=== PATIENT | female | born 1970 | race Caucasian/White ===

== ENCOUNTER 2024-08-13 01:25 | Inpatient (IN) | payer MEDICARE, MEDICAID, SELFPAY ==
[2024-08-13] VITALS (27 sets, daily range): BP systolic 98–140; BP diastolic 57–80; PULSE 92–131; RESP 12–31; TEMP 35.8–39.2; O2SAT 88–97; BMI 33.6; BMI 26.5
--- NOTE | 2024-08-13 01:38 | EDNOTE_ITS ---
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 Upon EMS arrival, the patient was noted to have an oxygen saturation of 88% on room air and was subsequently placed on a non- rebreather mask. Due to the patient's baseline non-verbal status and mental status, a complete history of present illness (HPI) and review of systems (ROS) were unobtainable. Related Data Previous Rx's ?Medication ?Instructions ?Recorded sennosides 8.8 mg/5 mL oral syrup 10 ml PO BID PRN constipation #236 12/13/22 mL atorvastatin 10 mg tablet (Lipitor) 10 mg feeding tube HS 30 days #30 01/12/23 tabs balsam gia-castor oil topical 1 applic top BID ##0 01/13/23 ointment (Venelex topical ointment) lansoprazole 30 mg delayed 30 mg PO QDAY #30 tabs 01/13/23 release,disintegrating tablet (Prevacid SoluTab) midodrine 10 mg tablet 10 mg PO TID hypotension 1 month 12/03/23 #90 tabs cephalexin 500 mg capsule 500 mg feeding tube BID #10 caps 02/06/24 Allergies Allergy/AdvReac Type Severity Reaction Status Date / Time chloral hydrate Allergy Mild unknown Verified 11/08/22 15:02 Review of Systems Review of Systems ROS Unobtainable: unobtainable due to mental status Past Medical History Past Medical History NEUROLOGIC: Positive Neurological Disorders; Negative Seizures CARDIAC: Negative Cardiac Disorders, Hypercholesterolemia, Congestive Heart Failure or Hypertension RESPIRATORY: Positive Sleep Apnea; Negative Chronic Obstructive Pulmonary Disease (COPD) or Asthma GASTROINTESTINAL: Negative Gastrointestinal Disorders or Hepatitis GENITOURINARY: Positive Genitourinary Disorders; Negative Renal Disease, Kidney Stones, Polycystic Kidney Disease, Neurogenic Bladder, Inguinal Hernia, Dialysis or Benign Prostatic Hyperplasia MUSCULOSKELETAL: Positive Musculoskeletal Disorders and Scoliosis ENT: Positive Cataracts, Blind and Deafness ENDOCRINE: Positive Diabetes Mellitus Type 2; Negative Diabetes Mellitus Type 1 HEMATOLOGIC: Negative Blood Disorders or Sickle Cell Disease OTHER HISTORY: Positive Hospitalization, Developmental Delay, Falls and Rubella (Chinese Measles); Negative Autoimmune Disease, Blood Transfusions, Anesthesia Reactions, MRSA, VRSA, Vancomycin-Resistant Enterococci, Human Immunodeficiency Virus (HIV), Chicken Pox, Measles, Mumps, Pertussis, Clostridium Difficile or Cancer Family History FAMILY HISTORY: Positive Family Cardiac Disorders and Family Cancer; Negative Family Respiratory Disorders or Family Gastrointestinal Problems Surgical History SURGICAL: Positive Cardiac Surgery, Eye Surgery and Hysterectomy; Negative Endocrine Surgery, Abdominal Surgery, Nephrectomy or Neurologic Surgery Social History SMOKING STATUS: Unknown if ever smoked SUBSTANCE USE: does not use ED Exam Narrative Physical exam: GENERAL APPEARANCE: Bedbound, chronic contractures, responds to verbal and tactile stimulus, mild respiratory distress VITALS: All vitals were reviewed and the pulse ox is 92% on 15 L/min via oxy mask, which is hypoxic according to my interpretation. HEENT: Normocephalic, atraumatic; pupils equal, round, reactive to light; EOMI; mucous membranes pink, moist; oropharynx clear NECK: Supple LUNGS: bilateral rales HEART: tachycardic rate, regular rhythm; normal S1, S2; no murmurs ABDOMEN: non distended; normal BS; soft, no tenderness, no guarding EXTREMITIES: Chronic contractures; atraumatic; no edema NEUROLOGIC: awake SKIN: Increased warmth, pallor; no rashes General Limitations: Present other (developmentally delayed, non-verbal at baseline per records) Course Course Course Narrative: 0145 Sepsis alert initiated. Orders made at this time are congruent with ED Adult Sepsis Order List. Re-evaluation is to be completed. 0230 Sepsis reassessment performed consisting of lab review, vitals, physical exam including auscultation of heart, lungs, and visual evaluation of capillary refills, mucosal membranes and extremities. CXR is ordered for determining etiology of shortness of breath. Quality Measures Current suspected stage: sepsis Possible source: unknown Blood cultures ordered: yes Antibiotic ordered: Yes Pertinent labs: 08/13/24 08/13/24 02:16 02:19 Lactic Acid 1.6 mMol/L (0.4-2.0) Procalcitonin 0.68 H ng/ml (0.0-0.49) sepsis Orders Category Date Time Status Bedside COVID-19 Antigen Test NOW Care 08/13/24 03:41 Active Abrasive Grinder NOW Care 08/13/24 01:41 Active EKG (ED ONLY) *Do not use* NOW Care 08/13/24 01:41 Completed Mina [Urinary Catheter] QS Care 08/13/24 04:03 Active Insert IV NOW Care 08/13/24 02:16 Active Obtain weight NOW Care 08/13/24 04:03 Active EKG (ED Only) Stat Exams 08/13/24 01:41 Ordered XR chest 1V portable Stat Exams 08/13/24 01:41 Taken B-Type Natriuretic Peptide Stat Lab 08/13/24 02:16 Completed Blood Culture (Lab) Stat Lab 08/13/24 02:19 Received CBC Stat Lab 08/13/24 02:16 Completed Comprehensive Metabolic Panel Stat Lab 08/13/24 02:16 Completed Lactate (Lactic Acid) Stat Lab 08/13/24 02:19 Completed Lipase Stat Lab 08/13/24 02:16 Completed Magnesium Stat Lab 08/13/24 02:16 Completed Partial Thromboplastin Time Stat Lab 08/13/24 02:16 Completed Procalcitonin Stat Lab 08/13/24 02:16 Completed Prothrombin Time with INR Stat Lab 08/13/24 02:16 Completed Troponin I Stat Lab 08/13/24 02:16 Completed Urinalysis Stat Lab 08/13/24 02:07 Completed Urine Culture Stat Lab 08/13/24 02:07 Received Acetaminophen Supp [Tylenol Supp] Med 08/13/24 02:13 Discontinued 650 mg [place] X1 ONE Sodium Chloride 0.9% 1000 ml [Ns] 1,000 ml Med 08/13/24 01:42 Discontinued IV 999 mls/hr Sodium Chloride 0.9% 1000 ml [Ns] 1,000 ml Med 08/13/24 04:05 Discontinued IV 999 mls/hr Vital Signs Vital signs: Vital Signs Temperature 102.5 F H 08/13/24 01:45 Pulse Rate 131 H 08/13/24 01:45 Respiratory Rate 27 H 08/13/24 01:45 Blood Pressure 140/77 H 08/13/24 01:45 Pulse Oximetry (%) 91 L 08/13/24 01:45 Oxygen Delivery Method Oxy Mask 08/13/24 01:45 Oxygen Flow Rate 15 08/13/24 01:45 Shortness of Breath / Dyspnea MDM Narrative MDM Narrative:: Urine culture 02/05/2024 Pseudomonas aeruginosa sensitive to Zosyn 54-year-old female sent over from [facility] for shortness of breath. Patient meets septic criteria. F 102.5, HR 131 bpm, WBC 17.8. Appropriate labs ordered. 0304 Discussed with hospitalist who accepts patient for admission. Scribe Attestation: I, Nae Mccullough, am scribing for and in the presence of Dr. Gonzalez. Provider Notation: Although this document has been carefully reviewed, there may still be some phonetic and other typographical errors. These errors are purely grammatical due to imperfections in the software program and should not be construed in any way to compromise the substance of the patient's medical care during this visit. Patient data External records reviewed:: [facility] previous records, EMS form and Longterm records Clinical information provided by:: EMS and none ([facility]) Social determinants that could affect healthcare access:: none Patient has the following chronic illnesses:: See PMH How is presenting disease/condition affected by chronic disease/condition?: uneffected by Evaluation data The following diagnostics were reviewed and interpreted by me:: lab results, radiology exam(s) and EKG tracing(s) Lab and/or radiology exams considered but not ordered:: None Interpretation Summary: I personally reviewed the radiology data and agree with the radiologist's interpretation. Medications / Prescriptions Medications or Prescriptions considered but not ordered:: None Medication administrations:: Medication Administration History Dextrose (Dextrose 50%-Water Inj 50 Ml Syringe) 25 ml IV Q15MIN PRN PRN Reason: BG 50-70 responsive npo pt Stop: 09/12/24 04:13 Dextrose (Dextrose 50%-Water Inj 50 Ml Syringe) 50 ml IV Q15MIN PRN PRN Reason: BG <50 OR BG <70 & pt unresponsive Stop: 09/12/24 04:13 Enoxaparin Sodium (Enoxaparin Sod Inj 40 Mg/0.4 Ml Syringe) 40 mg SC QDAY [facility] Stop: 08/27/24 08:59 Glucagon (Glucagon Inj 1 Mg Vial) 1 mg IM Q15MIN PRN PRN Reason: BG <70, and no IV access Cefepime HCl 2 gm/ Sodium (Chloride) 50 mls @ 100 mls/hr IV Q8HR [facility] Stop: 08/20/24 13:59 Sodium Chloride (Ns) 1,000 mls @ 75 mls/hr IV .[id number] [facility] Metronidazole (Flagyl 500 Mg Iv) 500 mg in 100 mls @ 200 mls/hr IV Q8HR [facility] Stop: 08/20/24 04:20 Insulin Glargine (Insulin Glargine (Lantus) 5 Unit/0.05 Ml (Per 5 Units)) 10 unit SC HS [facility] Stop: 09/12/24 20:59 Insulin Human Lispro (Insulin Lispro (Admelog) 1 Unit/0.01 Ml Unit) 0 unit SC Q6HR [facility]; Protocol Stop: 09/12/24 05:59 Ipratropium [place] (Ipratropium Rt 0.5 Mg/ 2.5 Ml Nebu) 0.5 mg INH Q6HRRT [facility] Stop: 09/12/24 06:59 Levalbuterol HCl (Levalbuterol Rt 0.63 Mg/3 Ml Nebu) 0.63 mg INH Q6HRRT [facility] Stop: 09/12/24 06:59 Ondansetron HCl (Ondansetron Inj 2 Mg/Ml Inj 2 Ml) 4 mg IV Q6H PRN; Protocol PRN Reason: NAUSEA OR VOMITING Stop: 09/12/24 04:06 Pantoprazole Sodium (Pantoprazole Inj 40 Mg Vial) 40 mg IVP QDAY [facility] Stop: 09/12/24 08:59 Pharmacy Consult (Vancomycin Pharmacy To Dose 1 Each Each) 1 each IV QDAY [facility] Stop: 09/12/24 04:14 Discontinued Medications Acetaminophen (Acetaminophen Supp 650 Mg Supp) 650 mg [place] X1 ONE Stop: 08/13/24 02:14 Last Admin: 08/13/24 02:23 Dose: 650 mg Documented By: LB Sodium Chloride (Ns) 1,000 mls @ 999 mls/hr IV .Q1H1M ONE Stop: 08/13/24 02:42 Last Infusion: 08/13/24 03:20 Dose: Infused Documented By: Admin: 08/13/24 02:15 Dose: 999 mls/hr Documented By: EVEILA Sodium Chloride (Ns) 1,000 mls @ 999 mls/hr IV .Q1H1M ONE Stop: 08/13/24 05:05 Last Admin: 08/13/24 04:48 Dose: 999 mls/hr Documented By: EVELIA Cefepime HCl 2 gm/ Sodium (Chloride) 50 mls @ 100 mls/hr IV X1 ONE Stop: 08/13/24 04:44 Sodium Chloride (Sodium Chloride Rt 10% 15 Ml Nebu) 5 ml INH X1 ONE Stop: 08/13/24 04:18 As above Consultations Consultation(s) initiated? (list below): Yes Consultation #1 (Physician, Specialty, Details): Hospitalist made aware of the patient?s HPI, PMHx, lab and/or radiology results. Treatment plan was discussed. Accepts patient for admission. Diagnosis Shortness of Breath Differential Diagnosis: other (fever, viral infection, sepsis, hypoxia, respiratory failure) Most likely diagnosis given after review of the tests above:: See clinical impression below Admission Indicated Admission indicated?: indicated Admission Request Was there a request for admission?: Yes Admission Attestation Admission request attestation: Discussed case with [] from Hospitalist service regarding admission. Discussed patients ED course, exam findings, labs, and radiology results. The Hospitalist [agrees,declines] to accept the patient for admission. Disposition Plan Disposition Plan: Admit Critical Care Time Critical Care Time Critical Care Time: Yes Total Critical Care Time (min.): 45 Attestation: The high probability of sudden, clinically significant deterioration in the patient?s condition required the highest level of my preparedness to intervene urgently. ? The services I provided to this patient were to treat and/or prevent clinically significant deterioration. Services included the following: chart data review, reviewing nursing notes and/or old charts, documentation time, application consultant collaboration regarding findings and treatment options, medication orders and management, direct patient care, vital sign assessments and ordering, interpreting and reviewing diagnostic studies and lab tests. ? Aggregate critical care time includes only time during which I was engaged in work directly related to the patient?s care, as described above, whether at bedside or elsewhere in the Emergency Department. It did not include time spent performing other reported procedures or the services of residents, students, nurses or physician assistants. Discharge Plan Plan Patient Disposition: Admit Acute Care w/in Hospital Disposition Comment: Dr. Lerma, [facility] Problem List Clinical Impression: Sepsis, UTI (urinary tract infection), Pneumonia
--- NOTE | 2024-08-13 01:41 | XR_ITS ---
Examination: AP chest single view Technique one AP portable upright chest single view Exam date and time: August 13, 2024 0152 hrs. Comparison February 05, 2024 Indications: Chest pain shortness of breath today. Findings: Significant right base pneumonia Moderate heart failure with enlargement cardiac contour prominent vascular congestion and perihilar edema Stable small pulmonary nodule left upper lobe Impression: Significant right base pneumonia Moderate heart failure
--- NOTE | 2024-08-13 01:44 | PC.NURSE ---
sepsis alert initiated
--- NOTE | 2024-08-13 01:48 | PC.NURSE ---
Pt seen by Dr. Gonzalez, orders received.
[2024-08-13] MEDS: SODIUM CHLORIDE 0.9% 1000 ML 1,000 ML 999 ML IV ×2 (02:15→04:48)
[2024-08-13] MEDS: ACETAMINOPHEN SUPP 650 MG SUPP PR (02:23)
[2024-08-13 02:24] LABS: Collection Type, Urine Clean Catch; RBC,Urine 0 /hpf (0-3); Squamous Epithelial Cell,Urine 0 /hpf (0-5); WBC,Urine 0 /hpf (0-5)
[2024-08-13 02:25] LABS: Lactate (Lactic Acid) 1.6 mMol/L (0.4-2.0)
[2024-08-13 02:32] LABS: Basophils % (Auto) 0 % (0-2.5); Eosinophils % (Auto) 0 % (0-10); Hematocrit 43.9 % (36.0-46.0); Hemoglobin 14.5 g/dL (12.0-16.0); Immature Granulocytes % (Auto) 0 % (0-0); Immature Granulocytes Auto 0.05 Thou/mm3 (0.00-0.00); Lymphocytes # (Auto) 0.5 Thou/mm3 (1.0-4.8); Lymphocytes % (Auto) 3 % (10-50); Mean Corpuscular Hemoglobin 29.1 pg (25.0-35.0); Mean Corpuscular Volume 88 fL (80-100); Monocytes # (Auto) 0.7 Thou/mm3 (0.0-0.8); Monocytes % (Auto) 4 % (0-12); Neutrophils # (Auto) 16.5 Thou/mm3 (1.8-7.7); Neutrophils % (Auto) 93 % (37-80); Nucleated Red Blood Cell % 0 /100 WBC (0); Platelet Count 251 Thou/mm3 (140-440); RDW Standard Deviation 48.1 fL (36.4-46.3); Red Blood Count 4.99 Miln/mm3 (4.00-5.20); White Blood Count 17.8 Thou/mm3 (3.6-11.0)
[2024-08-13 02:47] LABS: Partial Thromboplastin Time 31.3 Seconds (22.0-36.0); Prothrombin Time 11.4 Seconds (9.0-12.2)
[2024-08-13 03:52] LABS: Bilirubin,Urine Negative (Negative); Blood,Urine 3+ (Negative); Color,Urine Orange (Lt Yel-Yel); Glucose, Urine Negative (Negative); Ketones,Urine Trace (Negative); Leukocyte Esterase,Urine Positive (Negative); Nitrite,Urine Negative (Negative); PH,Urine 7.5 (5.0-7.0); Protein,Urine 3+ (Neg - Trace); Specific Gravity,Urine 1.012 (1.001-1.035)
[2024-08-13 04:00] LABS: B-Type Natriuretic Peptide 506 pg/mL (0-100)
[2024-08-13 04:01] LABS: Alanine Aminotransferase 12 U/L (10-49); Albumin, Serum 4.3 gm/dL (3.5-5.0); Albumin/Globulin Ratio 1.3 (1.2-2.2); Alkaline Phosphatase 114 U/L (46-116); Anion Gap 6 (7-16); Aspartate Amino Transferase 19 U/L (0-34); BUN/Creatinine Ratio 63 Ratio (12-20); Bilirubin,Total 0.6 mg/dL (0.3-1.2); Blood Urea Nitrogen 50 mg/dL (9-23); Carbon Dioxide 37.6 mMol/L (20.0-31.0); Chloride 90 mMol/L (98-107); Creatinine (Component) 0.8 mg/dL (0.6-1.3); Globulin 3.4 gm/dL (2.3-3.5); Glucose 214 mg/dL (74-106); Lipase 26 U/L (12-53); Magnesium 2.2 mg/dL (1.6-2.6); Osmolality,Calculated 287 (275-295); Potassium 3.8 mMol/L (3.4-5.1); Procalcitonin 0.68 ng/ml (0.0-0.49); Sodium 134 mMol/L (136-145); Total Protein 7.7 gm/dL (5.7-8.2); eGFR > 60 See Note
[2024-08-13 04:04] LABS: Troponin I 0.185 ng/mL (0.0-0.045)
--- NOTE | 2024-08-13 04:11 | XR_ITS ---
Examination: CTA chest with intravenous contrast 2-D reconstructions 3-D reconstructions, vascular Date and time of exam: August 13, 2024 0813 hrs. Indications: Hypoxia, chest pain shortness of breath today CTDI: vol (mGy) 30.8 DLP: (mGycm) 478 Technique: Multiple axial sections of the thorax have been obtained. 3 mm slice thickness, from below the hemidiaphragms to above the apices of the lungs. Mediastinal and lung density settings have been obtained. 2-D sagittal and coronal reconstructions. 3-D angiographic renderings, 3-D volume renderings, 3D post processing, vascular maximum intensity projections obtained. Contrast administered is 100 cc Isovue-370 intravenous. Low dose protocols were performed. One or more of the following dose reduction techniques were used; automated exposure control, adjustment of the mA and/or KV according to patient size, use of iterative reconstruction technique. Findings: No thoracic aortic aneurysm dilatation Main pulmonary artery segment 28 mm No pulmonary artery emboli Severe diffuse pneumonia right lung Mild left vascular congestion Compression of the main right stem bronchus No visualized liver or splenic lesion Tiny 1 mm gallstone No pancreatic mass Kidneys partially visualized with wall thickening involving the pelvic calyceal systems consider urinary tract infection Severe thoracic levoscoliosis Impression: Negative for pulmonary artery emboli, negative for pulmonary artery hypertension Severe diffuse right lung pneumonia, consider bronchoscopy Cholelithiasis Suspicious for urinary tract infection
[2024-08-13 04:18] LABS: Clarity,Urine Turbid (Clear/Hazy)
--- NOTE | 2024-08-13 04:19 | ESHP_ITS ---
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 History is unobtainable from the patient, she is nonverbal. She has a history of previous ICU admission for septic shock secondary to pneumonia/UTI in November 2023. Noted in the chart from [facility] there is a POLST form signed 12/04/2023 for DNR, Comfort-Focused Treatment. Contacted patient's surrogate decision makers, Kayleen and Shen Wise, mother and father who would like patient to be treated for pneumonia. Patient additionally admitted as full code, per parents, however they will discuss among themselves further once they reach the hospital. ED Course: -Initial vitals were BP 140/77, HR 131, RR 27, Temp 102.5, O2 91% on 15L OxyMask -Labs significant for WBC 17.8, Na 134, Cl 90, CO2 37.6, BUN 50, troponin 0.185, BNP 506, procal 0.68, lactic acid 1.6. -CXR showed significant bilateral infiltrate and pulmonary congestion -In the ED, patient was given 1L IV NS bolus, acetaminophen 650 mg [place] x1 -Patient was admitted for sepsis secondary to pneumonia Review of Systems Review of systems otherwise negative except what is mentioned above. 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 Some localization to tactile stimulus. HEENT: Bilateral cataracts, eyelids closed, dried mucous around eyes and mouth. Heart: Tachycardic rate and regular rhythm, no murmurs. Lungs: Diffuse bilateral wet rhonchi. Abdomen: Soft, nondistended, nontender, positive bowel sounds. ?PEG tube in place without discharge or purulent material. Neurologic: Moves upper extremities to pain, nonverbal at baseline : Mina bag (new since ED admission 08/13/2024) with purulent clots and dark sediment throughout Extremities: Mild peripheral dependent edema. Skin: No rash or ecchymoses. Results: Labs 08/13/24 05:33 08/13/24 05:33 Labs: Short CBC 08/13/24 Range/Units 02:16 WBC 17.8 H (3.6-11.0) Thou/mm3 Hgb 14.5 (12.0-16.0) g/dL Hct 43.9 (36.0-46.0) % Plt Count 251 (140-440) Thou/mm3 BMP 08/13/24 02:16 Sodium 134 L Potassium 3.8 Chloride 90 L Carbon Dioxide 37.6 H BUN 50 H Creatinine 0.8 Glucose 214 H Calcium 10.0 Cardiac Enzymes 08/13/24 Range/Units 02:16 Troponin I 0.185 H* (0.0-0.045) ng/mL Liver Function 08/13/24 Range/Units 02:16 Total Bilirubin 0.6 (0.3-1.2) mg/dL AST 19 (0-34) U/L ALT 12 (10-49) U/L Alkaline Phosphatase 114 (46-116) U/L Albumin 4.3 (3.5-5.0) gm/dL Urine 08/13/24 Range/Units 02:07 Urine Color [place] A (Lt Yel-Yel) Urine Clarity Turbid A (Clear/Hazy) Urine pH 7.5 H (5.0-7.0) Ur Specific [place] 1.012 (1.001-1.035) Urine Protein 3+ A (Neg - Trace) Urine Glucose (UA) Negative (Negative) Quality Measures Quality Measures sepsis Current suspected stage: sepsis Possible source: unknown Blood cultures ordered: yes Antibiotic ordered: Yes Medications Home Medications and Allergies Allergies Allergy/AdvReac Type Severity Reaction Status Date / Time chloral hydrate Allergy Mild unknown Verified 11/08/22 15:02 Visit Medications Dextrose (Dextrose 50%-Water Inj 50 Ml Syringe) 25 ml IV Q15MIN PRN PRN Reason: BG 50-70 responsive npo pt Stop: 09/12/24 04:13 Dextrose (Dextrose 50%-Water Inj 50 Ml Syringe) 50 ml IV Q15MIN PRN PRN Reason: BG <50 OR BG <70 & pt unresponsive Stop: 09/12/24 04:13 Enoxaparin Sodium (Enoxaparin Sod Inj 40 Mg/0.4 Ml Syringe) 40 mg SC QDAY [facility] Stop: 08/27/24 08:59 Glucagon (Glucagon Inj 1 Mg Vial) 1 mg IM Q15MIN PRN PRN Reason: BG <70, and no IV access Sodium Chloride (Ns) 1,000 mls @ 999 mls/hr IV .Q1H1M ONE Stop: 08/13/24 05:05 Cefepime HCl 2 gm/ Sodium (Chloride) 50 mls @ 100 mls/hr IV Q8HR [facility] Stop: 08/20/24 13:59 Cefepime HCl 2 gm/ Sodium (Chloride) 50 mls @ 100 mls/hr IV X1 ONE Stop: 08/13/24 04:44 Sodium Chloride (Ns) 1,000 mls @ 75 mls/hr IV .[id number] [facility] Stop: 08/13/24 17:34 Insulin Glargine (Insulin Glargine (Lantus) 5 Unit/0.05 Ml (Per 5 Units)) 10 unit SC HS [facility] Stop: 09/12/24 20:59 Insulin Human Lispro (Insulin Lispro (Admelog) 1 Unit/0.01 Ml Unit) 0 unit SC Q6HR [facility]; Protocol Stop: 09/12/24 05:59 Ipratropium [place] (Ipratropium Rt 0.5 Mg/ 2.5 Ml Nebu) mg INH Q6HRRT [facility] Stop: 09/12/24 06:59 Levalbuterol HCl (Levalbuterol Rt 0.63 Mg/3 Ml Nebu) 0.63 mg INH Q6HRRT [facility] Stop: 09/12/24 06:59 Ondansetron HCl (Ondansetron Inj 2 Mg/Ml Inj 2 Ml) 4 mg IV Q6H PRN; Protocol PRN Reason: NAUSEA OR VOMITING Stop: 09/12/24 04:06 Pantoprazole Sodium (Pantoprazole Inj 40 Mg Vial) 40 mg IVP QDAY [facility] Stop: 09/12/24 08:59 Pharmacy Consult (Vancomycin Pharmacy To Dose 1 Each Each) 1 each IV QDAY [facility] Stop: 09/12/24 04:14 Discontinued Medications Acetaminophen (Acetaminophen Supp 650 Mg Supp) 650 mg [place] X1 ONE Stop: 08/13/24 02:14 Last Admin: 08/13/24 02:23 Dose: 650 mg Sodium Chloride (Ns) 1,000 mls @ 999 mls/hr IV .Q1H1M ONE Stop: 08/13/24 02:42 Last Infusion: 08/13/24 03:20 Dose: Infused Sodium Chloride (Sodium Chloride Rt 10% 15 Ml Nebu) 5 ml INH X1 ONE Stop: 08/13/24 04:18 Assessment & Plan Plan 54-year-old female with past medical history of developmental delay, type 2 diabetes, chronically bedbound with indwelling mina, recurrent UTIs, chronic PEG tube, deaf, blind, and 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 #Sepsis, secondary to Healthcare associated pneumonia and/or UTI in setting of chronic indwelling Mina catheter which is visibly expressing purulent material at time of admission Patient met 4/4 SIRS criteria and source being pneumonia as seen on CXR, comes from SNF. UA sample does not show bacteria or WBCs however urine in the Mina bag was showing purulent clots and dark sediments and patient has history of recurrent UTIs due to indwelling Mina catheter. Mina was changed in ED, 08/13/2024. COVID, flu negative. -Will cover with broad spectrum antibiotics -Cefepime 2 g q8h -Metronidazole 500 mg q8h -Vancomycin pharmacy to dose -RSV ordered -Cocci ordered -Ipratropium and levalbuterol scheduled q6h -Sputum cultures -Blood cultures pending -Urine culture pending -MRSA screen -Chest physiotherapy -CTA chest pending -Fluids initially given per sepsis protocol however stopped, Lasix 40 mg IV x 1 dose given considering likely fluid overload increasing O2 requirements -Follow up ABGs #Elevated troponin #Likely NSTEMI type 2 in setting of sepsis Troponin 0.185 -Trend troponin, scheduled for 10 AM #History of type 2 diabetes On admission initial glucose 214. A1c 7.7 in November 2023. Patient is on insulin glargine 15 U qday per SNF. -Bedside blood glucose checks q6h -Insulin glargine 10 U qday -Insulin lispro sliding scale, adjusted as necessary -Consulted landmen for tube feeding -A1c pending DVT prophylaxis: Lovenox 40 mg subQ GI prophylaxis: Pantoprazole 40 mg IV daily Diet: NPO Mina: Placed new in ED 08/13/2024 Lines: Peripheral IV Antibiotics: Cefepime, metronidazole, vancomycin CODE STATUS: FULL per the patient's parents early this morning Reason for hospitalization: Sepsis secondary to bilateral pneumonia Patient plan of care was discussed with the attending physician, Dr. Lerma. Cee Mcnulty, PGY-2 Attending Provider Attestation/Addendum I have discussed and was present for the essential components of the history, physical examination, diagnosis, and treatment plan with the resident. I agree with the patient's care as documented by the resident and amended herein by me. Brayden Lerma DO. Although this document has been carefully reviewed, there may still be some phonetic and other typographical errors. These errors are purely grammatical due to imperfections in the software program and should not be construed in any way to compromise the substance of the patient's medical care during this visit.
[2024-08-13 04:38] LABS: Base Excess 9 (-3-3); HCO3 39 mEq/L (20-26); Inspired Oxygen, FIO2 100 %; O2 Saturation 87 % (91-98); PCO2 85 mmHg (32.0-48.0); PO2 62 mmHg (83-108); pH, Arterial 7.27 (7.35-7.45)
[2024-08-13 04:41] LABS: Allen Test Performed/OK; Puncture Site Right Radial
[2024-08-13] MEDS: metroNIDAZOLE/NS 500 MG IVPB 500 MG/100 ML BAG 200 MG IV ×3 (05:01→21:09)
--- NOTE | 2024-08-13 05:06 | PC.NURSE ---
Pt having difficulty breathing and unable to maintain O2 sats HBS RT at bedside, setting up BIPAP.
[2024-08-13 05:17] LABS: Respiratory Syncytial Virus Ag Negative (Negative)
--- NOTE | 2024-08-13 05:20 | PC.NURSE ---
HBS at bedside, pt placed on BIPAP 22/10, BR 28, FIO2 100%
[2024-08-13] MEDS: FUROSEMIDE INJ 10 MG/ML 4ML VIAL 40 MG IVP (05:21)
[2024-08-13] MEDS: CEFEPIME INJ 2 GM in SODIUM CHLORIDE 0.9% 50 ML IV ×2 (05:21→21:37)
--- NOTE | 2024-08-13 05:25 | PD.RESEVENT ---
Documentation for date of: 08/13/24 Event Note Event Note: @05:00 am: Called and spoke with Cristo Wise , parents and surrogate decision makers for the patient. In the patient's chart from [facility] there is a POLST form which is signed 12/04/2023 as DNR/Comfort-Focused Treatment only. Discussed current status of the patient including sepsis and critically ill state. They requested full admission and treatment of sepsis and pneumonia at this time. As the patient was desaturating on 15L OxyMask, maxed on HiFlow settings, and now transitioned to BiPAP, Code Status was again discussed, and at this time they would like to change code status from DNR to FULL CODE including possible intubation should it become necessary until they arrive to see the patient later this morning and come to a decision. Patient plan of care was discussed with the attending physician, Dr. Lerma. Cee Mcnulty, PGY-2
[2024-08-13 05:38] LABS: Base Excess 5 (-3-3); HCO3 35 mEq/L (20-26); Inspired Oxygen, FIO2 100 %; O2 Saturation 97 % (91-98); PCO2 80 mmHg (32.0-48.0); PO2 104 mmHg (83-108); pH, Arterial 7.26 (7.35-7.45)
[2024-08-13 05:40] LABS: Allen Test Performed/OK; Puncture Site Right Radial
[2024-08-13] MEDS: IPRATROPIUM RT 0.5 MG/ 2.5 ML NEBU INH ×3 (05:50→18:17)
[2024-08-13] MEDS: LEVALBUTEROL RT 0.63 MG/3 ML NEBU INH ×3 (05:50→18:17)
[2024-08-13 05:54] LABS: Basophils % (Auto) 0 % (0-2.5); Eosinophils % (Auto) 0 % (0-10); Hematocrit 41.4 % (36.0-46.0); Hemoglobin 13.2 g/dL (12.0-16.0); Immature Granulocytes % (Auto) 0 % (0-0); Lymphocytes # (Auto) 0.3 Thou/mm3 (1.0-4.8); Lymphocytes % (Auto) 7 % (10-50); Mean Corpuscular HGB Conc 31.9 g/dl (31.0-37.0); Mean Corpuscular Hemoglobin 28.9 pg (25.0-35.0); Mean Corpuscular Volume 91 fL (80-100); Monocytes # (Auto) 0.3 Thou/mm3 (0.0-0.8); Monocytes % (Auto) 6 % (0-12); Neutrophils # (Auto) 4.6 Thou/mm3 (1.8-7.7); Neutrophils % (Auto) 88 % (37-80); Nucleated Red Blood Cell % 0 /100 WBC (0); Platelet Count 182 Thou/mm3 (140-440); RDW Standard Deviation 49.3 fL (36.4-46.3); Red Blood Count 4.56 Miln/mm3 (4.00-5.20); White Blood Count 5.3 Thou/mm3 (3.6-11.0)
--- NOTE | 2024-08-13 06:01 | PC.LAC ---
Pt tolerating BIPAP well, maintaining O2 sats at 94%.
[2024-08-13] MEDS: VANCOMYCIN/NS 1 GM IVPB 200 ML IV ×2 (06:08→22:08)
[2024-08-13 06:52] LABS: Anion Gap 7 (7-16); BUN/Creatinine Ratio 55 Ratio (12-20); Blood Urea Nitrogen 33 mg/dL (9-23); Calcium 8.5 mg/dL (8.3-10.6); Carbon Dioxide 28.9 mMol/L (20.0-31.0); Chloride 100 mMol/L (98-107); Creatinine (Component) 0.6 mg/dL (0.6-1.3); Estimated Creatinine Clearance 83.3 mL/min (>60); Glucose 154 mg/dL (74-106); Osmolality,Calculated 282 (275-295); Potassium 4.2 mMol/L (3.4-5.1); Sodium 136 mMol/L (136-145); eGFR > 60 See Note
[2024-08-13 06:58] LABS: Glucose Estimated Average 100 mg/dL (80-131); Hemoglobin A1C 5.1 % Hgb (4.8-6.0)
--- NOTE | 2024-08-13 07:44 | PC.NURSE ---
Assuming care of patient. Patient's POLST states DNR comfort focused treatment only. MD notified and is aware of POLST and states that the night MD team contact family and family requested to have her be treated.
[2024-08-13 07:55] LABS: Base Excess 8 (-3-3); HCO3 37 mEq/L (20-26); Inspired Oxygen, FIO2 100 %; O2 Saturation 98 % (91-98); PCO2 74 mmHg (32.0-48.0); PO2 104 mmHg (83-108); pH, Arterial 7.31 (7.35-7.45)
[2024-08-13 07:56] LABS: Allen Test Performed/OK; Puncture Site Right Radial
[2024-08-13] MEDS: PANTOPRAZOLE INJ 40 MG VIAL IVP (10:34)
[2024-08-13] MEDS: ENOXAPARIN SOD INJ 40 MG/0.4 ML SYRINGE SC (10:34)
[2024-08-13 11:37] LABS: Troponin I 0.073 ng/mL (0.0-0.045)
[2024-08-13] MEDS: ONDANSETRON INJ 2 MG/ML INJ 2 ML 4 MG IV (12:02)
--- NOTE | 2024-08-13 13:06 | ESPR_ITS ---
Documentation for date of: 08/13/24 Subjective Subjective Interval history: Patient was seen at bedside this morning. No overnight events. Patient continues on BiPAP was saturating well on BiPAP. ABG came back and showed hypercapnia. No other complaints at this time. 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 Mouth/Throat: Dry mucous membranes, no redness, no lesions. Neck: Neck supple, non-tender, no cervical lymphadenopathy. Lungs: Bilateral rhonchi Cardio: Normal S1/S2, tachycardic rhythm, no murmurs, no JVD Abdomen: Soft, no palpable masses, peristalsis present, PEG tube in place with no visible discharge Extremities: Contracted lower extremities with some trace peripheral edema Skin: No rashes, no lesions, warm to touch. Neuro: Cannot be assessed due to patient's medical condition Objective Labs 08/14/24 05:29 08/14/24 05:29 Labs: Laboratory Results - last 24 hr 08/13/24 08/13/24 08/13/24 02:07 02:16 02:19 WBC 17.8 H RBC 4.99 Hgb 14.5 Hct 43.9 MCV 88 MCH 29.1 MCHC 33.0 RDW Std Deviation 48.1 H Plt Count 251 Neut % (Auto) 93 H Lymph % (Auto) 3 L [place] % (Auto) 4 Eos % (Auto) 0 Baso % (Auto) 0 Neut # (Auto) 16.5 H Lymph # (Auto) 0.5 L [place] # (Auto) 0.7 Eos # (Auto) 0.0 Baso # (Auto) 0.0 Immature Gran # (Auto) 0.05 H Absolute Nucleated RBC 0.00 Immature Gran % 0 Nucleated RBC % 0 PT 11.4 INR 1.0 APTT 31.3 Puncture Site ABG pH ABG pCO2 ABG pO2 ABG HCO3 ABG O2 Saturation ABG Base Excess FiO2 Sodium 134 L Potassium 3.8 Chloride 90 L Carbon Dioxide 37.6 H Anion Gap 6 L BUN 50 H Creatinine 0.8 Estim Creat Clear Calc Not Performed. eGFR > 60 BUN/Creatinine Ratio 63 H Glucose [address] Glu mg/dL Hemoglobin A1c Calculated Osmolality 287 Lactic Acid 1.6 Calcium 10.0 Corrected Calcium 10.0 Magnesium 2.2 Total Bilirubin 0.6 AST 19 ALT 12 Alkaline Phosphatase 114 Troponin I 0.185 H* B-Natriuretic Peptide 506 H* Total Protein 7.7 Albumin 4.3 Globulin 3.4 Albumin/Globulin Ratio 1.3 Lipase 26 Procalcitonin 0.68 H Ur Collection Type Clean Catch Urine Color Hortense A Urine Clarity Turbid A Urine pH 7.5 H Ur Specific [place] 1.012 Urine Protein 3+ A Urine Glucose (UA) Negative Urine Ketones Trace Urine Blood 3+ A Urine Nitrite Negative Urine Bilirubin Negative Urine Urobilinogen (Auto) 2.0 Ur Leukocyte Esterase Positive Urine RBC 0 Urine WBC 0 Ur Squamous Epith Cells 0 Urine Bacteria None RSV Rapid 08/13/24 08/13/24 08/13/24 04:22 04:29 05:33 WBC 5.3 D RBC 4.56 Hgb 13.2 Hct 41.4 MCV 91 MCH 28.9 MCHC 31.9 RDW Std Deviation 49.3 H Plt Count 182 D Neut % (Auto) 88 H Lymph % (Auto) 7 L [place] % (Auto) 6 Eos % (Auto) 0 Baso % (Auto) 0 Neut # (Auto) 4.6 Lymph # (Auto) 0.3 L [place] # (Auto) 0.3 Eos # (Auto) 0.0 Baso # (Auto) 0.0 Immature Gran # (Auto) 0.00 Absolute Nucleated RBC 0.00 Immature Gran % 0 Nucleated RBC % 0 PT INR APTT Puncture Site Right Radial Right Radial ABG pH 7.27 L 7.26 L ABG pCO2 85 H* 80 H* ABG pO2 62 L 104 D ABG HCO3 39 H 35 H ABG O2 Saturation 87 L 97 ABG Base Excess 9 H 5 H FiO2 100 100 Sodium 136 Potassium 4.2 Chloride 100 Carbon Dioxide 28.9 Anion Gap 7 BUN 33 H Creatinine 0.6 Estim Creat Clear Calc 83.3 eGFR > 60 BUN/Creatinine Ratio 55 H Glucose [address] Glu mg/dL 100 Hemoglobin A1c 5.1 Calculated Osmolality 282 Lactic Acid Calcium 8.5 D Corrected Calcium Magnesium Total Bilirubin AST ALT Alkaline Phosphatase Troponin I B-Natriuretic Peptide Total Protein Albumin Globulin Albumin/Globulin Ratio Lipase Procalcitonin Ur Collection Type Urine Color Urine Clarity Urine pH Ur Specific [place] Urine Protein Urine Glucose (UA) Urine Ketones Urine Blood Urine Nitrite Urine Bilirubin Urine Urobilinogen (Auto) Ur Leukocyte Esterase Urine RBC Urine WBC Ur Squamous Epith Cells Urine Bacteria RSV Rapid Negative 08/13/24 08/13/24 07:47 10:52 WBC RBC Hgb Hct MCV MCH MCHC RDW Std Deviation Plt Count Neut % (Auto) Lymph % (Auto) [place] % (Auto) Eos % (Auto) Baso % (Auto) Neut # (Auto) Lymph # (Auto) [place] # (Auto) Eos # (Auto) Baso # (Auto) Immature Gran # (Auto) Absolute Nucleated RBC Immature Gran % Nucleated RBC % PT INR APTT Puncture Site Right Radial ABG pH 7.31 L ABG pCO2 74 H* ABG pO2 104 ABG HCO3 37 H ABG O2 Saturation 98 ABG Base Excess 8 H FiO2 100 Sodium Potassium Chloride Carbon Dioxide Anion Gap BUN Creatinine Estim Creat Clear Calc eGFR BUN/Creatinine Ratio Glucose Estimated Ave Glu mg/dL Hemoglobin A1c Calculated Osmolality Lactic Acid Calcium Corrected Calcium Magnesium Total Bilirubin AST ALT Alkaline Phosphatase Troponin I 0.073 H* B-Natriuretic Peptide Total Protein Albumin Globulin Albumin/Globulin Ratio Lipase Procalcitonin Ur Collection Type Urine Color Urine Clarity Urine pH Ur Specific Lindsay Urine Protein Urine Glucose (UA) Urine Ketones Urine Blood Urine Nitrite Urine Bilirubin Urine Urobilinogen (Auto) Ur Leukocyte Esterase Urine RBC Urine WBC Ur Squamous Epith Cells Urine Bacteria RSV Rapid ABG Interpretation ABG results: 08/13/24 08/13/24 08/13/24 04:29 05:33 07:47 ABG pH 7.27 L 7.26 L 7.31 L ABG pCO2 85 H* 80 H* 74 H* ABG pO2 62 L 104 D 104 ABG HCO3 39 H 35 H 37 H ABG O2 Saturation 87 L 97 98 ABG Base Excess 9 H 5 H 8 H Quality Measures Quality Measures sepsis Current suspected stage: sepsis Possible source: unknown Blood cultures ordered: yes Antibiotic ordered: Yes Assessment & Plan Assessment Current Active Medications: Generic Name Dose Route Start Last Admin Trade Name Freq PRN Reason Stop Dose Admin Dextrose 25 ml 08/13/24 04:14 Dextrose 50%-Water Inj 50 Ml Syringe IV 09/12/24 04:13 Q15MIN PRN BG 50-70 responsive npo pt Dextrose 50 ml 08/13/24 04:14 Dextrose 50%-Water Inj 50 Ml Syringe IV 09/12/24 04:13 Q15MIN PRN BG <50 OR BG <70 & pt unresponsive Enoxaparin Sodium 40 mg 08/13/24 09:00 08/13/24 10:34 Enoxaparin Sod Inj 40 Mg/0.4 Ml Syringe SC 08/27/24 08:59 40 mg QDAY URBANO Administration Glucagon 1 mg 08/13/24 04:14 Glucagon Inj 1 Mg Vial IM Q15MIN PRN BG <70, and no IV access Cefepime HCl 2 gm/ Sodium 50 mls @ 100 mls/hr 08/13/24 14:00 Chloride IV 08/20/24 13:59 Q8HR URBANO Metronidazole 500 mg in 100 mls @ 200 mls/hr 08/13/24 04:21 08/13/24 06:41 Flagyl 500 Mg Iv IV 08/20/24 04:20 Infused Q8HR URBANO Infusion Vancomycin/Sodium Chloride 200 mls @ 120 mls/hr 08/13/24 22:00 Vancomycin/Ns 1 Gm Ivpb IV 08/20/24 21:59 Q12H [facility] Insulin Glargine 10 unit 08/13/24 21:00 Insulin Glargine (Lantus) 5 Unit/0.05 Ml (Per 5 Units) SC 09/12/24 20:59 HS [facility] Insulin Human Lispro 0 unit 08/13/24 06:00 08/13/24 12:01 Insulin Lispro (Admelog) 1 Unit/0.01 Ml Unit SC 09/12/24 05:59 Not Given Q6HR [facility] Protocol Ipratropium [place] 0.5 mg 08/13/24 07:00 08/13/24 12:14 Ipratropium Rt 0.5 Mg/ 2.5 Ml Nebu INH 09/12/24 06:59 0.5 mg Q6HRRT URBANO Administration Levalbuterol HCl 0.63 mg 08/13/24 07:00 08/13/24 12:14 Levalbuterol Rt 0.63 Mg/3 Ml Nebu INH 09/12/24 06:59 0.63 mg Q6HRRT URBANO Administration Ondansetron HCl 4 mg 08/13/24 04:07 08/13/24 12:02 Ondansetron Inj 2 Mg/Ml Inj 2 Ml IV 09/12/24 04:06 4 mg Q6H PRN Administration NAUSEA OR VOMITING Protocol Pantoprazole Sodium 40 mg 08/13/24 09:00 08/13/24 10:34 Pantoprazole Inj 40 Mg Vial IVP 09/12/24 08:59 40 mg QDAY URBANO Administration Pharmacy Consult 1 each 08/13/24 04:15 Vancomycin Pharmacy To Dose 1 Each Each IV 09/12/24 04:14 QDAY PRN CONSULT Plan 54-year-old female with past medical history of DM2, developmental delay, chronically bedbound with indwelling Bardales catheter, recurrent UTIs, chronic PEG tube, deaf, blind, 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 #Sepsis likely secondary to #Hospital-acquired pneumonia versus #Complicated UTI ? Patient came in and met SIRS criteria 4 out of 4 as well as endorgan damage with elevated troponins ? UA was positive for leukocytes esterase ? Chest x-ray with positive for pneumonia ? Chest CTA was positive for severe diffuse right lung pneumonia and concerning for urinary tract infection Plan: ? Will continue with Flagyl, vancomycin, and cefepime [08/13/2024?] ? Ipratropium levobunolol scheduled every 6 hours ? Sputum, urine, and blood cultures pending ? Chest physiotherapy ordered ? Will continue to monitor #NSTEMI likely type II in the setting of sepsis ? Troponins peaked at 0.185 and down trended Plan: ? Will continue monitor #Hx of DM2 ?A1c 5.1 on 07/2024 Plan: ? ISS ? Accu-Cheks and hypoglycemia protocol ordered ? Will continue to monitor Disposition: Patient admitted to telemetry, continue Abx, no need to trend trops. Diet: NPO GI prophylaxis: protonix DVT prophylaxis: Lovenox Code: Full code Case disclosed with Attending Dr. Sujey Caceres PGY1 Attending Provider Attestation/Addendum I reviewed labs, imaging, EKG, home medications and prior available records. Face to face evaluation was performed by me. I have personally examined the patient and discussed assessment and plan with the IM team. I reviewed the resident note and agree with the plan with exceptions as below. Acute hypoxic respiratory failure Right lower lobe pneumonia Possible aspiration pneumonia Non-STEMI Developmental delay Goals of care discussion/counseling Continue BiPAP Continue vancomycin, cefepime, and metronidazole Trend WBC: Downtrending Follow-up cultures Back to full code. Continue discussion of goals of care with family
--- NOTE | 2024-08-13 13:56 | PC.CC ---
Patient is a 54 year-old female who presents to the hospital for sepsis, pneumonia, and uti. Patient is non-responsive at bedside was patient's father, Shen Wise . Patient's father reports he is patient's medical decision maker. Tana HANNAH made [id number] contact with patient. ASW introduced self, role, and reason for visit. Patient's father completed initial with ASW. Patient's father reports the patient has living at [facility] for a year and half. He disclosed that the patient was born handicap and over the years she has progressively worsen with her health. Patient's father reports the patient is now in a vegitative state. Patient's father reports the patient is bed bound and is a complete assist with all ADLs. Patient's receives primary care with Dr. Weiss. Upon discharge the patient will be returning to [facility]. special services agent to follow up with any discharge needs.
[2024-08-13 14:46] LABS: Cocci Serology, IgM Positive (Negative)
[2024-08-13 14:47] LABS: Cocid Sro, CF/ID (UCD) NO CHG* See Sep Rpt
[2024-08-13] MEDS: CEFEPIME INJ 2 GM in SODIUM CHLORIDE 0.9% (P) 50 ML IV (15:56)
[2024-08-14] VITALS (14 sets, daily range): BP systolic 94–110; BP diastolic 51–78; PULSE 93–125; RESP 16–30; TEMP 36.4–37.2; O2SAT 93–100; BMI 22.1
[2024-08-14] MEDS: IPRATROPIUM RT 0.5 MG/ 2.5 ML NEBU INH ×4 (01:20→19:01)
[2024-08-14] MEDS: LEVALBUTEROL RT 0.63 MG/3 ML NEBU INH ×4 (01:20→19:01)
[2024-08-14] MEDS: CEFEPIME INJ 2 GM in SODIUM CHLORIDE 0.9% 50 ML IV ×3 (05:10→21:18)
[2024-08-14] MEDS: metroNIDAZOLE/NS 500 MG IVPB 500 MG/100 ML BAG 200 MG IV (05:47)
[2024-08-14 06:25] LABS: Basophils % (Auto) 0 % (0-2.5); Eosinophils % (Auto) 0 % (0-10); Hematocrit 36.4 % (36.0-46.0); Hemoglobin 11.4 g/dL (12.0-16.0); Immature Granulocytes % (Auto) 1 % (0-0); Immature Granulocytes Auto 0.06 Thou/mm3 (0.00-0.00); Lymphocytes # (Auto) 0.5 Thou/mm3 (1.0-4.8); Lymphocytes % (Auto) 5 % (10-50); Mean Corpuscular HGB Conc 31.3 g/dl (31.0-37.0); Mean Corpuscular Hemoglobin 29.1 pg (25.0-35.0); Mean Corpuscular Volume 93 fL (80-100); Monocytes # (Auto) 0.4 Thou/mm3 (0.0-0.8); Monocytes % (Auto) 4 % (0-12); Neutrophils # (Auto) 9.3 Thou/mm3 (1.8-7.7); Neutrophils % (Auto) 90 % (37-80); Nucleated Red Blood Cell % 0 /100 WBC (0); Platelet Count 149 Thou/mm3 (140-440); RDW Standard Deviation 52.1 fL (36.4-46.3); Red Blood Count 3.92 Miln/mm3 (4.00-5.20); White Blood Count 10.3 Thou/mm3 (3.6-11.0)
[2024-08-14 06:57] LABS: Anion Gap 8 (7-16); BUN/Creatinine Ratio 56 Ratio (12-20); Blood Urea Nitrogen 39 mg/dL (9-23); Calcium 9.5 mg/dL (8.3-10.6); Carbon Dioxide 35.2 mMol/L (20.0-31.0); Chloride 104 mMol/L (98-107); Creatinine (Component) 0.7 mg/dL (0.6-1.3); Estimated Creatinine Clearance 74.2 mL/min (>60); Glucose 120 mg/dL (74-106); Osmolality,Calculated 302 (275-295); Potassium 3.7 mMol/L (3.4-5.1); Sodium 147 mMol/L (136-145); eGFR > 60 See Note
[2024-08-14 08:08] LABS: Allen Test Performed/OK; Base Excess 11 (-3-3); HCO3 38 mEq/L (20-26); Inspired Oxygen, FIO2 50 %; O2 Saturation 97 % (91-98); PCO2 64 mmHg (32.0-48.0); PO2 79 mmHg (83-108); Puncture Site Right Radial; pH, Arterial 7.39 (7.35-7.45)
--- NOTE | 2024-08-14 08:42 | PD.RESPRO ---
Documentation for date of: 08/14/24 Subjective Subjective Interval history: Patient was seen patient this morning. No overnight events. Patient did not spike any fevers overnight, but she has been tachycardic and tachypneic?currently still on the BiPAP. Ordered ABG again today which showed improvement in patient's hypercapnia, but patient is still hypoxic. Patient sodium was also slightly elevated to 147. Patient's cocci IgM serology came back positive therefore started patient on fluconazole. Blood cultures have been negative in 24 hours. Other complaints this time. 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 Mouth/Throat: Dry mucous membranes, no redness, no lesions. Neck: Neck supple, non-tender, no cervical lymphadenopathy. Lungs: Bilateral rhonchi Cardio: Normal S1/S2, tachycardic rhythm, no murmurs, no JVD Abdomen: Soft, no palpable masses, peristalsis present, PEG tube in place with no visible discharge Extremities: Contracted lower extremities with some trace peripheral edema Skin: No rashes, no lesions, warm to touch. Neuro: Cannot be assessed due to patient's medical condition Objective Labs 08/15/24 06:10 08/15/24 06:10 Labs: Laboratory Results - last 24 hr 08/13/24 08/13/24 08/14/24 05:33 10:52 05:29 WBC 10.3 D RBC 3.92 L Hgb 11.4 L Hct 36.4 MCV 93 MCH 29.1 MCHC 31.3 RDW Std Deviation 52.1 H Plt Count 149 D Neut % (Auto) 90 H Lymph % (Auto) 5 L [place] % (Auto) 4 Eos % (Auto) 0 Baso % (Auto) 0 Neut # (Auto) 9.3 H Lymph # (Auto) 0.5 L [place] # (Auto) 0.4 Eos # (Auto) 0.0 Baso # (Auto) 0.0 Immature Gran # (Auto) 0.06 H Absolute Nucleated RBC 0.00 Immature Gran % 1 H Nucleated RBC % 0 Puncture Site ABG pH ABG pCO2 ABG pO2 ABG HCO3 ABG O2 Saturation ABG Base Excess FiO2 Sodium 147 H D Potassium 3.7 D Chloride 104 Carbon Dioxide 35.2 H Anion Gap 8 BUN 39 H Creatinine 0.7 Estim Creat Clear Calc 74.2 eGFR > 60 BUN/Creatinine Ratio 56 H Glucose 120 H Calculated Osmolality 302 H Calcium 9.5 Troponin I 0.073 H* Coccidioides IgM Ab Positive A 08/14/24 07:57 WBC RBC Hgb Hct MCV MCH MCHC RDW Std Deviation Plt Count Neut % (Auto) Lymph % (Auto) [place] % (Auto) Eos % (Auto) Baso % (Auto) Neut # (Auto) Lymph # (Auto) [place] # (Auto) Eos # (Auto) Baso # (Auto) Immature Gran # (Auto) Absolute Nucleated RBC Immature Gran % Nucleated RBC % Puncture Site Right Radial ABG pH 7.39 ABG pCO2 64 H D ABG pO2 79 L D ABG HCO3 38 H ABG O2 Saturation 97 ABG Base Excess 11 H FiO2 50 Sodium Potassium Chloride Carbon Dioxide Anion Gap BUN Creatinine Estim Creat Clear Calc eGFR BUN/Creatinine Ratio Glucose Calculated Osmolality Calcium Troponin I Coccidioides IgM Ab ABG Interpretation ABG results: 08/13/24 08/13/24 08/13/24 04:29 05:33 07:47 ABG pH 7.27 L 7.26 L 7.31 L ABG pCO2 85 H* 80 H* 74 H* ABG pO2 62 L 104 D 104 ABG HCO3 39 H 35 H 37 H ABG O2 Saturation 87 L 97 98 ABG Base Excess 9 H 5 H 8 H 08/14/24 07:57 ABG pH 7.39 ABG pCO2 64 H D ABG pO2 79 L D ABG HCO3 38 H ABG O2 Saturation 97 ABG Base Excess 11 H Quality Measures Quality Measures sepsis Current suspected stage: ruled out Possible source: unknown Blood cultures ordered: yes Antibiotic ordered: Yes Assessment & Plan Assessment Current Active Medications: Generic Name Dose Route Start Last Admin Trade Name Freq PRN Reason Stop Dose Admin Dextrose 25 ml 08/13/24 04:14 Dextrose 50%-Water Inj 50 Ml Syringe IV 09/12/24 04:13 Q15MIN PRN BG 50-70 responsive npo pt Dextrose 50 ml 08/13/24 04:14 Dextrose 50%-Water Inj 50 Ml Syringe IV 09/12/24 04:13 Q15MIN PRN BG <50 OR BG <70 & pt unresponsive Enoxaparin Sodium 40 mg 08/13/24 09:00 08/13/24 10:34 Enoxaparin Sod Inj 40 Mg/0.4 Ml Syringe SC 08/27/24 08:59 40 mg QDAY URBANO Administration Fluconazole 400 mg 08/14/24 09:00 Fluconazole 100 Mg Tablet PO 08/21/24 08:59 QDAY URBANO Glucagon 1 mg 08/13/24 04:14 Glucagon Inj 1 Mg Vial IM Q15MIN PRN BG <70, and no IV access Cefepime HCl 2 gm/ Sodium 50 mls @ 100 mls/hr 08/13/24 22:00 08/14/24 05:10 Chloride IV 08/20/24 21:59 100 mls/hr Q8HR URBANO Administration Metronidazole 500 mg in 100 mls @ 200 mls/hr 08/13/24 04:21 08/14/24 05:47 Flagyl 500 Mg Iv IV 08/20/24 04:20 200 mls/hr Q8HR URBANO Administration Vancomycin/Sodium Chloride 200 mls @ 120 mls/hr 08/13/24 22:00 08/13/24 22:08 Vancomycin/Ns 1 Gm Ivpb IV 08/20/24 21:59 120 mls/hr Q12H URBANO Administration Insulin Glargine 10 unit 08/13/24 21:00 08/13/24 21:14 Insulin Glargine (Lantus) 5 Unit/0.05 Ml (Per 5 Units) SC 09/12/24 20:59 Not Given HS [facility] Insulin Human Lispro 0 unit 08/13/24 06:00 08/14/24 05:17 Insulin Lispro (Admelog) 1 Unit/0.01 Ml Unit SC 09/12/24 05:59 Not Given Q6HR [facility] Protocol Ipratropium [place] 0.5 mg 08/13/24 07:00 08/14/24 06:14 Ipratropium Rt 0.5 Mg/ 2.5 Ml Nebu INH 09/12/24 06:59 0.5 mg Q6HRRT URBANO Administration Levalbuterol HCl 0.63 mg 08/13/24 07:00 08/14/24 06:14 Levalbuterol Rt 0.63 Mg/3 Ml Nebu INH 09/12/24 06:59 0.63 mg Q6HRRT URBANO Administration Ondansetron HCl 4 mg 08/13/24 04:07 08/13/24 12:02 Ondansetron Inj 2 Mg/Ml Inj 2 Ml IV 09/12/24 04:06 4 mg Q6H PRN Administration NAUSEA OR VOMITING Protocol Pantoprazole Sodium 40 mg 08/13/24 09:00 08/13/24 10:34 Pantoprazole Inj 40 Mg Vial IVP 09/12/24 08:59 40 mg QDAY URBANO Administration Pharmacy Consult 1 each 08/13/24 04:15 Vancomycin Pharmacy To Dose 1 Each Each IV 09/12/24 04:14 QDAY PRN CONSULT Plan 54-year-old female with past medical history of DM2, developmental delay, chronically bedbound with indwelling Bardales catheter, recurrent UTIs, chronic PEG tube, deaf, blind, 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 #Sepsis likely secondary to #Coccidiomycosis #Hospital-acquired pneumonia versus #Complicated UTI ? Patient came in and met SIRS criteria 4 out of 4 as well as endorgan damage with elevated troponins ? UA was positive for leukocytes esterase ? Chest x-ray with positive for pneumonia ? Chest CTA was positive for severe diffuse right lung pneumonia and concerning for urinary tract infection -Cocci IgM positive -Blood culture negative in first 24 hours -DC'd Flagyl and vancomycin [08/13/2024?08/14/2024] Plan: -Started fluconazole 400 qday [08/14/2024-] ? Will continue with cefepime [08/13/2024?] ? Ipratropium levobunolol scheduled every 6 hours ? Sputum, urine, and blood cultures pending ? Chest physiotherapy ordered ? Will continue to monitor #Hypernatremia ? Patient sodium today was 147 ? DDx likely due to hypodipsia setting of patient being n.p.o. ? Patient has of 1.4 L of free water deficit Plan: ?Start tube feeds with free water flushes at 30cc/hr ? Will continue to monitor #NSTEMI likely type II in the setting of sepsis ? Troponins peaked at 0.185 and down trended Plan: ? Will continue monitor #Hx of DM2 ?A1c 5.1 on 07/2024 Plan: ? ISS ? Accu-Cheks and hypoglycemia protocol ordered ? Will continue to monitor Disposition: Patient admitted to telemetry, continue Abx, started fluconazole, start tube feeds. Diet: NPO. tube feeds GI prophylaxis: protonix DVT prophylaxis: Lovenox Code: Full code Case disclosed with Attending Dr. Sujey Caceres PGY1 Attending Provider Attestation/Addendum I reviewed labs, imaging, EKG, home medications and prior available records. Face to face evaluation was performed by me. I have personally examined the patient and discussed assessment and plan with the IM team. I reviewed the resident note and agree with the plan with exceptions as below. Acute hypoxic respiratory failure Acute hypercapnic respiratory failure Right lower lobe pneumonia Cocci pneumonia Possible aspiration pneumonia Non-STEMI Developmental delay Goals of care discussion/counseling Hypernatremia Continue BiPAP. ABG showed improved pCO2. Went down on the rate Change antibiotics to cefepime only Cocci IgM is positive. Started fluconazole. Developed hyponatremia. Started tube feeds and water flushes for the hypernatremia. Monitor BMP Trend WBC: Downtrending Follow-up cultures: Negative to date Back to full code. Continue discussion of goals of care with family.
[2024-08-14] MEDS: PANTOPRAZOLE INJ 40 MG VIAL IVP (09:14)
[2024-08-14] MEDS: FLUCONAZOLE 100 MG TABLET 400 MG PO (09:14)
[2024-08-14] MEDS: ENOXAPARIN SOD INJ 40 MG/0.4 ML SYRINGE SC (09:15)
[2024-08-14] MEDS: VANCOMYCIN/NS 1 GM IVPB 200 ML IV (09:15)
--- NOTE | 2024-08-14 09:44 | PC.SS ---
Follow up note: Patient is currently on bipap. She is a resident of [facility]. SS confirmed with admissions that patient is on a bed hold and can return when medically stable.
--- NOTE | 2024-08-14 11:47 | PC.DIETICIAN ---
Nutrition prescription Gucerna 1.2 at 25 ml/hr via PEG tube by pump. Advance 10 ml every 8 hrs to goal rate of 55 ml/hr x 24 hrs. If no IV fluids, water flushes of 30 ml/hr (or per MD).
[2024-08-14] MEDS: INSULIN GLARGINE (Lantus) 5 UNIT/0.05 ML (PER 5 UNITS) 10 UNIT SC (21:18)
--- NOTE | 2024-08-14 23:11 | PC.NURSE ---
2311 Gave SBAR report to Jenna CASTILLO, she will be continuing care.
[2024-08-15] VITALS (18 sets, daily range): BP systolic 93–122; BP diastolic 68–80; PULSE 91–107; RESP 16–28; TEMP 36.2–39; O2SAT 91–99
[2024-08-15] MEDS: LEVALBUTEROL RT 0.63 MG/3 ML NEBU INH ×4 (00:41→18:20)
[2024-08-15] MEDS: IPRATROPIUM RT 0.5 MG/ 2.5 ML NEBU INH ×4 (00:41→18:20)
[2024-08-15] MEDS: CEFEPIME INJ 2 GM in SODIUM CHLORIDE 0.9% 50 ML IV (05:45)
[2024-08-15 06:49] LABS: Basophils % (Auto) 0 % (0-2.5); Eosinophils % (Auto) 0 % (0-10); Hematocrit 33.4 % (36.0-46.0); Hemoglobin 10.5 g/dL (12.0-16.0); Immature Granulocytes % (Auto) 1 % (0-0); Immature Granulocytes Auto 0.06 Thou/mm3 (0.00-0.00); Lymphocytes # (Auto) 0.5 Thou/mm3 (1.0-4.8); Lymphocytes % (Auto) 5 % (10-50); Mean Corpuscular HGB Conc 31.4 g/dl (31.0-37.0); Mean Corpuscular Hemoglobin 29.5 pg (25.0-35.0); Mean Corpuscular Volume 94 fL (80-100); Monocytes # (Auto) 0.4 Thou/mm3 (0.0-0.8); Monocytes % (Auto) 4 % (0-12); Neutrophils # (Auto) 8.7 Thou/mm3 (1.8-7.7); Neutrophils % (Auto) 90 % (37-80); Nucleated Red Blood Cell % 0 /100 WBC (0); Platelet Count 152 Thou/mm3 (140-440); RDW Standard Deviation 53.7 fL (36.4-46.3); Red Blood Count 3.56 Miln/mm3 (4.00-5.20); White Blood Count 9.7 Thou/mm3 (3.6-11.0)
[2024-08-15 07:34] LABS: Anion Gap 6 (7-16); BUN/Creatinine Ratio 53 Ratio (12-20); Blood Urea Nitrogen 37 mg/dL (9-23); Calcium 9.8 mg/dL (8.3-10.6); Carbon Dioxide 35.6 mMol/L (20.0-31.0); Chloride 108 mMol/L (98-107); Creatinine (Component) 0.7 mg/dL (0.6-1.3); Glucose 151 mg/dL (74-106); Osmolality,Calculated 309 (275-295); Potassium 3.8 mMol/L (3.4-5.1); Sodium 150 mMol/L (136-145); eGFR > 60 See Note
--- NOTE | 2024-08-15 08:55 | PC.NURSE ---
[facility] downtime occurred on 08-15-24 from 0100 to 0700
[2024-08-15] MEDS: FLUCONAZOLE 100 MG TABLET 400 MG PO ×2 (09:46→10:40)
[2024-08-15] MEDS: PANTOPRAZOLE INJ 40 MG VIAL IVP (09:46)
[2024-08-15] MEDS: ENOXAPARIN SOD INJ 40 MG/0.4 ML SYRINGE SC (09:47)
--- NOTE | 2024-08-15 10:05 | PC.SS ---
Follow up note: Patient continues to be on bipap. Not stable for d/c.
[2024-08-15] MEDS: cefTRIAXone/D5w 1gm IV premix 50 ML IV (10:41)
[2024-08-15] MEDS: AZITHROMYCIN 250 MG TABLET 500 MG PO (10:41)
[2024-08-15] MEDS: ACETAMINOPHEN SOL 325 MG/10 ML UDC 650 MG GT ×2 (11:50→17:57)
[2024-08-15] MEDS: INSULIN LISPRO (AdmeLOG) 1 UNIT/0.01 ML UNIT SC (11:54)
--- NOTE | 2024-08-15 11:54 | PD.RESPRO ---
Documentation for date of: 08/15/24 Subjective Subjective Interval history: Patient was seen at bedside this morning. No overnight events. Patient is urine culture did grow E. coli sensitive to ceftriaxone. Given that 1 of patient's blood culture grew yeast we will give an extra dose of fluconazole 400 mg today as for fungemia treatment and consulted ID. Will also de-escalate antibiotics from cefepime to Rocephin and azithromycin. Will transition from BiPAP to high flow nasal cannula today. Increase patient's free water flushes to 50 cc/h given that sodium went up to 150. Patient also spiked a fever today, gave tylenol and temperature went down. Exam Vital Signs Temp Pulse Resp BP Pulse Ox O2 Del Method O2 Flow Rate 102.2 F H 103 H 24 H 93/68 96 BiPAP 40 08/15/24 11:40 08/15/24 08:00 08/15/24 08:00 08/15/24 08:00 08/15/24 08:00 08/15/24 08:00 08/15/24 08:00 FiO2 50 08/15/24 08:00 Narrative Exam General: Patient was resting in bed on BiPAP, patient is nonverbal, blind, and deaf at baseline Eyes: Patient mention her eyes closed throughout the examination Ears: No visible ear discharge Nose: No visible nasal discharge. Mouth/Throat: Dry mucous membranes, no redness, no lesions. Neck: Neck supple, non-tender, no cervical lymphadenopathy. Lungs: Still some rhonchi present, but iproving Cardio: Normal S1/S2, tachycardic rhythm, no murmurs, no JVD Abdomen: Soft, no palpable masses, peristalsis present, PEG tube in place with no visible discharge Extremities: Contracted lower extremities with some trace peripheral edema Skin: No rashes, no lesions, warm to touch. Neuro: Cannot be assessed due to patient's medical condition Objective Labs 08/15/24 06:10 08/15/24 11:41 Labs: Laboratory Results - last 24 hr 08/15/24 06:10 WBC 9.7 RBC 3.56 L Hgb 10.5 L Hct 33.4 L MCV 94 MCH 29.5 MCHC 31.4 RDW Std Deviation 53.7 H Plt Count 152 Neut % (Auto) 90 H Lymph % (Auto) 5 L [place] % (Auto) 4 Eos % (Auto) 0 Baso % (Auto) 0 Neut # (Auto) 8.7 H Lymph # (Auto) 0.5 L [place] # (Auto) 0.4 Eos # (Auto) 0.0 Baso # (Auto) 0.0 Immature Gran # (Auto) 0.06 H Absolute Nucleated RBC 0.00 Immature Gran % 1 H Nucleated RBC % 0 Sodium 150 H Potassium 3.8 Chloride 108 H Carbon Dioxide 35.6 H Anion Gap 6 L BUN 37 H Creatinine 0.7 Estim Creat Clear Calc 71.0 eGFR > 60 BUN/Creatinine Ratio 53 H Glucose 151 H Calculated Osmolality 309 H Calcium 9.8 ABG Interpretation ABG results: 08/13/24 08/13/24 08/13/24 04:29 05:33 07:47 ABG pH 7.27 L 7.26 L 7.31 L ABG pCO2 85 H* 80 H* 74 H* ABG pO2 62 L 104 D 104 ABG HCO3 39 H 35 H 37 H ABG O2 Saturation 87 L 97 98 ABG Base Excess 9 H 5 H 8 H 08/14/24 07:57 ABG pH 7.39 ABG pCO2 64 H D ABG pO2 79 L D ABG HCO3 38 H ABG O2 Saturation 97 ABG Base Excess 11 H Quality Measures Quality Measures sepsis Current suspected stage: ruled out Possible source: unknown Blood cultures ordered: yes Antibiotic ordered: Yes Assessment & Plan Assessment Current Active Medications: Generic Name Dose Route Start Last Admin Trade Name Freq PRN Reason Stop Dose Admin Acetaminophen 650 mg 08/15/24 11:39 Acetaminophen Adriana 325 Mg/10 Ml Udc GT 09/14/24 11:38 Q4HR PRN pain and Fever >100.4 Azithromycin 500 mg 08/15/24 10:15 08/15/24 10:41 Azithromycin 250 Mg Tablet PO 08/22/24 10:14 500 mg QDAY URBANO Administration Dextrose 25 ml 08/13/24 04:14 Dextrose 50%-Water Inj 50 Ml Syringe IV 09/12/24 04:13 Q15MIN PRN BG 50-70 responsive npo pt Dextrose 50 ml 08/13/24 04:14 Dextrose 50%-Water Inj 50 Ml Syringe IV 09/12/24 04:13 Q15MIN PRN BG <50 OR BG <70 & pt unresponsive Enoxaparin Sodium 40 mg 08/13/24 09:00 08/15/24 09:47 Enoxaparin Sod Inj 40 Mg/0.4 Ml Syringe SC 08/27/24 08:59 40 mg QDAY URBANO Administration Fluconazole 400 mg 08/14/24 09:00 08/15/24 09:46 Fluconazole 100 Mg Tablet PO 08/21/24 08:59 400 mg QDAY URBANO Administration Glucagon 1 mg 08/13/24 04:14 Glucagon Inj 1 Mg Vial IM Q15MIN PRN BG <70, and no IV access Ceftriaxone Sodium/Dextrose 50 mls @ 100 mls/hr 08/15/24 10:00 08/15/24 10:41 Rocephin/D5w 1gm Iv Premix IV 08/22/24 09:59 100 mls/hr QDAY URBANO Administration Insulin Glargine 10 unit 08/13/24 21:00 08/14/24 21:18 Insulin Glargine (Lantus) 5 Unit/0.05 Ml (Per 5 Units) SC 09/12/24 20:59 10 unit HS URBANO Administration Insulin Human Lispro 0 unit 08/13/24 06:00 08/14/24 23:50 Insulin Lispro (Admelog) 1 Unit/0.01 Ml Unit SC 09/12/24 05:59 Not Given Q6HR URBANO Protocol Ipratropium [place] 0.5 mg 08/13/24 07:00 08/15/24 06:45 Ipratropium Rt 0.5 Mg/ 2.5 Ml Nebu INH 09/12/24 06:59 0.5 mg Q6HRRT URBANO Administration Levalbuterol HCl 0.63 mg 08/13/24 07:00 08/15/24 06:45 Levalbuterol Rt 0.63 Mg/3 Ml Nebu INH 09/12/24 06:59 0.63 mg Q6HRRT URBANO Administration Ondansetron HCl 4 mg 08/13/24 04:07 08/13/24 12:02 Ondansetron Inj 2 Mg/Ml Inj 2 Ml IV 09/12/24 04:06 4 mg Q6H PRN Administration NAUSEA OR VOMITING Protocol Pantoprazole Sodium 40 mg 08/13/24 09:00 08/15/24 09:46 Pantoprazole Inj 40 Mg Vial IVP 09/12/24 08:59 40 mg QDAY URBANO Administration Plan 54-year-old female with past medical history of DM2, developmental delay, chronically bedbound with indwelling Bardales catheter, recurrent UTIs, chronic PEG tube, deaf, blind, 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 #Sepsis likely secondary to #Coccidiomycosis #Hospital-acquired pneumonia versus #Complicated UTI, E. coli #Fungemia ? Patient came in and met SIRS criteria 4 out of 4 as well as endorgan damage with elevated troponins ? UA was positive for leukocytes esterase ? Chest x-ray with positive for pneumonia ? Chest CTA was positive for severe diffuse right lung pneumonia and concerning for urinary tract infection -Cocci IgM positive -Urine culture positive for E. Coli -Blood culture negative in 48 hours -1 Blood Cx grew yeast preliminary -DC'd Flagyl and vancomycin [08/13/2024?08/14/2024], cefepime [08/13/2024?08/15/2024] Plan: -Continue fluconazole 400 qday [08/14/2024-] ? Fluconazole 400mg x1 for total 800mg today given positive blood Cx for yeast - Started Rocephin and Azithromycin [08/15/2024-] ? Ipratropium levobunolol scheduled every 6 hours ? Sputum, urine, and blood cultures pending ? Chest physiotherapy ordered - ID consulted, appreciate recommendations ? Will continue to monitor #Hypernatremia ? Patient sodium today was 149, improved from 150 this am ? DDx likely due to hypodipsia setting of patient being n.p.o. ? Patient has of 1.4 L of free water deficit Plan: ?Continue tube feeds with increase in free water flushes to 50cc/hr ? Will continue to monitor #NSTEMI likely type II in the setting of sepsis ? Troponins peaked at 0.185 and down trended Plan: ? Will continue monitor #Hx of DM2 ?A1c 5.1 on 07/2024 Plan: ? ISS ? Accu-Cheks and hypoglycemia protocol ordered ? Will continue to monitor Disposition: Patient admitted to telemetry, continue Abx, continu fluconazole, continue tube feeds and free water flushes at 50 cc/hr. Diet: NPO. tube feeds GI prophylaxis: protonix DVT prophylaxis: Lovenox Code: Full code Case disclosed with Attending Dr. Rm and my senior Dr. 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 As the patient's UTI was growing E. coli sensitive to ceftriaxone, her IV antibiotics was switched to ceftriaxone from cefepime. She was also found growing yeast in one of the preliminary blood culture. She was already on fluconazole 400 Mg daily, we added 1 dose of 400 mg to make it total of loading dose 800 mg. We will continue with 400 mg of fluconazole from tomorrow, and follow-up on blood culture. Her sodium level was 149, and we increased the water flushes to 50 cc/h. I discussed with and supervised the post graduate intern physician involved in the care of this patient. I personally saw and examined the patient and discussed the assessment and plan with the entire medicine team, including my attending. I agree with the assessment and plan as documented above. Velasquez Mosley MD PGY2 Internal Medicine Attending Provider Attestation/Addendum I reviewed labs, imaging, EKG, home medications and prior available records. Face to face evaluation was performed by me. I have personally examined the patient and discussed assessment and plan with the IM team. I reviewed the resident note and agree with the plan with exceptions as below. Acute hypoxic respiratory failure Acute hypercapnic respiratory failure Right lower lobe pneumonia Cocci pneumonia Possible aspiration pneumonia Non-STEMI Developmental delay Goals of care discussion/counseling Hypernatremia Continue BiPAP. ABG showed improved pCO2. Went down on the rate Change antibiotics to cefepime only Cocci IgM is positive. Started fluconazole. Developed hyponatremia. Started tube feeds and water flushes for the hypernatremia. Increased water flushes given the worsening hypernatremia. Monitor BMP Trend WBC: Downtrending Follow-up cultures: Blood cultures grew fungus. Increased the dose of fluconazole. Consulted ID Back to full code. Continue discussion of goals of care with family.
[2024-08-15 12:14] LABS: Sodium 149 mMol/L (136-145)
[2024-08-16] VITALS (17 sets, daily range): BP systolic 118–128; BP diastolic 60–95; PULSE 90–115; RESP 14–28; TEMP 36.1–38.6; O2SAT 90–97; BMI 22.7
[2024-08-16] MEDS: IPRATROPIUM RT 0.5 MG/ 2.5 ML NEBU INH ×4 (01:25→18:20)
[2024-08-16] MEDS: LEVALBUTEROL RT 0.63 MG/3 ML NEBU INH ×4 (01:25→18:20)
[2024-08-16] MEDS: INSULIN LISPRO (AdmeLOG) 1 UNIT/0.01 ML UNIT SC ×2 (05:35→17:56)
[2024-08-16] MEDS: AZITHROMYCIN 250 MG TABLET 500 MG PO (08:37)
[2024-08-16] MEDS: FLUCONAZOLE 100 MG TABLET 400 MG PO (08:37)
[2024-08-16] MEDS: cefTRIAXone/D5w 1gm IV premix 50 ML IV (08:37)
[2024-08-16] MEDS: PANTOPRAZOLE INJ 40 MG VIAL IVP (08:37)
[2024-08-16] MEDS: ENOXAPARIN SOD INJ 40 MG/0.4 ML SYRINGE SC (08:37)
[2024-08-16 09:26] LABS: Basophils % (Auto) 0 % (0-2.5); Eosinophils # (Auto) 0.1 Thou/mm3 (0.0-0.5); Eosinophils % (Auto) 1 % (0-10); Hematocrit 33.7 % (36.0-46.0); Hemoglobin 10.2 g/dL (12.0-16.0); Immature Granulocytes % (Auto) 1 % (0-0); Immature Granulocytes Auto 0.07 Thou/mm3 (0.00-0.00); Lymphocytes # (Auto) 0.7 Thou/mm3 (1.0-4.8); Lymphocytes % (Auto) 7 % (10-50); Mean Corpuscular HGB Conc 30.3 g/dl (31.0-37.0); Mean Corpuscular Hemoglobin 28.7 pg (25.0-35.0); Mean Corpuscular Volume 95 fL (80-100); Monocytes # (Auto) 0.4 Thou/mm3 (0.0-0.8); Monocytes % (Auto) 5 % (0-12); Neutrophils # (Auto) 7.8 Thou/mm3 (1.8-7.7); Neutrophils % (Auto) 86 % (37-80); Nucleated Red Blood Cell % 0 /100 WBC (0); Platelet Count 145 Thou/mm3 (140-440); RDW Standard Deviation 54.3 fL (36.4-46.3); Red Blood Count 3.55 Miln/mm3 (4.00-5.20)
[2024-08-16 09:48] LABS: Alanine Aminotransferase 11 U/L (10-49); Albumin, Serum 3.6 gm/dL (3.5-5.0); Albumin/Globulin Ratio 1.2 (1.2-2.2); Alkaline Phosphatase 85 U/L (46-116); Anion Gap 5 (7-16); Aspartate Amino Transferase 11 U/L (0-34); BUN/Creatinine Ratio 56 Ratio (12-20); Bilirubin,Total < 0.2 mg/dL (0.3-1.2); Blood Urea Nitrogen 28 mg/dL (9-23); Calcium 9.3 mg/dL (8.3-10.6); Calcium (Corrected) 9.6 mg/dL (8.5-10.1); Carbon Dioxide 38.6 mMol/L (20.0-31.0); Chloride 103 mMol/L (98-107); Creatinine (Component) 0.5 mg/dL (0.6-1.3); Estimated Creatinine Clearance 99.4 mL/min (>60); Globulin 2.9 gm/dL (2.3-3.5); Glucose 159 mg/dL (74-106); Osmolality,Calculated 300 (275-295); Potassium 3.9 mMol/L (3.4-5.1); Sodium 147 mMol/L (136-145); Total Protein 6.5 gm/dL (5.7-8.2); eGFR > 60 See Note
--- NOTE | 2024-08-16 09:48 | ESPR_ITS ---
Documentation for date of: 08/16/24 Subjective Subjective Interval history: Patient was seen at bedside this morning. No overnight events. Patient did not spike a fever this morning. Her sodium is downtrending and currently at 147. Will continue with patient's current management. Exam Vital Signs Temp Pulse Resp BP Pulse Ox O2 Del Method O2 Flow Rate 97.0 F 101 H 15 126/70 94 L High Flow Nasal Cannula 08/16/24 08:00 08/16/24 08:00 08/16/24 08:00 08/16/24 08:00 08/16/24 08:00 08/16/24 08:00 08/16/24 06:33 FiO2 50 08/16/24 06:33 Narrative Exam General: Patient was resting in bed on HFNC, patient is nonverbal, blind, and deaf at baseline Eyes: Patient mention her eyes closed throughout the examination Ears: No visible ear discharge Nose: No visible nasal discharge. Mouth/Throat: Dry mucous membranes, no redness, no lesions. Neck: Neck supple, non-tender, no cervical lymphadenopathy. Lungs: Still some rhonchi present, but iproving Cardio: Normal S1/S2, tachycardic rhythm, no murmurs, no JVD Abdomen: Soft, no palpable masses, peristalsis present, PEG tube in place with no visible discharge Extremities: Contracted lower extremities with some trace peripheral edema Skin: No rashes, no lesions, warm to touch. Neuro: Cannot be assessed due to patient's medical condition Objective Labs 08/16/24 09:16 08/16/24 09:16 Labs: Laboratory Results - last 24 hr 08/15/24 08/16/24 11:41 09:16 WBC 9.0 RBC 3.55 L Hgb 10.2 L Hct 33.7 L MCV 95 MCH 28.7 MCHC 30.3 L RDW Std Deviation 54.3 H Plt Count 145 Neut % (Auto) 86 H Lymph % (Auto) 7 L [place] % (Auto) 5 Eos % (Auto) 1 Baso % (Auto) 0 Neut # (Auto) 7.8 H Lymph # (Auto) 0.7 L [place] # (Auto) 0.4 Eos # (Auto) 0.1 Baso # (Auto) 0.0 Immature Gran # (Auto) 0.07 H Absolute Nucleated RBC 0.00 Immature Gran % 1 H Nucleated RBC % 0 Sodium 149 H ABG Interpretation ABG results: 08/13/24 08/13/24 08/13/24 04:29 05:33 07:47 ABG pH 7.27 L 7.26 L 7.31 L ABG pCO2 85 H* 80 H* 74 H* ABG pO2 62 L 104 D 104 ABG HCO3 39 H 35 H 37 H ABG O2 Saturation 87 L 97 98 ABG Base Excess 9 H 5 H 8 H 08/14/24 07:57 ABG pH 7.39 ABG pCO2 64 H D ABG pO2 79 L D ABG HCO3 38 H ABG O2 Saturation 97 ABG Base Excess 11 H Quality Measures Quality Measures sepsis Current suspected stage: ruled out Possible source: unknown Blood cultures ordered: yes Antibiotic ordered: Yes Assessment & Plan Assessment Current Active Medications: Generic Name Dose Route Start Last Admin Trade Name Freq PRN Reason Stop Dose Admin Acetaminophen 650 mg 08/15/24 11:39 08/15/24 17:57 Acetaminophen Adriana 325 Mg/10 Ml Udc GT 09/14/24 11:38 650 mg Q4HR PRN Administration pain and Fever >100.4 Azithromycin 500 mg 08/15/24 10:15 08/16/24 08:37 Azithromycin 250 Mg Tablet PO 08/22/24 10:14 500 mg QDAY URBANO Administration Dextrose 25 ml 08/13/24 04:14 Dextrose 50%-Water Inj 50 Ml Syringe IV 09/12/24 04:13 Q15MIN PRN BG 50-70 responsive npo pt Dextrose 50 ml 08/13/24 04:14 Dextrose 50%-Water Inj 50 Ml Syringe IV 09/12/24 04:13 Q15MIN PRN BG <50 OR BG <70 & pt unresponsive Enoxaparin Sodium 40 mg 08/13/24 09:00 08/16/24 08:37 Enoxaparin Sod Inj 40 Mg/0.4 Ml Syringe SC 08/27/24 08:59 40 mg QDAY URBANO Administration Fluconazole 400 mg 08/14/24 09:00 08/16/24 08:37 Fluconazole 100 Mg Tablet PO 08/21/24 08:59 400 mg QDAY URBANO Administration Glucagon 1 mg 08/13/24 04:14 Glucagon Inj 1 Mg Vial IM Q15MIN PRN BG <70, and no IV access Ceftriaxone Sodium/Dextrose 50 mls @ 100 mls/hr 08/15/24 10:00 08/16/24 08:37 Rocephin/D5w 1gm Iv Premix IV 08/22/24 09:59 100 mls/hr QDAY URBANO Administration Insulin Glargine 10 unit 08/13/24 21:00 08/16/24 04:31 Insulin Glargine (Lantus) 5 Unit/0.05 Ml (Per 5 Units) SC 09/12/24 20:59 Not Given HS URBANO Insulin Human Lispro 0 unit 08/13/24 06:00 08/16/24 05:35 Insulin Lispro (Admelog) 1 Unit/0.01 Ml Unit SC 09/12/24 05:59 1 unit Q6HR URBANO Administration Protocol Ipratropium [place] 0.5 mg 08/13/24 07:00 08/16/24 06:32 Ipratropium Rt 0.5 Mg/ 2.5 Ml Nebu INH 09/12/24 06:59 0.5 mg Q6HRRT URBANO Administration Levalbuterol HCl 0.63 mg 08/13/24 07:00 08/16/24 06:32 Levalbuterol Rt 0.63 Mg/3 Ml Nebu INH 09/12/24 06:59 0.63 mg Q6HRRT URBANO Administration Ondansetron HCl 4 mg 08/13/24 04:07 08/13/24 12:02 Ondansetron Inj 2 Mg/Ml Inj 2 Ml IV 09/12/24 04:06 4 mg Q6H PRN Administration NAUSEA OR VOMITING Protocol Pantoprazole Sodium 40 mg 08/13/24 09:00 08/16/24 08:37 Pantoprazole Inj 40 Mg Vial IVP 09/12/24 08:59 40 mg QDAY URBANO Administration Plan 54-year-old female with past medical history of DM2, developmental delay, chronically bedbound with indwelling Bardales catheter, recurrent UTIs, chronic PEG tube, deaf, blind, 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 #Sepsis likely secondary to #Coccidiomycosis #Hospital-acquired pneumonia versus #Complicated UTI, E. coli #Fungemia ? Patient came in and met SIRS criteria 4 out of 4 as well as endorgan damage with elevated troponins ? UA was positive for leukocytes esterase ? Chest x-ray with positive for pneumonia ? Chest CTA was positive for severe diffuse right lung pneumonia and concerning for urinary tract infection -Cocci IgM positive -Urine culture positive for E. Coli -Blood culture negative in 48 hours -1 Blood Cx grew yeast preliminary -DC'd Flagyl and vancomycin [08/13/2024?08/14/2024], cefepime [08/13/2024?08/15/2024] Plan: -Continue fluconazole 400 qday [08/14/2024-] ? Fluconazole 400mg x1 for total 800mg today given positive blood Cx for yeast - Continue Rocephin and Azithromycin [08/15/2024-] ? Ipratropium levobunolol scheduled every 6 hours ? Sputum, urine, and blood cultures pending ? Chest physiotherapy ordered - ID consulted, appreciate recommendations ? Will continue to monitor #Hypernatremia ? Patient sodium today was 147 ? DDx likely due to hypodipsia setting of patient being n.p.o. ? Patient has of 1.4 L of free water deficit Plan: ?Continue tube feeds with increase in free water flushes to 50cc/hr ? Will continue to monitor #NSTEMI likely type II in the setting of sepsis ? Troponins peaked at 0.185 and down trended Plan: ? Will continue monitor #Hx of DM2 ?A1c 5.1 on 07/2024 Plan: ? ISS ? Accu-Cheks and hypoglycemia protocol ordered ? Will continue to monitor Disposition: Patient admitted to telemetry, continue Abx, continu fluconazole, continue tube feeds and free water flushes at 50 cc/hr. Diet: NPO. tube feeds GI prophylaxis: protonix DVT prophylaxis: Lovenox Code: Full code Case disclosed with Attending Dr. Rm and my senior Dr. 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 We will continue the patient on fluconazole 400 Mg daily, ceftriaxone and azithromycin. We are pending ID recs for fungal [place]. Patient is still on high flow nasal cannula, we will taper it down to nasal cannula as tolerated. Anticipate discharge in next 24 to 48 hours to home. I discussed with and supervised the manufacturing engineering intern physician involved in the care of this patient. I personally saw and examined the patient and discussed the assessment and plan with the entire medicine team, including my attending. I agree with the assessment and plan as documented above. Velasquez Mosley MD PGY2 Internal Medicine Attending Provider Attestation/Addendum I reviewed labs, imaging, EKG, home medications and prior available records. Face to face evaluation was performed by me. I have personally examined the patient and discussed assessment and plan with the IM team. I reviewed the resident note and agree with the plan with exceptions as below. Acute hypoxic respiratory failure Acute hypercapnic respiratory failure Right lower lobe pneumonia Cocci pneumonia E. coli UTI Possible aspiration pneumonia Non-STEMI Developmental delay Goals of care discussion/counseling Hypernatremia She is afebrile this a.m. Weaned off from BiPAP to high flow nasal cannula Continue ceftriaxone Cocci IgM is positive. Continue fluconazole. Developed hyponatremia. Started tube feeds and water flushes for the hypernatremia. Increased water flushes. Sodium level improved Monitor BMP Trend WBC: Downtrending Follow-up cultures: Blood cultures grew fungus. Increased the dose of fluconazole. Consulted ID Back to full code. Continue discussion of goals of care with family.
--- NOTE | 2024-08-16 15:32 | PC.IP ---
RN made aware PT should be on contact precautions due to CRPA found in 7-24. [facility] recommends not removing contact precautions once this PERSONNEL ASSOCIATE has been identified.
--- NOTE | 2024-08-16 16:06 | ESPR_ITS ---
Subjective Subjective Interval history: cocci IgM pos. on standard pneumonia rx. had neg covid test but sounds likely acute infection so more likely flu and less likely cocci. flucon ok for now. but cocci rarely strikes those who do not get outside much Exam Vital Signs Temp Pulse Resp BP Pulse Ox O2 Del Method O2 Flow Rate 98.6 F 109 H 24 H 126/75 95 High Flow Nasal Cannula 30 08/16/24 12:00 08/16/24 14:21 08/16/24 14:21 08/16/24 12:00 08/16/24 14:21 08/16/24 12:00 08/16/24 14:21 FiO2 65 08/16/24 14:21 Narrative Exam non verbal. on High flow O2. cocci pending at [facility] . duration of illness at mt could be important but is not well recorded Objective - Internal Medicine Labs 08/16/24 09:16 08/16/24 09:16 Labs: Laboratory Results - last 24 hr 08/16/24 09:16 WBC 9.0 RBC 3.55 L Hgb 10.2 L Hct 33.7 L MCV 95 MCH 28.7 MCHC 30.3 L RDW Std Deviation 54.3 H Plt Count 145 Neut % (Auto) 86 H Lymph % (Auto) 7 L [place] % (Auto) 5 Eos % (Auto) 1 Baso % (Auto) 0 Neut # (Auto) 7.8 H Lymph # (Auto) 0.7 L [place] # (Auto) 0.4 Eos # (Auto) 0.1 Baso # (Auto) 0.0 Immature Gran # (Auto) 0.07 H Absolute Nucleated RBC 0.00 Immature Gran % 1 H Nucleated RBC % 0 Sodium 147 H Potassium 3.9 Chloride 103 Carbon Dioxide 38.6 H Anion Gap 5 L BUN 28 H Creatinine 0.5 L Estim Creat Clear Calc 99.4 eGFR > 60 BUN/Creatinine Ratio 56 H Glucose 159 H Calculated Osmolality 300 H Calcium 9.3 Corrected Calcium 9.6 Total Bilirubin < 0.2 L AST 11 ALT 11 Alkaline Phosphatase 85 Total Protein 6.5 Albumin 3.6 Globulin 2.9 Albumin/Globulin Ratio 1.2 ABG Interpretation ABG results: 08/13/24 08/13/24 08/13/24 04:29 05:33 07:47 ABG pH 7.27 L 7.26 L 7.31 L ABG pCO2 85 H* 80 H* 74 H* ABG pO2 62 L 104 D 104 ABG HCO3 39 H 35 H 37 H ABG O2 Saturation 87 L 97 98 ABG Base Excess 9 H 5 H 8 H 08/14/24 07:57 ABG pH 7.39 ABG pCO2 64 H D ABG pO2 79 L D ABG HCO3 38 H ABG O2 Saturation 97 ABG Base Excess 11 H Assessment & Plan A&P Narrative hypoxic resp failure progression unusually fast for cocci. so need to r/o others first and if neg, then look at ampho b mr/dd, multifactorial. remains a full code per notes. hld us neg despite radiology exhortations ordered flu testing. if neg and pt worse, then ok for ampho b as waitin for [facility] likely to take till next week if pos. ok to treat with tamiflu per guidelines. yeast may or may not be pathogenic. ok for repeat bc and echo ppi rx reduces the risk of pud in intubated pts. she is not intubated Time Spent With Patient Time: Total time spent is greater than 50% in coordination of care (as documented) at patient's floor/unit and/or counseling patient:
--- NOTE | 2024-08-16 16:14 | ECHO_ITS ---
Transthoracic Echo Report Ht (in): 62 Wt (lb): 128 Exam Location: Echo Lab Status: Inpatient Front Desk Host: Delfina Gil Indications: Procedure Performed: BP: 140 / 77 HR: 131 Technical Quality: Very technically difficult study MEASUREMENTS (Male / Female) Normal Values 2D ECHO LV Diastolic Diameter PLAX 3.5 cm 4.2 - 5.9 / 3.9 - 5.3 cm LV Systolic Diameter PLAX 2.0 cm IVS Diastolic Thickness 0.8 cm 0.6 - 1.0 / 0.6 - 0.9 cm LVPW Diastolic Thickness 0.9 cm 0.6 - 1.0 / 0.6 - 0.9 cm LV Relative Wall Thickness 0.5 LVOT Diameter 1.6 cm LA Volume Index 14.7 cm?/m? 16 - 28 cm?/m? M-MODE Aortic Root Diameter MM 1.9 cm AV Cusp Separation MM 1.3 cm DOPPLER AV Peak Velocity 154.0 cm/s AV Peak Gradient 9.5 mmHg AV Mean Gradient 4.0 mmHg AV Velocity Time Integral 26.7 cm LVOT Peak Velocity 103.0 cm/s LVOT Peak Gradient 4.2 mmHg LVOT Velocity Time Integral 22.1 cm LVOT Cardiac Index 3634.4 cm?/min?m? AV Area Cont Eq vti 1.7 cm? AV Area Cont Eq pk 1.3 cm? MV Area PHT 5.4 cm? Mitral E Point Velocity 80.0 cm/s Mitral A Point Velocity 100.0 cm/s Mitral E to A Ratio 0.8 LV E' Lateral Velocity 4.1 cm/s Mitral E to LV E' Lateral Ratio 19.4 LV E' Septal Velocity 6.5 cm/s Mitral E to LV E' Septal Ratio 12.3 FINDINGS Left Ventricle Normal left ventricular size, wall thickness, systolic function with no obvious regional wall motion abnormalities. Normal left ventricular diastolic filling pattern for age. The ejection fraction is visually estimated at 55-60%. Right Ventricle Normal right ventricular size and function. Left Atrium The left atrium is normal by two-dimensional, color flow and Doppler imaging with no structural abnormalities, no thrombus formation present. Right Atrium The right atrium is normal by two-dimensional imaging, color flow and Doppler imaging with no structural abnormalities, no thrombus formation present. Atrial Septum The interatrial septum appears normal with no evidence of a shunt. Aorta The aorta is normal by two-dimensional, color flow and Doppler interrogation. Mitral Valve The mitral valve is normal by two-dimensional, color flow and Doppler interrogation. There is no significant mitral valve regurgitation, stenosis or prolapse. Aortic Valve The aortic valve is trileaflet and normal by two-dimensional, color flow and Doppler interrogation. There is no significant aortic valve regurgitation. Tricuspid Valve The tricuspid valve is normal by two-dimensional, color flow and Doppler interrogation. There is no significant tricuspid valve regurgitation. Pulmonic Valve The pulmonic valve is not well visualized. There is no significant pulmonic valve regurgitation. Vessels Inferior vena cava not well visualized. Pericardium The pericardium is normal by two-dimensional imaging. There is no significant pericardial effusion. CONCLUSIONS Indication: Candidemia Normal LV size and function. Estimated EF 55-60%. Normal RV size and function. IVC not well visulaized. Ja Terry (Electronically Signed) Final Date: 18 August 2024 09:46
--- NOTE | 2024-08-16 16:14 | PC.SS ---
Follow up note: Patient remains on high flow 02. She is a resident of [facility]. Parents make all healthcare decisions. Pending ID rec's.
--- NOTE | 2024-08-16 16:19 | ESCONSULT_ITS ---
<Statement entered by Hardy Goyal MD - 08/17/24 06:53> pt seen with resident. 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 History was taken per chart review due to patient is nonverbal at baseline and due to baseline medical status. Pertinent labs: WBCs within normal limits, COVID test was negativeUrine culture grew pansensitive E. 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 Past surgical history: PEG tube Family history: None relevant Social history: Bedbound Travel history: None Allergies: Chloral hydrate Immunizations: Unknown cc:: cc: Raffy Rm MD Review of Systems Review of Systems ROS Unobtainable: unobtainable due to medical condition Exam Vital Signs Temp Pulse Resp BP Pulse Ox O2 Del Method O2 Flow Rate 98.6 F 109 H 24 H 126/75 95 High Flow Nasal Cannula 30 08/16/24 12:00 08/16/24 14:21 08/16/24 14:21 08/16/24 12:08/16/24 14:21 08/16/24 12:00 08/16/24 14:21 FiO2 65 08/16/24 14:21 Narrative Exam General: Bedbound, nonverbal HEENT: Blind, bilateral hearing impairment, moist mucous membranes Neck: Supple, No masses, No adenopathy, carotid pulse 2+ bilaterally without bruits, No JVD, normal range of motion. Chest: Symmetrical, atraumatic, and with equal expansion , Nontender on palpation no deformity and no crepitus. CVS: S1 and S2 present, Regular rate and rhythm, No murmurs, rubs or gallops perceived during auscultation. Lungs: Bilateral rhonchi more predominant on the left lung with decreased breath sound in bases perceived during auscultation, No intercostal or subcostal retraction. Abdomen : Soft, PEG tube in place no tenderness to palpation, no guarding ,no rebound, +BS Extremities: Contracted bilateral lower extremities, cap refill less than 2, +2 dp equal bilaterally Skin: no lesions, no erythema or jaundice noted Neuro: Difficult to assess due to patient mentation baseline Psych: Difficult to assess due to patient mentation baseline Results Labs 08/16/24 09:16 08/16/24 09:16 Labs: Short CBC 08/16/24 Range/Units 09:16 WBC 9.0 (3.6-11.0) Thou/mm3 Hgb 10.2 L (12.0-16.0) g/dL Hct 33.7 L (36.0-46.0) % Plt Count 145 (140-440) Thou/mm3 BMP 08/16/24 09:16 Sodium 147 H Potassium 3.9 Chloride 103 Carbon Dioxide 38.6 H BUN 28 H Creatinine 0.5 L Glucose 159 H Calcium 9.3 Liver Function 08/16/24 Range/Units 09:16 Total Bilirubin < 0.2 L (0.3-1.2) mg/dL AST 11 (0-34) U/L ALT 11 (10-49) U/L Alkaline Phosphatase 85 (46-116) U/L Albumin 3.6 (3.5-5.0) gm/dL ABG Interpretation ABG results: 08/13/24 08/13/24 08/13/24 04:29 05:33 07:47 ABG pH 7.27 L 7.26 L 7.31 L ABG pCO2 85 H* 80 H* 74 H* ABG pO2 62 L 104 D 104 ABG HCO3 39 H 35 H 37 H ABG O2 Saturation 87 L 97 98 ABG Base Excess 9 H 5 H 8 H 08/14/24 07:57 ABG pH 7.39 ABG pCO2 64 H D ABG pO2 79 L D ABG HCO3 38 H ABG O2 Saturation 97 ABG Base Excess 11 H Quality Measures Quality Measures sepsis Current suspected stage: sepsis Possible source: unknown Blood cultures ordered: yes Antibiotic ordered: Yes Medications Home Medications and Allergies Allergies Allergy/AdvReac Type Severity Reaction Status Date / Time chloral hydrate Allergy Mild unknown Verified 11/08/22 15:02 Visit Medications Acetaminophen (Acetaminophen Adriana 325 Mg/10 Ml Udc) 650 mg GT Q4HR PRN PRN Reason: pain and Fever >100.4 Stop: 09/14/24 11:38 Last Admin: 08/15/24 17:57 Dose: 650 mg Azithromycin (Azithromycin 250 Mg Tablet) 500 mg PO QDAY URBANO Stop: 08/22/24 10:14 Last Admin: 08/16/24 08:37 Dose: 500 mg Dextrose (Dextrose 50%-Water Inj 50 Ml Syringe) 25 ml IV Q15MIN PRN PRN Reason: BG 50-70 responsive npo pt Stop: 09/12/24 04:13 Dextrose (Dextrose 50%-Water Inj 50 Ml Syringe) 50 ml IV Q15MIN PRN PRN Reason: BG <50 OR BG <70 & pt unresponsive Stop: 09/12/24 04:13 Enoxaparin Sodium (Enoxaparin Sod Inj 40 Mg/0.4 Ml Syringe) 40 mg SC QDAY URBANO Stop: 08/27/24 08:59 Last Admin: 08/16/24 08:37 Dose: 40 mg Fluconazole (Fluconazole 100 Mg Tablet) 400 mg PO QDAY URBANO Stop: 08/21/24 08:59 Last Admin: 08/16/24 08:37 Dose: 400 mg Glucagon (Glucagon Inj 1 Mg Vial) 1 mg IM Q15MIN PRN PRN Reason: BG <70, and no IV access Ceftriaxone Sodium/Dextrose (Rocephin/D5w 1gm Iv Premix) 50 mls @ 100 mls/hr IV QDAY URBANO Stop: 08/22/24 09:59 Last Admin: 08/16/24 08:37 Dose: 100 mls/hr Insulin Glargine (Insulin Glargine (Lantus) 5 Unit/0.05 Ml (Per 5 Units)) 10 unit SC HS [facility] Stop: 09/12/24 20:59 Last Admin: 08/16/24 04:31 Dose: Not Given Insulin Human Lispro (Insulin Lispro (Admelog) 1 Unit/0.01 Ml Unit) 0 unit SC Q6HR URBANO; Protocol Stop: 09/12/24 05:59 Last Admin: 08/16/24 12:00 Dose: Not Given Ipratropium [place] (Ipratropium Rt 0.5 Mg/ 2.5 Ml Nebu) 0.5 mg INH Q6HRRT [facility] Stop: 09/12/24 06:59 Last Admin: 08/16/24 12:31 Dose: 0.5 mg Levalbuterol HCl (Levalbuterol Rt 0.63 Mg/3 Ml Nebu) 0.63 mg INH Q6HRRT [facility] Stop: 09/12/24 06:59 Last Admin: 08/16/24 12:31 Dose: 0.63 mg Ondansetron HCl (Ondansetron Inj 2 Mg/Ml Inj 2 Ml) 4 mg IV Q6H PRN; Protocol PRN Reason: NAUSEA OR VOMITING Stop: 09/12/24 04:06 Last Admin: 08/13/24 12:02 Dose: 4 mg Discontinued Medications Acetaminophen (Acetaminophen Supp 650 Mg Supp) 650 mg ND X1 ONE Stop: 08/13/24 02:14 Last Admin: 08/13/24 02:23 Dose: 650 mg Fluconazole (Fluconazole 100 Mg Tablet) 400 mg PO X1 ONE Stop: 08/15/24 10:03 Last Admin: 08/15/24 10:40 Dose: 400 mg Furosemide (Furosemide Inj 10 Mg/Ml 4ml Vial) 40 mg IVP X1 ONE Stop: 08/13/24 05:16 Last Admin: 08/13/24 05:21 Dose: 40 mg Sodium Chloride (Ns) 1,000 mls @ 999 mls/hr IV .Q1H1M ONE Stop: 08/13/24 02:42 Last Infusion: 08/13/24 03:20 Dose: Infused Sodium Chloride (Ns) 1,000 mls @ 999 mls/hr IV .Q1H1M ONE Stop: 08/13/24 05:05 Last Infusion: 08/13/24 05:00 Dose: 0 mls/hr Cefepime HCl 2 gm/ Sodium (Chloride) 50 mls @ 100 mls/hr IV Q8HR [facility] Stop: 08/20/24 21:59 Last Admin: 08/15/24 05:45 Dose: 100 mls/hr Cefepime HCl 2 gm/ Sodium (Chloride) 50 mls @ 100 mls/hr IV X1 ONE Stop: 08/13/24 04:44 Last Infusion: 08/13/24 06:07 Dose: Infused Sodium Chloride (Ns) 1,000 mls @ 75 mls/hr IV .[id number] [facility] Last Admin: 08/13/24 05:00 Dose: Not Given Metronidazole (Flagyl 500 Mg Iv) 500 mg in 100 mls @ 200 mls/hr IV Q8HR [facility] Stop: 08/20/24 04:20 Last Admin: 08/14/24 05:47 Dose: 200 mls/hr Vancomycin/Sodium Chloride (Vancomycin/Ns 1 Gm Ivpb) 200 mls @ 120 mls/hr IV X1 ONE Stop: 08/13/24 06:54 Last Infusion: 08/13/24 08:00 Dose: Infused Vancomycin/Sodium Chloride (Vancomycin/Ns 1 Gm Ivpb) 200 mls @ 120 mls/hr IV Q12H [facility] Stop: 08/20/24 21:59 Last Admin: 08/14/24 09:15 Dose: 120 mls/hr Cefepime HCl 2 gm/ Sodium (Chloride) 50 mls @ 100 mls/hr IV X1 ONE Stop: 08/13/24 14:14 Last Infusion: 08/13/24 16:29 Dose: Infused Lactated Ringer's (Lactated Ringers) 1,000 mls @ 75 mls/hr IV .[id number] [facility] Stop: 09/13/24 09:44 Last Admin: 08/14/24 10:32 Dose: Not Given Pantoprazole Sodium (Pantoprazole Inj 40 Mg Vial) 40 mg IVP QDAY [facility] Stop: 09/12/24 08:59 Last Admin: 08/16/24 08:37 Dose: 40 mg Pharmacy Consult (Vancomycin Pharmacy To Dose 1 Each Each) 1 each IV QDAY PRN PRN Reason: CONSULT Stop: 09/12/24 04:14 Sodium Chloride (Sodium Chloride Rt 10% 15 Ml Nebu) 5 ml INH X1 ONE Stop: 08/13/24 04:18 Last Admin: 08/13/24 10:08 Dose: Not Given Assessment & Plan Plan #Fungemia #History of valley fever #UTI Urine culture grew pansensitive E. coli IgM was positive for cocci, blood cultures was growing yeast otherwise repeat blood cultures were negative and at this point is difficult to know if was pathogenic or not Will recommend to: ? Follow-up influenza A an B ? Continue fluconazole at the moment. ? If flu serology is positive would recommend to treat with Tamiflu, in case influenza is negative and patient becomes work will recommend to start amphotericin B. ? Follow-up cocci IgG and IgM from [facility] ? Repeat blood cultures and echo Patient discussed with my attending Dr Jay Jay Hassan MD PGY-3 Disclaimer: Despite multiple revisions, due to the dictation software being used, the document bellow may not be free of grammatical errors including phonetic/typographic errors. However, this does not deter from our commitment to providing health care in the patient's best interest in mind.
[2024-08-16] MEDS: ACETAMINOPHEN SOL 325 MG/10 ML UDC 650 MG GT (16:47)
--- NOTE | 2024-08-16 19:04 | ESCONSULT_ITS ---
RE: FLORENCIA HOBSON : 1970 DATE OF CONSULTATION: 08/16/2024 REFERRING PHYSICIAN: Dr. Lerma REASON FOR CONSULTATION: Candidemia and positive valley fever test in a nonmobile 54-year-old woman from a nursing care center. HISTORY OF PRESENT ILLNESS: The patient is a full code and is cared for at [facility]. She is to be cared for at home by her family. She lived there for years, but has been in and out of the hospital frequently of late. She was made no code at one point, but then they reversed their opinion and now she is a full code. Meds suggest history of hyperlipidemia and some borderline hypotension, but she has also seen Dr. Lake. She saw him in November of last year. On this admission, she has mostly seen the primary care team. She is hypoxic and has positive valley fever test, but sadly, that test can be falsely positive as well, but if it is true positive, we would not know that until we get results from [facility]. She does not get outside much, so while she could be positive, the fact that she is indoors almost all the time makes it less likely. Her procalcitonin was not negative. It was minimally positive at 0.68, so some sort of antibiotic treatment is okay. UA is negative. She is on Rocephin and azithromycin. She has had lobar pneumonia on the right on imaging, which is also not typical for cocci, but if she worsens over the next 24 hours, she may need amphotericin coverage. She is on Rocephin for empiric coverage. There is yeast growing from the blood at one out of two, but may be contaminant. She is not an easy draw. The overall picture is challenging. She is nonverbal. I cannot get any history from her. History was mostly obtained from the record. ASSESSMENT: 1. Fungemia. 2. History of C. valley fever positivity, which is unusual in a nonmobile person. 3. Apparent pneumonia. 4. Mental retardation and development delay, multifactorial. Please see prior notes for details. RECOMMENDATIONS: The patient's overall prognosis is guarded. Her poor mental status and functional status suggest that she is unlikely to survive. She may get it out of the hospital, but her long-term survival is going to be limited. She has seen variety of providers. We must follow the guidance of her family in terms of decisions about the level of care she is to receive. I will check up on her on a limited basis on Wednesday. we are unlikely to get any data from [facility] until next week. DT: 16:19:33 TT: 17:08:00 Ref: [id number] - TID: [id number] MTDD
[2024-08-16 20:29] LABS: Influenza A Ag Negative; Influenza B Ag Negative
[2024-08-17] VITALS (13 sets, daily range): BP systolic 92–147; BP diastolic 65–97; PULSE 24–131; RESP 17–28; TEMP 35.7–36.7; O2SAT 88–99; BMI 23.1
[2024-08-17] MEDS: LEVALBUTEROL RT 0.63 MG/3 ML NEBU INH ×4 (01:40→18:10)
[2024-08-17] MEDS: IPRATROPIUM RT 0.5 MG/ 2.5 ML NEBU INH ×4 (01:40→18:10)
[2024-08-17 05:50] LABS: Basophils % (Auto) 0 % (0-2.5); Eosinophils # (Auto) 0.2 Thou/mm3 (0.0-0.5); Eosinophils % (Auto) 2 % (0-10); Hematocrit 36.7 % (36.0-46.0); Hemoglobin 10.9 g/dL (12.0-16.0); Immature Granulocytes % (Auto) 1 % (0-0); Immature Granulocytes Auto 0.12 Thou/mm3 (0.00-0.00); Lymphocytes % (Auto) 11 % (10-50); Mean Corpuscular HGB Conc 29.7 g/dl (31.0-37.0); Mean Corpuscular Hemoglobin 28.9 pg (25.0-35.0); Mean Corpuscular Volume 97 fL (80-100); Monocytes # (Auto) 0.6 Thou/mm3 (0.0-0.8); Monocytes % (Auto) 7 % (0-12); Neutrophils # (Auto) 7.2 Thou/mm3 (1.8-7.7); Neutrophils % (Auto) 79 % (37-80); Nucleated Red Blood Cell % 0 /100 WBC (0); Platelet Count 144 Thou/mm3 (140-440); RDW Standard Deviation 56.3 fL (36.4-46.3); Red Blood Count 3.77 Miln/mm3 (4.00-5.20); White Blood Count 9.1 Thou/mm3 (3.6-11.0)
[2024-08-17 06:40] LABS: Alanine Aminotransferase 12 U/L (10-49); Albumin, Serum 3.5 gm/dL (3.5-5.0); Albumin/Globulin Ratio 1.1 (1.2-2.2); Alkaline Phosphatase 89 U/L (46-116); Anion Gap 5 (7-16); Aspartate Amino Transferase 16 U/L (0-34); BUN/Creatinine Ratio 46 Ratio (12-20); Bilirubin,Total < 0.2 mg/dL (0.3-1.2); Blood Urea Nitrogen 23 mg/dL (9-23); Calcium 9.3 mg/dL (8.3-10.6); Calcium (Corrected) 9.7 mg/dL (8.5-10.1); Carbon Dioxide > 40.0 mMol/L (20.0-31.0); Chloride 100 mMol/L (98-107); Creatinine (Component) 0.5 mg/dL (0.6-1.3); Estimated Creatinine Clearance 99.4 mL/min (>60); Globulin 3.2 gm/dL (2.3-3.5); Glucose 161 mg/dL (74-106); Osmolality,Calculated 295 (275-295); Potassium 4.6 mMol/L (3.4-5.1); Sodium 145 mMol/L (136-145); Total Protein 6.7 gm/dL (5.7-8.2); eGFR > 60 See Note
--- NOTE | 2024-08-17 09:24 | XR_ITS ---
Examination: AP chest single view Technique one AP portable upright chest single view Exam date and time: August 17, 2024 0934 hours Comparison August 13, 2024 INDICATIONS: Hypoxia today, extensive pneumonia on chest film August 13, 2024 FINDINGS: Marked worsening of pneumonia right lung, diffuse Left lung pneumonia remains Stable cardiac contour Significant osteopenia IMPRESSION: Bilateral pneumonia, more severe in the right lung
[2024-08-17] MEDS: AZITHROMYCIN 250 MG TABLET 500 MG PO (11:03)
[2024-08-17] MEDS: FLUCONAZOLE 100 MG TABLET 400 MG PO (11:03)
[2024-08-17] MEDS: cefTRIAXone/D5w 1gm IV premix 50 ML IV (11:04)
[2024-08-17] MEDS: ENOXAPARIN SOD INJ 40 MG/0.4 ML SYRINGE SC (11:05)
[2024-08-17] MEDS: PANTOPRAZOLE INJ 40 MG VIAL IV ×2 (12:06→21:49)
--- NOTE | 2024-08-17 12:53 | PD.RESPRO ---
Documentation for date of: 08/17/24 Subjective Subjective Interval history: Patient was examined bedside this morning, as per nurse they sectioned around 400 ml of fluid form mouth. fluid looked mildly bloody. GI Dr diallo consulted . held tube feeds. still on high flow . repeat blood culture ordered for fungemia . 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 Mouth/Throat: Dry mucous membranes, no redness, no lesions. Neck: Neck supple, non-tender, no cervical lymphadenopathy. Lungs: Still some rhonchi present, but iproving Cardio: Normal S1/S2, tachycardic rhythm, no murmurs, no JVD Abdomen: Soft, no palpable masses, peristalsis present, PEG tube in place with no visible discharge Extremities: Contracted lower extremities with some trace peripheral edema Skin: No rashes, no lesions, warm to touch. Neuro: Cannot be assessed due to patient's medical condition Objective Labs 08/17/24 04:31 08/17/24 04:31 Labs: Laboratory Results - last 24 hr 08/16/24 08/17/24 17:50 04:31 WBC 9.1 RBC 3.77 L Hgb 10.9 L Hct 36.7 MCV 97 MCH 28.9 MCHC 29.7 L RDW Std Deviation 56.3 H Plt Count 144 Neut % (Auto) 79 Lymph % (Auto) 11 [place] % (Auto) 7 Eos % (Auto) 2 Baso % (Auto) 0 Neut # (Auto) 7.2 Lymph # (Auto) 1.0 [place] # (Auto) 0.6 Eos # (Auto) 0.2 Baso # (Auto) 0.0 Immature Gran # (Auto) 0.12 H Absolute Nucleated RBC 0.00 Immature Gran % 1 H Nucleated RBC % 0 Sodium 145 Potassium 4.6 D Chloride 100 Carbon Dioxide > 40.0 H Anion Gap 5 L BUN 23 Creatinine 0.5 L Estim Creat Clear Calc 99.4 eGFR > 60 BUN/Creatinine Ratio 46 H Glucose 161 H Calculated Osmolality 295 Calcium 9.3 Corrected Calcium 9.7 Total Bilirubin < 0.2 L AST 16 ALT 12 Alkaline Phosphatase 89 Total Protein 6.7 Albumin 3.5 Globulin 3.2 Albumin/Globulin Ratio 1.1 L Influenza A (Rapid) Negative Influenza B (Rapid) Negative ABG Interpretation ABG results: 08/13/24 08/13/24 08/13/24 04:29 05:33 07:47 ABG pH 7.27 L 7.26 L 7.31 L ABG pCO2 85 H* 80 H* 74 H* ABG pO2 62 L 104 D 104 ABG HCO3 39 H 35 H 37 H ABG O2 Saturation 87 L 97 98 ABG Base Excess 9 H 5 H 8 H 08/14/24 07:57 ABG pH 7.39 ABG pCO2 64 H D ABG pO2 79 L D ABG HCO3 38 H ABG O2 Saturation 97 ABG Base Excess 11 H Quality Measures Quality Measures sepsis Current suspected stage: sepsis Possible source: unknown Blood cultures ordered: yes Antibiotic ordered: Yes Assessment & Plan Assessment Current Active Medications: Generic Name Dose Route Start Last Admin Trade Name Freq PRN Reason Stop Dose Admin Acetaminophen 650 mg 08/15/24 11:39 08/16/24 16:47 Acetaminophen Adriana 325 Mg/10 Ml Udc GT 09/14/24 11:38 650 mg Q4HR PRN Administration pain and Fever >100.4 Azithromycin 500 mg 08/15/24 10:15 08/17/24 11:03 Azithromycin 250 Mg Tablet PO 08/22/24 10:14 500 mg QDAY URBANO Administration Dextrose 25 ml 08/13/24 04:14 Dextrose 50%-Water Inj 50 Ml Syringe IV 09/12/24 04:13 Q15MIN PRN BG 50-70 responsive npo pt Dextrose 50 ml 08/13/24 04:14 Dextrose 50%-Water Inj 50 Ml Syringe IV 09/12/24 04:13 Q15MIN PRN BG <50 OR BG <70 & pt unresponsive Enoxaparin Sodium 40 mg 08/13/24 09:00 08/17/24 11:05 Enoxaparin Sod Inj 40 Mg/0.4 Ml Syringe SC 08/27/24 08:59 40 mg QDAY URBANO Administration Fluconazole 400 mg 08/17/24 09:30 08/17/24 11:03 Fluconazole 100 Mg Tablet PO 08/24/24 09:29 400 mg QDAY URBANO Administration Glucagon 1 mg 08/13/24 04:14 Glucagon Inj 1 Mg Vial IM Q15MIN PRN BG <70, and no IV access Ceftriaxone Sodium/Dextrose 50 mls @ 100 mls/hr 08/15/24 10:00 08/17/24 11:04 Rocephin/D5w 1gm Iv Premix IV 08/22/24 09:59 100 mls/hr QDAY URBANO Administration Insulin Glargine 10 unit 08/13/24 21:00 08/17/24 11:59 Insulin Glargine (Lantus) 5 Unit/0.05 Ml (Per 5 Units) SC 09/12/24 20:59 Not Given HS URBANO Insulin Human Lispro 0 unit 08/13/24 06:00 08/17/24 12:10 Insulin Lispro (Admelog) 1 Unit/0.01 Ml Unit SC 09/12/24 05:59 Not Given Q6HR U[facility]ANO Protocol Ipratropium [place] 0.5 mg 08/13/24 07:00 08/17/24 12:15 Ipratropium Rt 0.5 Mg/ 2.5 Ml Nebu INH 09/12/24 06:59 0.5 mg Q6HRRT URBANO Administration Levalbuterol HCl 0.63 mg 08/13/24 07:00 08/17/24 12:15 Levalbuterol Rt 0.63 Mg/3 Ml Nebu INH 09/12/24 06:59 0.63 mg Q6HRRT URBANO Administration Ondansetron HCl 4 mg 08/13/24 04:07 08/13/24 12:02 Ondansetron Inj 2 Mg/Ml Inj 2 Ml IV 09/12/24 04:06 4 mg Q6H PRN Administration NAUSEA OR VOMITING Protocol Pantoprazole Sodium 40 mg 08/17/24 11:15 08/17/24 12:06 Pantoprazole Inj 40 Mg Vial IV 09/16/24 11:14 40 mg BID URBANO Administration Plan 54-year-old female with past medical history of DM2, developmental delay, chronically bedbound with indwelling Bardales catheter, recurrent UTIs, chronic PEG tube, deaf, blind, 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 #Acute hypoxic respiratory failure - on high flow #Acute hypercapnic respiratory failure #Sepsis likely secondary to #Cocci pneumonia #Hospital-acquired pneumonia versus #Complicated UTI, E. coli #Fungemia #?GI bleed ? Patient came in and met SIRS criteria 4 out of 4 as well as endorgan damage with elevated troponins ? UA was positive for leukocytes esterase ? Chest x-ray with positive for pneumonia ? Chest CTA was positive for severe diffuse right lung pneumonia and concerning for urinary tract infection -Cocci IgM positive -Urine culture positive for E. Coli -Blood culture negative in 48 hours -1 Blood Cx grew yeast preliminary -DC'd Flagyl and vancomycin [08/13/2024?08/14/2024], cefepime [08/13/2024?08/15/2024] Plan: -Continue fluconazole 400 qday [08/14/2024-], Fluconazole 400mg x1 for total 800mg today given positive blood Cx for yeast - Discontinue Rocephin (08/15-08/17)and Continue Azithromycin [08/15/2024-] ,changed the antibiotics to Zosyn from ceftriaxone for worsening pneumonia ? Ipratropium levobunolol scheduled every 6 hours ? Sputum, blood cultures repeat pending ? Chest physiotherapy ordered - ID recommended - to rule out other causes first and if neg, then we can start ampho b, follow up blood culture -Pending Dr Rider [facility] for possible GI bleed -Protonix 40 iv bid #Hypernatremia-resolved ? Patient sodium today was 145 ? DDx likely due to hypodipsia setting of patient being n.p.o. ? Will continue to monitor #NSTEMI likely type II in the setting of sepsis ? Troponins peaked at 0.185 and down trended Plan: ? Will continue monitor #Hx of DM2 ?A1c 5.1 on 07/2024 Plan: ? ISS ? Accu-Cheks and hypoglycemia protocol ordered ? 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 tube feeds(held) GI prophylaxis: protonix 40 iv bid DVT prophylaxis: Lovenox Code: Full code Case discussed with Attending Dr. Sujey Rios MD,PGY- 3 Attending Provider Attestation/Addendum I reviewed labs, imaging, EKG, home medications and prior available records. Face to face evaluation was performed by me. I have personally examined the patient and discussed assessment and plan with the IM team. I reviewed the resident note and agree with the plan with exceptions as below. Acute hypoxic respiratory failure Acute hypercapnic respiratory failure Right lower lobe pneumonia Cocci pneumonia E. coli UTI Possible aspiration pneumonia Non-STEMI Developmental delay Goals of care discussion/counseling Hypernatremia Patient's oxygen requirements increased and FiO2 increased to 85%. Ordered repeat chest x-ray that showed worsening bilateral infiltrates. Possibly due to aspiration pneumonia Discussed with RN: Reported at least 400 cc of blood?suctioning, possible GI. Started the patient on Protonix IV twice daily and consulted GI. Held the tube feeds. Held subcutaneous Lovenox Broadened antibiotics from ceftriaxone to IV Zosyn Cocci IgM is positive. Continue fluconazole. Discussed with ID: Can broaden to IV micafungin if continues to get worse. Repeated blood culture. Ordered echocardiogram. Ordered sputum culture. Developed hyponatremia. Started tube feeds and water flushes for the hypernatremia. Increased water flushes. Sodium level improved Monitor BMP Trend WBC: Downtrending Follow-up cultures: Blood cultures grew fungus. Increased the dose of fluconazole. Consulted ID Back to full code. Continue discussion of goals of care with family.
[2024-08-17] MEDS: PIPER/TAZO 3.375 GM 3.375 GM/50 ML BAG IV ×2 (14:41→21:49)
--- NOTE | 2024-08-17 15:53 | PC.RT ---
sputum sent to lab
--- NOTE | 2024-08-17 21:31 | PD.IMCONS ---
HPI Data of Consult Requesting Physician: Raffy Rm MD Primary Care Provider: Physician No Primary/Family Consult Narrative Reason for consult: hematemesis dropping H&H to 10.9 and 31.7 History of present illness: 54 years old female no history obtainable as patient is developmentally delayed I have been consulted for drop in hemoglobin hematocrit as well as 400 mL of bloody gastric secretion aspirated this morning and the tube feeding has been held Patient is in acute hypoxic respiratory failure with cocci pneumonia fungemia NSTEMI type II Patient currently on high flow oxygen cc:: cc: Raffy Rm MD Review of Systems Review of Systems ROS Unobtainable: unobtainable due to medical condition Past Medical History Surgical History OTHER SURGICAL HX: As in the history of present illness Meds Home Medications and Allergies Allergies Allergy/AdvReac Type Severity Reaction Status Date / Time chloral hydrate Allergy Mild unknown Verified 11/08/22 15:02 Exam Vital Signs Temp Pulse Resp BP Pulse Ox O2 Del Method O2 Flow Rate 96.3 F L 104 H 20 125/69 99 Room Air 40 08/17/24 16:00 08/17/24 18:10 08/17/24 18:10 08/17/24 16:00 08/17/24 18:10 08/17/24 16:00 08/17/24 18:10 FiO2 85 08/17/24 18:10 Constitutional Comments: Chronically ill-appearing Routine Respiratory Exam Comments: Scattered rhonchi Routine Abdominal Exam Comments: Soft nontender PEG tube in place Results Labs 08/17/24 04:31 08/17/24 04:31 Labs: Short CBC 08/17/24 Range/Units 04:31 WBC 9.1 (3.6-11.0) Thou/mm3 Hgb 10.9 L (12.0-16.0) g/dL Hct 36.7 (36.0-46.0) % Plt Count 144 (140-440) Thou/mm3 BMP 08/17/24 04:31 Sodium 145 Potassium 4.6 D Chloride 100 Carbon Dioxide > 40.0 H BUN 23 Creatinine 0.5 L Glucose 161 H Calcium 9.3 Liver Function 08/17/24 Range/Units 04:31 Total Bilirubin < 0.2 L (0.3-1.2) mg/dL AST 16 (0-34) U/L ALT 12 (10-49) U/L Alkaline Phosphatase 89 (46-116) U/L Albumin 3.5 (3.5-5.0) gm/dL ABG Interpretation ABG results: 08/13/24 08/13/24 08/13/24 04:29 05:33 07:47 ABG pH 7.27 L 7.26 L 7.31 L ABG pCO2 85 H* 80 H* 74 H* ABG pO2 62 L 104 D 104 ABG HCO3 39 H 35 H 37 H ABG O2 Saturation 87 L 97 98 ABG Base Excess 9 H 5 H 8 H 08/14/24 07:57 ABG pH 7.39 ABG pCO2 64 H D ABG pO2 79 L D ABG HCO3 38 H ABG O2 Saturation 97 ABG Base Excess 11 H Assessment and Plan Additional Assessment & Plan Additional Plan: # Hematemesis Patient does need upper endoscopy but because of the high flow oxygen I will wait till the respiratory status improves and then schedule the upper endoscopy Other medical problems include # Acute hypoxic respiratory failure on high flow oxygen # Fungemia # Right basal cocci pneumonia # NSTEMI type II thank you very much for the opportunity to participate in care of this patient
[2024-08-18] VITALS (13 sets, daily range): BP systolic 95–146; BP diastolic 47–99; PULSE 88–102; RESP 17–24; TEMP 35.4–36.2; O2SAT 92–97; BMI 22.6
[2024-08-18] MEDS: IPRATROPIUM RT 0.5 MG/ 2.5 ML NEBU INH ×4 (00:45→18:40)
[2024-08-18] MEDS: LEVALBUTEROL RT 0.63 MG/3 ML NEBU INH ×4 (00:45→18:40)
[2024-08-18] MEDS: PIPER/TAZO 3.375 GM 3.375 GM/50 ML BAG IV (05:07)
[2024-08-18 06:51] LABS: Basophils % (Auto) 0 % (0-2.5); Eosinophils # (Auto) 0.3 Thou/mm3 (0.0-0.5); Eosinophils % (Auto) 5 % (0-10); Hematocrit 34.2 % (36.0-46.0); Hemoglobin 10.4 g/dL (12.0-16.0); Immature Granulocytes % (Auto) 2 % (0-0); Immature Granulocytes Auto 0.11 Thou/mm3 (0.00-0.00); Lymphocytes # (Auto) 0.7 Thou/mm3 (1.0-4.8); Lymphocytes % (Auto) 12 % (10-50); Mean Corpuscular HGB Conc 30.4 g/dl (31.0-37.0); Mean Corpuscular Hemoglobin 29.2 pg (25.0-35.0); Mean Corpuscular Volume 96 fL (80-100); Monocytes # (Auto) 0.4 Thou/mm3 (0.0-0.8); Monocytes % (Auto) 7 % (0-12); Neutrophils # (Auto) 4.2 Thou/mm3 (1.8-7.7); Neutrophils % (Auto) 75 % (37-80); Nucleated Red Blood Cell # 0.02 Thou/mm3 (0.00-0.00); Nucleated Red Blood Cell % 0 /100 WBC (0); Platelet Count 112 Thou/mm3 (140-440); RDW Standard Deviation 54.4 fL (36.4-46.3); Red Blood Count 3.56 Miln/mm3 (4.00-5.20); White Blood Count 5.7 Thou/mm3 (3.6-11.0)
[2024-08-18 07:26] LABS: Alanine Aminotransferase 8 U/L (10-49); Albumin, Serum 3.5 gm/dL (3.5-5.0); Albumin/Globulin Ratio 1.1 (1.2-2.2); Alkaline Phosphatase 81 U/L (46-116); Anion Gap 7 (7-16); Aspartate Amino Transferase 13 U/L (0-34); BUN/Creatinine Ratio 42 Ratio (12-20); Bilirubin,Total 0.3 mg/dL (0.3-1.2); Blood Urea Nitrogen 21 mg/dL (9-23); Calcium 9.6 mg/dL (8.3-10.6); Carbon Dioxide > 40.0 mMol/L (20.0-31.0); Chloride 101 mMol/L (98-107); Creatinine (Component) 0.5 mg/dL (0.6-1.3); Estimated Creatinine Clearance 99.4 mL/min (>60); Globulin 3.2 gm/dL (2.3-3.5); Glucose 105 mg/dL (74-106); Osmolality,Calculated 297 (275-295); Potassium 4.8 mMol/L (3.4-5.1); Sodium 148 mMol/L (136-145); Total Protein 6.7 gm/dL (5.7-8.2); eGFR > 60 See Note
--- NOTE | 2024-08-18 09:57 | ESPR_ITS ---
Subjective Subjective Interval history: events noted. candidemia noted. cocci pending at [facility]. not very mobile. so cocci less likely than candidemia but both are unlikely, Exam Vital Signs Temp Pulse Resp BP Pulse Ox O2 Del Method O2 Flow Rate 96.5 F L 88 18 95/64 94 L High Flow Nasal Cannula 40 08/18/24 08:00 08/18/24 08:00 08/18/24 08:00 08/18/24 08:00 08/18/24 08:00 08/18/24 08:00 08/18/24 08:00 FiO2 85 08/18/24 08:00 Narrative Exam aspiration likely given status. but not interactive at all. peg and any other devices as noted. Objective - Internal Medicine Labs 08/18/24 06:36 08/18/24 06:36 Labs: Laboratory Results - last 24 hr 08/18/24 06:36 WBC 5.7 RBC 3.56 L Hgb 10.4 L Hct 34.2 L MCV 96 MCH 29.2 MCHC 30.4 L RDW Std Deviation 54.4 H Plt Count 112 L D Neut % (Auto) 75 Lymph % (Auto) 12 [place] % (Auto) 7 Eos % (Auto) 5 Baso % (Auto) 0 Neut # (Auto) 4.2 Lymph # (Auto) 0.7 L [place] # (Auto) 0.4 Eos # (Auto) 0.3 Baso # (Auto) 0.0 Immature Gran # (Auto) 0.11 H Absolute Nucleated RBC 0.02 H Immature Gran % 2 H Nucleated RBC % 0 Sodium 148 H Potassium 4.8 Chloride 101 Carbon Dioxide > 40.0 H Anion Gap 7 BUN 21 Creatinine 0.5 L Estim Creat Clear Calc 99.4 eGFR > 60 BUN/Creatinine Ratio 42 H Glucose 105 D Calculated Osmolality 297 H Calcium 9.6 Corrected Calcium 10.0 Total Bilirubin 0.3 AST 13 ALT 8 L Alkaline Phosphatase 81 Total Protein 6.7 Albumin 3.5 Globulin 3.2 Albumin/Globulin Ratio 1.1 L ABG Interpretation ABG results: 08/13/24 08/13/24 08/13/24 04:29 05:33 07:47 ABG pH 7.27 L 7.26 L 7.31 L ABG pCO2 85 H* 80 H* 74 H* ABG pO2 62 L 104 D 104 ABG HCO3 39 H 35 H 37 H ABG O2 Saturation 87 L 97 98 ABG Base Excess 9 H 5 H 8 H 08/14/24 07:57 ABG pH 7.39 ABG pCO2 64 H D ABG pO2 79 L D ABG HCO3 38 H ABG O2 Saturation 97 ABG Base Excess 11 H Assessment & Plan A&P Narrative pos cocci candid glabrata fungemia on admit. may be contaminant repeats pending from 08/17/24. echo neg pneumonia. cocci possible but less likely, due to limited mobility. cocci has not been reported in those who do not venture outdoors will adjust rx so the glabrata is coveredas ufngarmia may be more likely . if repeat bc are neg, then value of rx may be low but may have to wait a few days more on the bc. will likely see again wednesday if she remains in house. sadly, usual rx for glabrata may be micafungin and long if she has endocarditis which seems unlikely but is possible. get lachelle if repeat bc pos for yeast also. Time Spent With Patient Time: Total time spent is greater than 50% in coordination of care (as documented) at patient's floor/unit and/or counseling patient:
[2024-08-18] MEDS: PANTOPRAZOLE INJ 40 MG VIAL IV ×2 (10:17→21:34)
[2024-08-18] MEDS: MICAFUNGIN SODIUM INJ 100 MG in SODIUM CHLORIDE 0.9% 100 ML IV (10:37)
--- NOTE | 2024-08-18 14:44 | ESPR_ITS ---
<Statement entered by Sunny Pappas MD - 08/22/24 15:41> I reviewed above note and agree with findings and plans. I have also personally examined the patient with medicine team and went over assessment and plan with medical team including editing internship and resident physician. Documentation for date of: 08/18/24 Subjective Subjective Interval history: Patient examined at bedside. No acute overnight events. Patient's tube feeds are still being held and GI Dr. Lake was consulted for upper endoscopy due to dropping albumin as well as bloody gastric secretion. However, patient is still on high flow and currently on 80%. Repeat blood culture returned positive for Josefa glabrata. ID was consulted and started the patient micafungin as well as Augmentin per G-tube. Will continue to adjust oxygen titration as well as other medications. Exam Vital Signs Temp Pulse Resp BP Pulse Ox O2 Del Method O2 Flow Rate 95.7 F L 100 24 H 133/56 H 94 L High Flow Nasal Cannula 35 08/18/24 13:32 08/18/24 13:32 08/18/24 13:32 08/18/24 13:32 08/18/24 13:32 08/18/24 13:32 08/18/24 12:39 FiO2 80 08/18/24 12:39 Narrative Exam General: Patient was resting in bed on HFNC, patient is nonverbal, blind, and deaf at baseline Mouth/Throat: Dry mucous membranes, no redness, no lesions. Neck: Neck supple, non-tender, no cervical lymphadenopathy. Lungs: Still some rhonchi present, but iproving Cardio: Normal S1/S2, tachycardic rhythm, no murmurs, no JVD Abdomen: Soft, no palpable masses, peristalsis present, PEG tube in place with no visible discharge Extremities: Contracted lower extremities with some trace peripheral edema Skin: No rashes, no lesions, warm to touch. Neuro: Cannot be assessed due to patient's medical condition Objective Labs 08/18/24 06:36 08/18/24 06:36 Labs: Laboratory Results - last 24 hr 08/18/24 06:36 WBC 5.7 RBC 3.56 L Hgb 10.4 L Hct 34.2 L MCV 96 MCH 29.2 MCHC 30.4 L RDW Std Deviation 54.4 H Plt Count 112 L D Neut % (Auto) 75 Lymph % (Auto) 12 [place] % (Auto) 7 Eos % (Auto) 5 Baso % (Auto) 0 Neut # (Auto) 4.2 Lymph # (Auto) 0.7 L [place] # (Auto) 0.4 Eos # (Auto) 0.3 Baso # (Auto) 0.0 Immature Gran # (Auto) 0.11 H Absolute Nucleated RBC 0.02 H Immature Gran % 2 H Nucleated RBC % 0 Sodium 148 H Potassium 4.8 Chloride 101 Carbon Dioxide > 40.0 H Anion Gap 7 BUN 21 Creatinine 0.5 L Estim Creat Clear Calc 99.4 eGFR > 60 BUN/Creatinine Ratio 42 H Glucose 105 D Calculated Osmolality 297 H Calcium 9.6 Corrected Calcium 10.0 Total Bilirubin 0.3 AST 13 ALT 8 L Alkaline Phosphatase 81 Total Protein 6.7 Albumin 3.5 Globulin 3.2 Albumin/Globulin Ratio 1.1 L ABG Interpretation ABG results: 08/13/24 08/13/24 08/13/24 04:29 05:33 07:47 ABG pH 7.27 L 7.26 L 7.31 L ABG pCO2 85 H* 80 H* 74 H* ABG pO2 62 L 104 D 104 ABG HCO3 39 H 35 H 37 H ABG O2 Saturation 87 L 97 98 ABG Base Excess 9 H 5 H 8 H 08/14/24 07:57 ABG pH 7.39 ABG pCO2 64 H D ABG pO2 79 L D ABG HCO3 38 H ABG O2 Saturation 97 ABG Base Excess 11 H Quality Measures Quality Measures sepsis Current suspected stage: sepsis Possible source: unknown Blood cultures ordered: yes Antibiotic ordered: Yes Assessment & Plan Assessment Current Active Medications: Generic Name Dose Route Start Last Admin Trade Name Freq PRN Reason Stop Dose Admin Acetaminophen 650 mg 08/15/24 11:39 08/16/24 16:47 Acetaminophen Adriana 325 Mg/10 Ml Udc GT 09/14/24 11:38 650 mg Q4HR PRN Administration pain and Fever >100.4 Amoxicillin/Clavulanate Potassium 600 mg 08/18/24 21:00 Amoxicillin/Pot Clav 600 Mg/5 Ml GT 08/23/24 12:00 BID URBANO Dextrose 25 ml 08/13/24 04:14 Dextrose 50%-Water Inj 50 Ml Syringe IV 09/12/24 04:13 Q15MIN PRN BG 50-70 responsive npo pt Dextrose 50 ml 08/13/24 04:14 Dextrose 50%-Water Inj 50 Ml Syringe IV 09/12/24 04:13 Q15MIN PRN BG <50 OR BG <70 & pt unresponsive Enoxaparin Sodium 40 mg 08/13/24 09:00 08/17/24 11:05 Enoxaparin Sod Inj 40 Mg/0.4 Ml Syringe SC 08/27/24 08:59 40 mg QDAY URBANO Administration Glucagon 1 mg 08/13/24 04:14 Glucagon Inj 1 Mg Vial IM Q15MIN PRN BG <70, and no IV access Micafungin Sodium 100 mg/ 100 mls @ 100 mls/hr 08/18/24 09:57 08/18/24 10:37 Sodium Chloride IV 09/02/24 09:56 100 mls/hr QDAY URBANO Administration Insulin Glargine 10 unit 08/13/24 21:00 08/17/24 21:50 Insulin Glargine (Lantus) 5 Unit/0.05 Ml (Per 5 Units) SC 09/12/24 20:59 Not Given HS [facility] Insulin Human Lispro 0 unit 08/13/24 06:00 08/18/24 12:03 Insulin Lispro (Admelog) 1 Unit/0.01 Ml Unit SC 09/12/24 05:59 Not Given Q6HR [facility] Protocol Ipratropium [place] 0.5 mg 08/13/24 07:00 08/18/24 12:38 Ipratropium Rt 0.5 Mg/ 2.5 Ml Nebu INH 09/12/24 06:59 0.5 mg Q6HRRT URBANO Administration Levalbuterol HCl 0.63 mg 08/13/24 07:00 08/18/24 12:38 Levalbuterol Rt 0.63 Mg/3 Ml Nebu INH 09/12/24 06:59 0.63 mg Q6HRRT URBANO Administration Ondansetron HCl 4 mg 08/13/24 04:07 08/13/24 12:02 Ondansetron Inj 2 Mg/Ml Inj 2 Ml IV 09/12/24 04:06 4 mg Q6H PRN Administration NAUSEA OR VOMITING Protocol Pantoprazole Sodium 40 mg 08/17/24 11:15 08/18/24 10:17 Pantoprazole Inj 40 Mg Vial IV 09/16/24 11:14 40 mg BID URBANO Administration Plan Summary: 54-year-old female with past medical history of DM2, developmental delay, chronically bedbound with indwelling Bardales catheter, recurrent UTIs, chronic PEG tube, deaf, blind, 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 #Acute hypoxic respiratory failure #Sepsis likely secondary to #Cocci versus PNA (CAP vs HAP vs aspiration) #Josefa galbrata bacteremia #E.coli UTI ? Patient came in and met SIRS criteria 4 out of 4 as well as endorgan damage with elevated troponins ? UA was positive for leukocytes esterase ? Chest x-ray with positive for pneumonia ? Chest CTA was positive for severe diffuse right lung pneumonia and concerning for urinary tract infection -Cocci IgM positive -Urine culture positive for E. Coli -Blood culture negative in 48 hours -1 Blood Cx grew yeast preliminary -DC'd Flagyl and vancomycin [08/13/2024?08/14/2024], cefepime [08/13/2024?08/15/2024] -Blood culture returned positive for Josefa glabrata, ID consulted-commenced patient on micafungin and Augmentin. DC'd fluconazole Plan: - Continue micafungin and Augmentin ? Ipratropium levobunolol scheduled every 6 hours ? Chest physiotherapy ordered -ID consulted, appreciate recommendations #?GI bleed On 08/17/2024, patient had bloody gastric secretion as well as drop in hemoglobin and hematocrit. She feeds are held and GI Dr. Lake was consulted. This patient is still currently on high flow oxygen, will continue to down titrate oxygen requirements for possible upper endoscopy. Plan: -IV Protonix 40 mg twice daily -GI Dr. Lake consulted, appreciate recommendations -Possible upper endoscopy once oxygenation has improved. #Hypernatremia ? Patient sodium today was 148, and water flushes was increased to 75cc/hr ? DDx likely due to hypodipsia setting of patient being n.p.o. ? Will continue to monitor #NSTEMI likely type II in the setting of sepsis ? Troponins peaked at 0.185 and down trended Plan: ? Will continue monitor #Hx of DM2 ?A1c 5.1 on 07/2024 Plan: ? ISS ? Accu-Cheks and hypoglycemia protocol ordered ? 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 As the patient's blood culture returned positive for Josefa glabrata, ID Dr Goyal started the patient on micafungin. However, we will be discussing further for starting the patient on fluconazole as well, as micafungin has a weak affect against coccy pneumonia. We will also continue with augmentin. Her water flushes was increased to 75cc/hr as her Na level was 148 this morning. I discussed with and supervised the editing internship physician involved in the care of this patient. I personally saw and examined the patient and discussed the assessment and plan with the entire medicine team, including my attending. I agree with the assessment and plan as documented above. Velasquez Mosley MD PGY2 Internal Medicine
--- NOTE | 2024-08-18 19:28 | PD.IMPROG ---
Documentation for date of: 08/18/24 Subjective Subjective Interval history: Hemoglobin hematocrit 10.4 and 34.34.2 patient still on high flow oxygen Exam Vital Signs Temp Pulse Resp BP Pulse Ox O2 Del Method O2 Flow Rate 96.6 F L 95 17 100/75 96 High Flow Nasal Cannula 35 08/18/24 16:00 08/18/24 16:00 08/18/24 16:00 08/18/24 16:00 08/18/24 14:55 08/18/24 13:32 08/18/24 14:55 FiO2 85 08/18/24 14:55 Objective Labs 08/18/24 06:36 08/18/24 06:36 Labs: Laboratory Results - last 24 hr 08/18/24 06:36 WBC 5.7 RBC 3.56 L Hgb 10.4 L Hct 34.2 L MCV 96 MCH 29.2 MCHC 30.4 L RDW Std Deviation 54.4 H Plt Count 112 L D Neut % (Auto) 75 Lymph % (Auto) 12 [place] % (Auto) 7 Eos % (Auto) 5 Baso % (Auto) 0 Neut # (Auto) 4.2 Lymph # (Auto) 0.7 L [place] # (Auto) 0.4 Eos # (Auto) 0.3 Baso # (Auto) 0.0 Immature Gran # (Auto) 0.11 H Absolute Nucleated RBC 0.02 H Immature Gran % 2 H Nucleated RBC % 0 Sodium 148 H Potassium 4.8 Chloride 101 Carbon Dioxide > 40.0 H Anion Gap 7 BUN 21 Creatinine 0.5 L Estim Creat Clear Calc 99.4 eGFR > 60 BUN/Creatinine Ratio 42 H Glucose 105 D Calculated Osmolality 297 H Calcium 9.6 Corrected Calcium 10.0 Total Bilirubin 0.3 AST 13 ALT 8 L Alkaline Phosphatase 81 Total Protein 6.7 Albumin 3.5 Globulin 3.2 Albumin/Globulin Ratio 1.1 L Impressions Impression: # Acute posthemorrhagic anemia # Hematemesis Since patient remains on high flow oxygen will wait till the respiratory status improves before doing an upper endoscopy for evaluation of hematemesis ABG Interpretation ABG results: 08/13/24 08/13/24 08/13/24 04:29 05:33 07:47 ABG pH 7.27 L 7.26 L 7.31 L ABG pCO2 85 H* 80 H* 74 H* ABG pO2 62 L 104 D 104 ABG HCO3 39 H 35 H 37 H ABG O2 Saturation 87 L 97 98 ABG Base Excess 9 H 5 H 8 H 08/14/24 07:57 ABG pH 7.39 ABG pCO2 64 H D ABG pO2 79 L D ABG HCO3 38 H ABG O2 Saturation 97 ABG Base Excess 11 H Assessment & Plan A&P Narrative pos cocci candid glabrata fungemia on admit. may be contaminant repeats pending from 08/17/24. echo neg pneumonia. cocci possible but less likely, due to limited mobility. cocci has not been reported in those who do not venture outdoors will adjust rx so the glabrata is coveredas ufngarmia may be more likely . if repeat bc are neg, then value of rx may be low but may have to wait a few days more on the bc. will likely see again wednesday if she remains in house. sadly, usual rx for glabrata may be micafungin and long if she has endocarditis which seems unlikely but is possible. get lachelle if repeat bc pos for yeast also. Time Spent With Patient Time: Total time spent is greater than 50% in coordination of care (as documented) at patient's floor/unit and/or counseling patient:
[2024-08-18] MEDS: FLUCONAZOLE/NS 400 MG IVPB 400 MG/200 ML BAG 100 MG IV (21:35)
[2024-08-18] MEDS: INSULIN GLARGINE (Lantus) 5 UNIT/0.05 ML (PER 5 UNITS) 10 UNIT SC (21:43)
[2024-08-18] MEDS: AMOXICILLIN/POT CLAV SUSP 250 MG/5 ML UDC 600 MG PO (22:38)
[2024-08-19] VITALS (15 sets, daily range): BP systolic 108–168; BP diastolic 74–91; PULSE 83–113; RESP 19–30; TEMP 36–36.8; O2SAT 35–99
[2024-08-19] MEDS: IPRATROPIUM RT 0.5 MG/ 2.5 ML NEBU INH ×4 (00:30→19:27)
[2024-08-19] MEDS: LEVALBUTEROL RT 0.63 MG/3 ML NEBU INH ×4 (00:30→19:27)
[2024-08-19 08:51] LABS: Basophils % (Auto) 0 % (0-2.5); Eosinophils # (Auto) 0.3 Thou/mm3 (0.0-0.5); Eosinophils % (Auto) 5 % (0-10); Hematocrit 34.9 % (36.0-46.0); Hemoglobin 10.6 g/dL (12.0-16.0); Immature Granulocytes % (Auto) 1 % (0-0); Immature Granulocytes Auto 0.05 Thou/mm3 (0.00-0.00); Lymphocytes # (Auto) 0.8 Thou/mm3 (1.0-4.8); Lymphocytes % (Auto) 14 % (10-50); Mean Corpuscular HGB Conc 30.4 g/dl (31.0-37.0); Mean Corpuscular Hemoglobin 28.7 pg (25.0-35.0); Mean Corpuscular Volume 95 fL (80-100); Monocytes # (Auto) 0.4 Thou/mm3 (0.0-0.8); Monocytes % (Auto) 8 % (0-12); Neutrophils # (Auto) 4.3 Thou/mm3 (1.8-7.7); Neutrophils % (Auto) 73 % (37-80); Nucleated Red Blood Cell % 0 /100 WBC (0); Platelet Count 173 Thou/mm3 (140-440); RDW Standard Deviation 53.1 fL (36.4-46.3); Red Blood Count 3.69 Miln/mm3 (4.00-5.20); White Blood Count 5.8 Thou/mm3 (3.6-11.0)
[2024-08-19 09:11] LABS: Alanine Aminotransferase 12 U/L (10-49); Albumin, Serum 3.4 gm/dL (3.5-5.0); Albumin/Globulin Ratio 1.1 (1.2-2.2); Alkaline Phosphatase 80 U/L (46-116); Anion Gap 5 (7-16); Aspartate Amino Transferase 12 U/L (0-34); BUN/Creatinine Ratio 45 Ratio (12-20); Bilirubin,Total 0.2 mg/dL (0.3-1.2); Blood Urea Nitrogen 18 mg/dL (9-23); Calcium 9.3 mg/dL (8.3-10.6); Calcium (Corrected) 9.8 mg/dL (8.5-10.1); Chloride 97 mMol/L (98-107); Creatinine (Component) 0.4 mg/dL (0.6-1.3); Estimated Creatinine Clearance 136.7 mL/min (>60); Globulin 3.1 gm/dL (2.3-3.5); Glucose 167 mg/dL (74-106); Osmolality,Calculated 289 (275-295); Potassium 4.4 mMol/L (3.4-5.1); Sodium 142 mMol/L (136-145); Total Protein 6.5 gm/dL (5.7-8.2); eGFR > 60 See Note
[2024-08-19 09:12] LABS: Carbon Dioxide > 40.0 mMol/L (20.0-31.0)
[2024-08-19] MEDS: MICAFUNGIN SODIUM INJ 100 MG in SODIUM CHLORIDE 0.9% 100 ML IV (09:32)
[2024-08-19] MEDS: FLUCONAZOLE/NS 400 MG IVPB 400 MG/200 ML BAG 100 MG IV (09:32)
[2024-08-19] MEDS: PANTOPRAZOLE INJ 40 MG VIAL IV ×2 (09:33→22:04)
[2024-08-19] MEDS: AMOXICILLIN/POT CLAV 600 MG/5 ML GT ×2 (12:17→22:04)
[2024-08-19] MEDS: INSULIN LISPRO (AdmeLOG) 1 UNIT/0.01 ML UNIT SC (12:18)
--- NOTE | 2024-08-19 13:51 | ESPR_ITS ---
<Statement entered by Sunny Pappas MD - 08/25/24 15:56> I reviewed above note and agree with findings and plans. I have also personally examined the patient with medicine team and went over assessment and plan with medical team including security intern and resident physician. Documentation for date of: 08/19/24 Subjective Subjective Interval history: Patient seen at bedside. No acute overnight events. Patient is showing significant improvements in oxygen requirements are being slowly titrated. She is currently on high flow nasal cannula at 75%, 35 Labs reviewed hypernatremia resolved, patient is currently on tube feeds with water flushes at 75 cc/h. Nurse at bedside reports that patient blood clots coming out of the tube flushed with no active bleeding seen. Will continue to evaluate tube for any other signs of bleeding. Otherwise, we will continue micafungin, fluconazole and Augmentin and repeat a chest x-ray tomorrow. 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 Neck: Neck supple, non-tender, no cervical lymphadenopathy. Lungs: Still some rhonchi present, but iproving Cardio: Normal S1/S2, tachycardic rhythm, no murmurs, no JVD Abdomen: Soft, no palpable masses, peristalsis present, PEG tube in place with no visible discharge Extremities: Contracted lower extremities with some trace peripheral edema Skin: No rashes, no lesions, warm to touch. Neuro: Cannot be assessed due to patient's medical condition Objective Labs 08/19/24 08:30 08/19/24 08:30 Labs: Laboratory Results - last 24 hr 08/19/24 08:30 WBC 5.8 RBC 3.69 L Hgb 10.6 L Hct 34.9 L MCV 95 MCH 28.7 MCHC 30.4 L RDW Std Deviation 53.1 H Plt Count 173 D Neut % (Auto) 73 Lymph % (Auto) 14 [place] % (Auto) 8 Eos % (Auto) 5 Baso % (Auto) 0 Neut # (Auto) 4.3 Lymph # (Auto) 0.8 L [place] # (Auto) 0.4 Eos # (Auto) 0.3 Baso # (Auto) 0.0 Immature Gran # (Auto) 0.05 H Absolute Nucleated RBC 0.00 Immature Gran % 1 H Nucleated RBC % 0 Sodium 142 Potassium 4.4 Chloride 97 L Carbon Dioxide > 40.0 H Anion Gap 5 L BUN 18 Creatinine 0.4 L Estim Creat Clear Calc 136.7 eGFR > 60 BUN/Creatinine Ratio 45 H Glucose 167 H D Calculated Osmolality 289 Calcium 9.3 Corrected Calcium 9.8 Total Bilirubin 0.2 L AST 12 ALT 12 Alkaline Phosphatase 80 Total Protein 6.5 Albumin 3.4 L Globulin 3.1 Albumin/Globulin Ratio 1.1 L ABG Interpretation ABG results: 08/13/24 08/13/24 08/13/24 04:29 05:33 07:47 ABG pH 7.27 L 7.26 L 7.31 L ABG pCO2 85 H* 80 H* 74 H* ABG pO2 62 L 104 D 104 ABG HCO3 39 H 35 H 37 H ABG O2 Saturation 87 L 97 98 ABG Base Excess 9 H 5 H 8 H 08/14/24 07:57 ABG pH 7.39 ABG pCO2 64 H D ABG pO2 79 L D ABG HCO3 38 H ABG O2 Saturation 97 ABG Base Excess 11 H Quality Measures Quality Measures sepsis Current suspected stage: sepsis Possible source: unknown Blood cultures ordered: yes Antibiotic ordered: Yes Assessment & Plan Assessment Current Active Medications: Generic Name Dose Route Start Last Admin Trade Name Freq PRN Reason Stop Dose Admin Acetaminophen 650 mg 08/15/24 11:39 08/16/24 16:47 Acetaminophen Adriana 325 Mg/10 Ml Udc GT 09/14/24 11:38 650 mg Q4HR PRN Administration pain and Fever >100.4 Amoxicillin/Clavulanate Potassium 600 mg 08/19/24 09:00 08/19/24 12:17 Amoxicillin/Pot Clav 600 Mg/5 Ml GT 08/26/24 08:59 600 mg BID URBANO Administration Dextrose 25 ml 08/13/24 04:14 Dextrose 50%-Water Inj 50 Ml Syringe IV 09/12/24 04:13 Q15MIN PRN BG 50-70 responsive npo pt Dextrose 50 ml 08/13/24 04:14 Dextrose 50%-Water Inj 50 Ml Syringe IV 09/12/24 04:13 Q15MIN PRN BG <50 OR BG <70 & pt unresponsive Enoxaparin Sodium 40 mg 08/13/24 09:00 08/17/24 11:05 Enoxaparin Sod Inj 40 Mg/0.4 Ml Syringe SC 08/27/24 08:59 40 mg QDAY URBANO Administration Glucagon 1 mg 08/13/24 04:14 Glucagon Inj 1 Mg Vial IM Q15MIN PRN BG <70, and no IV access Micafungin Sodium 100 mg/ 100 mls @ 100 mls/hr 08/18/24 09:57 08/19/24 09:32 Sodium Chloride IV 09/02/24 09:56 100 mls/hr QDAY URBANO Administration Fluconazole 400 mg in 200 mls @ 100 mls/hr 08/18/24 18:15 08/19/24 09:32 Diflucan/Ns Ivpb IV 08/25/24 18:14 100 mls/hr QDAY URBANO Administration Insulin Glargine 10 unit 08/13/24 21:00 08/18/24 21:43 Insulin Glargine (Lantus) 5 Unit/0.05 Ml (Per 5 Units) SC 09/12/24 20:59 10 unit HS URBANO Administration Insulin Human Lispro 0 unit 08/13/24 06:00 08/19/24 12:18 Insulin Lispro (Admelog) 1 Unit/0.01 Ml Unit SC 09/12/24 05:59 1 unit Q6HR URBANO Administration Protocol Ipratropium [place] 0.5 mg 08/13/24 07:00 08/19/24 12:53 Ipratropium Rt 0.5 Mg/ 2.5 Ml Nebu INH 09/12/24 06:59 0.5 mg Q6HRRT URBANO Administration Levalbuterol HCl 0.63 mg 08/13/24 07:00 08/19/24 12:54 Levalbuterol Rt 0.63 Mg/3 Ml Nebu INH 09/12/24 06:59 0.63 mg Q6HRRT URBANO Administration Ondansetron HCl 4 mg 08/13/24 04:07 08/13/24 12:02 Ondansetron Inj 2 Mg/Ml Inj 2 Ml IV 09/12/24 04:06 4 mg Q6H PRN Administration NAUSEA OR VOMITING Protocol Pantoprazole Sodium 40 mg 08/17/24 11:15 08/19/24 09:33 Pantoprazole Inj 40 Mg Vial IV 09/16/24 11:14 40 mg BID URBANO Administration Plan Summary: 54-year-old female with past medical history of DM2, developmental delay, chronically bedbound with indwelling Bardales catheter, recurrent UTIs, chronic PEG tube, deaf, blind, 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 #Acute hypoxic respiratory failure #Sepsis likely secondary to #Cocci versus PNA (CAP vs HAP vs aspiration) #Josefa galbrata bacteremia #E.coli UTI ? Patient came in and met SIRS criteria 4 out of 4 as well as endorgan damage with elevated troponins ? UA was positive for leukocytes esterase ? Chest x-ray with positive for pneumonia ? Chest CTA was positive for severe diffuse right lung pneumonia and concerning for urinary tract infection -Cocci IgM positive -Urine culture positive for E. Coli -Blood culture negative in 48 hours -1 Blood Cx grew yeast preliminary -DC'd Flagyl and vancomycin [08/13/2024?08/14/2024], cefepime [08/13/2024?08/15/2024] -Blood culture returned positive for Josefa glabrata, ID consulted-commenced patient on micafungin. Additionally, we continued fluconazole to cover cocci and Augmentin to cover pneumonia/UTI. Plan: - Continue micafungin, fluconazole and Augmentin - Chest x-ray tomorrow - Continue oxygen down titration as tolerated ? Ipratropium and levalbuterol scheduled every 6 hours ? Chest physiotherapy ordered -ID consulted, appreciate recommendations #?GI bleed On 08/17/2024, patient had bloody gastric secretion as well as drop in hemoglobin and hematocrit. She feeds are held and GI Dr. Lake was consulted. This patient is still currently on high flow oxygen, will continue to down titrate oxygen requirements for possible upper endoscopy. Plan: -IV Protonix 40 mg twice daily -GI Dr. Lake consulted, appreciate recommendations -Possible upper endoscopy once oxygenation has improved. #Hypernatremia-resolved ? Patient sodium today was 142, and water flushes maintained at 75cc/hr ? DDx likely due to hypodipsia setting of patient being n.p.o. ? Will continue to monitor #NSTEMI likely type II in the setting of sepsis ? Troponins peaked at 0.185 and down trended Plan: ? Will continue monitor #Hx of DM2 ?A1c 5.1 on 07/2024 Plan: ? ISS ? Accu-Cheks and hypoglycemia protocol ordered ? 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 tube feeds GI prophylaxis: protonix 40 iv bid DVT prophylaxis: Lovenox Code: Full code Case was discussed with attending physician, Dr Mian Goel MD PGY-1
--- NOTE | 2024-08-19 14:07 | PC.NURSE ---
Notified Dr. Goel of blood clots in residual from peg tube, verbalized to hold feedings. Flushed peg and gave medication and when checking residual no blood/blood clots noted. Per Dr. Goel ok to restart tube feeding.
--- NOTE | 2024-08-19 16:19 | PD.IMPROG ---
Documentation for date of: 08/19/24 Subjective Subjective Interval history: 54 years old female evaluated Hemoglobin hematocrit 10.6 and 34.9 No drop in hemoglobin hematocrit Patient remains on high flow oxygen Exam Vital Signs Temp Pulse Resp BP Pulse Ox O2 Del Method O2 Flow Rate 97.1 F 94 24 H 124/85 H 94 L High Flow Nasal Cannula 35 08/19/24 11:54 08/19/24 15:56 08/19/24 15:56 08/19/24 11:54 08/19/24 15:56 08/19/24 11:54 08/19/24 15:56 FiO2 75 08/19/24 15:56 Objective Labs 08/19/24 08:30 08/19/24 08:30 Labs: Laboratory Results - last 24 hr 08/19/24 08:30 WBC 5.8 RBC 3.69 L Hgb 10.6 L Hct 34.9 L MCV 95 MCH 28.7 MCHC 30.4 L RDW Std Deviation 53.1 H Plt Count 173 D Neut % (Auto) 73 Lymph % (Auto) 14 [place] % (Auto) 8 Eos % (Auto) 5 Baso % (Auto) 0 Neut # (Auto) 4.3 Lymph # (Auto) 0.8 L [place] # (Auto) 0.4 Eos # (Auto) 0.3 Baso # (Auto) 0.0 Immature Gran # (Auto) 0.05 H Absolute Nucleated RBC 0.00 Immature Gran % 1 H Nucleated RBC % 0 Sodium 142 Potassium 4.4 Chloride 97 L Carbon Dioxide > 40.0 H Anion Gap 5 L BUN 18 Creatinine 0.4 L Estim Creat Clear Calc 136.7 eGFR > 60 BUN/Creatinine Ratio 45 H Glucose 167 H D Calculated Osmolality 289 Calcium 9.3 Corrected Calcium 9.8 Total Bilirubin 0.2 L AST 12 ALT 12 Alkaline Phosphatase 80 Total Protein 6.5 Albumin 3.4 L Globulin 3.1 Albumin/Globulin Ratio 1.1 L Impressions Impression: # GI bleeding # acute respiratory failure hypoxic patient on high flow oxygen Hold off doing any invasive GI workup continue conservative management # ABG Interpretation ABG results: 08/13/24 08/13/24 08/13/24 04:29 05:33 07:47 ABG pH 7.27 L 7.26 L 7.31 L ABG pCO2 85 H* 80 H* 74 H* ABG pO2 62 L 104 D 104 ABG HCO3 39 H 35 H 37 H ABG O2 Saturation 87 L 97 98 ABG Base Excess 9 H 5 H 8 H 08/14/24 07:57 ABG pH 7.39 ABG pCO2 64 H D ABG pO2 79 L D ABG HCO3 38 H ABG O2 Saturation 97 ABG Base Excess 11 H Assessment & Plan A&P Narrative pos cocci candid glabrata fungemia on admit. may be contaminant repeats pending from 08/17/24. echo neg pneumonia. cocci possible but less likely, due to limited mobility. cocci has not been reported in those who do not venture outdoors will adjust rx so the glabrata is coveredas ufngarmia may be more likely . if repeat bc are neg, then value of rx may be low but may have to wait a few days more on the bc. will likely see again wednesday if she remains in house. sadly, usual rx for glabrata may be micafungin and long if she has endocarditis which seems unlikely but is possible. get lachelle if repeat bc pos for yeast also. Time Spent With Patient Time: Total time spent is greater than 50% in coordination of care (as documented) at patient's floor/unit and/or counseling patient:
[2024-08-19] MEDS: INSULIN GLARGINE (Lantus) 5 UNIT/0.05 ML (PER 5 UNITS) 10 UNIT SC (22:05)
[2024-08-20] VITALS (14 sets, daily range): BP systolic 100–144; BP diastolic 66–87; PULSE 71–105; RESP 18–26; TEMP 36–37.3; O2SAT 93–98; BMI 22.7
[2024-08-20] MEDS: LEVALBUTEROL RT 0.63 MG/3 ML NEBU INH ×3 (00:59→19:19)
[2024-08-20] MEDS: IPRATROPIUM RT 0.5 MG/ 2.5 ML NEBU INH ×3 (00:59→19:19)
--- NOTE | 2024-08-20 07:13 | XR_ITS ---
Examination: AP chest single view Technique one AP portable semiupright chest single view Exam date and time: August 20, 2024 0727 hrs. Comparison August 17, 2024 Indications: SOB today. Findings: Extensive bilateral lung opacity consistent with pneumonia At least mild enlargement cardiac contour with vascular congestion Prominent osteopenia Impression: Extensive bilateral pneumonia Suspicious for mild associated heart failure
[2024-08-20 08:04] LABS: Basophils % (Auto) 0 % (0-2.5); Eosinophils # (Auto) 0.3 Thou/mm3 (0.0-0.5); Eosinophils % (Auto) 5 % (0-10); Hematocrit 34.7 % (36.0-46.0); Hemoglobin 10.5 g/dL (12.0-16.0); Immature Granulocytes % (Auto) 1 % (0-0); Immature Granulocytes Auto 0.07 Thou/mm3 (0.00-0.00); Lymphocytes # (Auto) 0.9 Thou/mm3 (1.0-4.8); Lymphocytes % (Auto) 16 % (10-50); Mean Corpuscular HGB Conc 30.3 g/dl (31.0-37.0); Mean Corpuscular Hemoglobin 29.2 pg (25.0-35.0); Mean Corpuscular Volume 96 fL (80-100); Monocytes # (Auto) 0.4 Thou/mm3 (0.0-0.8); Monocytes % (Auto) 7 % (0-12); Neutrophils # (Auto) 4.2 Thou/mm3 (1.8-7.7); Neutrophils % (Auto) 71 % (37-80); Nucleated Red Blood Cell % 0 /100 WBC (0); Platelet Count 191 Thou/mm3 (140-440); RDW Standard Deviation 52.3 fL (36.4-46.3); White Blood Count 5.9 Thou/mm3 (3.6-11.0)
[2024-08-20 09:06] LABS: Alanine Aminotransferase 15 U/L (10-49); Alkaline Phosphatase 82 U/L (46-116); Anion Gap 6 (7-16); Aspartate Amino Transferase < 8 U/L (0-34); BUN/Creatinine Ratio 38 Ratio (12-20); Bilirubin,Total 0.2 mg/dL (0.3-1.2); Blood Urea Nitrogen 15 mg/dL (9-23); Calcium 8.4 mg/dL (8.3-10.6); Calcium (Corrected) 9.2 mg/dL (8.5-10.1); Carbon Dioxide > 40.0 mMol/L (20.0-31.0); Chloride 96 mMol/L (98-107); Creatinine (Component) 0.4 mg/dL (0.6-1.3); Estimated Creatinine Clearance 124.2 mL/min (>60); Globulin 2.9 gm/dL (2.3-3.5); Glucose 155 mg/dL (74-106); Osmolality,Calculated 286 (275-295); Phosphorous 3.5 mg/dL (2.4-5.1); Potassium 4.7 mMol/L (3.4-5.1); Sodium 142 mMol/L (136-145); Total Protein 5.9 gm/dL (5.7-8.2); eGFR > 60 See Note
[2024-08-20] MEDS: AMOXICILLIN/POT CLAV 600 MG/5 ML GT ×2 (10:00→20:31)
--- NOTE | 2024-08-20 10:18 | XR_ITS ---
Examination: Abdomen AP single view Technique: AP portable supine abdomen, single view Exam date and time: August 20, 2024 1037 hrs. Indications: High residual tube feeds Findings: Gastrostomy tube projects over the stomach Severe thoracolumbar lumbar dextroscoliosis No obstruction Extensive lung opacity Impression: Nonobstructive bowel gas pattern
[2024-08-20] MEDS: PANTOPRAZOLE INJ 40 MG VIAL IV ×2 (10:20→20:30)
[2024-08-20] MEDS: MICAFUNGIN SODIUM INJ 100 MG in SODIUM CHLORIDE 0.9% 100 ML IV (10:21)
[2024-08-20] MEDS: FLUCONAZOLE/NS 400 MG IVPB 400 MG/200 ML BAG 100 MG IV (10:28)
[2024-08-20] MEDS: FUROSEMIDE INJ 10 MG/ML 4ML VIAL 40 MG IVP (10:28)
--- NOTE | 2024-08-20 12:23 | ESPR_ITS ---
<Statement entered by Sunny Pappas MD - 08/25/24 15:57> I reviewed above note and agree with findings and plans. I have also personally examined the patient with medicine team and went over assessment and plan with medical team including director internal control and resident physician. Documentation for date of: 08/20/24 Subjective Subjective Interval history: Patient seen at bedside. Overnight was seen to have high residuals and tube feeds to be held, restarted in the early hours of today. Oxygen requirements slightly increased today, currently saturating 98% on 75% and 40 L. Repeat chest x-ray unchanged from previous, with some vascular congestion. Will hold tube feeds for now, do a KUB and give 1 dose of IV Lasix to diurese. Will continue to monitor vitals and oxygen requirement. 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 Neck: Neck supple, non-tender, no cervical lymphadenopathy. Lungs: Still some rhonchi present, but iproving Cardio: Normal S1/S2, tachycardic rhythm, no murmurs, no JVD Abdomen: Soft, no palpable masses, peristalsis present, PEG tube in place with no visible discharge Extremities: Contracted lower extremities with some trace peripheral edema Skin: No rashes, no lesions, warm to touch. Neuro: Cannot be assessed due to patient's medical condition Objective Labs 08/20/24 07:40 08/20/24 07:40 Labs: Laboratory Results - last 24 hr 08/20/24 07:40 WBC 5.9 RBC 3.60 L Hgb 10.5 L Hct 34.7 L MCV 96 MCH 29.2 MCHC 30.3 L RDW Std Deviation 52.3 H Plt Count 191 Neut % (Auto) 71 Lymph % (Auto) 16 [place] % (Auto) 7 Eos % (Auto) 5 Baso % (Auto) 0 Neut # (Auto) 4.2 Lymph # (Auto) 0.9 L [place] # (Auto) 0.4 Eos # (Auto) 0.3 Baso # (Auto) 0.0 Immature Gran # (Auto) 0.07 H Absolute Nucleated RBC 0.00 Immature Gran % 1 H Nucleated RBC % 0 Sodium 142 Potassium 4.7 Chloride 96 L Carbon Dioxide > 40.0 H Anion Gap 6 L BUN 15 Creatinine 0.4 L Estim Creat Clear Calc 124.2 eGFR > 60 BUN/Creatinine Ratio 38 H Glucose 155 H Calculated Osmolality 286 Calcium 8.4 Corrected Calcium 9.2 Phosphorus 3.5 Magnesium 2.0 Total Bilirubin 0.2 L AST < 8 ALT 15 Alkaline Phosphatase 82 Total Protein 5.9 Albumin 3.0 L Globulin 2.9 Albumin/Globulin Ratio 1.0 L ABG Interpretation ABG results: 08/13/24 08/13/24 08/13/24 04:29 05:33 07:47 ABG pH 7.27 L 7.26 L 7.31 L ABG pCO2 85 H* 80 H* 74 H* ABG pO2 62 L 104 D 104 ABG HCO3 39 H 35 H 37 H ABG O2 Saturation 87 L 97 98 ABG Base Excess 9 H 5 H 8 H 08/14/24 07:57 ABG pH 7.39 ABG pCO2 64 H D ABG pO2 79 L D ABG HCO3 38 H ABG O2 Saturation 97 ABG Base Excess 11 H Quality Measures Quality Measures sepsis Current suspected stage: sepsis Possible source: unknown Blood cultures ordered: yes Antibiotic ordered: Yes Assessment & Plan Assessment Current Active Medications: Generic Name Dose Route Start Last Admin Trade Name Freq PRN Reason Stop Dose Admin Acetaminophen 650 mg 08/15/24 11:39 08/16/24 16:47 Acetaminophen Adriana 325 Mg/10 Ml Udc GT 09/14/24 11:38 650 mg Q4HR PRN Administration pain and Fever >100.4 Amoxicillin/Clavulanate Potassium 600 mg 08/19/24 09:00 08/19/24 22:04 Amoxicillin/Pot Clav 600 Mg/5 Ml GT 08/26/24 08:59 600 mg BID URBANO Administration Dextrose 25 ml 08/13/24 04:14 Dextrose 50%-Water Inj 50 Ml Syringe IV 09/12/24 04:13 Q15MIN PRN BG 50-70 responsive npo pt Dextrose 50 ml 08/13/24 04:14 Dextrose 50%-Water Inj 50 Ml Syringe IV 09/12/24 04:13 Q15MIN PRN BG <50 OR BG <70 & pt unresponsive Enoxaparin Sodium 40 mg 08/13/24 09:00 08/17/24 11:05 Enoxaparin Sod Inj 40 Mg/0.4 Ml Syringe SC 08/27/24 08:59 40 mg QDAY URBANO Administration Glucagon 1 mg 08/13/24 04:14 Glucagon Inj 1 Mg Vial IM Q15MIN PRN BG <70, and no IV access Micafungin Sodium 100 mg/ 100 mls @ 100 mls/hr 08/18/24 09:57 08/20/24 10:21 Sodium Chloride IV 09/02/24 09:56 100 mls/hr QDAY URBANO Administration Fluconazole 400 mg in 200 mls @ 100 mls/hr 08/18/24 18:15 08/20/24 10:28 Diflucan/Ns Ivpb IV 08/25/24 18:14 100 mls/hr QDAY URBANO Administration Insulin Glargine 10 unit 08/13/24 21:00 08/19/24 22:05 Insulin Glargine (Lantus) 5 Unit/0.05 Ml (Per 5 Units) SC 09/12/24 20:59 10 unit HS URBANO Administration Insulin Human Lispro 0 unit 08/13/24 06:00 08/20/24 05:24 Insulin Lispro (Admelog) 1 Unit/0.01 Ml Unit SC 09/12/24 05:59 Not Given Q6HR [facility] Protocol Ipratropium [place] 0.5 mg 08/13/24 07:00 08/20/24 06:13 Ipratropium Rt 0.5 Mg/ 2.5 Ml Nebu INH 09/12/24 06:59 0.5 mg Q6HRRT URBANO Administration Levalbuterol HCl 0.63 mg 08/13/24 07:00 08/20/24 06:13 Levalbuterol Rt 0.63 Mg/3 Ml Nebu INH 09/12/24 06:59 0.63 mg Q6HRRT URBANO Administration Ondansetron HCl 4 mg 08/13/24 04:07 08/13/24 12:02 Ondansetron Inj 2 Mg/Ml Inj 2 Ml IV 09/12/24 04:06 4 mg Q6H PRN Administration NAUSEA OR VOMITING Protocol Pantoprazole Sodium 40 mg 08/17/24 11:15 08/20/24 10:20 Pantoprazole Inj 40 Mg Vial IV 09/16/24 11:14 40 mg BID URBANO Administration Plan Summary: 54-year-old female with past medical history of DM2, developmental delay, chronically bedbound with indwelling Bardales catheter, recurrent UTIs, chronic PEG tube, deaf, blind, 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 #Acute hypoxic respiratory failure #Sepsis likely secondary to #Cocci versus PNA (CAP vs HAP vs aspiration) #Josefa galbrata bacteremia #E.coli UTI ? Patient came in and met SIRS criteria 4 out of 4 as well as endorgan damage with elevated troponins ? UA was positive for leukocytes esterase ? Chest x-ray with positive for pneumonia ? Chest CTA was positive for severe diffuse right lung pneumonia and concerning for urinary tract infection -Cocci IgM positive -Urine culture positive for E. Coli -Blood culture negative in 48 hours -1 Blood Cx grew yeast preliminary -DC'd Flagyl and vancomycin [08/13/2024?08/14/2024], cefepime [08/13/2024?08/15/2024] -Blood culture returned positive for Josefa glabrata, ID consulted-commenced patient on micafungin. Additionally, we continued fluconazole to cover cocci and Augmentin to cover pneumonia/UTI. 08/20/2024 -repeat chest x-ray mostly unchanged from previous, showed some vascular congestion. Will diurese with 1 dose of IV Lasix 40 mg. Oxygen requirements went up slightly overnight. Repeat blood culture negative. Will follow-up with ID recommendations. As patient continues to have high residuals, will hold tube feeds for now and do a KUB. Plan: - Continue micafungin, fluconazole and Augmentin - Continue oxygen down titration as tolerated ? Ipratropium and levalbuterol scheduled every 6 hours ? Chest physiotherapy ordered -ID consulted, appreciate recommendations #?GI bleed On 08/17/2024, patient had bloody gastric secretion as well as drop in hemoglobin and hematocrit. She feeds are held and GI Dr. Lake was consulted. This patient is still currently on high flow oxygen, will continue to down titrate oxygen requirements for possible upper endoscopy. Plan: -IV Protonix 40 mg twice daily -GI Dr. Lake consulted, appreciate recommendations -Possible upper endoscopy once oxygenation has improved. #Hypernatremia-resolved ? Patient sodium today was 142, and water flushes maintained at 75cc/hr ? DDx likely due to hypodipsia setting of patient being n.p.o. ? Will continue to monitor #NSTEMI likely type II in the setting of sepsis ? Troponins peaked at 0.185 and down trended Plan: ? Will continue monitor #Hx of DM2 ?A1c 5.1 on 07/2024 Plan: ? ISS ? Accu-Cheks and hypoglycemia protocol ordered ? 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 tube feeds (held) GI prophylaxis: protonix 40 iv bid DVT prophylaxis: Lovenox Code: Full code Case was discussed with attending physician, Dr Mian Goel MD PGY-1
--- NOTE | 2024-08-20 16:30 | PD.IMPROG ---
Documentation for date of: 08/20/24 Subjective Subjective Interval history: Hemoglobin hematocrit 10.5 and 34.7 platelet count is normal at 91,000 Patient remains on high flow nasal cannula Exam Vital Signs Temp Pulse Resp BP Pulse Ox O2 Del Method O2 Flow Rate 97.4 F 80 26 H 136/74 H 97 High Flow Nasal Cannula 40 08/20/24 15:48 08/20/24 15:48 08/20/24 15:48 08/20/24 15:48 08/20/24 15:48 08/20/24 15:48 08/20/24 15:48 FiO2 75 08/20/24 15:48 Objective Labs 08/20/24 07:40 08/20/24 07:40 Labs: Laboratory Results - last 24 hr 08/20/24 07:40 WBC 5.9 RBC 3.60 L Hgb 10.5 L Hct 34.7 L MCV 96 MCH 29.2 MCHC 30.3 L RDW Std Deviation 52.3 H Plt Count 191 Neut % (Auto) 71 Lymph % (Auto) 16 [place] % (Auto) 7 Eos % (Auto) 5 Baso % (Auto) 0 Neut # (Auto) 4.2 Lymph # (Auto) 0.[address] [place] # (Auto) 0.4 Eos # (Auto) 0.3 Baso # (Auto) 0.0 Immature Gran # (Auto) 0.07 H Absolute Nucleated RBC 0.00 Immature Gran % 1 H Nucleated RBC % 0 Sodium 142 Potassium 4.7 Chloride 96 L Carbon Dioxide > 40.0 H Anion Gap 6 L BUN 15 Creatinine 0.4 L Estim Creat Clear Calc 124.2 eGFR > 60 BUN/Creatinine Ratio 38 H Glucose 155 H Calculated Osmolality 286 Calcium 8.4 Corrected Calcium 9.2 Phosphorus 3.5 Magnesium 2.0 Total Bilirubin 0.2 L AST < 8 ALT 15 Alkaline Phosphatase 82 Total Protein 5.9 Albumin 3.0 L Globulin 2.9 Albumin/Globulin Ratio 1.0 L Impressions Impression: # Posthemorrhagic anemia hemoglobin hematocrit staying stable # Acute respiratory failure hypoxic on high flow nasal cannula Continue to hold off any invasive GI workup ABG Interpretation ABG results: 08/13/24 08/13/24 08/13/24 04:29 05:33 07:47 ABG pH 7.27 L 7.26 L 7.31 L ABG pCO2 85 H* 80 H* 74 H* ABG pO2 62 L 104 D 104 ABG HCO3 39 H 35 H 37 H ABG O2 Saturation 87 L 97 98 ABG Base Excess 9 H 5 H 8 H 08/14/24 07:57 ABG pH 7.39 ABG pCO2 64 H D ABG pO2 79 L D ABG HCO3 38 H ABG O2 Saturation 97 ABG Base Excess 11 H Assessment & Plan A&P Narrative pos cocci candid glabrata fungemia on admit. may be contaminant repeats pending from 08/17/24. echo neg pneumonia. cocci possible but less likely, due to limited mobility. cocci has not been reported in those who do not venture outdoors will adjust rx so the glabrata is coveredas ufngarmia may be more likely . if repeat bc are neg, then value of rx may be low but may have to wait a few days more on the bc. will likely see again wednesday if she remains in house. sadly, usual rx for glabrata may be micafungin and long if she has endocarditis which seems unlikely but is possible. get lachelle if repeat bc pos for yeast also. Time Spent With Patient Time: Total time spent is greater than 50% in coordination of care (as documented) at patient's floor/unit and/or counseling patient:
[2024-08-21] VITALS (13 sets, daily range): BP systolic 108–151; BP diastolic 65–87; PULSE 77–99; RESP 15–26; TEMP 36.1–36.6; O2SAT 94–100; BMI 23.2
[2024-08-21] MEDS: IPRATROPIUM RT 0.5 MG/ 2.5 ML NEBU INH ×4 (01:16→18:10)
[2024-08-21] MEDS: LEVALBUTEROL RT 0.63 MG/3 ML NEBU INH ×4 (01:16→18:10)
--- NOTE | 2024-08-21 01:47 | PC.NURSE ---
SPOKE TO MD ALVAREZ ABOUT HELD TUBE FEEDS WITH NO IV FLUID WITH SUGAR RUNNING, LAST BLOOD SUGAR WAS 84. MD WILL LOOK MORE INTO THIS .
[2024-08-21 06:23] LABS: Basophils % (Auto) 0 % (0-2.5); Eosinophils # (Auto) 0.3 Thou/mm3 (0.0-0.5); Eosinophils % (Auto) 5 % (0-10); Hematocrit 35.5 % (36.0-46.0); Hemoglobin 10.8 g/dL (12.0-16.0); Immature Granulocytes % (Auto) 1 % (0-0); Immature Granulocytes Auto 0.05 Thou/mm3 (0.00-0.00); Lymphocytes # (Auto) 1.4 Thou/mm3 (1.0-4.8); Lymphocytes % (Auto) 21 % (10-50); Mean Corpuscular HGB Conc 30.4 g/dl (31.0-37.0); Mean Corpuscular Hemoglobin 28.6 pg (25.0-35.0); Mean Corpuscular Volume 94 fL (80-100); Monocytes # (Auto) 0.4 Thou/mm3 (0.0-0.8); Monocytes % (Auto) 6 % (0-12); Neutrophils # (Auto) 4.4 Thou/mm3 (1.8-7.7); Neutrophils % (Auto) 68 % (37-80); Nucleated Red Blood Cell % 0 /100 WBC (0); Platelet Count 231 Thou/mm3 (140-440); RDW Standard Deviation 50.9 fL (36.4-46.3); Red Blood Count 3.77 Miln/mm3 (4.00-5.20); White Blood Count 6.4 Thou/mm3 (3.6-11.0)
[2024-08-21 06:57] LABS: Alanine Aminotransferase 17 U/L (10-49); Albumin, Serum 3.5 gm/dL (3.5-5.0); Alkaline Phosphatase 85 U/L (46-116); Anion Gap 11 (7-16); Aspartate Amino Transferase 24 U/L (0-34); BUN/Creatinine Ratio 45 Ratio (12-20); Bilirubin,Total 0.3 mg/dL (0.3-1.2); Blood Urea Nitrogen 18 mg/dL (9-23); Calcium 9.7 mg/dL (8.3-10.6); Calcium (Corrected) 10.1 mg/dL (8.5-10.1); Carbon Dioxide > 40.0 mMol/L (20.0-31.0); Chloride 92 mMol/L (98-107); Creatinine (Component) 0.4 mg/dL (0.6-1.3); Estimated Creatinine Clearance 124.2 mL/min (>60); Globulin 3.6 gm/dL (2.3-3.5); Glucose 91 mg/dL (74-106); Osmolality,Calculated 286 (275-295); Phosphorous 3.2 mg/dL (2.4-5.1); Potassium 4.3 mMol/L (3.4-5.1); Sodium 143 mMol/L (136-145); Total Protein 7.1 gm/dL (5.7-8.2); eGFR > 60 See Note
[2024-08-21] MEDS: PANTOPRAZOLE INJ 40 MG VIAL IV ×2 (08:59→21:10)
[2024-08-21] MEDS: LACTULOSE SYRUP 20 GM/30 ML UDC GT (08:59)
[2024-08-21] MEDS: MICAFUNGIN SODIUM INJ 100 MG in SODIUM CHLORIDE 0.9% 100 ML IV (08:59)
[2024-08-21] MEDS: FLUCONAZOLE/NS 400 MG IVPB 400 MG/200 ML BAG 100 MG IV (08:59)
[2024-08-21] MEDS: AMOXICILLIN/POT CLAV 600 MG/5 ML GT ×2 (09:11→21:10)
--- NOTE | 2024-08-21 09:14 | ESPR_ITS ---
Subjective Subjective Interval history: called [facility]. no data yet. too early still. should have final later on repeat bc neg. echo neg 08/16. reported on 08/18/24 Exam Vital Signs Temp Pulse Resp BP Pulse Ox O2 Del Method O2 Flow Rate 97.4 F 87 26 H 113/87 H 94 L High Flow Nasal Cannula 35 08/21/24 08:00 08/21/24 08:00 08/21/24 08:00 08/21/24 08:00 08/21/24 08:00 08/21/24 08:00 08/21/24 08:00 FiO2 70 08/21/24 08:00 Narrative Exam limited eval today Objective - Internal Medicine Labs 08/21/24 05:53 08/21/24 05:53 Labs: Laboratory Results - last 24 hr 08/21/24 05:53 WBC 6.4 RBC 3.77 L Hgb 10.8 L Hct 35.5 L MCV 94 MCH 28.6 MCHC 30.4 L RDW Std Deviation 50.9 H Plt Count 231 D Neut % (Auto) 68 Lymph % (Auto) 21 [place] % (Auto) 6 Eos % (Auto) 5 Baso % (Auto) 0 Neut # (Auto) 4.4 Lymph # (Auto) 1.4 [place] # (Auto) 0.4 Eos # (Auto) 0.3 Baso # (Auto) 0.0 Immature Gran # (Auto) 0.05 H Absolute Nucleated RBC 0.00 Immature Gran % 1 H Nucleated RBC % 0 Sodium 143 Potassium 4.3 Chloride 92 L Carbon Dioxide > 40.0 H Anion Gap 11 BUN 18 Creatinine 0.4 L Estim Creat Clear Calc 124.2 eGFR > 60 BUN/Creatinine Ratio 45 H Glucose 91 D Calculated Osmolality 286 Calcium 9.7 Corrected Calcium 10.1 Phosphorus 3.2 Magnesium 2.0 Total Bilirubin 0.3 AST 24 ALT 17 Alkaline Phosphatase 85 Total Protein 7.1 Albumin 3.5 D Globulin 3.6 H Albumin/Globulin Ratio 1.0 L ABG Interpretation ABG results: 08/13/24 08/13/24 08/13/24 04:29 05:33 07:47 ABG pH 7.27 L 7.26 L 7.31 L ABG pCO2 85 H* 80 H* 74 H* ABG pO2 62 L 104 D 104 ABG HCO3 39 H 35 H 37 H ABG O2 Saturation 87 L 97 98 ABG Base Excess 9 H 5 H 8 H 08/14/24 07:57 ABG pH 7.39 ABG pCO2 64 H D ABG pO2 79 L D ABG HCO3 38 H ABG O2 Saturation 97 ABG Base Excess 11 H Assessment & Plan A&P Narrative pos cocci candid glabrata fungemia on admit. may be contaminant repeats pending from 08/17/24. echo neg pneumonia. cocci possible but less likely, due to limited mobility. cocci has not been reported in those who do not venture outdoors glabrata is covered as fungermia is more likely than cocci. apppreciate the desire to address all possibilities by adding flucon to the micafungin. repeat bc are neg, value of micafungin rx may be low will likely see again wed as cocci issue not yet put to bed. sadly, usual rx for glabrata may be micafungin and about 14d from first neg so from 08/17-08/31. can finish as ouitpt if desired but may need access Time Spent With Patient Time: Total time spent is greater than 50% in coordination of care (as documented) at patient's floor/unit and/or counseling patient:
--- NOTE | 2024-08-21 10:48 | PD.IMPROG ---
Documentation for date of: 08/21/24 Subjective Subjective Interval history: Patient evaluated hemoglobin hematocrit 10.8 and 35.5 Exam Vital Signs Temp Pulse Resp BP Pulse Ox O2 Del Method O2 Flow Rate 97.4 F 88 22 H 113/87 H 98 High Flow Nasal Cannula 35 08/21/24 08:00 08/21/24 10:15 08/21/24 10:15 08/21/24 08:00 08/21/24 10:15 08/21/24 08:00 08/21/24 10:15 FiO2 70 08/21/24 10:15 Objective Labs 08/21/24 05:53 08/21/24 05:53 Labs: Laboratory Results - last 24 hr 08/21/24 05:53 WBC 6.4 RBC 3.77 L Hgb 10.8 L Hct 35.5 L MCV 94 MCH 28.6 MCHC 30.4 L RDW Std Deviation 50.9 H Plt Count 231 D Neut % (Auto) 68 Lymph % (Auto) 21 [place] % (Auto) 6 Eos % (Auto) 5 Baso % (Auto) 0 Neut # (Auto) 4.4 Lymph # (Auto) 1.4 [place] # (Auto) 0.4 Eos # (Auto) 0.3 Baso # (Auto) 0.0 Immature Gran # (Auto) 0.05 H Absolute Nucleated RBC 0.00 Immature Gran % 1 H Nucleated RBC % 0 Sodium 143 Potassium 4.3 Chloride 92 L Carbon Dioxide > 40.0 H Anion Gap 11 BUN 18 Creatinine 0.4 L Estim Creat Clear Calc 124.2 eGFR > 60 BUN/Creatinine Ratio 45 H Glucose 91 D Calculated Osmolality 286 Calcium 9.7 Corrected Calcium 10.1 Phosphorus 3.2 Magnesium 2.0 Total Bilirubin 0.3 AST 24 ALT 17 Alkaline Phosphatase 85 Total Protein 7.1 Albumin 3.5 D Globulin 3.6 H Albumin/Globulin Ratio 1.0 L Impressions Impression: #acute hypoxic respiratory failure on high flow nasal cannula Patient not a candidate for any invasive GI workup unless and until patient respiratory status improves. # Posthemorrhagic anemia hemoglobin hematocrit relatively staying stable ABG Interpretation ABG results: 08/13/24 08/13/24 08/13/24 04:29 05:33 07:47 ABG pH 7.27 L 7.26 L 7.31 L ABG pCO2 85 H* 80 H* 74 H* ABG pO2 62 L 104 D 104 ABG HCO3 39 H 35 H 37 H ABG O2 Saturation 87 L 97 98 ABG Base Excess 9 H 5 H 8 H 08/14/24 07:57 ABG pH 7.39 ABG pCO2 64 H D ABG pO2 79 L D ABG HCO3 38 H ABG O2 Saturation 97 ABG Base Excess 11 H Assessment & Plan A&P Narrative pos cocci candid glabrata fungemia on admit. may be contaminant repeats pending from 08/17/24. echo neg pneumonia. cocci possible but less likely, due to limited mobility. cocci has not been reported in those who do not venture outdoors glabrata is covered as fungermia is more likely than cocci. apppreciate the desire to address all possibilities by adding flucon to the micafungin. repeat bc are neg, value of micafungin rx may be low will likely see again wed as cocci issue not yet put to bed. sadly, usual rx for glabrata may be micafungin and about 14d from first neg so from 08/17-08/31. can finish as ouitpt if desired but may need access Time Spent With Patient Time: Total time spent is greater than 50% in coordination of care (as documented) at patient's floor/unit and/or counseling patient:
--- NOTE | 2024-08-21 14:03 | ESPR_ITS ---
<Statement entered by uSnny Pappas MD - 08/29/24 11:48> I reviewed above note and agree with findings and plans. I have also personally examined the patient with medicine team and went over assessment and plan with medical team including internal wholesaler and resident physician. Documentation for date of: 08/21/24 Subjective Subjective Interval history: Patient was seen and examined at bedside. No acute overnight events. Blood cultures returned negative x 2. Patient continues to be on high flow oxygen saturating 93%. Will attempt to change her oxygen delivery to oxy mask. Will continue current management with micafungin, fluconazole and Augmentin. Exam Vital Signs Temp Pulse Resp BP Pulse Ox O2 Del Method O2 Flow Rate 97.8 F 88 22 H 128/76 99 High Flow Nasal Cannula 35 08/21/24 12:00 08/21/24 13:14 08/21/24 13:14 08/21/24 12:00 08/21/24 13:14 08/21/24 12:00 08/21/24 13:14 FiO2 70 08/21/24 13:14 Narrative Exam Gen: Well-developed and well-nourished on HFNF. HEENT: NCAT, PERRLA, EOMI, dry mucus membranes, anicteric conjunctivae. CVS: normal S1 and S2. Regular tachycardia. No M/R/G. Resp: rhonchi B/L. No rales, crackles or wheezing. Abd: soft, non-tender, non-distended. BS+ in all 4 quadrants. MSK: Good ROM in BUE & BLE. No rash. Trace edema BLE. Neuro: limited exam due to mental status. Objective Labs 08/21/24 05:53 08/21/24 05:53 Labs: Laboratory Results - last 24 hr 08/21/24 05:53 WBC 6.4 RBC 3.77 L Hgb 10.8 L Hct 35.5 L MCV 94 MCH 28.6 MCHC 30.4 L RDW Std Deviation 50.9 H Plt Count 231 D Neut % (Auto) 68 Lymph % (Auto) 21 [place] % (Auto) 6 Eos % (Auto) 5 Baso % (Auto) 0 Neut # (Auto) 4.4 Lymph # (Auto) 1.4 [place] # (Auto) 0.4 Eos # (Auto) 0.3 Baso # (Auto) 0.0 Immature Gran # (Auto) 0.05 H Absolute Nucleated RBC 0.00 Immature Gran % 1 H Nucleated RBC % 0 Sodium 143 Potassium 4.3 Chloride 92 L Carbon Dioxide > 40.0 H Anion Gap 11 BUN 18 Creatinine 0.4 L Estim Creat Clear Calc 124.2 eGFR > 60 BUN/Creatinine Ratio 45 H Glucose 91 D Calculated Osmolality 286 Calcium 9.7 Corrected Calcium 10.1 Phosphorus 3.2 Magnesium 2.0 Total Bilirubin 0.3 AST 24 ALT 17 Alkaline Phosphatase 85 Total Protein 7.1 Albumin 3.5 D Globulin 3.6 H Albumin/Globulin Ratio 1.0 L ABG Interpretation ABG results: 08/13/24 08/13/24 08/13/24 04:29 05:33 07:47 ABG pH 7.27 L 7.26 L 7.31 L ABG pCO2 85 H* 80 H* 74 H* ABG pO2 62 L 104 D 104 ABG HCO3 39 H 35 H 37 H ABG O2 Saturation 87 L 97 98 ABG Base Excess 9 H 5 H 8 H 08/14/24 07:57 ABG pH 7.39 ABG pCO2 64 H D ABG pO2 79 L D ABG HCO3 38 H ABG O2 Saturation 97 ABG Base Excess 11 H Quality Measures Quality Measures sepsis Current suspected stage: sepsis Possible source: unknown Blood cultures ordered: yes Antibiotic ordered: Yes Assessment & Plan Assessment Current Active Medications: Generic Name Dose Route Start Last Admin Trade Name Freq PRN Reason Stop Dose Admin Acetaminophen 650 mg 08/15/24 11:39 08/16/24 16:47 Acetaminophen Adriana 325 Mg/10 Ml Udc GT 09/14/24 11:38 650 mg Q4HR PRN Administration pain and Fever >100.4 Amoxicillin/Clavulanate Potassium 600 mg 08/19/24 09:00 08/21/24 09:11 Amoxicillin/Pot Clav 600 Mg/5 Ml GT 08/26/24 08:59 600 mg BID URBANO Administration Dextrose 25 ml 08/13/24 04:14 Dextrose 50%-Water Inj 50 Ml Syringe IV 09/12/24 04:13 Q15MIN PRN BG 50-70 responsive npo pt Dextrose 50 ml 08/13/24 04:14 Dextrose 50%-Water Inj 50 Ml Syringe IV 09/12/24 04:13 Q15MIN PRN BG <50 OR BG <70 & pt unresponsive Enoxaparin Sodium 40 mg 08/13/24 09:00 08/17/24 11:05 Enoxaparin Sod Inj 40 Mg/0.4 Ml Syringe SC 08/27/24 08:59 40 mg QDAY URBANO Administration Glucagon 1 mg 08/13/24 04:14 Glucagon Inj 1 Mg Vial IM Q15MIN PRN BG <70, and no IV access Micafungin Sodium 100 mg/ 100 mls @ 100 mls/hr 08/18/24 09:57 08/21/24 08:59 Sodium Chloride IV 09/02/24 09:56 100 mls/hr QDAY URBANO Administration Fluconazole 400 mg in 200 mls @ 100 mls/hr 08/18/24 18:15 08/21/24 08:59 Diflucan/Ns Ivpb IV 08/25/24 18:14 100 mls/hr QDAY URBANO Administration Insulin Glargine 10 unit 08/13/24 21:00 08/21/24 07:11 Insulin Glargine (Lantus) 5 Unit/0.05 Ml (Per 5 Units) SC 09/12/24 20:59 Not Given HS URBANO Insulin Human Lispro 0 unit 08/13/24 06:00 08/21/24 11:47 Insulin Lispro (Admelog) 1 Unit/0.01 Ml Unit SC 09/12/24 05:59 Not Given Q6HR [facility] Protocol Ipratropium [place] 0.5 mg 08/13/24 07:00 08/21/24 13:12 Ipratropium Rt 0.5 Mg/ 2.5 Ml Nebu INH 09/12/24 06:59 0.5 mg Q6HRRT URBANO Administration Lactulose 20 gm 08/20/24 14:45 08/21/24 08:59 Lactulose Syrup 20 Gm/30 Ml Udc GT 09/19/24 14:44 20 gm QDAY URBANO Administration Protocol Levalbuterol HCl 0.63 mg 08/13/24 07:00 08/21/24 13:12 Levalbuterol Rt 0.63 Mg/3 Ml Nebu INH 09/12/24 06:59 0.63 mg Q6HRRT URBANO Administration Ondansetron HCl 4 mg 08/13/24 04:07 08/13/24 12:02 Ondansetron Inj 2 Mg/Ml Inj 2 Ml IV 09/12/24 04:06 4 mg Q6H PRN Administration NAUSEA OR VOMITING Protocol Pantoprazole Sodium 40 mg 08/17/24 11:15 08/21/24 08:59 Pantoprazole Inj 40 Mg Vial IV 09/16/24 11:14 40 mg BID URBANO Administration Plan Summary: 54-year-old female with past medical history of DM2, developmental delay, chronically bedbound with indwelling Bardales catheter, recurrent UTIs, chronic PEG tube, deaf, blind, 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 #Acute hypoxic respiratory failure. #Sepsis likely secondary to #Cocci versus PNA (CAP vs HAP vs aspiration). #Josefa galbrata bacteremia. #E.coli UTI. ? Patient came in and met SIRS criteria 4 out of 4 as well as endorgan damage with elevated troponins ? UA was positive for leukocytes esterase ? Chest x-ray with positive for pneumonia ? Chest CTA was positive for severe diffuse right lung pneumonia and concerning for urinary tract infection -Cocci IgM positive -Urine culture positive for E. Coli -Blood culture negative in 48 hours -1 Blood Cx grew yeast preliminary -DC'd Flagyl and vancomycin [08/13/2024?08/14/2024], cefepime [08/13/2024?08/15/2024] -Blood culture returned positive for Josefa glabrata, ID consulted-commenced patient on micafungin. Additionally, we continued fluconazole to cover cocci and Augmentin to cover pneumonia/UTI. 08/20/2024 -repeat chest x-ray mostly unchanged from previous, showed some vascular congestion. Will diurese with 1 dose of IV Lasix 40 mg. Oxygen requirements went up slightly overnight. Repeat blood culture negative. Will follow-up with ID recommendations. Blood cultures negative x2 repeat. As patient continues to have high residuals, will hold tube feeds for now and do a KUB. Plan: - Continue micafungin, fluconazole and Augmentin - Continue oxygen down titration as tolerated ? Ipratropium and levalbuterol scheduled every 6 hours ? Chest physiotherapy ordered - ID consulted, appreciate recommendations #?GI bleed. On 08/17/2024, patient had bloody gastric secretion as well as drop in hemoglobin and hematocrit. She feeds are held and GI Dr. Lake was consulted. This patient is still currently on high flow oxygen, will continue to down titrate oxygen requirements for possible upper endoscopy. Plan: -IV Protonix 40 mg twice daily -GI Dr. Lake consulted, appreciate recommendations -Possible upper endoscopy once oxygenation has improved. #Hypernatremia-resolved. ? Patient sodium today was 142, and water flushes maintained at 75cc/hr ? DDx likely due to hypodipsia setting of patient being n.p.o. ? Will continue to monitor #NSTEMI likely type II in the setting of sepsis. ? Troponins peaked at 0.185 and down trended Plan: ? Will continue monitor #Hx of DM2. ?A1c 5.1 on 07/2024 Plan: ? ISS ? Accu-Cheks and hypoglycemia protocol ordered ? Will continue to monitor #Developmental delay. 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 tube feeds (held) GI prophylaxis: protonix 40 iv bid DVT prophylaxis: Lovenox Code: Full code Plan of care discussed with attending Dr. Pappas. Deshaun Rizo MD, PGY 2. Disclaimer: This note was dictated by speech recognition. Minor errors in food truck caterer may be present due to voice recognition software.
[2024-08-22] VITALS (12 sets, daily range): BP systolic 91–140; BP diastolic 70–93; PULSE 80–106; RESP 16–22; TEMP 36.1–36.4; O2SAT 94–100; BMI 23.2
[2024-08-22] MEDS: LEVALBUTEROL RT 0.63 MG/3 ML NEBU INH ×4 (00:40→18:20)
[2024-08-22] MEDS: IPRATROPIUM RT 0.5 MG/ 2.5 ML NEBU INH ×4 (00:40→18:20)
[2024-08-22 06:26] LABS: Basophils % (Auto) 1 % (0-2.5); Eosinophils # (Auto) 0.2 Thou/mm3 (0.0-0.5); Eosinophils % (Auto) 3 % (0-10); Immature Granulocytes % (Auto) 1 % (0-0); Immature Granulocytes Auto 0.05 Thou/mm3 (0.00-0.00); Lymphocytes # (Auto) 1.2 Thou/mm3 (1.0-4.8); Lymphocytes % (Auto) 19 % (10-50); Mean Corpuscular HGB Conc 30.6 g/dl (31.0-37.0); Mean Corpuscular Hemoglobin 29.1 pg (25.0-35.0); Mean Corpuscular Volume 95 fL (80-100); Monocytes # (Auto) 0.4 Thou/mm3 (0.0-0.8); Monocytes % (Auto) 6 % (0-12); Neutrophils # (Auto) 4.7 Thou/mm3 (1.8-7.7); Neutrophils % (Auto) 71 % (37-80); Nucleated Red Blood Cell % 0 /100 WBC (0); Platelet Count 246 Thou/mm3 (140-440); RDW Standard Deviation 51.5 fL (36.4-46.3); Red Blood Count 3.78 Miln/mm3 (4.00-5.20); White Blood Count 6.6 Thou/mm3 (3.6-11.0)
[2024-08-22 07:05] LABS: Alanine Aminotransferase 20 U/L (10-49); Albumin, Serum 3.6 gm/dL (3.5-5.0); Alkaline Phosphatase 95 U/L (46-116); Anion Gap 9 (7-16); Aspartate Amino Transferase 28 U/L (0-34); BUN/Creatinine Ratio 43 Ratio (12-20); Bilirubin,Total 0.3 mg/dL (0.3-1.2); Blood Urea Nitrogen 17 mg/dL (9-23); Calcium 9.6 mg/dL (8.3-10.6); Calcium (Corrected) 9.9 mg/dL (8.5-10.1); Carbon Dioxide > 40.0 mMol/L (20.0-31.0); Chloride 96 mMol/L (98-107); Creatinine (Component) 0.4 mg/dL (0.6-1.3); Estimated Creatinine Clearance 124.2 mL/min (>60); Globulin 3.7 gm/dL (2.3-3.5); Glucose 74 mg/dL (74-106); Magnesium 1.8 mg/dL (1.6-2.6); Osmolality,Calculated 289 (275-295); Phosphorous 3.6 mg/dL (2.4-5.1); Potassium 4.4 mMol/L (3.4-5.1); Sodium 145 mMol/L (136-145); Total Protein 7.3 gm/dL (5.7-8.2); eGFR > 60 See Note
[2024-08-22] MEDS: AMOXICILLIN/POT CLAV 600 MG/5 ML GT ×2 (09:24→21:14)
[2024-08-22] MEDS: LACTULOSE SYRUP 20 GM/30 ML UDC GT ×2 (09:25→21:14)
[2024-08-22] MEDS: FLUCONAZOLE/NS 400 MG IVPB 400 MG/200 ML BAG 100 MG IV (09:25)
[2024-08-22] MEDS: PANTOPRAZOLE INJ 40 MG VIAL IV ×2 (09:25→20:22)
[2024-08-22] MEDS: MICAFUNGIN SODIUM INJ 100 MG in SODIUM CHLORIDE 0.9% 100 ML IV (09:30)
--- NOTE | 2024-08-22 11:54 | ESPR_ITS ---
<Statement entered by Sunny Pappas MD - 08/29/24 11:49> I reviewed above note and agree with findings and plans. I have also personally examined the patient with medicine team and went over assessment and plan with medical team including manager intern and resident physician. Documentation for date of: 08/22/24 Subjective Subjective Interval history: Patient seen at bedside. No acute overnight events. Oxygen requirements improving, currently saturating 99% on HFNC- 60%, 35L. Will do an oxy mask trial at max- 15L today and monitor saturations. Will give one dose of IV Lasix She was re-evaluated by ID yesterday, repeat bc remains negative but will continue micafungin until 08/31 as well as fluconazole and augmentin. She has had one BM in the last 72hrs, will increase lactulose to TID and resume tube feeds tomorrow. 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 Neck: Neck supple, non-tender, no cervical lymphadenopathy. Lungs: Still some rhonchi present, but iproving Cardio: Normal S1/S2, tachycardic rhythm, no murmurs, no JVD Abdomen: Soft, no palpable masses, peristalsis present, PEG tube in place with no visible discharge Extremities: Contracted lower extremities with some trace peripheral edema Skin: No rashes, no lesions, warm to touch. Neuro: Cannot be assessed due to patient's medical condition Objective Labs 08/22/24 05:27 08/22/24 05:27 Labs: Laboratory Results - last 24 hr 08/22/24 05:27 WBC 6.6 RBC 3.78 L Hgb 11.0 L Hct 36.0 MCV 95 MCH 29.1 MCHC 30.6 L RDW Std Deviation 51.5 H Plt Count 246 Neut % (Auto) 71 Lymph % (Auto) 19 [place] % (Auto) 6 Eos % (Auto) 3 Baso % (Auto) 1 Neut # (Auto) 4.7 Lymph # (Auto) 1.2 [place] # (Auto) 0.4 Eos # (Auto) 0.2 Baso # (Auto) 0.0 Immature Gran # (Auto) 0.05 H Absolute Nucleated RBC 0.00 Immature Gran % 1 H Nucleated RBC % 0 Sodium 145 Potassium 4.4 Chloride 96 L Carbon Dioxide > 40.0 H Anion Gap 9 BUN 17 Creatinine 0.4 L Estim Creat Clear Calc 124.2 eGFR > 60 BUN/Creatinine Ratio 43 H Glucose 74 Calculated Osmolality 289 Calcium 9.6 Corrected Calcium 9.9 Phosphorus 3.6 Magnesium 1.8 Total Bilirubin 0.3 AST 28 ALT 20 Alkaline Phosphatase 95 Total Protein 7.3 Albumin 3.6 Globulin 3.7 H Albumin/Globulin Ratio 1.0 L ABG Interpretation ABG results: 08/13/24 08/13/24 08/13/24 04:29 05:33 07:47 ABG pH 7.27 L 7.26 L 7.31 L ABG pCO2 85 H* 80 H* 74 H* ABG pO2 62 L 104 D 104 ABG HCO3 39 H 35 H 37 H ABG O2 Saturation 87 L 97 98 ABG Base Excess 9 H 5 H 8 H 08/14/24 07:57 ABG pH 7.39 ABG pCO2 64 H D ABG pO2 79 L D ABG HCO3 38 H ABG O2 Saturation 97 ABG Base Excess 11 H Quality Measures Quality Measures sepsis Current suspected stage: ruled out Possible source: unknown Blood cultures ordered: yes Antibiotic ordered: Yes Assessment & Plan Assessment Current Active Medications: Generic Name Dose Route Start Last Admin Trade Name Freq PRN Reason Stop Dose Admin Acetaminophen 650 mg 08/15/24 11:39 08/16/24 16:47 Acetaminophen Adriana 325 Mg/10 Ml Udc GT 09/14/24 11:38 650 mg Q4HR PRN Administration pain and Fever >100.4 Amoxicillin/Clavulanate Potassium 600 mg 08/19/24 09:00 08/22/24 09:24 Amoxicillin/Pot Clav 600 Mg/5 Ml GT 08/26/24 08:59 600 mg BID URBANO Administration Dextrose 25 ml 08/13/24 04:14 Dextrose 50%-Water Inj 50 Ml Syringe IV 09/12/24 04:13 Q15MIN PRN BG 50-70 responsive npo pt Dextrose 50 ml 08/13/24 04:14 Dextrose 50%-Water Inj 50 Ml Syringe IV 09/12/24 04:13 Q15MIN PRN BG <50 OR BG <70 & pt unresponsive Enoxaparin Sodium 40 mg 08/13/24 09:00 08/17/24 11:05 Enoxaparin Sod Inj 40 Mg/0.4 Ml Syringe SC 08/27/24 08:59 40 mg QDAY URBANO Administration Glucagon 1 mg 08/13/24 04:14 Glucagon Inj 1 Mg Vial IM Q15MIN PRN BG <70, and no IV access Micafungin Sodium 100 mg/ 100 mls @ 100 mls/hr 08/18/24 09:57 08/22/24 09:30 Sodium Chloride IV 09/02/24 09:56 100 mls/hr QDAY U[facility]ANO Administration Fluconazole 400 mg in 200 mls @ 100 mls/hr 08/18/24 18:15 08/22/24 09:25 Diflucan/Ns Ivpb IV 08/25/24 18:14 100 mls/hr QDAY U[facility]ANO Administration Insulin Glargine 10 unit 08/13/24 21:00 08/21/24 21:15 Insulin Glargine (Lantus) 5 Unit/0.05 Ml (Per 5 Units) SC 09/12/24 20:59 Not Given HS [facility] Insulin Human Lispro 0 unit 08/13/24 06:00 08/22/24 06:19 Insulin Lispro (Admelog) 1 Unit/0.01 Ml Unit SC 09/12/24 05:59 Not Given Q6HR [facility] Protocol Ipratropium [place] 0.5 mg 08/13/24 07:00 08/22/24 06:29 Ipratropium Rt 0.5 Mg/ 2.5 Ml Nebu INH 09/12/24 06:59 0.5 mg Q6HRRT [facility] Administration Lactulose 20 gm 08/20/24 14:45 08/22/24 09:25 Lactulose Syrup 20 Gm/30 Ml Udc GT 09/19/24 14:44 20 gm QDAY [facility]AN[facility] Administration Protocol Levalbuterol HCl 0.63 mg 08/13/24 07:00 08/22/24 06:29 Levalbuterol Rt 0.63 Mg/3 Ml Nebu INH 09/12/24 06:59 0.63 mg Q6HRRT [facility] Administration Ondansetron HCl 4 mg 08/13/24 04:07 08/13/24 12:02 Ondansetron Inj 2 Mg/Ml Inj 2 Ml IV 09/12/24 04:06 4 mg Q6H PRN Administration NAUSEA OR VOMITING Protocol Pantoprazole Sodium 40 mg 08/17/24 11:15 08/22/24 09:25 Pantoprazole Inj 40 Mg Vial IV 09/16/24 11:14 40 mg BID URBANO Administration Plan Summary: 54-year-old female with past medical history of DM2, developmental delay, chronically bedbound with indwelling Bardales catheter, recurrent UTIs, chronic PEG tube, deaf, blind, 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 #Acute hypoxic respiratory failure. #Sepsis likely secondary to #Bilateral pneumonia secondary to Cocci #Possible hospital acquired pneumonia #Josefa galbrata bacteremia. #E.coli UTI. ? Patient came in and met SIRS criteria 4 out of 4 as well as endorgan damage with elevated troponins ? UA was positive for leukocytes esterase ? Chest x-ray with positive for pneumonia ? Chest CTA was positive for severe diffuse right lung pneumonia and concerning for urinary tract infection -Cocci IgM positive -Urine culture positive for E. Coli -Blood culture negative in 48 hours -1 Blood Cx grew yeast preliminary -DC'd Flagyl and vancomycin [08/13/2024?08/14/2024], cefepime [08/13/2024?08/15/2024] -Blood culture returned positive for Josefa glabrata, ID consulted-commenced patient on micafungin. Additionally, we continued fluconazole to cover cocci and Augmentin to cover pneumonia/UTI. 08/22/2024 - Oxygen requirements improving, on 60%, 35L. Will do an oxy mask trial while monitoring O2 saturation. Continue micafungin until 08/31 as well as augmentin and fluconazole. Will also give IV Lasix 40mg x 1 Plan: - Continue micafungin, fluconazole and Augmentin - Continue oxygen down titration as tolerated ? Ipratropium and levalbuterol scheduled every 6 hours ? Chest physiotherapy ordered - ID consulted, appreciate recommendations #?GI bleed. On 08/17/2024, patient had bloody gastric secretion as well as drop in hemoglobin and hematocrit. She feeds are held and GI Dr. Lake was consulted. This patient is still currently on high flow oxygen, will continue to down titrate oxygen requirements for possible upper endoscopy. Plan: -IV Protonix 40 mg twice daily -GI Dr. Lake consulted, appreciate recommendations -Possible upper endoscopy once oxygenation has improved. #Hypernatremia-resolved. ? Patient sodium today was 142, and water flushes maintained at 75cc/hr ? DDx likely due to hypodipsia setting of patient being n.p.o. ? Will continue to monitor #NSTEMI likely type II in the setting of sepsis. ? Troponins peaked at 0.185 and down trended Plan: ? Will continue monitor #Hx of DM2. ?A1c 5.1 on 07/2024 Plan: ? ISS ? Accu-Cheks and hypoglycemia protocol ordered ? Will continue to monitor #Developmental delay. 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 tube feeds (held) GI prophylaxis: protonix 40 iv bid DVT prophylaxis: Lovenox Code: Full code Case was discussed with attending physician, Dr Mian Goel MD PGY-1 L Patient is a 54-year-old female, admitted to hospital on 08/13/2024 due for acute hypoxia and sepsis secondary to cocci pneumonia and acute UTI, in the setting of chronic indwelling Bardales. She was found to have blood cultures positive for Josefa glabrata, ID consulted, appreciate recommendations. Patient was started on Augmentin, Fluconazole and Micafungin during this hospitalization. She is improving slowly with reduced oxygen requirements. Repeat blood cultures have been negative. Plan : Continue to titrate off of oxygen, anticipate discharge in 48 hours. Continue breathign Tx. Patient examined and case discussed with the team including attending physician. Note reviewed, I agree with the care plan as documented. - Miky Chavez MD, PGY 2
[2024-08-22] MEDS: FUROSEMIDE INJ 10 MG/ML VIAL 2 ML 40 MG IVP (12:21)
--- NOTE | 2024-08-22 20:59 | ESPR_ITS ---
Documentation for date of: 08/22/24 Subjective Subjective Interval history: Patient evaluated Hemoglobin hematocrit 11.0 35.0 she remains on high flow nasal cannula Exam Vital Signs Temp Pulse Resp BP Pulse Ox O2 Del Method O2 Flow Rate 97.0 F 94 16 140/93 H 99 High Flow Nasal Cannula 35 08/22/24 20:00 08/22/24 20:00 08/22/24 20:00 08/22/24 20:00 08/22/24 20:00 08/22/24 20:00 08/22/24 20:00 FiO2 60 08/22/24 20:00 Objective Labs 08/22/24 05:27 08/22/24 05:27 Labs: Laboratory Results - last 24 hr 08/22/24 05:27 WBC 6.6 RBC 3.78 L Hgb 11.0 L Hct 36.0 MCV 95 MCH 29.1 MCHC 30.6 L RDW Std Deviation 51.5 H Plt Count 246 Neut % (Auto) 71 Lymph % (Auto) 19 [place] % (Auto) 6 Eos % (Auto) 3 Baso % (Auto) 1 Neut # (Auto) 4.7 Lymph # (Auto) 1.2 [place] # (Auto) 0.4 Eos # (Auto) 0.2 Baso # (Auto) 0.0 Immature Gran # (Auto) 0.05 H Absolute Nucleated RBC 0.00 Immature Gran % 1 H Nucleated RBC % 0 Sodium 145 Potassium 4.4 Chloride 96 L Carbon Dioxide > 40.0 H Anion Gap 9 BUN 17 Creatinine 0.4 L Estim Creat Clear Calc 124.2 eGFR > 60 BUN/Creatinine Ratio 43 H Glucose 74 Calculated Osmolality 289 Calcium 9.6 Corrected Calcium 9.9 Phosphorus 3.6 Magnesium 1.8 Total Bilirubin 0.3 AST 28 ALT 20 Alkaline Phosphatase 95 Total Protein 7.3 Albumin 3.6 Globulin 3.7 H Albumin/Globulin Ratio 1.0 L Impressions Impression: # Posthemorrhagic anemia hemoglobin hematocrit stable # hypoxic respiratory failure on high flow nasal cannula ABG Interpretation ABG results: 08/13/24 08/13/24 08/13/24 04:29 05:33 07:47 ABG pH 7.27 L 7.26 L 7.31 L ABG pCO2 85 H* 80 H* 74 H* ABG pO2 62 L 104 D 104 ABG HCO3 39 H 35 H 37 H ABG O2 Saturation 87 L 97 98 ABG Base Excess 9 H 5 H 8 H 08/14/24 07:57 ABG pH 7.39 ABG pCO2 64 H D ABG pO2 79 L D ABG HCO3 38 H ABG O2 Saturation 97 ABG Base Excess 11 H Assessment & Plan A&P Narrative pos cocci candid glabrata fungemia on admit. may be contaminant repeats pending from 08/17/24. echo neg pneumonia. cocci possible but less likely, due to limited mobility. cocci has not been reported in those who do not venture outdoors glabrata is covered as fungermia is more likely than cocci. apppreciate the desire to address all possibilities by adding flucon to the micafungin. repeat bc are neg, value of micafungin rx may be low will likely see again wed as cocci issue not yet put to bed. sadly, usual rx for glabrata may be micafungin and about 14d from first neg so from 08/17-08/31. can finish as ouitpt if desired but may need access Time Spent With Patient Time: Total time spent is greater than 50% in coordination of care (as documented) at patient's floor/unit and/or counseling patient:
[2024-08-23] VITALS (12 sets, daily range): BP systolic 115–168; BP diastolic 80–94; PULSE 88–108; RESP 12–26; TEMP 36.2–36.7; O2SAT 93–100; BMI 23.2
[2024-08-23] MEDS: IPRATROPIUM RT 0.5 MG/ 2.5 ML NEBU INH ×3 (00:30→18:10)
[2024-08-23] MEDS: LEVALBUTEROL RT 0.63 MG/3 ML NEBU INH ×3 (00:30→18:10)
[2024-08-23] MEDS: LACTULOSE SYRUP 20 GM/30 ML UDC GT ×3 (05:14→21:18)
[2024-08-23 06:16] LABS: Basophils % (Auto) 1 % (0-2.5); Eosinophils # (Auto) 0.1 Thou/mm3 (0.0-0.5); Eosinophils % (Auto) 1 % (0-10); Hemoglobin 11.6 g/dL (12.0-16.0); Immature Granulocytes % (Auto) 1 % (0-0); Immature Granulocytes Auto 0.05 Thou/mm3 (0.00-0.00); Lymphocytes # (Auto) 1.1 Thou/mm3 (1.0-4.8); Lymphocytes % (Auto) 13 % (10-50); Mean Corpuscular HGB Conc 30.5 g/dl (31.0-37.0); Mean Corpuscular Hemoglobin 28.8 pg (25.0-35.0); Mean Corpuscular Volume 94 fL (80-100); Monocytes # (Auto) 0.5 Thou/mm3 (0.0-0.8); Monocytes % (Auto) 6 % (0-12); Neutrophils # (Auto) 6.5 Thou/mm3 (1.8-7.7); Neutrophils % (Auto) 79 % (37-80); Nucleated Red Blood Cell % 0 /100 WBC (0); Platelet Count 310 Thou/mm3 (140-440); RDW Standard Deviation 50.9 fL (36.4-46.3); Red Blood Count 4.03 Miln/mm3 (4.00-5.20); White Blood Count 8.3 Thou/mm3 (3.6-11.0)
[2024-08-23 07:07] LABS: Alanine Aminotransferase 26 U/L (10-49); Albumin, Serum 3.9 gm/dL (3.5-5.0); Alkaline Phosphatase 109 U/L (46-116); Anion Gap 13 (7-16); Aspartate Amino Transferase 23 U/L (0-34); BUN/Creatinine Ratio 37 Ratio (12-20); Bilirubin,Total 0.3 mg/dL (0.3-1.2); Blood Urea Nitrogen 22 mg/dL (9-23); Calcium 9.8 mg/dL (8.3-10.6); Calcium (Corrected) 9.9 mg/dL (8.5-10.1); Carbon Dioxide > 40.0 mMol/L (20.0-31.0); Chloride 93 mMol/L (98-107); Creatinine (Component) 0.6 mg/dL (0.6-1.3); Estimated Creatinine Clearance 82.8 mL/min (>60); Globulin 4.1 gm/dL (2.3-3.5); Glucose 96 mg/dL (74-106); Osmolality,Calculated 293 (275-295); Potassium 4.4 mMol/L (3.4-5.1); Sodium 146 mMol/L (136-145); eGFR > 60 See Note
[2024-08-23 07:28] LABS: Procalcitonin 0.15 ng/ml (0.0-0.49)
[2024-08-23] MEDS: AMOXICILLIN/POT CLAV 600 MG/5 ML GT ×2 (09:09→20:22)
[2024-08-23] MEDS: PANTOPRAZOLE INJ 40 MG VIAL IV ×2 (09:10→20:22)
[2024-08-23] MEDS: FLUCONAZOLE/NS 400 MG IVPB 400 MG/200 ML BAG 100 MG IV (09:10)
[2024-08-23] MEDS: MICAFUNGIN SODIUM INJ 100 MG in SODIUM CHLORIDE 0.9% 100 ML IV (09:10)
--- NOTE | 2024-08-23 09:42 | XR_ITS ---
Examination: Attempted right PICC line placement Ultrasound right extremity Exam date and time: June 22, 2025 1231 hours INDICATIONS: Need for long-term intravenous antibiotic therapy TECHNIQUE AND FINDINGS: Unsuccessful 21-gauge needle puncture ultrasound-guided into the very small brachial vein IMPRESSION: Unsuccessful PICC line placement
[2024-08-23 11:06] LABS: INR 1.1 (0.9-1.3); Prothrombin Time 11.8 Seconds (9.0-12.2)
--- NOTE | 2024-08-23 11:49 | ESPR_ITS ---
Documentation for date of: 08/23/24 Subjective Subjective Interval history: Patient seen at bedside. No acute overnight events. Oxygen requirements have significantly improved. She is now on Oxymask at 3L. Still holding tube feeds, patient is yet to have a bowel movement, lactulose has been increased to 20mg TID. Will touch base with GI Dr Lake on need for upper endoscopy although hemoglobin has remained stable. Will continue micafungin and fluconazole and set up a PICC line for IV antifungal until 08/31 at the facility. 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 Neck: Neck supple, non-tender, no cervical lymphadenopathy. Lungs: Still some rhonchi present, but improving Cardio: Normal S1/S2, tachycardic rhythm, no murmurs, no JVD Abdomen: Soft, no palpable masses, peristalsis present, PEG tube in place with no visible discharge Extremities: Contracted lower extremities with some trace peripheral edema Skin: No rashes, no lesions, warm to touch. Neuro: Cannot be assessed due to patient's medical condition Objective Labs 08/24/24 07:45 08/24/24 07:45 Labs: Laboratory Results - last 24 hr 08/23/24 05:44 WBC 8.3 RBC 4.03 Hgb 11.6 L Hct 38.0 MCV 94 MCH 28.8 MCHC 30.5 L RDW Std Deviation 50.9 H Plt Count 310 D Neut % (Auto) 79 Lymph % (Auto) 13 [place] % (Auto) 6 Eos % (Auto) 1 Baso % (Auto) 1 Neut # (Auto) 6.5 Lymph # (Auto) 1.1 [place] # (Auto) 0.5 Eos # (Auto) 0.1 Baso # (Auto) 0.0 Immature Gran # (Auto) 0.05 H Absolute Nucleated RBC 0.00 Immature Gran % 1 H Nucleated RBC % 0 PT 11.8 INR 1.1 Sodium 146 H Potassium 4.4 Chloride 93 L Carbon Dioxide > 40.0 H Anion Gap 13 BUN 22 Creatinine 0.6 Estim Creat Clear Calc 82.8 eGFR > 60 BUN/Creatinine Ratio 37 H Glucose 96 Calculated Osmolality 293 Calcium 9.8 Corrected Calcium 9.9 Phosphorus 4.0 Magnesium 2.0 Total Bilirubin 0.3 AST 23 ALT 26 Alkaline Phosphatase 109 Total Protein 8.0 Albumin 3.9 Globulin 4.1 H Albumin/Globulin Ratio 1.0 L Procalcitonin 0.15 ABG Interpretation ABG results: 08/13/24 08/13/24 08/13/24 04:29 05:33 07:47 ABG pH 7.27 L 7.26 L 7.31 L ABG pCO2 85 H* 80 H* 74 H* ABG pO2 62 L 104 D 104 ABG HCO3 39 H 35 H 37 H ABG O2 Saturation 87 L 97 98 ABG Base Excess 9 H 5 H 8 H 08/14/24 07:57 ABG pH 7.39 ABG pCO2 64 H D ABG pO2 79 L D ABG HCO3 38 H ABG O2 Saturation 97 ABG Base Excess 11 H Quality Measures Quality Measures sepsis Current suspected stage: sepsis Possible source: unknown Blood cultures ordered: yes Antibiotic ordered: Yes Assessment & Plan Assessment Current Active Medications: Generic Name Dose Route Start Last Admin Trade Name Freq PRN Reason Stop Dose Admin Acetaminophen 650 mg 08/15/24 11:39 08/16/24 16:47 Acetaminophen Adriana 325 Mg/10 Ml Udc GT 09/14/24 11:38 650 mg Q4HR PRN Administration pain and Fever >100.4 Amoxicillin/Clavulanate Potassium 600 mg 08/19/24 09:00 08/23/24 09:09 Amoxicillin/Pot Clav 600 Mg/5 Ml GT 08/26/24 08:59 600 mg BID URBANO Administration Dextrose 25 ml 08/13/24 04:14 Dextrose 50%-Water Inj 50 Ml Syringe IV 09/12/24 04:13 Q15MIN PRN BG 50-70 responsive npo pt Dextrose 50 ml 08/13/24 04:14 Dextrose 50%-Water Inj 50 Ml Syringe IV 09/12/24 04:13 Q15MIN PRN BG <50 OR BG <70 & pt unresponsive Enoxaparin Sodium 40 mg 08/13/24 09:00 08/17/24 11:05 Enoxaparin Sod Inj 40 Mg/0.4 Ml Syringe SC 08/27/24 08:59 40 mg QDAY URBANO Administration Glucagon 1 mg 08/13/24 04:14 Glucagon Inj 1 Mg Vial IM Q15MIN PRN BG <70, and no IV access Micafungin Sodium 100 mg/ 100 mls @ 100 mls/hr 08/18/24 09:57 08/23/24 09:10 Sodium Chloride IV 09/02/24 09:56 100 mls/hr QDAY URBANO Administration Fluconazole 400 mg in 200 mls @ 100 mls/hr 08/18/24 18:15 08/23/24 09:10 Diflucan/Ns Ivpb IV 08/25/24 18:14 100 mls/hr QDAY [facility] Administration Insulin Glargine 10 unit 08/13/24 21:00 08/22/24 20:25 Insulin Glargine (Lantus) 5 Unit/0.05 Ml (Per 5 Units) SC 09/12/24 20:59 Not Given HS [facility] Insulin Human Lispro 0 unit 08/13/24 06:00 08/23/24 05:14 Insulin Lispro (Admelog) 1 Unit/0.01 Ml Unit SC 09/12/24 05:59 Not Given Q6HR [facility] Protocol Ipratropium [place] 0.5 mg 08/13/24 07:00 08/23/24 06:37 Ipratropium Rt 0.5 Mg/ 2.5 Ml Nebu INH 09/12/24 06:59 0.5 mg Q6HRRT [facility] Administration Lactulose 20 gm 08/22/24 14:00 08/23/24 05:14 Lactulose Syrup 20 Gm/30 Ml Udc GT 09/21/24 13:59 20 gm TID URBANO Administration Protocol Levalbuterol HCl 0.63 mg 08/13/24 07:00 08/23/24 06:37 Levalbuterol Rt 0.63 Mg/3 Ml Nebu INH 09/12/24 06:59 0.63 mg Q6HRRT [facility] Administration Ondansetron HCl 4 mg 08/13/24 04:07 08/13/24 12:02 Ondansetron Inj 2 Mg/Ml Inj 2 Ml IV 09/12/24 04:06 4 mg Q6H PRN Administration NAUSEA OR VOMITING Protocol Pantoprazole Sodium 40 mg 08/17/24 11:15 08/23/24 09:10 Pantoprazole Inj 40 Mg Vial IV 09/16/24 11:14 40 mg BID URBANO Administration Plan Summary: 54-year-old female with past medical history of DM2, developmental delay, chronically bedbound with indwelling Bardales catheter, recurrent UTIs, chronic PEG tube, deaf, blind, 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 #Acute hypoxic respiratory failure. #Sepsis likely secondary to #Bilateral pneumonia secondary to Cocci #Possible hospital acquired pneumonia #Josefa galbrata bacteremia. #E.coli UTI. ? Patient came in and met SIRS criteria 4 out of 4 as well as endorgan damage with elevated troponins ? UA was positive for leukocytes esterase ? Chest x-ray with positive for pneumonia ? Chest CTA was positive for severe diffuse right lung pneumonia and concerning for urinary tract infection -Cocci IgM positive -Urine culture positive for E. Coli -Blood culture negative in 48 hours -1 Blood Cx grew yeast preliminary -DC'd Flagyl and vancomycin [08/13/2024?08/14/2024], cefepime [08/13/2024?08/15/2024] -Blood culture returned positive for Josefa glabrata, ID consulted-commenced patient on micafungin. Additionally, we continued fluconazole to cover cocci and Augmentin to cover pneumonia/UTI. 08/23/2024 - Oxygen requirements improving, on Oxymask at 5L. PICC line insertion today to continue micafungin until 08/31 as well as augmentin and fluconazole. Plan: - PICC line insertion - Continue micafungin, fluconazole and Augmentin - Continue oxygen down titration as tolerated ? Ipratropium and levalbuterol scheduled every 6 hours ? Chest physiotherapy ordered - ID consulted, appreciate recommendations #?GI bleed. On 08/17/2024, patient had bloody gastric secretion as well as drop in hemoglobin and hematocrit. She feeds are held and GI Dr. Lake was consulted. This patient is still currently on high flow oxygen, will continue to down titrate oxygen requirements for possible upper endoscopy. 08/23/2024- Follow up GI on need for upper endoscopy. Plan: -IV Protonix 40 mg twice daily -GI Dr. Lake consulted, appreciate recommendations -Possible upper endoscopy once oxygenation has improved. #Hypernatremia- ? Patient sodium today was 146, and water flushes maintained at 75cc/hr, no tube feeds currently. ? Will continue to monitor #NSTEMI likely type II in the setting of sepsis. ? Troponins peaked at 0.185 and down trended Plan: ? Will continue monitor #Hx of DM2. ?A1c 5.1 on 07/2024 Plan: ? ISS ? Accu-Cheks and hypoglycemia protocol ordered ? Will continue to monitor #Developmental delay. 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 tube feeds (held) GI prophylaxis: protonix 40 iv bid DVT prophylaxis: Lovenox Code: Full code Case was discussed with Dr Chavez PGY-2 and attending physician, Dr Sujey Goel MD PGY-1 LPatient is a 54-year-old female admitted to hospital on 08/13/2024 for sepsis secondary to hospital-acquired pneumonia, cocci infection and UTI in the setting of chronic indwelling Bardales catheter. Chest x-ray and Chest CTA was positive for severe diffuse right lung pneumonia and concerning for urinary tract infection. Urine culture positive for E. Coli. Cocci IgM was found to be positive and patient started on Fluconazole. Blood culture returned positive for Josefa glabrata, ID consulted and started patient on micafungin. Patient is being treated with micafungin until 08/31, augmentin and fluconazole. 08/24 : Patient is at her baseline of 2L via NC. She has remained afebrile and repeat blood cultures are negative. Dispo: [facility] back to SNF [facility] to continue Micafungin till 08/31 via peripheral line and Fluconazole x 12 weeks, until repeat Cocci results from [facility] return negative. Patient examined and case discussed with the team including attending physician. Note reviewed, I agree with the care plan as documented. - Miky Chavez MD, PGY 2 L Attending Provider Attestation/Addendum I reviewed labs, imaging, EKG, home medications and prior available records. Face to face evaluation was performed by me. I have personally examined the patient and discussed assessment and plan with the IM team. I reviewed the resident note and agree with the plan with exceptions as below. Acute hypoxic respiratory failure: She is on oxy mask with low oxygen requirements. In the setting of cocci pneumonia and hospital-acquired pneumonia. Continue Augmentin and fluconazole Hospital-acquired pneumonia: Continue Augmentin Cocci pneumonia: Continue fluconazole. Follow-up confirmatory test at [facility] Fungemia: Initial blood cultures grew Josefa species. Started micafungin. Consulted ID. Repeated blood cultures was negative. Echocardiogram was negative for vegetations. Recommended to continue IV micafungin for 14 days. Consulted IR for PICC line placement Constipation: Gave lactulose. Held tube feeds Goals of care discussion/counseling: Family refused any comfort measures. She was made back to full code at the beginning of this hospital stay
[2024-08-23] MEDS: HEPARIN SOD LOCK SYR 100 UNIT/ML 500 UNIT STFIELD (12:50)
[2024-08-23] MEDS: LIDOCAINE INJ PF 1% 30 ML VIAL INFL (12:50)
--- NOTE | 2024-08-23 13:12 | PD.IMPROG ---
Documentation for date of: 08/23/24 Subjective Subjective Interval history: Patient evaluated Hemoglobin hematocrit 11.6 and 38.0 and a platelet count of 310,000 Patient on 100% FiO2 with oxygen mask Exam Vital Signs Temp Pulse Resp BP Pulse Ox O2 Del Method O2 Flow Rate 97.1 F 104 H 12 116/87 H 95 Oxy Mask 4 08/23/24 08:00 08/23/24 13:05 08/23/24 13:05 08/23/24 13:05 08/23/24 13:05 08/23/24 13:05 08/23/24 13:05 FiO2 60 08/23/24 04:00 Objective Labs 08/23/24 05:44 08/23/24 05:44 Labs: Laboratory Results - last 24 hr 08/23/24 05:44 WBC 8.3 RBC 4.03 Hgb 11.6 L Hct 38.0 MCV 94 MCH 28.8 MCHC 30.5 L RDW Std Deviation 50.9 H Plt Count 310 D Neut % (Auto) 79 Lymph % (Auto) 13 [place] % (Auto) 6 Eos % (Auto) 1 Baso % (Auto) 1 Neut # (Auto) 6.5 Lymph # (Auto) 1.1 [place] # (Auto) 0.5 Eos # (Auto) 0.1 Baso # (Auto) 0.0 Immature Gran # (Auto) 0.05 H Absolute Nucleated RBC 0.00 Immature Gran % 1 H Nucleated RBC % 0 PT 11.8 INR 1.1 Sodium 146 H Potassium 4.4 Chloride 93 L Carbon Dioxide > 40.0 H Anion Gap 13 BUN 22 Creatinine 0.6 Estim Creat Clear Calc 82.8 eGFR > 60 BUN/Creatinine Ratio 37 H Glucose 96 Calculated Osmolality 293 Calcium 9.8 Corrected Calcium 9.9 Phosphorus 4.0 Magnesium 2.0 Total Bilirubin 0.3 AST 23 ALT 26 Alkaline Phosphatase 109 Total Protein 8.0 Albumin 3.9 Globulin 4.1 H Albumin/Globulin Ratio 1.0 L Procalcitonin 0.15 Impressions Impression: # Anemia blood loss hemoglobin hematocrit relatively stable # Acute respiratory failure patient on 100% FiO2 and oxygen mask Continue conservative management ABG Interpretation ABG results: 08/13/24 08/13/24 08/13/24 04:29 05:33 07:47 ABG pH 7.27 L 7.26 L 7.31 L ABG pCO2 85 H* 80 H* 74 H* ABG pO2 62 L 104 D 104 ABG HCO3 39 H 35 H 37 H ABG O2 Saturation 87 L 97 98 ABG Base Excess 9 H 5 H 8 H 08/14/24 07:57 ABG pH 7.39 ABG pCO2 64 H D ABG pO2 79 L D ABG HCO3 38 H ABG O2 Saturation 97 ABG Base Excess 11 H Assessment & Plan A&P Narrative pos cocci candid glabrata fungemia on admit. may be contaminant repeats pending from 08/17/24. echo neg pneumonia. cocci possible but less likely, due to limited mobility. cocci has not been reported in those who do not venture outdoors glabrata is covered as fungermia is more likely than cocci. apppreciate the desire to address all possibilities by adding flucon to the micafungin. repeat bc are neg, value of micafungin rx may be low will likely see again wed as cocci issue not yet put to bed. sadly, usual rx for glabrata may be micafungin and about 14d from first neg so from 08/17-08/31. can finish as ouitpt if desired but may need access Time Spent With Patient Time: Total time spent is greater than 50% in coordination of care (as documented) at patient's floor/unit and/or counseling patient:
--- NOTE | 2024-08-23 13:15 | PD.IDPROG ---
Subjective Subjective Interval history: fungemia on admit noted. may be contaminant, but can not offer pt the option of no rx. cocci again neg at d. so another false pos noted. Exam Vital Signs Temp Pulse Resp BP Pulse Ox O2 Del Method O2 Flow Rate 97.1 F 104 H 12 116/87 H 95 Oxy Mask 4 08/23/24 08:00 08/23/24 13:05 08/23/24 13:05 08/23/24 13:05 08/23/24 13:05 08/23/24 13:05 08/23/24 13:05 FiO2 60 08/23/24 04:00 Narrative Exam somnolent. not interactive. on O2 by mask due to overall situation as she is mouth breathing. sadly, the prior germs are of uncertain consequence. if you are gungho to change something. then ok to change the augmentin to levaquin adjusted for her renal status noting that the pseudomonas is listed as rare so value of rx seems low. quinolones are the same iv and enteral so using an enteral quinolone obviates the need for a picc line if family ok to not be that aggressive with the micafungin. Objective - Internal Medicine Labs 08/23/24 05:44 08/23/24 05:44 Labs: Laboratory Results - last 24 hr 08/23/24 05:44 WBC 8.3 RBC 4.03 Hgb 11.6 L Hct 38.0 MCV 94 MCH 28.8 MCHC 30.5 L RDW Std Deviation 50.9 H Plt Count 310 D Neut % (Auto) 79 Lymph % (Auto) 13 [place] % (Auto) 6 Eos % (Auto) 1 Baso % (Auto) 1 Neut # (Auto) 6.5 Lymph # (Auto) 1.1 [place] # (Auto) 0.5 Eos # (Auto) 0.1 Baso # (Auto) 0.0 Immature Gran # (Auto) 0.05 H Absolute Nucleated RBC 0.00 Immature Gran % 1 H Nucleated RBC % 0 PT 11.8 INR 1.1 Sodium 146 H Potassium 4.4 Chloride 93 L Carbon Dioxide > 40.0 H Anion Gap 13 BUN 22 Creatinine 0.6 Estim Creat Clear Calc 82.8 eGFR > 60 BUN/Creatinine Ratio 37 H Glucose 96 Calculated Osmolality 293 Calcium 9.8 Corrected Calcium 9.9 Phosphorus 4.0 Magnesium 2.0 Total Bilirubin 0.3 AST 23 ALT 26 Alkaline Phosphatase 109 Total Protein 8.0 Albumin 3.9 Globulin 4.1 H Albumin/Globulin Ratio 1.0 L Procalcitonin 0.15 ABG Interpretation ABG results: 08/13/24 08/13/24 08/13/24 04:29 05:33 07:47 ABG pH 7.27 L 7.26 L 7.31 L ABG pCO2 85 H* 80 H* 74 H* ABG pO2 62 L 104 D 104 ABG HCO3 39 H 35 H 37 H ABG O2 Saturation 87 L 97 98 ABG Base Excess 9 H 5 H 8 H 08/14/24 07:57 ABG pH 7.39 ABG pCO2 64 H D ABG pO2 79 L D ABG HCO3 38 H ABG O2 Saturation 97 ABG Base Excess 11 H Assessment & Plan A&P Narrative pos cocci soon after admit. neg at [facility] by 08/23/24 Josefa glabrata fungemia on admit. may be contaminant repeats pending from 08/17/24. echo neg pneumonia. cocci possible but less likely, due to limited mobility. cocci has not been reported in those who do not venture outdoors aand test is neg at [facility] glabrata is covered as fungermia is verified and cocci is not. appreciate the desire to address all possibilities. repeat bc are neg, value of micafungin rx may be low but cessation is difficult as procal is insensitive to fungal antigens usual rx for glabrata should be micafungin and about 14d from first neg so from 08/17-08/31. can finish as outpt if desired but may need access O2 need concerning, ? baseline O2 status? notably, she has a normal wbc (usually the residents put a lot of wt on that one) and I am not sure why O2 increased from 3-4 lpm and not reduced. she is on a mask now and apparently was out for a picc line per others. team may want to change rx, if so, quinolones enterall are the same as iv and she recently failed a picc line . it is ok to revisit code status periodically in all persons, but particularly in those with a limited prognosis. if parents are willing to accept the risk of failure, ok to change the micafungin to flucon alone per ng/gt for same duration. Time Spent With Patient Time: Total time spent is greater than 50% in coordination of care (as documented) at patient's floor/unit and/or counseling patient:
--- NOTE | 2024-08-23 13:50 | PC.SS ---
Addendum entered by Angelina Montaño 08/23/24 14:24: Follow up note: SS reviewed notes which indicated that patient did not get the picc line today. Notes state veins too small. Patient back in room. Spoke to physician team. Patient may need to stay for the 6 day course. Original Note: Follow up note: Patient will return back to [facility]. SS inquired with facility and they can accommodate the once a day i.v. antibiotics for 6 days. Patient will go for picc line and then will be ready for d/c.
[2024-08-23] MEDS: Milk Of Magnesia Susp 30 ML UDC GT (17:40)
[2024-08-24] VITALS (10 sets, daily range): BP systolic 105–159; BP diastolic 68–91; PULSE 87–112; RESP 14–24; TEMP 35.9–36.5; O2SAT 93–100; BMI 21.7
[2024-08-24] MEDS: IPRATROPIUM RT 0.5 MG/ 2.5 ML NEBU INH ×4 (00:40→18:10)
[2024-08-24] MEDS: LEVALBUTEROL RT 0.63 MG/3 ML NEBU INH ×4 (00:40→18:10)
[2024-08-24 08:06] LABS: Basophils % (Auto) 1 % (0-2.5); Eosinophils # (Auto) 0.1 Thou/mm3 (0.0-0.5); Eosinophils % (Auto) 2 % (0-10); Hematocrit 38.2 % (36.0-46.0); Hemoglobin 11.2 g/dL (12.0-16.0); Immature Granulocytes % (Auto) 0 % (0-0); Immature Granulocytes Auto 0.02 Thou/mm3 (0.00-0.00); Lymphocytes # (Auto) 0.9 Thou/mm3 (1.0-4.8); Lymphocytes % (Auto) 14 % (10-50); Mean Corpuscular HGB Conc 29.3 g/dl (31.0-37.0); Mean Corpuscular Hemoglobin 28.2 pg (25.0-35.0); Mean Corpuscular Volume 96 fL (80-100); Monocytes # (Auto) 0.6 Thou/mm3 (0.0-0.8); Monocytes % (Auto) 9 % (0-12); Neutrophils # (Auto) 4.7 Thou/mm3 (1.8-7.7); Neutrophils % (Auto) 74 % (37-80); Nucleated Red Blood Cell % 0 /100 WBC (0); Platelet Count 293 Thou/mm3 (140-440); RDW Standard Deviation 52.2 fL (36.4-46.3); Red Blood Count 3.97 Miln/mm3 (4.00-5.20); White Blood Count 6.4 Thou/mm3 (3.6-11.0)
[2024-08-24] MEDS: MICAFUNGIN SODIUM INJ 100 MG in SODIUM CHLORIDE 0.9% 100 ML IV (09:06)
[2024-08-24] MEDS: PANTOPRAZOLE INJ 40 MG VIAL IV (09:06)
[2024-08-24] MEDS: AMOXICILLIN/POT CLAV 600 MG/5 ML GT (09:06)
[2024-08-24 09:27] LABS: Albumin, Serum 3.9 gm/dL (3.5-5.0); Anion Gap 13 (7-16); BUN/Creatinine Ratio 33 Ratio (12-20); Blood Urea Nitrogen 20 mg/dL (9-23); Calcium 9.7 mg/dL (8.3-10.6); Calcium (Corrected) 9.8 mg/dL (8.5-10.1); Carbon Dioxide > 40.0 mMol/L (20.0-31.0); Chloride 97 mMol/L (98-107); Creatinine (Component) 0.6 mg/dL (0.6-1.3); Estimated Creatinine Clearance 82.8 mL/min (>60); Glucose 125 mg/dL (74-106); Magnesium 2.4 mg/dL (1.6-2.6); Osmolality,Calculated 301 (275-295); Phosphorous 3.2 mg/dL (2.4-5.1); Potassium 4.1 mMol/L (3.4-5.1); Sodium 150 mMol/L (136-145); eGFR > 60 See Note
[2024-08-24] MEDS: FLUCONAZOLE/NS 400 MG IVPB 400 MG/200 ML BAG 100 MG IV (11:04)
[2024-08-24 14:16] LABS: Albumin, Serum 3.8 gm/dL (3.5-5.0); Anion Gap 9 (7-16); BUN/Creatinine Ratio 28 Ratio (12-20); Blood Urea Nitrogen 17 mg/dL (9-23); Calcium 9.6 mg/dL (8.3-10.6); Calcium (Corrected) 9.8 mg/dL (8.5-10.1); Carbon Dioxide > 40.0 mMol/L (20.0-31.0); Chloride 99 mMol/L (98-107); Creatinine (Component) 0.6 mg/dL (0.6-1.3); Estimated Creatinine Clearance 82.8 mL/min (>60); Glucose 134 mg/dL (74-106); Osmolality,Calculated 297 (275-295); Potassium 4.7 mMol/L (3.4-5.1); Sodium 148 mMol/L (136-145); eGFR > 60 See Note
--- NOTE | 2024-08-24 16:17 | PD.RESDS ---
Planned Discharge Date 08/24/24 DS: Providers Provider Date of admission: 08/13/24 04:06 Primary care physician: Physician No Primary/Family Admitting Provider: Kp Lerma DO Attending Provider on Admission: Raffy Rm MD Consults: 08/13/24 04:15 Referral Registered Dietitian Stat Comment: Patient is G-tube dependent 08/13/24 17:39 Referral Registered Dietitian Routine Comment: 08/15/24 10:02 Consult to Infectious Diseases Routine Comment: Consulting Provider: Hardy Goyal 08/17/24 11:10 Consult to Gastroenterology Routine Comment: Consulting Provider: Nancy Lake Attending Provider on DC: Rosa Goel MD Discharging Provider: Rosa Goel MD DS: Diagnosis Problem List Completed Was Problem List Reviewed/Reconciled?: Yes Hospital Course Hospital Course Hospital course: The patient is a 54-year-old female with past medical history of diabetes, developmental delay, chronically bedbound with indwelling Bardales catheter, recurrent UTIs, chronic PEG tube, 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 In the ED, patient was febrile and hypoxic, labs are significant for leukocytosis and chest x-ray showed significant bilateral infiltrate. The patient was admitted for sepsis secondary to bilateral pneumonia. Cocci serology was done which came back positive and the patient was started on fluconazole in addition to IV antibiotics for pneumonia. She also developed hyponatremia which is being managed with free water flushes. Blood culture was done which returned positive for Josefa glabrata, infectious disease was consulted and the patient was started on micafungin. Urine culture returned positive for E. coli UTI which was treated with antibiotics. Oxygen requirements continued to be significantly increased and the patient was on high flow for couple days until she was saturating well enough to be transitioned back to oxy mask. As saturation improved, a PICC line insertion was planned for continued micafungin until 08/31/2024 as recommended by ID. However, this procedure was unsuccessful. After contacting [facility] and confirming that IV medications can be done via peripheral line, the patient was planned to be discharged. Confirmation test for cocci was done which returned negative and fluconazole was discontinued. Today, she is clinically and hemodynamically stable, saturating 98% on 3 L of oxygen and is medically cleared for discharge. She was recommended to follow-up with primary care provider within 1 week of discharge as well as for ophthalmic examination based on the complications of Josefa glabrata. She will continue IV micafungin until 08/31/2024. All other medications to be continued as prescribed. #Acute hypoxic respiratory failure #Sepsis likely secondary to #Bilateral pneumonia secondary to cocci #Possible hospital-acquired pneumonia #Josefa glabrata bacteremia #E. coli UTI Discharge instructions: Follow-up with your PCP within 1 week of discharge Continue IV micafungin until 08/31/2024 Continue other medications as prescribed Continue tube feeds- 10mls every 8hours with water flushes of 50cc/hr to a goal of 55 mL in 24 hours Please return to the ED immediately if your symptoms worsen Case was discussed with Dr Rizo PGY-2 and attending physician, Dr Sujey Goel MD PGY-1 Status at Discharge Overall status at discharge: patient is progressing back to baseline Time Spent with Patient Time attestation: Total time spent providing and/or coordinating discharge services: Time spent: Greater than 30 minutes Exam Vital Signs Temp Pulse Resp BP Pulse Ox O2 Del Method O2 Flow Rate 97.3 F 91 20 126/79 99 Oxy Mask 3 08/24/24 12:00 08/24/24 12:38 08/24/24 12:38 08/24/24 12:00 08/24/24 12:38 08/24/24 12:00 08/24/24 12:38 FiO2 60 08/24/24 12:00 Narrative Exam General: Patient was resting in bed on Oxymask, patient is nonverbal, blind, and deaf at baseline Mouth/Throat: Dry mucous membranes, no redness, no lesions. Neck: Neck supple, non-tender, no cervical lymphadenopathy. Lungs: Still some rhonchi present, but improving Cardio: Normal S1/S2, tachycardic rhythm, no murmurs, no JVD Abdomen: Soft, no palpable masses, peristalsis present, PEG tube in place with no visible discharge Extremities: Contracted lower extremities with some trace peripheral edema Skin: No rashes, no lesions, warm to touch. Neuro: Cannot be assessed due to patient's medical condition Discharge Plan Plan Patient Disposition: Xfer Skilled Nsg Fac (SNF) Patient condition on transfer: Stable Prescriptions/Referrals Prescriptions/Med Rec: New micafungin 100 mg recon soln 100 mg IV Q24H Rx Instructions: administer over 60 mins Continued atorvastatin [Lipitor] 10 MG tablet 10 mg feeding tube HS 30 Days Qty: 30 1RF lansoprazole [Prevacid SoluTab] 30 mg tablet,disintegrat, delay rel 30 mg PO QDAY Qty: 30 0RF acetaminophen 325 mg tablet 650 mg PO QID PRN (Reason: pain) bisacodyl [Dulcolax (bisacodyl)] 10 mg suppository 10 mg MN QDAY PRN (Reason: constipation) Enema 19-7 gram/118 mL enema 118 ml MN QDAY PRN (Reason: constipation) magnesium hydroxide [[place] Milk of Magnesia] 400 mg/5 mL suspension 30 ml PO DAILY PRN (Reason: constipation) multivitamin [Daily Multi-Vitamin] Tablet 1 tab PO QDAY insulin glargine [Basaglar KwikPen U-100 Insulin] 100 unit/mL (3 mL) insulin pen 15 unit subcut QDAY ascorbic acid (vitamin C) [Vitamin C] 500 mg tablet 500 mg PO QDAY sennosides 8.8 mg/5 mL syrup 10 ml PO BID PRN (Reason: constipation) Qty: 236 2RF Discontinued midodrine 10 mg tablet 10 mg PO BID Rx Instructions: do not give last dose of day after 6PM or within 4 hrs of bedtime Referrals: No Primary/Family,Physician [Primary Care Provider] - Patient/Caregiver Discharge Instructions Other Discharge Activity Instructions:: Follow-up with your PCP within 1 week of discharge Continue IV micafungin until 08/31/2024, give over 60minutes Continue other medications as prescribed Continue tube feeds, advance by 10 mL every 8 hours to a goal rate of 55 mL Midodrine was stopped since blood pressure is normal, consider restarting if SBP<90 Please return to the ED if your symptoms worsen Other Discharge Diet Instructions: Tube feeds at goal rate - 55mls/24hrs Education Materials: Understanding Candidemia, High Blood Sugar (Hyperglycemia), Urinary Tract Infections in Women, ED Diabetes with High Blood Sugar Print Language: Irish Stand Alone Forms: Deja Award Info., Patient Portal Info Letter Discharge Order Discharge Orders: Discharge (Routine); Ordered 08/24/24 Ordered By: Rosa Goel Quality Discharge Quality Measures VTE prophylaxis MD Attestestation MD Attestation I reviewed labs, imaging, EKG, home medications and prior available records. Face to face evaluation was performed by me. I have personally examined the patient and discussed assessment and plan with the IM team. I reviewed the resident note and agree with the plan with exceptions as below. Acute hypoxic respiratory failure: She is on oxy mask with low oxygen requirements. In the setting of cocci pneumonia and hospital-acquired pneumonia. Will discharge on micafungin Hospital-acquired pneumonia: Finished a course of Zosyn/Augmentin Cocci pneumonia: Confirmatory cocci is negative. Patient is at low risk as she is bedridden. Discontinued fluconazole Fungemia: Initial blood cultures grew Josefa species. Started micafungin. Consulted ID. Repeated blood cultures was negative. Echocardiogram was negative for vegetations. Recommended to continue IV micafungin for 14 days. Discussed with social professionals: Okay to finish the treatment at the assisted Constipation: Gave lactulose. Had a bowel movement. Resumed tube feeds Goals of care discussion/counseling: Family refused comfort measures. She was made back to full code at the beginning of this hospital stay Time spent is 40 minutes. More than 50% of the time was spent on patient education and coordination of care.
--- NOTE | 2024-08-24 19:23 | PC.NURSE ---
Gave report to JONATHAN Johansen at [facility]. Notified Haily of mina cath transferring with patient as well as IV transferring with patient. 18g IV in Right AC. Called Dr. Chavez, per Dr. Chavez only 18g in RAC will transfer and 22g removed. Also notified Haily of increasing tube feedings as patient is not at goal rate. Instructions for tube feedings in discharge plan and reported to JONATHAN Johansen. Scheuled to bean picker machine operator at 1730, Ambulance dispatch called and stated wont be able to bean picker machine operator until 2029. Notified Haily CASTILLO of change in bean picker machine operator time.
--- NOTE | 2024-08-24 21:26 | PD.IMPROG ---
Documentation for date of: 08/24/24 Subjective Subjective Interval history: Late entry for the note hemoglobin hematocrit 11.2 and 38.2 Agree with discharge planning Exam Vital Signs Temp Pulse Resp BP Pulse Ox O2 Del Method O2 Flow Rate 96.7 F L 87 14 115/68 95 Oxy Mask 3 08/24/24 19:00 08/24/24 19:00 08/24/24 19:00 08/24/24 19:00 08/24/24 19:00 08/24/24 19:00 08/24/24 18:10 FiO2 60 08/24/24 16:00 Objective Labs 08/24/24 07:45 08/24/24 13:35 Labs: Laboratory Results - last 24 hr 08/24/24 08/24/24 07:45 13:35 WBC 6.4 RBC 3.97 L Hgb 11.2 L Hct 38.2 MCV 96 MCH 28.2 MCHC 29.3 L RDW Std Deviation 52.2 H Plt Count 293 Neut % (Auto) 74 Lymph % (Auto) 14 [place] % (Auto) 9 Eos % (Auto) 2 Baso % (Auto) 1 Neut # (Auto) 4.7 Lymph # (Auto) 0.9 L [place] # (Auto) 0.6 Eos # (Auto) 0.1 Baso # (Auto) 0.0 Immature Gran # (Auto) 0.02 H Absolute Nucleated RBC 0.00 Immature Gran % 0 Nucleated RBC % 0 Sodium 150 H 148 H Potassium 4.1 4.7 D Chloride 97 L 99 Carbon Dioxide > 40.0 H > 40.0 H Anion Gap 13 9 BUN 20 17 Creatinine 0.6 0.6 Estim Creat Clear Calc 82.8 82.8 eGFR > 60 > 60 BUN/Creatinine Ratio 33 H 28 H Glucose 125 H 134 H Calculated Osmolality 301 H 297 H Calcium 9.7 9.6 Corrected Calcium 9.8 9.8 Phosphorus 3.2 3.0 Magnesium 2.4 Albumin 3.9 3.8 Impressions Impression: # Anemia blood loss Relatively stable hemoglobin hematocrit No plans for any invasive GI workup ABG Interpretation ABG results: 08/13/24 08/13/24 08/13/24 04:29 05:33 07:47 ABG pH 7.27 L 7.26 L 7.31 L ABG pCO2 85 H* 80 H* 74 H* ABG pO2 62 L 104 D 104 ABG HCO3 39 H 35 H 37 H ABG O2 Saturation 87 L 97 98 ABG Base Excess 9 H 5 H 8 H 08/14/24 07:57 ABG pH 7.39 ABG pCO2 64 H D ABG pO2 79 L D ABG HCO3 38 H ABG O2 Saturation 97 ABG Base Excess 11 H Assessment & Plan A&P Narrative pos cocci soon after admit. neg at [facility] by 08/23/24 Josefa glabrata fungemia on admit. may be contaminant repeats pending from 08/17/24. echo neg pneumonia. cocci possible but less likely, due to limited mobility. cocci has not been reported in those who do not venture outdoors aand test is neg at [facility] glabrata is covered as fungermia is verified and cocci is not. appreciate the desire to address all possibilities. repeat bc are neg, value of micafungin rx may be low but cessation is difficult as procal is insensitive to fungal antigens usual rx for glabrata should be micafungin and about 14d from first neg so from 08/17-08/31. can finish as outpt if desired but may need access O2 need concerning, ? baseline O2 status? notably, she has a normal wbc (usually the residents put a lot of wt on that one) and I am not sure why O2 increased from 3-4 lpm and not reduced. she is on a mask now and apparently was out for a picc line per others. team may want to change rx, if so, quinolones enterall are the same as iv and she recently failed a picc line . it is ok to revisit code status periodically in all persons, but particularly in those with a limited prognosis. if parents are willing to accept the risk of failure, ok to change the micafungin to flucon alone per ng/gt for same duration. Time Spent With Patient Time: Total time spent is greater than 50% in coordination of care (as documented) at patient's floor/unit and/or counseling patient:
== END 2024-08-24 19:53 | disposition skilled nursing facility (03) | DRG 871 ==
LOC: SERX 03:32 → SERHOLD 04:25 → S2NX 17:12
PROVIDERS: Internal Medicine Infectious Disease; Student in an Organized Health Care Education/Training Program; Admitting Provider Student in an Organized Health Care Education/Training Program; Emergency Provider Emergency Medicine; Visit Provider Student in an Organized Health Care Education/Training Program
DX: B37.7 Candidal sepsis (principal); I21.A1 Myocardial infarction type 2; J96.01 Acute respiratory failure with hypoxia; J96.02 Acute respiratory failure with hypercapnia; J18.9 Pneumonia, unspecified organism; N39.0 Urinary tract infection, site not specified; E87.0 Hyperosmolality and hypernatremia; D62 Acute posthemorrhagic anemia; K92.0 Hematemesis; H91.90 Unspecified hearing loss, unspecified ear; H54.7 Unspecified visual loss; G80.9 Cerebral palsy, unspecified; E11.9 Type 2 diabetes mellitus without complications; B96.20 Unspecified Escherichia coli [E. coli] as the cause of diseases classified elsewhere; E78.5 Hyperlipidemia, unspecified; F79 Unspecified intellectual disabilities; K59.00 Constipation, unspecified; Y95 Nosocomial condition; Z74.01 Bed confinement status; Z93.1 Gastrostomy status; Z79.4 Long term (current) use of insulin; Z87.440 Personal history of urinary (tract) infections
CPT/HCPCS: 36415; 36600; 71045; 71275; 74018; 80048; 80053; 80069; 81001; 82803; 83036; 83605; 83690; 83735; 83880; 84100; 84145; 84295; 84484; 85025; 85610; 85730; 86635; 87040; 87077; 87081; 87086; 87106; 87186; 87205; 87502; 87634; 87811; 93005; 93306; 94640; 94660; 94667; 96361; 96365; 96366; 96367; 96368; 96375; 99291; A4649; C1751; C1894; J0692; J0696; J1450; J1642; J1650; J1815; J1940; J2247; J2405; J2470; J2543; J3370; J3490; J7030; J7042; J7050; Q9967; A9270; J1836

== ENCOUNTER 2025-06-29 07:38 | Inpatient (IN) | payer MEDICARE, BC, MEDICAID, SELFPAY ==
[2025-06-29] VITALS (10 sets, daily range): BP systolic 64–115; BP diastolic 44–74; PULSE 77–150; RESP 14–30; TEMP 36.2–36.9; O2SAT 93–99; BMI 22.1
--- NOTE | 2025-06-29 07:40 | XR_ITS ---
AP semiupright chest film on 06/29/2025 at 10:57 a.m. Comparison study 08/20/2024 CLINICAL HISTORY: Developmentally delayed patient, check for sepsis, acute renal failure. FINDINGS: Again noted is the very significant generalized levoscoliosis of the spine and the mid lower dorsal lumbosacral region, with slight compensatory curvature to the right in the upper dorsal region. Heart size is perfectly normal. Patient has taken a very poor inspiration with high position of the diaphragm. This creates crowding of the pulmonary vascularity. Allowing for this I believe that the entire right lung and pleural space are clear. On the left, it is my impression that the left lung and pleural space are clear but again, the slight increased prominence of the pulmonary vascularity in the left lower lobe could interfere with the detection of very minimal left lower lobe interstitial infiltrate A feeding gastrostomy tube is noted in place. IMPRESSION: 1. Patient has taken of very point abrasion with high position of the diaphragm this creates artifactual increased prominence of the pulmonary vascularity in the left lower lobe 2 I cannot totally exclude the possibility of mild interstitial infiltrate in the base of the left lower lobe. I would correlate this with pulmonary auscultation. I tend to doubt the presence of any true infiltrate 3 see above regarding other findings
--- NOTE | 2025-06-29 07:41 | EKG_ITS ---
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
--- NOTE | 2025-06-29 07:43 | PD.EDADULT ---
ED General RME/HPI General Chief complaint: Shortness of Breath/Dyspnea Stated complaint: SOB Time Seen by Provider: 06/29/25 07:40 Arrival date/time: 06/29/25 07:38 Related Data Home Medications ?Medication ?Instructions ?Recorded ?Confirmed acetaminophen 325 mg tablet 650 mg PO QID PRN pain 08/22/24 08/22/24 ascorbic acid (vitamin C) 500 mg 500 mg PO QDAY 08/22/24 08/22/24 tablet (Vitamin C) bisacodyl 10 mg rectal suppository 10 mg GA QDAY PRN constipation 08/22/24 08/22/24 (Dulcolax (bisacodyl)) insulin glargine 100 unit/mL (3 15 unit subcut QDAY 08/22/24 08/22/24 mL) subcutaneous pen (Basaglar KwikPen U-100 Insulin) magnesium hydroxide 400 mg/5 mL 30 ml PO DAILY PRN constipation 08/22/24 08/22/24 oral suspension (Mcallister Milk of Magnesia) multivitamin (Daily Multi-Vitamin 1 tab PO QDAY 08/22/24 08/22/24 tablet) sodium phosphates 19 gram-7 118 ml GA QDAY PRN constipation 08/22/24 08/22/24 gram/118 mL enema (Enema) Previous Rx's ?Medication ?Instructions ?Recorded sennosides 8.8 mg/5 mL oral syrup 10 ml PO BID PRN constipation #236 12/13/22 mL atorvastatin 10 mg tablet (Lipitor) 10 mg feeding tube HS 30 days #30 01/12/23 tabs lansoprazole 30 mg delayed 30 mg PO QDAY #30 tabs 01/13/23 release,disintegrating tablet (Prevacid SoluTab) micafungin 100 mg intravenous 100 mg IV Q24H 08/24/24 solution Allergies Allergy/AdvReac Type Severity Reaction Status Date / Time chloral hydrate Allergy Mild unknown Verified 11/08/22 15:02 ED Exam Narrative Physical exam: Physical Exam: GENERAL: Awake, making grunting noises, nonverbal, appears debilitated and bedbound HEENT: NC/AT. Dry mucosa. Unable to assess for pupillary reaction as the patient has bilateral cataracts, Wart-like lesion R cheek CARDIO: Tachycardic, no obvious murmurs, no JVD. PULM: No coughing but appears visibly short of breath on rebreather mask, bilateral rhonchi noted on upper lung hart sporadic crackles. GI: Abdomen soft, NT/ND, +BS. PEG tube site clean URO/SALES OFFICE ADMINISTRATOR: +in/out catheter draining milky yellow, foul-smelling urine SKIN/MSK/EXT: Bilateral upper extremities warm, lower extremities warm as well. No wounds/discoloration/rashes/edema/amputations. +Pedal pulses present B/L. NEURO: Oriented x0, 11?points Cecil Coma Score E(4) V(2) M(5) Course Quality Measures none Orders Category Date Time Status COVID-19 Screening Questionnaire NOW Care 06/29/25 10:37 Active Cad Designer Drafter STAT Care 06/29/25 07:41 Active Continuous Pulse Oximetry STAT Care 06/29/25 07:41 Completed Decision to Admit X1 Care 06/29/25 10:37 Active EKG (ED ONLY) *Do not use* NOW Care 06/29/25 07:41 Completed Bardales [Urinary Catheter] QS Care 06/29/25 08:10 Active In and Out Catheter X1PRN Care 06/29/25 07:41 Completed Insert IV NOW Care 06/29/25 07:41 Active NPO STAT Care 06/29/25 07:41 Active Strict Intake and Output Routine Care 06/29/25 07:41 Ordered EKG (ED Only) Stat Exams 06/29/25 07:41 Draft XR chest 1V portable Stat Exams 06/29/25 07:40 Ordered B-Type Natriuretic Peptide Stat Lab 06/29/25 08:02 Completed Blood Culture (Lab) Stat Lab 06/29/25 08:02 Received CBC Stat Lab 06/29/25 08:02 Completed Comprehensive Metabolic Panel Stat Lab 06/29/25 08:02 Completed LDH (Lactate Dehydrogenase) Stat Lab 06/29/25 08:02 Completed Lactate (Lactic Acid) Stat Lab 06/29/25 08:02 Results Lipase Stat Lab 06/29/25 08:02 Completed Magnesium Stat Lab 06/29/25 08:02 Completed Partial Thromboplastin Time Stat Lab 06/29/25 09:37 Completed Phosphorous Stat Lab 06/29/25 08:02 Completed Procalcitonin Stat Lab 06/29/25 08:02 Completed Prothrombin Time with INR Stat Lab 06/29/25 09:37 Completed Troponin I Stat Lab 06/29/25 08:02 Completed Urinalysis, C/S if Indicated Stat Lab 06/29/25 08:50 Completed Urine Culture Stat Lab 06/29/25 08:50 Received VBG [Venous Blood Gas] Stat Lab 06/29/25 08:02 Completed Insulin Regular Med 06/29/25 10:04 Stop Req 5 unit IV X1 ONE Piper/Tazo 3.375 gm Premix [Zosyn] Med 06/29/25 07:40 Discontinued 3.375 gm in 50 ml IV X1 Ringers Lactated 1000 ml [Lactated Ringers] 1,000 ml Med 06/29/25 07:40 Discontinued IV 999 mls/hr Ringers Lactated 500 ml [Lactated Ringers] 500 ml Med 06/29/25 08:22 Discontinued IV 999 mls/hr Sodium Chloride 0.9% 1000 ml [Ns] 1,000 ml Med 06/29/25 09:00 Discontinued IV 999 mls/hr Vancomycin Pharmacy to Dose Med 06/29/25 09:01 Discontinued 1 each IV X1 ONE Vancomycin/Ns 1 gm Ivpb 200 ml Med 06/29/25 09:15 Active IV X1 Airway suctioning NEEDED RT 06/29/25 08:59 Active Oxygen Delivery NOW RT 06/29/25 07:41 Active Vital Signs Vital signs: Vital Signs Temperature 98.4 F 06/29/25 07:43 Respiratory Rate 20 06/29/25 07:43 Blood Pressure 109/74 06/29/25 07:43 Pulse Oximetry (%) 93 L 06/29/25 07:43 Oxygen Delivery Method Nasal Cannula 06/29/25 07:43 Oxygen Flow Rate 2 06/29/25 07:43 Discharge Plan Plan Patient Disposition: Admit Acute Care w/in Hospital Patient condition on transfer: Stable Prescriptions/Referrals Prescriptions/Med Rec: No Action atorvastatin [Lipitor] 10 MG tablet 10 mg feeding tube HS 30 Days Qty: 30 1RF lansoprazole [Prevacid SoluTab] 30 mg tablet,disintegrat, delay rel 30 mg PO QDAY Qty: 30 0RF acetaminophen 325 mg tablet 650 mg PO QID PRN (Reason: pain) bisacodyl [Dulcolax (bisacodyl)] 10 mg suppository 10 mg GA QDAY PRN (Reason: constipation) Enema 19-7 gram/118 mL enema 118 ml GA QDAY PRN (Reason: constipation) magnesium hydroxide [Mcallister Milk of Magnesia] 400 mg/5 mL suspension 30 ml PO DAILY PRN (Reason: constipation) multivitamin [Daily Multi-Vitamin] Tablet 1 tab PO QDAY insulin glargine [Basaglar KwikPen U-100 Insulin] 100 unit/mL (3 mL) insulin pen 15 unit subcut QDAY ascorbic acid (vitamin C) [Vitamin C] 500 mg tablet 500 mg PO QDAY micafungin 100 mg recon soln 100 mg IV Q24H Rx Instructions: administer over 60 mins sennosides 8.8 mg/5 mL syrup 10 ml PO BID PRN (Reason: constipation) Qty: 236 2RF Referrals: Manuel Su MD [Primary Care Provider, [facility]] - In 1 week Problem List Clinical Impression: Sepsis Patient/Caregiver Discharge Instructions Print Language: Andorran Stand Alone Forms: Deja Award Info., Patient Portal Info Letter MDM Narrative MDM hospital course (for use when minimal MDM required): 55-year-old female past medical history of insulin-dependent type 2 diabetes, developmental delay, chronically bedbound with indwelling Bardales catheter, recurrent UTIs, chronic PEG tube, 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 Per EMS report, staff members at her walk noted that the patient was having difficulty breathing and required 5 L of oxygen saturating around 88% without any coughing, fever or chills noted. EMS on arrival noted patient was tachycardic, on breathing treatment currently saturating low 93 on 2 rebreather mask with stable vitals otherwise. Of note, she had been admitted in the past for E. coli UTI and sepsis secondary to pneumonia treated with IV antibiotics. On examination, please refer to physical exam above; patient is normotensive with tachycardia heart rate 121, respiratory rate 24, afebrile saturating 98 on 8 L oxygen mask, labs are significant for leukocytosis WBC of 28.6, normocytic anemia which appears to be chronic,, cytosis platelet count of 588 likely reactive, coag panel unremarkable, CMP does show severe hypochloremic hyponatremia sodium 124, metabolic alkalosis, BREANNA with a creatinine of 1.4 baseline 0.6, lactic acid of 2.9, mild elevation of alk phos of 151, troponin within normal limits and BNP of 32, Pro-Dex elevated at 4.51. Urinalysis is significant for proteinuria, hematuria positive leukocytes esterase, pyuria and bacteriuria. EKG shows sinus tachycardia. Differentials include: Sepsis secondary to urinary tract infection, possible pneumonia, dehydration and cystic fibrosis induced metabolic alkalosis #Failure to thrive secondary to chronic condition, cystic fibrosis #Sepsis secondary to UTI As noted above Patient apparently DNR with selective treatment per POLST form sent from [facility] Patient given 1 L of LR and 1 L of NS Vancomycin pharmacy to dose and Zosyn 3.375 g x 1 Airway suctioning Plan: Hospital team has been called to assess patient for admission Patient seen and assessed with attending Dr. Umair Muñiz, PGY-2 Internal Medicine - GME Medication Administration(s) Medication Administration History Vancomycin/Sodium Chloride (Vancomycin/Ns 1 Gm Ivpb) 200 mls @ 120 mls/hr IV X1 ONE Stop: 06/29/25 10:54 Last Admin: 06/29/25 10:25 Dose: 120 mls/hr Documented By: DO Discontinued Medications Lactated Ringer's (Lactated Ringers) 1,000 mls @ 999 mls/hr IV .Q1H1M ONE Stop: 06/29/25 08:40 Last Admin: 06/29/25 10:24 Dose: 999 mls/hr Documented By: DO Piperacillin/Tazobactam/Dextrose (Zosyn) 3.375 gm in 50 mls @ 100 mls/hr IV X1 ONE Stop: 06/29/25 08:09 Last Infusion: 06/29/25 09:50 Dose: Infused Documented By: Admin: 06/29/25 09:16 Dose: 100 mls/hr Documented By: EF Lactated Ringer's (Lactated Ringers) 500 mls @ 999 mls/hr IV .Q31M ONE Stop: 06/29/25 08:52 Last Admin: 06/29/25 09:50 Dose: Not Given Documented By: EF Non-Admin Reason: Cancelled by Provider Sodium Chloride (Ns) 1,000 mls @ 999 mls/hr IV .Q1H1M ONE Stop: 06/29/25 10:00 Last Infusion: 06/29/25 10:20 Dose: Infused Documented By: Admin: 06/29/25 09:17 Dose: 999 mls/hr Documented By: JORY Insulin Human Regular (Insulin Hum Regular 1 Unit/0.01 Ml (Per Unit)) 5 unit IV X1 ONE Stop: 06/29/25 10:05 Last Admin: 06/29/25 10:42 Dose: Not Given Documented By: Non-Admin Reason: Cancelled by Provider Pharmacy Consult (Vancomycin Pharmacy To Dose 1 Each Each) 1 each IV X1 ONE Stop: 06/29/25 09:02 Last Admin: 06/29/25 10:26 Dose: 1 each Documented By:
[2025-06-29 08:16] LABS: Lactate (Lactic Acid) 2.9 mMol/L (0.4-2.0)
[2025-06-29 08:17] LABS: Base Excess, Venous 26 (-3-3); O2 Saturation, Venous 90 % (96-97); PCO2, Venous 51 mmHg (36-56); PO2, Venous 60 mmHg (15-58); pH, Venous 7.61 (7.33-7.66)
[2025-06-29 08:18] LABS: Basophils # (Auto) 0.1 Thou/mm3 (0.0-0.2); Basophils % (Auto) 0 % (0-2.5); Eosinophils # (Auto) 0.0 Thou/mm3 (0.0-0.5); Eosinophils % (Auto) 0 % (0-10); Hematocrit 35.4 % (36.0-46.0); Hemoglobin 11.2 g/dL (12.0-16.0); Immature Granulocytes Auto 0.21 Thou/mm3 (0.00-0.00); Lymphocytes # (Auto) 0.7 Thou/mm3 (1.0-4.8); Lymphocytes % (Auto) 2 % (10-50); Mean Corpuscular HGB Conc 31.6 g/dl (31.0-37.0); Mean Corpuscular Hemoglobin 28.5 pg (25.0-35.0); Mean Corpuscular Volume 90 fL (80-100); Monocytes # (Auto) 0.7 Thou/mm3 (0.0-0.8); Monocytes % (Auto) 3 % (0-12); Neutrophils # (Auto) 26.9 Thou/mm3 (1.8-7.7); Neutrophils % (Auto) 94 % (37-80); Nucleated Red Blood Cell # 0.00 Thou/mm3 (0.00-0.00); Nucleated Red Blood Cell % 0 /100 WBC (0); Platelet Count 588 Thou/mm3 (140-440); RDW Standard Deviation 55.5 fL (36.4-46.3); Red Blood Count 3.93 Miln/mm3 (4.00-5.20); White Blood Count 28.6 Thou/mm3 (3.6-11.0)
[2025-06-29 08:54] LABS: Alanine Aminotransferase 13 U/L (10-49); Albumin, Serum 3.8 gm/dL (3.5-5.0); Albumin/Globulin Ratio 0.7 (1.2-2.2); Alkaline Phosphatase 151 U/L (46-116); Anion Gap 15 (7-16); Aspartate Amino Transferase 22 U/L (0-34); BUN/Creatinine Ratio 56 Ratio (12-20); Bilirubin,Total 0.5 mg/dL (0.3-1.2); Blood Urea Nitrogen 78 mg/dL (9-23); Calcium 9.7 mg/dL (8.3-10.6); Calcium (Corrected) 9.9 mg/dL (8.5-10.1); Carbon Dioxide > 40.0 mMol/L (20.0-31.0); Chloride 69 mMol/L (98-107); Creatinine (Component) 1.4 mg/dL (0.6-1.3); Globulin 5.3 gm/dL (2.3-3.5); Glucose 233 mg/dL (74-106); LDH (Lactate Dehydrogenase) 180 U/L (120-246); Lipase 25 U/L (12-53); Magnesium 2.3 mg/dL (1.6-2.6); Osmolality,Calculated 279 (275-295); Phosphorous 6.5 mg/dL (2.4-5.1); Potassium 4.4 mMol/L (3.4-5.1); Procalcitonin 4.51 ng/ml (0.0-0.49); Sodium 124 mMol/L (136-145); Total Protein 9.1 gm/dL (5.7-8.2); Troponin I < 0.020 ng/mL (0.0-0.045); eGFR 44 See Note
[2025-06-29 08:55] LABS: Collection Type, Urine Clean Catch; Squamous Epithelial Cell,Urine 0 /hpf (0-5)
[2025-06-29] MEDS: PIPER/TAZO 3.375 GM PREMIX 3.375 GM/50 ML BAG IV ×2 (09:16→21:47)
[2025-06-29] MEDS: SODIUM CHLORIDE 0.9% 1000 ML 1,000 ML 999 ML IV (09:17)
[2025-06-29 09:22] LABS: Bacteria,Urine 4+; RBC,Urine 799 /hpf (0-3); WBC,Urine 4571 /hpf (0-5)
[2025-06-29 09:29] LABS: Bilirubin,Urine 1+ (Negative); Blood,Urine 3+ (Negative); Clarity,Urine Clear (Clear/Hazy); Color,Urine Yellow (Lt Yel-Yel); Culture Indicated,Urine Yes; Glucose, Urine Negative (Negative); Ketones,Urine Trace (Negative); Leukocyte Esterase,Urine 3+ (Negative); Nitrite,Urine Negative (Negative); PH,Urine 8.0 (5.0-7.0); Protein,Urine 3+ (Neg - Trace); Specific Gravity,Urine 1.020 (1.001-1.035); Urobilinogen,Urine 0.2 mg/dL (0.0-1.0)
[2025-06-29 09:41] LABS: B-Type Natriuretic Peptide 32 pg/mL (0-100)
[2025-06-29 10:05] LABS: INR 1.1 (0.9-1.3); Partial Thromboplastin Time 24.7 Seconds (22.0-36.0); Prothrombin Time 11.6 Seconds (9.0-12.2)
[2025-06-29] MEDS: RINGERS LACTATED 1000 ML 1,000 ML 999 ML IV (10:24)
[2025-06-29] MEDS: VANCOMYCIN/NS 1 GM IVPB 200 ML IV (10:25)
[2025-06-29 11:13] LABS: Reflex Lactate? Y
[2025-06-29 11:39] LABS: Lactic Acid, 3 HR 2.4 mMol/L (0.4-2.0)
[2025-06-29] MEDS: SODIUM CHLORIDE 0.9% 1000 ML 1,000 ML 50 ML IV (13:16)
--- NOTE | 2025-06-29 13:52 | PC.DIETICIAN ---
Nutrition prescription When indicated, consider: Glucerna 1.2 at 20 ml/hr via PEG tube by pump. Advance 10 ml every 8 hrs to goal rate of 55 ml/hr x 24 hrs. If no IV fluids, water flushes of 25 ml/hr (or per MD). Provides: 1584 kcal, 79 g prot, 1062 ml free water, 1320 ml total volume.
[2025-06-29] MEDS: HEPARIN SOD INJ 5000 UNIT/ML VIAL SC ×2 (14:07→21:47)
[2025-06-29 15:56] LABS: Albumin, Serum 2.9 gm/dL (3.5-5.0); Anion Gap 9 (7-16); BUN/Creatinine Ratio 53 Ratio (12-20); Blood Urea Nitrogen 64 mg/dL (9-23); Calcium 9.3 mg/dL (8.3-10.6); Calcium (Corrected) 10.2 mg/dL (8.5-10.1); Carbon Dioxide > 40.0 mMol/L (20.0-31.0); Chloride 85 mMol/L (98-107); Creatinine (Component) 1.2 mg/dL (0.6-1.3); Estimated Creatinine Clearance 40.9 mL/min (>60); Glucose 198 mg/dL (74-106); Osmolality,Calculated 292 (275-295); Phosphorous 6.8 mg/dL (2.4-5.1); Potassium 3.9 mMol/L (3.4-5.1); Sodium 134 mMol/L (136-145); eGFR 53 See Note
[2025-06-29 15:56] LABS: Anion Gap 13 (7-16); Calcium 8.2 mg/dL (8.3-10.6); Carbon Dioxide 38.5 mMol/L (20.0-31.0); Chloride 82 mMol/L (98-107); Creatinine (Component) 1.2 mg/dL (0.6-1.3); Estimated Creatinine Clearance 40.9 mL/min (>60); Glucose 152 mg/dL (74-106); Potassium 3.0 mMol/L (3.4-5.1); Sodium 133 mMol/L (136-145); eGFR 53 See Note
[2025-06-29 16:02] LABS: Albumin, Serum 2.8 gm/dL (3.5-5.0); BUN/Creatinine Ratio 58 Ratio (12-20); Blood Urea Nitrogen 69 mg/dL (9-23); Calcium (Corrected) 9.2 mg/dL (8.5-10.1); Osmolality,Calculated 289 (275-295); Phosphorous 6.0 mg/dL (2.4-5.1)
--- NOTE | 2025-06-29 16:11 | PD.HHHP ---
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 on 06/29 for respiratory distress. Per EMS report, staff members at her walk noted that the patient was having difficulty breathing and required 5 L of oxygen saturating around 88% without any coughing, fever or chills noted. EMS on arrival noted patient was tachycardic, on breathing treatment currently saturating low 93 on 2 rebreather mask with stable vitals otherwise. Of note, she had been admitted in the past for E. coli UTI and sepsis secondary to pneumonia treated with IV antibiotics. In the ED, patient was borderline hypotensive. She was afebrile. She was tachycardic as high as 140. She was hypoxic for which she was put on nonrebreather. Labs showed significant leukocytosis, elevated creatinine from baseline, elevated glucose, and UA suggesting UTI. Chest x-ray showed possible infiltrates. Patient was given 2 L of IV fluids and vancomycin/Zosyn and was admitted for further evaluation and management. Review of Systems Review of Systems ROS Unobtainable: unobtainable due to mental status and unobtainable due to medical condition Meds Home Medications and Allergies Home Medications ?Medication ?Instructions ?Recorded ?Confirmed ?Type acetaminophen 325 mg tablet 650 mg PO QID PRN pain 08/22/24 08/22/24 History ascorbic acid (vitamin C) 500 mg 500 mg PO QDAY 08/22/24 08/22/24 History tablet (Vitamin C) bisacodyl 10 mg rectal suppository 10 mg VT QDAY PRN constipation 08/22/24 08/22/24 History (Dulcolax (bisacodyl)) insulin glargine 100 unit/mL (3 15 unit subcut QDAY 08/22/24 08/22/24 History mL) subcutaneous pen (Basaglar KwikPen U-100 Insulin) magnesium hydroxide 400 mg/5 mL 30 ml PO DAILY PRN constipation 08/22/24 08/22/24 History oral suspension (Mcallister Milk of Magnesia) multivitamin (Daily Multi-Vitamin 1 tab PO QDAY 08/22/24 08/22/24 History tablet) sodium phosphates 19 gram-7 118 ml VT QDAY PRN constipation 08/22/24 08/22/24 History gram/118 mL enema (Enema) Allergies Allergy/AdvReac Type Severity Reaction Status Date / Time chloral hydrate Allergy Mild unknown Verified 11/08/22 15:02 Exam Vital Signs Temp Pulse Resp BP Pulse Ox O2 Del Method O2 Flow Rate 97.9 F 89 19 93/44 L 98 Oxy Mask 8 06/29/25 15:04 06/29/25 15:04 06/29/25 15:04 06/29/25 15:04 06/29/25 15:04 06/29/25 12:09 06/29/25 12:09 Narrative General: Alert and oriented x0. In mild respiratory distress Eyes: Does not open her eyes spontaneously HEENT: Atraumatic, normocephalic. No JVD noted. Mucous membranes appear to be dry Cardiovascular: Normal S1 and S2. Tachycardic. No murmurs appreciated. No peripheral pitting edema noted. No JVD noted. Respiratory: Mild respiratory distress. Bilateral rhonchi heard Abdomen: Soft, nontender, nondistended. PEG tube in place appears intact Skin: No rash. Wartlike lesion on the right cheek Musculoskeletal: Contractions noted from her chronic congenital condition Neuro: Alert and oriented x0. Cannot fully assess her neuro status given her baseline clinical condition Psych: Deferred Results - Hospitalist Labs Diagrams: 06/29/25 08:02 06/29/25 15:29 Labs: Short CBC 06/29/25 Range/Units 08:02 WBC 28.6 H (3.6-11.0) Thou/mm3 Hgb 11.2 L (12.0-16.0) g/dL Hct 35.4 L (36.0-46.0) % Plt Count 588 H (140-440) Thou/mm3 BMP 06/29/25 06/29/25 06/29/25 08:02 11:29 15:29 Sodium 124 L 133 L 134 L Potassium 4.4 3.0 L D 3.9 D Chloride 69 L* 82 L 85 L Carbon Dioxide > 40.0 H 38.5 H > 40.0 H BUN 78 H 64 H Creatinine 1.4 H 1.2 1.2 Glucose 233 H 152 H D 198 H Calcium 9.7 8.2 L D 9.3 Cardiac Enzymes 06/29/25 Range/Units 08:02 Troponin I < 0.020 (0.0-0.045) ng/mL Liver Function 06/29/25 06/29/25 Range/Units 08:02 15:29 Total Bilirubin 0.5 (0.3-1.2) mg/dL AST 22 (0-34) U/L ALT 13 (10-49) U/L Alkaline Phosphatase 151 H (46-116) U/L Albumin 3.8 2.9 L D (3.5-5.0) gm/dL Urine 06/29/25 Range/Units 08:50 Urine Color Yellow (Lt Yel-Yel) Urine Clarity Clear (Clear/Hazy) Urine pH 8.0 H (5.0-7.0) Ur Specific [place] 1.020 (1.001-1.035) Urine Protein 3+ A (Neg - Trace) Urine Glucose (UA) Negative (Negative) ABG Interpretation ABG results: 06/29/25 08:02 VBG pH 7.61 VBG pCO2 51 VBG pO2 60 H VBG Base Excess 26 H Assessment & Plan -Hospitalist Patient Synopsis 55-year-old female past medical history of insulin-dependent type 2 diabetes, developmental delay, chronically bedbound with indwelling Bardales catheter, recurrent UTIs, chronic PEG tube, 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 on 06/29 for respiratory distress. She was found to have sepsis secondary to pneumonia versus UTI Acute hypoxic respiratory failure Possible bilateral pneumonia UTI sepsis Leukocytosis Acute hypotension She meets sepsis criteria Source of infection is likely urine versus lung She has history of Pseudomonas infection and recurrent UTIs She has frequent hospitalizations She received IV vancomycin/Zosyn in the ED Plan: Continue vancomycin/Zosyn IV Follow-up blood culture Follow-up sputum culture Follow-up urine culture Trend WBC Continue IV fluids Monitor BP closely BREANNA Likely prerenal in setting of dehydration versus intrinsic in the setting of UTI/sepsis Plan: Continue IV fluids Monitor kidney function Avoid nephrotoxins Renally dose medications Developmental delay Cerebral palsy secondary to congenital rubella Bedbound Status post PEG tube Left/mutism Consulted nutrition for tube feeds Management of pain as needed Frequent positioning Insulin-dependent diabetes mellitus Continue insulin glargine plus sliding scale insulin and monitor fingersticks CODE STATUS is full code DVT prophylaxis with subcutaneous heparin Diet is feeding tubes Quality Measures Quality Measures none
--- NOTE | 2025-06-29 16:56 | PC.RT ---
sputum sample sent to lab.
[2025-06-29] MEDS: DEXTROSE 5%-WATER 1,000 ML 50 ML IV (17:18)
[2025-06-29 20:12] LABS: Sodium 132 mMol/L (136-145)
[2025-06-29 23:52] LABS: Sodium 133 mMol/L (136-145)
[2025-06-30] VITALS (12 sets, daily range): BP systolic 99–110; BP diastolic 52–66; PULSE 60–87; RESP 14–21; TEMP 36.1–36.7; O2SAT 95–100; BMI 22.1; BMI 21.3
[2025-06-30] MEDS: PIPER/TAZO 3.375 GM PREMIX 3.375 GM/50 ML BAG IV ×3 (05:24→21:11)
[2025-06-30] MEDS: HEPARIN SOD INJ 5000 UNIT/ML VIAL SC ×3 (05:24→21:12)
[2025-06-30 06:20] LABS: Basophils # (Auto) 0.0 Thou/mm3 (0.0-0.2); Basophils % (Auto) 0 % (0-2.5); Eosinophils # (Auto) 0.0 Thou/mm3 (0.0-0.5); Eosinophils % (Auto) 0 % (0-10); Hematocrit 25.9 % (36.0-46.0); Immature Granulocytes Auto 0.04 Thou/mm3 (0.00-0.00); Lymphocytes # (Auto) 1.6 Thou/mm3 (1.0-4.8); Lymphocytes % (Auto) 17 % (10-50); Mean Corpuscular HGB Conc 29.3 g/dl (31.0-37.0); Mean Corpuscular Hemoglobin 27.4 pg (25.0-35.0); Mean Corpuscular Volume 94 fL (80-100); Monocytes # (Auto) 0.8 Thou/mm3 (0.0-0.8); Monocytes % (Auto) 9 % (0-12); Neutrophils # (Auto) 7.0 Thou/mm3 (1.8-7.7); Neutrophils % (Auto) 74 % (37-80); Nucleated Red Blood Cell # 0.00 Thou/mm3 (0.00-0.00); Nucleated Red Blood Cell % 0 /100 WBC (0); Platelet Count 286 Thou/mm3 (140-440); RDW Standard Deviation 58.8 fL (36.4-46.3); Red Blood Count 2.77 Miln/mm3 (4.00-5.20); White Blood Count 9.5 Thou/mm3 (3.6-11.0)
[2025-06-30 06:28] LABS: Hemoglobin 7.6 g/dL (12.0-16.0)
[2025-06-30 06:52] LABS: Anion Gap 12 (7-16); BUN/Creatinine Ratio 59 Ratio (12-20); Blood Urea Nitrogen 53 mg/dL (9-23); Calcium 8.7 mg/dL (8.3-10.6); Carbon Dioxide > 40.0 mMol/L (20.0-31.0); Chloride 83 mMol/L (98-107); Creatinine (Component) 0.9 mg/dL (0.6-1.3); Estimated Creatinine Clearance 54.5 mL/min (>60); Glucose 164 mg/dL (74-106); Magnesium 2.1 mg/dL (1.6-2.6); Osmolality,Calculated 288 (275-295); Phosphorous 4.2 mg/dL (2.4-5.1); Potassium 2.8 mMol/L (3.4-5.1); Sodium 135 mMol/L (136-145); eGFR > 60 See Note
[2025-06-30] MEDS: POTASSIUM CHL 10 mEq IVPB 10 MEQ/100 ML BAG 100 MEQ IV ×4 (07:47→11:44)
--- NOTE | 2025-06-30 07:57 | ESPR_ITS ---
<Statement entered by Francisco Maxwell MD - 06/30/25 18:18> I saw and examined patient personally and supervised PGY 1 resident, Dr. Doshi with formulating a management plan. I agree with the documentation with the exceptions as listed below. Patient on Zosyn and vancomycin for aspiration pneumonia. Pending sputum and blood cultures. This a.m. hemoglobin down trended to 7.4 from 11.6 on admission. Repeat H&H was 8.4. Type and screen was ordered. No active signs of bleeding. Will continue to monitor and possible GI consult tomorrow if no obvious source of blood loss is identified. Plan of care discussed with Attending Dr. German Maxwell MD PGY 2 Disclaimer: This note was dictated by speech recognition. Minor errors in production counter may be present due to voice recognition software. Documentation for date of: 06/30/25 Subjective Subjective Interval history: Patient seen and examined at bedside; no acute events overnight. Exam Vital Signs Temp Pulse Resp BP Pulse Ox O2 Del Method O2 Flow Rate 97.2 F 70 14 99/56 L 99 Oxy Mask 2 06/30/25 04:00 06/30/25 07:18 06/30/25 07:18 06/30/25 04:00 06/30/25 07:18 06/30/25 04:00 06/30/25 07:18 Narrative Exam General: A&O x0. In mild respiratory distress. Eyes: Does not open her eyes spontaneously. HEENT: Atraumatic, normocephalic. Mucous membranes appear to be dry Cardiovascular: Normal S1 and S2. RRR. No murmurs, peripheral pitting edema, or JVD noted. Respiratory: Mild respiratory distress. Bilateral rhonchi heard Abdomen: Soft, nontender, nondistended. PEG tube in place appears intact. Skin: No rash. 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 Cannot fully assess her neuro status given her baseline clinical condition Psych: Deferred Objective Labs 07/01/25 04:41 07/01/25 04:41 Labs: Laboratory Results - last 24 hr 06/29/25 06/29/25 06/29/25 08:02 08:50 09:37 WBC 28.6 H RBC 3.93 L Hgb 11.2 L Hct 35.4 L MCV 90 MCH 28.5 MCHC 31.6 RDW Std Deviation 55.5 H Plt Count 588 H Neut % (Auto) 94 H Lymph % (Auto) 2 L [place] % (Auto) 3 Eos % (Auto) 0 Baso % (Auto) 0 Neut # (Auto) 26.9 H Lymph # (Auto) 0.7 L [place] # (Auto) 0.7 Eos # (Auto) 0.0 Baso # (Auto) 0.1 Immature Gran # (Auto) 0.21 H Absolute Nucleated RBC 0.00 Immature Gran % 1 H Nucleated RBC % 0 PT 11.6 INR 1.1 APTT 24.7 VBG pH 7.61 VBG pCO2 51 VBG pO2 60 H VBG O2 Sat (Keshia) 90 L VBG Base Excess 26 H Sodium 124 L Potassium 4.4 Chloride 69 L* Carbon Dioxide > 40.0 H Anion Gap 15 BUN 78 H Creatinine 1.4 H Estim Creat Clear Calc Not Performed. eGFR 44 L BUN/Creatinine Ratio 56 H Glucose 233 H Calculated Osmolality 279 Lactic Acid 2.9 H Calcium 9.7 Corrected Calcium 9.9 Phosphorus 6.5 H Magnesium 2.3 Total Bilirubin 0.5 AST 22 ALT 13 Alkaline Phosphatase 151 H Lactate Dehydrogenase 180 Troponin I < 0.020 B-Natriuretic Peptide 32 Total Protein 9.1 H Albumin 3.8 Globulin 5.3 H Albumin/Globulin Ratio 0.7 L Lipase 25 Procalcitonin 4.51 H Ur Collection Type Clean Catch Urine Color Yellow Urine Clarity Clear Urine pH 8.0 H Ur Specific [place] 1.020 Urine Protein 3+ A Urine Glucose (UA) Negative Urine Ketones Trace Urine Blood 3+ A Urine Nitrite Negative Urine Bilirubin 1+ A Urine Urobilinogen (Auto) 0.2 Ur Leukocyte Esterase 3+ A Urine RBC 799 H Urine WBC 4571 H Ur Squamous Epith Cells 0 Urine Bacteria 4+ A Ur Culture Indicated? Yes 06/29/25 06/29/25 06/29/25 11:29 15:29 19:36 WBC RBC Hgb Hct MCV MCH MCHC RDW Std Deviation Plt Count Neut % (Auto) Lymph % (Auto) [place] % (Auto) Eos % (Auto) Baso % (Auto) Neut # (Auto) Lymph # (Auto) [place] # (Auto) Eos # (Auto) Baso # (Auto) Immature Gran # (Auto) Absolute Nucleated RBC Immature Gran % Nucleated RBC % PT INR APTT VBG pH VBG pCO2 VBG pO2 VBG O2 Sat (Keshia) VBG Base Excess Sodium 133 L 134 L 132 L Potassium 3.0 L D 3.9 D Chloride 82 L 85 L Carbon Dioxide 38.5 H > 40.0 H Anion Gap 13 9 BUN 69 H 64 H Creatinine 1.2 1.2 Estim Creat Clear Calc 40.9 L 40.9 L eGFR 53 L 53 L BUN/Creatinine Ratio 58 H 53 H Glucose 152 H D 198 H Calculated Osmolality 289 292 Lactic Acid 2.4 H Calcium 8.2 L D 9.3 Corrected Calcium 9.2 10.2 H Phosphorus 6.0 H 6.8 H Magnesium Total Bilirubin AST ALT Alkaline Phosphatase Lactate Dehydrogenase Troponin I B-Natriuretic Peptide Total Protein Albumin 2.8 L D 2.9 L Globulin Albumin/Globulin Ratio Lipase Procalcitonin Ur Collection Type Urine Color Urine Clarity Urine pH Ur Specific [place] Urine Protein Urine Glucose (UA) Urine Ketones Urine Blood Urine Nitrite Urine Bilirubin Urine Urobilinogen (Auto) Ur Leukocyte Esterase Urine RBC Urine WBC Ur Squamous Epith Cells Urine Bacteria Ur Culture Indicated? 06/29/25 06/30/25 23:27 05:09 WBC 9.5 D RBC 2.77 L Hgb 7.6 L D Hct 25.9 L MCV 94 MCH 27.4 MCHC 29.3 L RDW Std Deviation 58.8 H Plt Count 286 D Neut % (Auto) 74 Lymph % (Auto) 17 [place] % (Auto) 9 Eos % (Auto) 0 Baso % (Auto) 0 Neut # (Auto) 7.0 Lymph # (Auto) 1.6 [place] # (Auto) 0.8 Eos # (Auto) 0.0 Baso # (Auto) 0.0 Immature Gran # (Auto) 0.04 H Absolute Nucleated RBC 0.00 Immature Gran % 0 Nucleated RBC % 0 PT INR APTT VBG pH VBG pCO2 VBG pO2 VBG O2 Sat (Keshia) VBG Base Excess Sodium 133 L 135 L Potassium 2.8 L D Chloride 83 L Carbon Dioxide > 40.0 H Anion Gap 12 BUN 53 H Creatinine 0.9 Estim Creat Clear Calc 54.5 L eGFR > 60 BUN/Creatinine Ratio 59 H Glucose 164 H Calculated Osmolality 288 Lactic Acid Calcium 8.7 Corrected Calcium Phosphorus 4.2 Magnesium 2.1 Total Bilirubin AST ALT Alkaline Phosphatase Lactate Dehydrogenase Troponin I B-Natriuretic Peptide Total Protein Albumin Globulin Albumin/Globulin Ratio Lipase Procalcitonin Ur Collection Type Urine Color Urine Clarity Urine pH Ur Specific [place] Urine Protein Urine Glucose (UA) Urine Ketones Urine Blood Urine Nitrite Urine Bilirubin Urine Urobilinogen (Auto) Ur Leukocyte Esterase Urine RBC Urine WBC Ur Squamous Epith Cells Urine Bacteria Ur Culture Indicated? ABG Interpretation ABG results: 06/29/25 08:02 VBG pH 7.61 VBG pCO2 51 VBG pO2 60 H VBG Base Excess 26 H Quality Measures Quality Measures none Assessment & Plan Assessment Current Active Medications: Generic Name Dose Route Start Last Admin Trade Name Freq PRN Reason Stop Dose Admin Glucagon 1 mg 06/29/25 12:14 Glucagon Inj 1 Mg Vial IM Q15MIN PRN BG <70, and no IV access Heparin Sodium (Porcine) 5,000 unit 06/29/25 14:00 06/30/25 05:24 Heparin Sod Inj 5000 Unit/Ml Vial SC 07/13/25 13:59 5,000 unit Q8HR URBANO Administration Piperacillin/Tazobactam/Dextrose 3.375 gm in 50 mls @ 12.5 mls/hr 06/29/25 22:00 06/30/25 05:24 Zosyn IV 07/06/25 21:59 12.5 mls/hr Q8HR URBANO Administration Protocol Vancomycin/Sodium Chloride 200 mls @ 120 mls/hr 06/30/25 10:00 Vancomycin/Ns 1 Gm Ivpb IV 07/07/25 09:59 QDAY@1000 URBANO Dextrose 1,000 mls @ 50 mls/hr 06/29/25 16:39 06/29/25 17:18 D5w IV 06/30/25 12:38 50 mls/hr .Q20H ONE Administration Potassium Chloride 10 meq in 100 mls @ 100 mls/hr 06/30/25 07:20 06/30/25 07:47 Kcl Ivpb IV 06/30/25 11:19 100 mls/hr Q1H URBANO Administration Insulin Degludec 15 unit 06/29/25 12:15 06/29/25 13:39 Insulin Degludec 5 Unit/0.05 Ml (Per 5 Units) SC 07/29/25 12:14 Not Given QDAY URBANO Insulin Human Lispro 0 unit 06/30/25 01:15 06/30/25 05:31 Insulin Lispro (Admelog) 1 Unit/0.01 Ml Unit SC 07/30/25 01:14 Not Given Q6HR URBANO Protocol Pharmacy Consult 1 each 06/30/25 09:00 Vancomycin Pharmacy To Dose 1 Each Each IV 07/30/25 08:59 QDAY PRN PROTOCOL Potassium Chloride 40 meq 06/30/25 07:49 Potassium Chloride 20 Meq Tabcr PO 06/30/25 07:50 X1 ONE Sennosides 1 tab 06/29/25 12:11 Senna Tablet PO 07/29/25 12:10 BID PRN CONSTIPATION Protocol Sodium Chloride 4 ml 06/30/25 11:00 Sodium Cl Rt Adriana 3% 4 Ml Nebu (Non-Formulary) INH 07/30/25 10:59 Q4HRRT URBANO Plan Patient is a 55-year-old female with PMH of insulin-dependent T2DM, developmental delay, chronically bedbound with indwelling Bardales catheter and recurrent UTIs, chronic PEG tube, 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 Admitted for sepsis secondary to pneumonia versus UTI. #Acute hypoxic respiratory failure secondary to #Possible bilateral pneumonia and/or #UTI sepsis #Leukocytosis #Acute hypotension Meets sepsis criteria; source UTI versus pneumonia History of Pseudomonas infection and recurrent UTIs IV vancomycin/Zosyn started in ED BP today 99/56; WBC 9.5 post 2L IV fluids CXR shows pulmonary vascular congestion Plan: Vancomycin/Zosyn IV Follow-up blood, sputum, urine culture Trend WBC Trend BP closely Chest physiotherapy #BREANNA Likely prerenal in setting of dehydration versus intrinsic in the setting of UTI/sepsis. Creatinine 0.9 today. Plan: Continue IV fluids Avoid nephrotoxins Renally dose medications #Insulin-dependent diabetes mellitus Continue insulin glargine plus sliding scale insulin and monitor fingersticks #Developmental delay #Cerebral palsy secondary to congenital rubella #Bedbound #Status post PEG tube Plan: Consulted nutrition for tube feeds Management of pain as needed Frequent positioning Disposition: Tele DVT prophylaxis: heparin 5000 subq q8h GI prophylaxis: Diet: glucerna 1.2 nini rth Lines: PIV, PEG CODE STATUS: DNR This case was discussed with my attending physician, Dr. Guthrie, and senior resident, Dr. Maxwell. Duke Doshi, PGY1 Attending Provider Attestation/Addendum 55-year-old female who is bedbound related to cerebral palsy, congenital rubella, diabetes mellitus was admitted for pneumonia and UTI with associated hypotension initially and high white count. Patient has downtrending hemoglobin. The patient is on broad-spectrum antibiotic treatment. She has good urine output. She is on PEG tube feeding. Continue on current antibiotic treatment. Monitor hemoglobin and hematocrit. Transfuse as needed. I discussed with and supervised the resident physician who took care of this patient. I agree with the assessment and plan as above.
[2025-06-30] MEDS: INSULIN DEGLUDEC 5 UNIT/0.05 ML (PER 5 UNITS) 15 UNIT SC (08:09)
[2025-06-30] MEDS: POTASSIUM CHLORIDE 10% 20 MEQ/15 ML UDC 40 MEQ GT (08:12)
[2025-06-30] MEDS: VANCOMYCIN/NS 1 GM IVPB 200 ML IV (10:17)
--- NOTE | 2025-06-30 10:32 | XR_ITS ---
Examination: CT chest, without intravenous contrast. Sagittal and coronal 2-D reconstructions. Exam date and time: July 02, 2025 1347 hours, comparison August 13, 2024 INDICATIONS: Prominent mediastinum shortness of breath this week CTDI:vol (mGy) 24.2 DLP: (mGycm) 820 Technique: Multiple 3.0 mm axial sections of the chest to been obtained. Bone and lung density settings are obtained. Sagittal and coronal 2-D reconstructions have been obtained. Low dose protocols were performed. One or more of the following dose reduction techniques were used; automated exposure control, adjustment of the mA and/or KV according to patient size, use of iterative reconstruction technique. Findings: No thoracic aortic aneurysmal dilatation Main pulmonary artery segment prominent 32 mm No mediastinal lymphadenopathy No major cardiac enlargement 4 mm pulmonary nodule posterior left lung image 176 3 mm pulmonary nodule left upper lobe image 110 Subtle soft opacities both lungs consistent with pneumonia Gallstones No pancreatic mass Prominent left hydronephrosis Bilateral renal calculi IMPRESSION: Diffuse pneumonia as above with small pulmonary nodules, follow-up suggested Prominent left hydronephrosis, recommend CT scan abdomen pelvis without contrast follow-up
[2025-06-30] MEDS: SODIUM CL RT SOL 3% 4 ML NEBU (NON-FORMULARY) INH ×4 (10:41→23:39)
[2025-06-30 13:41] LABS: Hematocrit 28.0 % (36.0-46.0)
[2025-06-30 13:44] LABS: Hemoglobin 8.4 g/dL (12.0-16.0)
[2025-07-01] VITALS (12 sets, daily range): BP systolic 95–145; BP diastolic 56–78; PULSE 60–116; RESP 14–22; TEMP 36.1–36.6; O2SAT 94–100; BMI 21.2
[2025-07-01] MEDS: SODIUM CL RT SOL 3% 4 ML NEBU (NON-FORMULARY) INH ×5 (03:18→21:58)
[2025-07-01] MEDS: PIPER/TAZO 3.375 GM PREMIX 3.375 GM/50 ML BAG IV ×3 (05:06→21:25)
[2025-07-01] MEDS: HEPARIN SOD INJ 5000 UNIT/ML VIAL SC ×3 (05:07→21:27)
[2025-07-01 05:33] LABS: Basophils # (Auto) 0.0 Thou/mm3 (0.0-0.2); Basophils % (Auto) 0 % (0-2.5); Eosinophils # (Auto) 0.1 Thou/mm3 (0.0-0.5); Eosinophils % (Auto) 1 % (0-10); Hematocrit 29.1 % (36.0-46.0); Immature Granulocytes Auto 0.09 Thou/mm3 (0.00-0.00); Lymphocytes # (Auto) 1.5 Thou/mm3 (1.0-4.8); Lymphocytes % (Auto) 21 % (10-50); Mean Corpuscular HGB Conc 29.2 g/dl (31.0-37.0); Mean Corpuscular Hemoglobin 27.9 pg (25.0-35.0); Mean Corpuscular Volume 95 fL (80-100); Monocytes # (Auto) 0.9 Thou/mm3 (0.0-0.8); Monocytes % (Auto) 12 % (0-12); Neutrophils # (Auto) 4.6 Thou/mm3 (1.8-7.7); Neutrophils % (Auto) 64 % (37-80); Nucleated Red Blood Cell # 0.00 Thou/mm3 (0.00-0.00); Nucleated Red Blood Cell % 0 /100 WBC (0); Platelet Count 320 Thou/mm3 (140-440); RDW Standard Deviation 60.6 fL (36.4-46.3); Red Blood Count 3.05 Miln/mm3 (4.00-5.20); White Blood Count 7.2 Thou/mm3 (3.6-11.0)
[2025-07-01 05:43] LABS: Hemoglobin 8.5 g/dL (12.0-16.0)
[2025-07-01 06:02] LABS: Anion Gap 9 (7-16); BUN/Creatinine Ratio 48 Ratio (12-20); Blood Urea Nitrogen 43 mg/dL (9-23); Calcium 9.1 mg/dL (8.3-10.6); Carbon Dioxide > 40.0 mMol/L (20.0-31.0); Chloride 89 mMol/L (98-107); Creatinine (Component) 0.9 mg/dL (0.6-1.3); Estimated Creatinine Clearance 54.5 mL/min (>60); Glucose 118 mg/dL (74-106); Magnesium 2.2 mg/dL (1.6-2.6); Osmolality,Calculated 287 (275-295); Phosphorous 2.7 mg/dL (2.4-5.1); Potassium 4.7 mMol/L (3.4-5.1); Sodium 138 mMol/L (136-145); eGFR > 60 See Note
[2025-07-01 08:57] LABS: Albumin, Serum 3.3 gm/dL (3.5-5.0)
[2025-07-01 09:20] LABS: Iron 41 mcg/dL (50-170); Percent Iron Saturation 19 % (20-55); Total Iron Binding Capacity 214 mcg/dL (250-425); Unsaturated Iron Binding 173 (225-295)
[2025-07-01] MEDS: VANCOMYCIN/NS 1 GM IVPB 200 ML IV (11:01)
[2025-07-01 11:09] LABS: Base Excess 20 (-3-3); HCO3 46 mEq/L (20-26); Inspired O2, VO2 Liters 2 L/min; Inspired Oxygen, FIO2 21 %; O2 Saturation 98 % (91-98); PCO2 66 mmHg (32.0-48.0); PO2 109 mmHg (83-108); pH, Arterial 7.45 (7.35-7.45)
[2025-07-01 11:10] LABS: Allen Test Not Performed; Puncture Site Right Radial
[2025-07-01] MEDS: INSULIN DEGLUDEC 5 UNIT/0.05 ML (PER 5 UNITS) 15 UNIT SC (11:10)
--- NOTE | 2025-07-01 11:12 | PC.SS ---
Patient is a 55 year old female presenting to the hospital for sepsis, uti. CONSTRUCTION SALES REPRESENTATIVE placed phone call to [facility] to complete initial assessment. 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 Ceci stated that patients decision maker is her father Shen Wise [phone]. Ceci stated that mother Kayleen is not able to make medical decisions and primary point of contact is Gene. Patient has hospital bed and utilizes oxygen at facility. Patients PCP is Dr. Su and Ceci stated she is unsure of when last appointment was. Once medically patient can return to [facility]. Ceci requested CONSTRUCTION SALES REPRESENTATIVE sent over updated clinical via fax at [phone]. CONSTRUCTION SALES REPRESENTATIVE sent over clinicals via fax and [employer]. PCP: Dr. Su Decision maker: Shen [phone] D/c: [facility]
--- NOTE | 2025-07-01 13:17 | ESPR_ITS ---
Documentation for date of: 07/01/25 Subjective Subjective Interval history: Patient seen and examined at bedside; no acute events overnight. As pCO2 is 66 on ABG and bicarb is consistently above 40, will try BiPAP to help remove CO2. Exam Vital Signs Temp Pulse Resp BP Pulse Ox O2 Del Method O2 Flow Rate 97.2 F 94 18 145/78 H 99 Oxy Mask 2 07/01/25 04:00 07/01/25 11:48 07/01/25 11:48 07/01/25 04:00 07/01/25 11:48 07/01/25 04:00 07/01/25 11:48 Narrative Exam General: A&O x0. In mild respiratory distress. Eyes: Does not open her eyes spontaneously. HEENT: Atraumatic, normocephalic. Mucous membranes appear to be dry Cardiovascular: Normal S1 and S2. RRR. No murmurs, peripheral pitting edema, or JVD noted. Respiratory: Mild respiratory distress. Bilateral rhonchi heard Abdomen: Soft, nontender, nondistended. PEG tube in place appears intact. Skin: No rash. 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 Cannot fully assess her neuro status given her baseline clinical condition Psych: Deferred Objective Labs 07/02/25 04:52 07/02/25 04:52 Labs: Laboratory Results - last 24 hr 06/30/25 07/01/25 07/01/25 13:25 04:41 10:58 WBC 7.2 RBC 3.05 L Hgb 8.4 L 8.5 L Hct 28.0 L 29.1 L MCV 95 MCH 27.9 MCHC 29.2 L RDW Std Deviation 60.6 H Plt Count 320 D Neut % (Auto) 64 Lymph % (Auto) 21 [place] % (Auto) 12 Eos % (Auto) 1 Baso % (Auto) 0 Neut # (Auto) 4.6 Lymph # (Auto) 1.5 [place] # (Auto) 0.9 H Eos # (Auto) 0.1 Baso # (Auto) 0.0 Immature Gran # (Auto) 0.09 H Absolute Nucleated RBC 0.00 Immature Gran % 1 H Nucleated RBC % 0 Puncture Site Right Radial ABG pH 7.45 ABG pCO2 66 H ABG pO2 109 H ABG HCO3 46 H ABG O2 Saturation 98 ABG Base Excess 20 H Oxygen Liter Flow 2 FiO2 21 Sodium 138 Potassium 4.7 D Chloride 89 L Carbon Dioxide > 40.0 H Anion Gap 9 BUN 43 H Creatinine 0.9 Estim Creat Clear Calc 54.5 L eGFR > 60 BUN/Creatinine Ratio 48 H Glucose 118 H Calculated Osmolality 287 Calcium 9.1 Phosphorus 2.7 Magnesium 2.2 Iron 41 L TIBC 214 L Iron Saturation 19 L Unsat Iron Binding 173 L Albumin 3.3 L ABG Interpretation ABG results: 06/29/25 07/01/25 08:02 10:58 ABG pH 7.45 ABG pCO2 66 H ABG pO2 109 H ABG HCO3 46 H ABG O2 Saturation 98 ABG Base Excess 20 H VBG pH 7.61 VBG pCO2 51 VBG pO2 60 H VBG Base Excess 26 H Quality Measures Quality Measures none Assessment & Plan Assessment Current Active Medications: Generic Name Dose Route Start Last Admin Trade Name Freq PRN Reason Stop Dose Admin Glucagon 1 mg 06/29/25 12:14 Glucagon Inj 1 Mg Vial IM Q15MIN PRN BG <70, and no IV access Heparin Sodium (Porcine) 5,000 unit 06/29/25 14:00 07/01/25 05:07 Heparin Sod Inj 5000 Unit/Ml Vial SC 07/13/25 13:59 5,000 unit Q8HR URBANO Administration Piperacillin/Tazobactam/Dextrose 3.375 gm in 50 mls @ 12.5 mls/hr 06/29/25 22:00 07/01/25 05:06 Zosyn IV 07/06/25 21:59 12.5 mls/hr Q8HR URBANO Administration Protocol Vancomycin/Sodium Chloride 200 mls @ 120 mls/hr 06/30/25 10:00 07/01/25 11:01 Vancomycin/Ns 1 Gm Ivpb IV 07/07/25 09:59 120 mls/hr QDAY@1000 URBANO Administration Insulin Degludec 15 unit 06/29/25 12:15 07/01/25 11:10 Insulin Degludec 5 Unit/0.05 Ml (Per 5 Units) SC 07/29/25 12:14 15 unit QDAY URBANO Administration Insulin Human Lispro 0 unit 06/30/25 01:15 07/01/25 06:03 Insulin Lispro (Admelog) 1 Unit/0.01 Ml Unit SC 07/30/25 01:14 Not Given Q6HR URBANO Protocol Pharmacy Consult 1 each 06/30/25 09:00 Vancomycin Pharmacy To Dose 1 Each Each IV 07/30/25 08:59 QDAY PRN PROTOCOL Sennosides 1 tab 06/29/25 12:11 Senna Tablet PO 07/29/25 12:10 BID PRN CONSTIPATION Protocol Sodium Chloride 4 ml 06/30/25 11:00 07/01/25 11:47 Sodium Cl Rt Adriana 3% 4 Ml Nebu (Non-Formulary) INH 07/30/25 10:59 4 ml Q4HRRT URBANO Administration Plan Patient is a 55-year-old female with PMH of insulin-dependent T2DM, developmental delay, chronically bedbound with indwelling Bardales catheter and recurrent UTIs, chronic PEG tube, 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 on 06/29 for respiratory distress. Admitted for sepsis secondary to pneumonia versus UTI. #Acute hypoxic respiratory failure secondary to #Possible bilateral pneumonia and/or #UTI sepsis #Leukocytosis #Acute hypotension Meets sepsis criteria; source UTI versus pneumonia History of Pseudomonas infection and recurrent UTIs IV vancomycin/Zosyn started in ED BP today 145/78; WBC 7.2 today CXR shows pulmonary vascular congestion Urine culture- pseudomonas, morganella Bcx negative Plan: Vancomycin/Zosyn IV Follow-up sputum culture Trend WBC Trend BP closely Chest physiotherapy #BREANNA Likely prerenal in setting of dehydration versus intrinsic in the setting of UTI/sepsis. Creatinine 0.9 today. Plan: Continue IV fluids Avoid nephrotoxins Renally dose medications #Insulin-dependent diabetes mellitus Continue insulin glargine plus sliding scale insulin and monitor fingersticks #Metabolic alkalosis Bicarbonate is consistently above 40 on labs, and pCo2 is 66 on ABG. Plan: Consider BiPAP #Developmental delay #Cerebral palsy secondary to congenital rubella #Bedbound #Status post PEG tube Plan: Consulted nutrition for tube feeds Management of pain as needed Frequent positioning Disposition: Tele DVT prophylaxis: heparin 5000 subq q8h GI prophylaxis: Diet: glucerna 1.2 nini rth Lines: PIV, PEG CODE STATUS: DNR This case was discussed with my attending physician, Dr. Guthrie, and senior resident, Dr. Mosley. Duke Doshi, PGY1 Senior Resident Attestation: I discussed with and supervised the internet architect physician involved in the care of this patient. I personally saw and examined the patient and discussed the assessment and plan with the entire medicine team, including my attending. I agree with the assessment and plan as documented above. Velasquez Mosley MD PGY3 Internal Medicine Attending Provider Attestation/Addendum Discussed with RT today. Patient has pCO2 66 but normal pH. Most likely this is chronic CO2 retention no need for BiPAP currently I discussed with and supervised the resident physician who took care of this patient. I agree with the assessment and plan as above.
[2025-07-02] VITALS (11 sets, daily range): BP systolic 90–129; BP diastolic 47–63; PULSE 78–117; RESP 15–86; TEMP 35.9–36.7; O2SAT 95–100; BMI 21.8
[2025-07-02] MEDS: SODIUM CL RT SOL 3% 4 ML NEBU (NON-FORMULARY) INH ×5 (03:42→23:38)
[2025-07-02] MEDS: PIPER/TAZO 3.375 GM PREMIX 3.375 GM/50 ML BAG IV ×3 (05:26→22:50)
[2025-07-02] MEDS: HEPARIN SOD INJ 5000 UNIT/ML VIAL SC ×3 (05:27→22:51)
[2025-07-02 06:17] LABS: Basophils # (Auto) 0.0 Thou/mm3 (0.0-0.2); Basophils % (Auto) 0 % (0-2.5); Eosinophils # (Auto) 0.1 Thou/mm3 (0.0-0.5); Eosinophils % (Auto) 1 % (0-10); Hematocrit 28.2 % (36.0-46.0); Immature Granulocytes Auto 0.05 Thou/mm3 (0.00-0.00); Lymphocytes # (Auto) 1.4 Thou/mm3 (1.0-4.8); Lymphocytes % (Auto) 20 % (10-50); Mean Corpuscular HGB Conc 29.1 g/dl (31.0-37.0); Mean Corpuscular Hemoglobin 28.2 pg (25.0-35.0); Mean Corpuscular Volume 97 fL (80-100); Monocytes # (Auto) 0.8 Thou/mm3 (0.0-0.8); Monocytes % (Auto) 11 % (0-12); Neutrophils # (Auto) 4.8 Thou/mm3 (1.8-7.7); Neutrophils % (Auto) 67 % (37-80); Nucleated Red Blood Cell # 0.00 Thou/mm3 (0.00-0.00); Nucleated Red Blood Cell % 0 /100 WBC (0); Platelet Count 281 Thou/mm3 (140-440); RDW Standard Deviation 64.2 fL (36.4-46.3); Red Blood Count 2.91 Miln/mm3 (4.00-5.20); White Blood Count 7.1 Thou/mm3 (3.6-11.0)
[2025-07-02 06:23] LABS: Hemoglobin 8.2 g/dL (12.0-16.0)
[2025-07-02 07:04] LABS: Alanine Aminotransferase 14 U/L (10-49); Albumin, Serum 3.3 gm/dL (3.5-5.0); Albumin/Globulin Ratio 0.8 (1.2-2.2); Alkaline Phosphatase 100 U/L (46-116); Anion Gap 11 (7-16); Aspartate Amino Transferase < 8 U/L (0-34); BUN/Creatinine Ratio 42 Ratio (12-20); Bilirubin,Total 0.2 mg/dL (0.3-1.2); Blood Urea Nitrogen 38 mg/dL (9-23); Calcium 9.2 mg/dL (8.3-10.6); Calcium (Corrected) 9.8 mg/dL (8.5-10.1); Carbon Dioxide > 40.0 mMol/L (20.0-31.0); Chloride 90 mMol/L (98-107); Creatinine (Component) 0.9 mg/dL (0.6-1.3); Estimated Creatinine Clearance 54.5 mL/min (>60); Globulin 4.2 gm/dL (2.3-3.5); Glucose 126 mg/dL (74-106); Magnesium 2.2 mg/dL (1.6-2.6); Osmolality,Calculated 292 (275-295); Phosphorous 4.4 mg/dL (2.4-5.1); Potassium 4.2 mMol/L (3.4-5.1); Sodium 141 mMol/L (136-145); Total Protein 7.5 gm/dL (5.7-8.2); eGFR > 60 See Note
[2025-07-02] MEDS: INSULIN DEGLUDEC 5 UNIT/0.05 ML (PER 5 UNITS) 15 UNIT SC (09:31)
[2025-07-02 11:11] LABS: Vancomycin,Trough 25.5 mcg/mL (5.0-10.0)
[2025-07-02 13:29] LABS: Ferritin 540 ng/mL (7.3-270.7)
--- NOTE | 2025-07-02 15:04 | ESPR_ITS ---
Documentation for date of: 07/02/25 Subjective Subjective Interval history: Patient was seen and examined at bedside. No acute events took place overnight. Coarse crackles on lung exam concerning for aspiration of tube feeds while being transported supine on bed to third floor.? NGT suction showed creamy aspirate. Curbsided GI about ways to prevent aspiration iso chronic tube feeds. VSS BP 90/47, RR 21, satting 97% on 2L via NC CBC Hgb 8.2, bicarb >40, BUN 38, Cr 0.9 >0.6, iron panel is low, pending ferritin. Free water 250mL Q8h through the PEG tube Exam Vital Signs Temp Pulse Resp BP Pulse Ox O2 Del Method O2 Flow Rate 98.1 F 99 20 91/50 L 99 Oxy Mask 2 07/02/25 12:00 07/02/25 12:00 07/02/25 12:00 07/02/25 12:00 07/02/25 12:00 07/02/25 12:00 07/02/25 12:00 FiO2 60 07/01/25 14:35 Narrative Exam General: A&O x0. In mild respiratory distress. Eyes: Does not open her eyes spontaneously. HEENT: Atraumatic, normocephalic. Mucous membranes appear to be dry Cardiovascular: Normal S1 and S2. RRR. No murmurs, peripheral pitting edema, or JVD noted. Respiratory: Mild respiratory distress. Bilateral rhonchi heard Abdomen: Soft, nontender, nondistended. PEG tube in place appears intact. Skin: No rash. 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 Cannot fully assess her neuro status given her baseline clinical condition Psych: Deferred Objective Labs 07/08/25 07:00 07/08/25 07:00 Labs: Laboratory Results - last 24 hr 07/01/25 07/02/25 07/02/25 04:41 04:52 09:53 WBC 7.1 RBC 2.91 L Hgb 8.2 L Hct 28.2 L MCV 97 MCH 28.2 MCHC 29.1 L RDW Std Deviation 64.2 H Plt Count 281 D Neut % (Auto) 67 Lymph % (Auto) 20 Clare % (Auto) 11 Eos % (Auto) 1 Baso % (Auto) 0 Neut # (Auto) 4.8 Lymph # (Auto) 1.4 Clare # (Auto) 0.8 Eos # (Auto) 0.1 Baso # (Auto) 0.0 Immature Gran # (Auto) 0.05 H Absolute Nucleated RBC 0.00 Immature Gran % 1 H Nucleated RBC % 0 Sodium 141 Potassium 4.2 D Chloride 90 L Carbon Dioxide > 40.0 H Anion Gap 11 BUN 38 H Creatinine 0.9 Estim Creat Clear Calc 54.5 L eGFR > 60 BUN/Creatinine Ratio 42 H Glucose 126 H Calculated Osmolality 292 Calcium 9.2 Corrected Calcium 9.8 Phosphorus 4.4 Magnesium 2.2 Ferritin 540 H Total Bilirubin 0.2 L AST < 8 ALT 14 Alkaline Phosphatase 100 D Total Protein 7.5 Albumin 3.3 L Globulin 4.2 H Albumin/Globulin Ratio 0.8 L Vancomycin Trough 25.5 H* ABG Interpretation ABG results: 06/29/25 07/01/25 08:02 10:58 ABG pH 7.45 ABG pCO2 66 H ABG pO2 109 H ABG HCO3 46 H ABG O2 Saturation 98 ABG Base Excess 20 H VBG pH 7.61 VBG pCO2 51 VBG pO2 60 H VBG Base Excess 26 H Quality Measures Quality Measures none Assessment & Plan Assessment Current Active Medications: Generic Name Dose Route Start Last Admin Trade Name Freq PRN Reason Stop Dose Admin Glucagon 1 mg 06/29/25 12:14 Glucagon Inj 1 Mg Vial IM Q15MIN PRN BG <70, and no IV access Heparin Sodium (Porcine) 5,000 unit 06/29/25 14:00 07/02/25 13:14 Heparin Sod Inj 5000 Unit/Ml Vial SC 07/13/25 13:59 5,000 unit Q8HR URBANO Administration Piperacillin/Tazobactam/Dextrose 3.375 gm in 50 mls @ 12.5 mls/hr 06/29/25 22:00 07/02/25 13:14 Zosyn IV 07/06/25 21:59 12.5 mls/hr Q8HR URBANO Administration Protocol Insulin Degludec 15 unit 06/29/25 12:15 07/02/25 09:31 Insulin Degludec 5 Unit/0.05 Ml (Per 5 Units) SC 07/29/25 12:14 15 unit QDAY URBANO Administration Insulin Human Lispro 0 unit 06/30/25 01:15 07/02/25 11:43 Insulin Lispro (Admelog) 1 Unit/0.01 Ml Unit SC 07/30/25 01:14 Not Given Q6HR [facility] Protocol Sennosides 1 tab 06/29/25 12:11 Senna Tablet PO 07/29/25 12:10 BID PRN CONSTIPATION Protocol Sodium Chloride 4 ml 06/30/25 11:00 07/02/25 10:23 Sodium Cl Rt Adriana 3% 4 Ml Nebu (Non-Formulary) INH 07/30/25 10:59 4 ml Q4HRRT [facility] Administration Plan Patient is a 55-year-old female with PMH of insulin-dependent T2DM, developmental delay, chronically bedbound with indwelling Bardales catheter and recurrent UTIs, chronic PEG tube, 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 Admitted for sepsis secondary to pneumonia versus UTI. ? ? #Acute hypoxic respiratory failure secondary to #Possible bilateral pneumonia and/or #UTI sepsis #Leukocytosis #Acute hypotension #[id number]: ? Meets sepsis criteria; source UTI versus pneumonia History of Pseudomonas infection and recurrent UTIs IV vancomycin/Zosyn started in ED ? BP today 145/78; WBC 7.2 today CXR shows pulmonary vascular congestion Urine culture- pseudomonas, morganella Bcx negative ? 07/02: Coarse crackles on lung exam concerning for aspiration of tube feeds while being transported supine on bed to third floor.? NGT suction showed creamy aspirate. ? Plan: -Curbsided GI about ways to prevent aspiration iso chronic tube feeds. Vancomycin/Zosyn IV Follow-up sputum culture Trend WBC Trend BP closely Chest physiotherapy ? #BREANNA Likely prerenal in setting of dehydration versus intrinsic in the setting of UTI/sepsis. Creatinine 0.9 today. ? Plan: Continue IV fluids Avoid nephrotoxins Renally dose medications ? #Insulin-dependent diabetes mellitus Continue insulin glargine plus sliding scale insulin and monitor fingersticks ? #Metabolic alkalosis Bicarbonate is consistently above 40 on labs, and pCo2 is 66 on ABG. Consider BiPAP ? #Developmental delay #Cerebral palsy secondary to congenital rubella #Bedbound #Status post PEG tube ? Plan: Consulted nutrition for tube feeds Management of pain as needed Frequent positioning ? Disposition: Tele DVT prophylaxis: heparin 5000 subq q8h GI prophylaxis: Diet: glucerna 1.2 nini rth Lines: PIV, PEG CODE STATUS: DNR This case was discussed with my attending physician, Dr. Porter, and senior resident, Dr Mosley. Even though this this note was carefully revised there may still be minor errors in bow repairer custom due to voice recognition software. Mary Grace Rubio, DO PGY I Senior Resident Attestation: The patient will be continued on vancomycin and Zosyn, and sputum cultures are pending, and her pneumonia was suspected to be associated with 6 factor of MRSA. And UTI is susceptible to Zosyn. I discussed with and supervised the internal affairs commander physician involved in the care of this patient. I personally saw and examined the patient and discussed the assessment and plan with the entire medicine team, including my attending. I agree with the assessment and plan as documented above. Velasquez Mosley MD PGY3 Internal Medicine Attending Provider Attestation/Addendum Patient seen and examined with marleytasuzanna jacobs for possible recurrent aspiration pneumonia. She is on antibiotic treatment, Good urine output. Vanco trrough is 25.5 (H), adjust ode of vancom per pharmacy. Check culture results. Discussed with housestff.
--- NOTE | 2025-07-02 15:16 | PC.SS ---
Rounding: pending sputum cults, iv abx. Pending MHE upon medical clearance.
--- NOTE | 2025-07-02 15:17 | PC.SS ---
Rounding: Pending sputum cultures, on iv abx dc plan back to [facility]
[2025-07-03] VITALS (64 sets, daily range): BP systolic 64–118; BP diastolic 45–69; PULSE 56–109; RESP 0–40; TEMP 36.1–37.1; O2SAT 89–100; BMI 21.8
[2025-07-03] MEDS: SODIUM CL RT SOL 3% 4 ML NEBU (NON-FORMULARY) INH ×5 (03:10→22:48)
[2025-07-03 05:52] LABS: Basophils # (Auto) 0.0 Thou/mm3 (0.0-0.2); Basophils % (Auto) 1 % (0-2.5); Eosinophils # (Auto) 0.1 Thou/mm3 (0.0-0.5); Eosinophils % (Auto) 1 % (0-10); Hematocrit 26.6 % (36.0-46.0); Immature Granulocytes Auto 0.08 Thou/mm3 (0.00-0.00); Lymphocytes # (Auto) 1.5 Thou/mm3 (1.0-4.8); Lymphocytes % (Auto) 24 % (10-50); Mean Corpuscular HGB Conc 28.6 g/dl (31.0-37.0); Mean Corpuscular Hemoglobin 27.7 pg (25.0-35.0); Mean Corpuscular Volume 97 fL (80-100); Monocytes # (Auto) 0.6 Thou/mm3 (0.0-0.8); Monocytes % (Auto) 9 % (0-12); Neutrophils # (Auto) 4.0 Thou/mm3 (1.8-7.7); Neutrophils % (Auto) 64 % (37-80); Nucleated Red Blood Cell # 0.03 Thou/mm3 (0.00-0.00); Nucleated Red Blood Cell % 1 /100 WBC (0); Platelet Count 304 Thou/mm3 (140-440); RDW Standard Deviation 65.7 fL (36.4-46.3); Red Blood Count 2.74 Miln/mm3 (4.00-5.20); White Blood Count 6.3 Thou/mm3 (3.6-11.0)
[2025-07-03] MEDS: HEPARIN SOD INJ 5000 UNIT/ML VIAL SC ×3 (05:54→21:24)
[2025-07-03] MEDS: PIPER/TAZO 3.375 GM PREMIX 3.375 GM/50 ML BAG IV (05:56)
[2025-07-03 06:45] LABS: Alanine Aminotransferase 13 U/L (10-49); Albumin, Serum 3.3 gm/dL (3.5-5.0); Albumin/Globulin Ratio 0.8 (1.2-2.2); Alkaline Phosphatase 124 U/L (46-116); Anion Gap 13 (7-16); Aspartate Amino Transferase 15 U/L (0-34); BUN/Creatinine Ratio 34 Ratio (12-20); Bilirubin,Total 0.2 mg/dL (0.3-1.2); Blood Urea Nitrogen 34 mg/dL (9-23); Calcium 9.1 mg/dL (8.3-10.6); Calcium (Corrected) 9.7 mg/dL (8.5-10.1); Carbon Dioxide > 40.0 mMol/L (20.0-31.0); Chloride 90 mMol/L (98-107); Creatinine (Component) 1.0 mg/dL (0.6-1.3); Estimated Creatinine Clearance 49.1 mL/min (>60); Globulin 4.1 gm/dL (2.3-3.5); Glucose 150 mg/dL (74-106); Magnesium 2.0 mg/dL (1.6-2.6); Osmolality,Calculated 295 (275-295); Phosphorous 4.7 mg/dL (2.4-5.1); Potassium 3.9 mMol/L (3.4-5.1); Sodium 143 mMol/L (136-145); Total Protein 7.4 gm/dL (5.7-8.2); eGFR > 60 See Note
[2025-07-03 07:08] LABS: Hemoglobin 7.6 g/dL (12.0-16.0)
[2025-07-03] MEDS: INSULIN DEGLUDEC 5 UNIT/0.05 ML (PER 5 UNITS) 15 UNIT SC (09:36)
[2025-07-03] MEDS: LANSOPRAZOLE 30 MG TAB.RAP.DR GT (09:37)
[2025-07-03] MEDS: ASCORBIC ACID 250 MG TABLET 500 MG GT (09:37)
[2025-07-03] MEDS: MULTIVITAMIN 15 ML UDC GT (09:37)
--- NOTE | 2025-07-03 11:59 | XR_ITS ---
EXAMINATION: AP chest single view TECHNIQUE: AP portable semiupright chest single view Date and time: July 03, 2025, 12:16 p.m., comparison June 29, 2025 INDICATIONS: Shortness of breath today. FINDINGS: Severe thoracolumbar levoscoliosis and lumbar dextroscoliosis Gastrostomy tube overlies the stomach No significant cardiac enlargement Bilateral lung opacity most consistent with pneumonia Mild vascular congestion Prominent osteopenia IMPRESSION: Bilateral lung opacity most consistent with pneumonia
[2025-07-03] MEDS: RINGERS LACTATED 1000 ML 500 ML 999 ML IV (12:00)
[2025-07-03 12:38] LABS: Base Excess, Venous -2 (-3-3); Lactate (Lactic Acid) 0.8 mMol/L (0.4-2.0); O2 Saturation, Venous 93 % (96-97); PCO2, Venous 33 mmHg (36-56); PO2, Venous 91 mmHg (15-58); pH, Venous 7.42 (7.33-7.66)
[2025-07-03] MEDS: RINGERS LACTATED 1000 ML 1,000 ML 999 ML IV (13:43)
--- NOTE | 2025-07-03 14:01 | PC.NURSE ---
SENIOR C WEB DEVELOPER CALLED D/T LOW BLOOD PRESSURE. PT AT BASELINE PER MD MATT. NOT VERBALLY RESPONSIVE, RESPONSIVE TO STERNAL RUB.
--- NOTE | 2025-07-03 14:50 | PD.RESEVENT ---
Documentation for date of: 07/03/25 Event Note Event Note: Primary team received rapid response call for critical hypotension at about 1340. BP 68/46, MAP 53, HR 91, 97.1, O2 100% on 3 L via OxyMask. Patient had received LR IVB 1L. Cap refill <2s, lungs demonstrated course crackles and rhonchi, especially on the Rt. SOFA score 6-7. Patient nonverbal which is her baseline for mentation. Her hourly urine output <35ml, oliquira. Skin cool, mild pallor, without mottling. Cap refill <2sec. Gave an additional liter of LR, as bedside ultrasound showed collapsible IVC. VBG from 1230 had showen pH 7.42, pCO2 33, PaO2 91, O2 sat 93%. After completion of the fluid bolus, repeat infrasternal ultrasound showed non collapsible (<50%) IVC. MAP 60. ICU team was notified. This case was discussed with my attending physician, Dr. Lerma, and senior resident, Dr Mosley. Even though this this note was carefully revised there may still be minor errors in compressor stations superintendent due to voice recognition software. Mary Grace Rubio, PGY I
--- NOTE | 2025-07-03 14:59 | ESPR_ITS ---
Documentation for date of: 07/03/25 Subjective Subjective Interval history: Patient was seen and examined at bedside. No acute events took place overnight. Patient able to have BM. If her mask comes off, saturations dropped to the low 80s. Urine looks cloudy. Primary team was made aware that the patient had not been getting fluid flushes 250 cc every 8 hour as ordered, administrations beginning this a.m. remained afebrile overnight VSS 2L via oxymask, HR 109, RR 26 FELICITAS -1.4L, 1BM WBC 6.3, Hgb 7.6 (trickling down), bicarb >40, BUN 34, Cr 1.0 (0.4-0.6) contraction alkalosis Blood cultures negative after 48 hours, Urine cultures positive for Pseudomonas and Morganella Sputum cultures positive for Klebsiella and Pseudomonas Exam Vital Signs Temp Pulse Resp BP Pulse Ox O2 Del Method O2 Flow Rate 97.1 F 81 21 H 95/56 L 99 Oxy Mask 2 07/03/25 13:40 07/03/25 14:34 07/03/25 14:34 07/03/25 13:40 07/03/25 14:34 07/03/25 12:00 07/03/25 14:34 FiO2 0 07/03/25 13:40 Narrative Exam General: A&O x0. In mild respiratory distress. Eyes: Does not open her eyes spontaneously. HEENT: Atraumatic, normocephalic. Mucous membranes appear to be dry Cardiovascular: Normal S1 and S2. RRR. No murmurs, peripheral pitting edema, or JVD noted. Respiratory: Coarse crackles and rhonchi bilaterally. Abdomen: Soft, nontender, nondistended. PEG tube in place appears intact. Skin: No rash. 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 No pedal edema. Neuro: A&O x0. Cannot fully assess her neuro status given her baseline clinical condition Psych: Deferred Objective Labs 07/03/25 05:10 07/03/25 05:10 Labs: Laboratory Results - last 24 hr 07/03/25 07/03/25 05:10 12:33 WBC 6.3 RBC 2.74 L Hgb 7.6 L Hct 26.6 L MCV 97 MCH 27.7 MCHC 28.6 L RDW Std Deviation 65.7 H Plt Count 304 Neut % (Auto) 64 Lymph % (Auto) 24 [place] % (Auto) 9 Eos % (Auto) 1 Baso % (Auto) 1 Neut # (Auto) 4.0 Lymph # (Auto) 1.5 [place] # (Auto) 0.6 Eos # (Auto) 0.1 Baso # (Auto) 0.0 Immature Gran # (Auto) 0.08 H Absolute Nucleated RBC 0.03 H Immature Gran % 1 H Nucleated RBC % 1 H VBG pH 7.42 VBG pCO2 33 L VBG pO2 91 H VBG O2 Sat (Keshia) 93 L VBG Base Excess -2 Sodium 143 Potassium 3.9 Chloride 90 L Carbon Dioxide > 40.0 H Anion Gap 13 BUN 34 H Creatinine 1.0 Estim Creat Clear Calc 49.1 L eGFR > 60 BUN/Creatinine Ratio 34 H Glucose 150 H Calculated Osmolality 295 Lactic Acid 0.8 Calcium 9.1 Corrected Calcium 9.7 Phosphorus 4.7 Magnesium 2.0 Total Bilirubin 0.2 L AST 15 ALT 13 Alkaline Phosphatase 124 H D Total Protein 7.4 Albumin 3.3 L Globulin 4.1 H Albumin/Globulin Ratio 0.8 L ABG Interpretation ABG results: 06/29/25 07/01/25 07/03/25 08:02 10:58 12:33 ABG pH 7.45 ABG pCO2 66 H ABG pO2 109 H ABG HCO3 46 H ABG O2 Saturation 98 ABG Base Excess 20 H VBG pH 7.61 7.42 VBG pCO2 51 33 L VBG pO2 60 H 91 H VBG Base Excess 26 H -2 Quality Measures Quality Measures none Assessment & Plan Assessment Current Active Medications: Generic Name Dose Route Start Last Admin Trade Name Freq PRN Reason Stop Dose Admin Ascorbic Acid 500 mg 07/03/25 09:15 07/03/25 09:37 Ascorbic Acid 250 Mg Tablet GT 08/02/25 09:14 500 mg QDAY URBANO Administration Atorvastatin Calcium 10 mg 07/03/25 21:00 Atorvastatin Calcium 10 Mg Tablet GT 08/02/25 20:59 HS URBANO Bisacodyl 10 mg 07/03/25 09:07 Bisacodyl 10 Mg Supp ME 08/02/25 09:06 QDAY PRN CONSTIPATION Protocol Glucagon 1 mg 06/29/25 12:14 Glucagon Inj 1 Mg Vial IM Q15MIN PRN BG <70, and no IV access Heparin Sodium (Porcine) 5,000 unit 06/29/25 14:00 07/03/25 14:39 Heparin Sod Inj 5000 Unit/Ml Vial SC 07/13/25 13:59 5,000 unit Q8HR [facility]ANO Administration Meropenem 1,000 mg/ Sodium 50 mls @ 100 mls/hr 07/03/25 21:00 Chloride IV 07/10/25 20:59 Q12HR URBANO Insulin Degludec 15 unit 06/29/25 12:15 07/03/25 09:36 Insulin Degludec 5 Unit/0.05 Ml (Per 5 Units) SC 07/29/25 12:14 15 unit QDAY U[facility]ANO Administration Insulin Human Lispro 0 unit 06/30/25 01:15 07/03/25 11:29 Insulin Lispro (Admelog) 1 Unit/0.01 Ml Unit SC 07/30/25 01:14 Not Given Q6HR [facility] Protocol Lansoprazole 30 mg 07/03/25 09:15 07/03/25 09:37 Lansoprazole 30 Mg Tab.Rap. GT 08/02/25 09:14 30 mg DAILY URBANO Administration Magnesium Hydroxide 30 ml 07/03/25 09:07 Milk Of Magnesia Susp 30 Ml Udc GT 08/02/25 09:06 DAILY PRN CONSTIPATION Protocol Multivitamins/Minerals 15 ml 07/03/25 09:15 07/03/25 09:37 Multivitamin 15 Ml Udc GT 08/02/25 09:14 15 ml QDAY URBANO Administration Sennosides 1 tab 06/29/25 12:11 Senna Tablet PO 07/29/25 12:10 BID PRN CONSTIPATION Protocol Sodium Chloride 4 ml 06/30/25 11:00 07/03/25 14:26 Sodium Cl Rt Adriana 3% 4 Ml Nebu (Non-Formulary) INH 07/30/25 10:59 4 ml Q4HRRT U[facility]ANO Administration Sodium Phosphate 133 ml 07/03/25 09:07 Sodium Phos,[place]ub[place]-Dibasic 133 Ml (Fleet) Enema Btl RC QDAY PRN constipation Protocol Plan Patient is a 55-year-old female with PMH of insulin-dependent T2DM, developmental delay, chronically bedbound with indwelling Bardales catheter and recurrent UTIs, chronic PEG tube, 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 on 06/29 for respiratory distress. Admitted for sepsis secondary to pneumonia versus UTI. ? #Septic shock 2/2 #UTI and #Pneumonia #Acute hypotension SOFA score 6-7. Patient nonverbal which is her baseline for mentation. Her hourly urine output <35ml, oliquira. Skin cool, mild pallor, without mottling. Cap refill <2sec. VBG from 1230 had showen pH 7.42, pCO2 33, PaO2 91, O2 sat 93%. Sputum ctx positive for Klebsiella pneumoniae and MDR Pseudomonas aeruginosa Urine culture- pseudomonas, morganella +Total fluid boluses 56kg x30ml/kg*h =1.7L calculated. Plan: - Patient had received LR IVB 1L this AM. - Gave an additional liter of LR (total of 2L for the day so far), as bedside ultrasound showed collapsible IVC. - After completion of the fluid bolus, repeat infrasternal ultrasound showed non collapsible (<50%) IVC. MAP 60. - ICU team was notified, patient accepted for upgrade. - Monitor BP closely. #Acute hypoxic respiratory failure secondary to #Bilateral pneumonia Meets sepsis criteria; source UTI versus pneumonia History of Pseudomonas infection and recurrent UTIs IV vancomycin/Zosyn started in ED Initial CXR showed pulmonary vascular congestion 07/02: Coarse crackles on lung exam concerning for aspiration of tube feeds while being transported supine on bed to third floor.? NGT suction showed creamy aspirate. 07/03: continues to have coarse crackles and b/l rhonchi on exam. Sputum ctx positive for Klebsiella pneumoniae and MDR Pseudomonas aeruginosa Bcx negative after 48h MRSA screen (-) CXR showed Bilateral lung opacity most consistent with pneumonia Plan: DC'ed vancomycin and Zosyn Started Meropenem 1g Q12h Trend WBC Chest physiotherapy ? #BREANNA #Contraction Alkalosis #Prerenal Azotemia Likely prerenal in setting of dehydration versus intrinsic in the setting of UTI/sepsis. Creatinine 1.0 today, baeline 0.4-0.6. BUN 34, BUN/CR 34 Bicarbonate is consistently above 40 on labs, and pCo2 is 66 on ABG. Urine culture- pseudomonas, morganella VBG from 1230 had showen pH 7.42, pCO2 33, PaO2 91, O2 sat 93%. Plan: Continue IV fluids Avoid nephrotoxins, Renally dose medications, and avoid overdiuresis. BiPAP #Insulin-dependent diabetes mellitus Continue insulin degludec 15u plus sliding scale insulin Bedside fingerstick glucose checks ? #Developmental delay #Cerebral palsy secondary to congenital rubella #Bedbound #Status post PEG tube ? Plan: Consulted nutrition for tube feeds: Continuous feeds at 55 mL/h with 25mL/h of water flushes Management of pain as needed Frequent positioning ? Disposition: Tele DVT prophylaxis: heparin 5000 subq q8h GI prophylaxis: Diet: glucerna 1.2 nini rth Lines: PIV, PEG CODE STATUS: DNR This case was discussed with my attending physician, Dr. Lerma, and senior resident, Dr Mosley. Even though this this note was carefully revised there may still be minor errors in package handler due to voice recognition software. Mary Grace Rubio, PGY I Senior Resident Attestation: The patient was doing well this morning, but later rapid response was called due to hypotension of, and 1 L of bolus fluid was given and later again 1 L of fluid bolus was added, total of 2 L. However, the patient's MAP did not improve well, and MAP was 51. Sputum culture was growing Pseudomonas that was resistant to Zosyn, and was started on meropenem. The patient required pressor support, and was upgraded to ICU. I discussed with and supervised the chief of internal medicine physician involved in the care of this patient. I personally saw and examined the patient and discussed the assessment and plan with the entire medicine team, including my attending. I agree with the assessment and plan as documented above. Velasquez Mosley MD PGY3 Internal Medicine
--- NOTE | 2025-07-03 15:16 | XR_ITS ---
Examination: Retroperitoneal ultrasound, complete Technique: Multiple high resolution grayscale images of the retroperitoneum obtained, including kidneys and bladder. Exam date and time: July 03, 2025, 1643 hours History urinary tract infection, acute renal insufficiency on laboratory examination November 25, 2023, retroperitoneal sonogram November 25, 2023 moderate right hydronephrosis moderate left hydronephrosis FINDINGS: Right kidney 10.4 cm renal cortex 1.2 cm Multiple calculi, the largest in the midpole 1.3 cm Mild hydronephrosis Left kidney 11.1 cm renal cortex 1.7 cm Multiple calculi, the largest in the midpole 2.3 cm Moderate hydronephrosis Moderate renal scar formation Contracted urinary bladder, urinary bladder wall is thickened up to 7 mm IMPRESSION: Bilateral renal cortical thinning Multiple bilateral renal calculi Mild right moderate left hydronephrosis Urinary bladder wall thickening, consider cystitis
--- NOTE | 2025-07-03 15:19 | ESCONSULT_ITS ---
<Statement entered by Juanpablo Alba MD - 07/04/25 12:14> TOTAL CC TIME: 45 MIN I saw and evaluated the patient. I reviewed the resident?s note and agree with findings and plan as documented in the resident?s note. Upon my evaluation, this patient had a high probability of imminent or life- threatening deterioration due to septic shock from urinary tract infection, which required my direct attention, intervention, and personal management. This time is exclusive of time spent on procedures, which are documented separately if performed. Resuscitated with IV fluids; reexamine IVC on ultrasound to confirm appropriately resuscitated. Continue meropenem. Levophed to maintain mean arterial pressure goal of 65 or greater. Ultrasound kidneys to confirm no evidence of obstructive uropathy <Statement entered by Hiro Stack MD - 07/03/25 18:02> I have reviewed the note and agree with the resident's assessment & plan with exceptions as below. I have personally reviewed labs, imaging, home meds/prior records, examined the patient, formulated and discussed management plan with the IM team. Patient examined at bedside today. Patient upgraded to ICU for evaluation of shock, likely related to urine. Patient was on meropenem since this morning. It appears to have Pseudomonas and Fabricio, ID had been consulted. Will continue with Levophed, wean down as tolerated. Will follow-up with blood cultures as well. Sepsis reassessment was done and IVC seems to be about 1.7 cm, noncompressible with inspiration, likely indicating adequate fluid resuscitation, no change in cap refill at this time. Repeat hematology and chemistry in AM. #Acute hypoxic respiratory failure secondary to #Possible bilateral pneumonia and/or #UTI sepsis #Leukocytosis #Acute hypotension #Aspiration PNA #BREANNA #Insulin-dependent diabetes mellitus? 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 Minor inaccuracies may be present. 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 on 06/29 for respiratory distress. In the ED 06/29/25, patient was borderline hypotensive. She was afebrile. She was tachycardic as high as 140. She was hypoxic for which she was put on nonrebreather. Labs showed significant leukocytosis, elevated creatinine from baseline, elevated glucose, and UA suggesting UTI. Chest x-ray showed possible infiltrates. 07/03/25 Patient was upgraded to the ICU after rapid response for hypotension, despite fluid boluses. she was initiated on levofed, and abx were broadened to meropenem from zosyn, her pressor requirements have been minimal, and there has been some variation in BP cuff positioning upper arm vs forearm. She has some puralent drainage at the peg tube site with an errytematous base. Renal US shows bilateral hydronephrosis L>R with renal calculi present bilaterally. cc:: cc: Kp Simongle, DO Exam Vital Signs Temp Pulse Resp BP Pulse Ox O2 Del Method O2 Flow Rate 97.1 F 81 21 H 95/56 L 99 Oxy Mask 2 07/03/25 13:40 07/03/25 14:34 07/03/25 14:34 07/03/25 13:40 07/03/25 14:34 07/03/25 12:00 07/03/25 14:34 FiO2 0 07/03/25 13:40 Narrative Exam General: A&O x0. In mild respiratory distress. Eyes: Does not open her eyes spontaneously. HEENT: Atraumatic, normocephalic. Mucous membranes appear to be dry Cardiovascular: Normal S1 and S2. RRR. No murmurs, peripheral pitting edema, or JVD noted. Respiratory: Coarse crackles and rhonchi bilaterally. Abdomen: Soft, nontender, nondistended. PEG tube in place appears intact. Skin: No rash. 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 No pedal edema. Neuro: A&O x0. Cannot fully assess her neuro status given her baseline clinical condition Psych: Deferred Results Labs 07/03/25 05:10 07/03/25 05:10 Labs: Short CBC 07/03/25 Range/Units 05:10 WBC 6.3 (3.6-11.0) Thou/mm3 Hgb 7.6 L (12.0-16.0) g/dL Hct 26.6 L (36.0-46.0) % Plt Count 304 (140-440) Thou/mm3 BMP 07/03/25 05:10 Sodium 143 Potassium 3.9 Chloride 90 L Carbon Dioxide > 40.0 H BUN 34 H Creatinine 1.0 Glucose 150 H Calcium 9.1 Liver Function 07/03/25 Range/Units 05:10 Total Bilirubin 0.2 L (0.3-1.2) mg/dL AST 15 (0-34) U/L ALT 13 (10-49) U/L Alkaline Phosphatase 124 H D (46-116) U/L Albumin 3.3 L (3.5-5.0) gm/dL ABG Interpretation ABG results: 06/29/25 07/01/25 07/03/25 08:02 10:58 12:33 ABG pH 7.45 ABG pCO2 66 H ABG pO2 109 H ABG HCO3 46 H ABG O2 Saturation 98 ABG Base Excess 20 H VBG pH 7.61 7.42 VBG pCO2 51 33 L VBG pO2 60 H 91 H VBG Base Excess 26 H -2 Quality Measures Quality Measures VTE prophylaxis and sepsis Current suspected stage: sepsis Possible source: genitourinary Blood cultures ordered: yes (NGTD ) Antibiotic ordered: Yes Medications Home Medications and Allergies Home Medications ?Medication ?Instructions ?Recorded ?Confirmed ?Type acetaminophen 325 mg tablet 650 mg PO QID PRN pain 11/1006/30/25 History ascorbic acid (vitamin C) 500 mg 500 mg PO QDAY 06/30/25 History tablet (Vitamin C) bisacodyl 10 mg rectal suppository 10 mg UT QDAY PRN c onstipation 08/22/24 06/30/25 History (Dulcolax (bisacodyl)) insulin glargine 100 unit/mL (3 15 unit subcut QDAY 06/30/25 History mL) subcutaneous pen (Basaglar KwikPen U-100 Insulin) magnesium hydroxide 400 mg/5 mL 30 ml PO DAILY PRN con stipation 08/22/24 06/30/25 History oral suspension ([place]ister Milk of Magnesia) multivitamin (Daily Multi-Vitamin 1 tab PO QDAY 06/30/25 History tablet) sodium phosphates 19 gram-7 118 ml UT QDAY PRN constip ation 08/22/24 06/30/25 History gram/118 mL enema (Enema) ferrous sulfate 220 mg (44 mg 220 mg PO QDAY 06/30/25 06/30/25 History iron)/5 mL oral solution ipratropium 0.5 mg-albuterol 3 mg 3 ml inhalation Q6H PRN shortness 06/30/25 06/30/25 History (2.5 mg base)/3 mL nebulization of breath or wheezing soln omeprazole 40 mg capsule,delayed 40 mg feeding tube DA PAMELA 06/30/25 06/30/25 History release potassium chloride 20 mEq/15 mL 10 meq feeding tube DA PAMELA 06/30/25 06/30/25 History oral liquid Allergies Allergy/AdvReac Type Severity Reaction Status Date / Time chloral hydrate Allergy Mild unknown Verified 11/08/22 15:02 Visit Medications Ascorbic Acid (Ascorbic Acid 250 Mg Tablet) 500 mg GT QDAY URBANO Stop: 08/02/25 09:14 Last Admin: 07/03/25 09:37 Dose: 500 mg Atorvastatin Calcium (Atorvastatin Calcium 10 Mg Tablet) 10 mg GT HS URBANO Stop: 08/02/25 20:59 Bisacodyl (Bisacodyl 10 Mg Supp) 10 mg UT QDAY PRN; Protocol PRN Reason: CONSTIPATION Stop: 08/02/25 09:06 Glucagon (Glucagon Inj 1 Mg Vial) 1 mg IM Q15MIN PRN PRN Reason: BG <70, and no IV access Heparin Sodium (Porcine) (Heparin Sod Inj 5000 Unit/Ml Vial) 5,000 unit SC Q8HR URBANO Stop: 07/13/25 13:59 Last Admin: 07/03/25 14:39 Dose: 5,000 unit Meropenem 1,000 mg/ Sodium (Chloride) 50 mls @ 100 mls/hr IV Q12HR URBANO Stop: 07/10/25 20:59 Norepinephrine/Dextrose (Levophed In D5w 8mg/250ml) 8 mg in 250 mls @ 5.241 mls/hr IV .Q24H PRN; Protocol PRN Reason: PER PROTOCOL Stop: 08/02/25 15:17 Insulin Degludec (Insulin Degludec 5 Unit/0.05 Ml (Per 5 Units)) 15 unit SC QDAY [facility] Stop: 07/29/25 12:14 Last Admin: 07/03/25 09:36 Dose: 15 unit Insulin Human Lispro (Insulin Lispro (Admelog) 1 Unit/0.01 Ml Unit) 0 unit SC Q6HR URBANO; Protocol Stop: 07/30/25 01:14 Last Admin: 07/03/25 11:29 Dose: Not Given Lansoprazole (Lansoprazole 30 Mg Tab.Rap.Dr) 30 mg GT DAILY [facility] Stop: 08/02/25 09:14 Last Admin: 07/03/25 09:37 Dose: 30 mg Magnesium Hydroxide (Milk Of Magnesia Susp 30 Ml Udc) 30 ml GT DAILY PRN; Protocol PRN Reason: CONSTIPATION Stop: 08/02/25 09:06 Multivitamins/Minerals (Multivitamin 15 Ml Udc) 15 ml GT QDAY [facility] Stop: 08/02/25 09:14 Last Admin: 07/03/25 09:37 Dose: 15 ml Sennosides (Senna Tablet) 1 tab PO BID PRN; Protocol PRN Reason: CONSTIPATION Stop: 07/29/25 12:10 Sodium Chloride (Sodium Cl Rt Adriana 3% 4 Ml Nebu (Non-Formulary)) 4 ml INH Q4HRRT [facility] Stop: 07/30/25 10:59 Last Admin: 07/03/25 14:26 Dose: 4 ml Sodium Phosphate (Sodium Phos,[place]dale-Dibasic 133 Ml (Fleet) Enema Btl) 133 ml RC QDAY PRN; Protocol PRN Reason: constipation Discontinued Medications Lactated Ringer's (Lactated Ringers) 1,000 mls @ 999 mls/hr IV .Q1H1M ONE Stop: 06/29/25 08:40 Last Infusion: 06/29/25 11:53 Dose: Infused Piperacillin/Tazobactam/Dextrose (Zosyn) 3.375 gm in 50 mls @ 100 mls/hr IV X1 ONE Stop: 06/29/25 08:09 Last Infusion: 06/29/25 09:50 Dose: Infused Lactated Ringer's (Lactated Ringers) 500 mls @ 999 mls/hr IV .Q31M ONE Stop: 06/29/25 08:52 Last Admin: 06/29/25 09:50 Dose: Not Given Sodium Chloride (Ns) 1,000 mls @ 999 mls/hr IV .Q1H1M ONE Stop: 06/29/25 10:00 Last Infusion: 06/29/25 10:20 Dose: Infused Vancomycin/Sodium Chloride (Vancomycin/Ns 1 Gm Ivpb) 200 mls @ 120 mls/hr IV X1 ONE Stop: 06/29/25 10:54 Last Infusion: 06/29/25 12:06 Dose: Infused Sodium Chloride (Ns) 1,000 mls @ 50 mls/hr IV .Q20H URBANO Stop: 07/29/25 12:14 Last Infusion: 06/29/25 17:06 Dose: 0 mls/hr Piperacillin Sod/Tazobactam (Sod 3.375 gm/ Sodium Chloride) 100 mls @ 200 mls/hr IV Q8HR URBANO; Protocol Stop: 07/06/25 21:59 Piperacillin/Tazobactam/Dextrose (Zosyn) 3.375 gm in 50 mls @ 12.5 mls/hr IV Q8HR URBANO; Protocol Stop: 07/06/25 21:59 Last Admin: 07/03/25 05:56 Dose: 12.5 mls/hr Vancomycin/Sodium Chloride (Vancomycin/Ns 1 Gm Ivpb) 200 mls @ 120 mls/hr IV QDAY@1000 U[facility]ANO Stop: 07/07/25 09:59 Last Admin: 07/02/25 11:43 Dose: Not Given Dextrose (D5w) 1,000 mls @ 50 mls/hr IV .Q20H ONE Stop: 06/30/25 12:38 Last Admin: 06/29/25 17:18 Dose: 50 mls/hr Potassium Chloride (Kcl Ivpb) 10 meq in 100 mls @ 100 mls/hr IV Q1H URBANO Stop: 06/30/25 11:19 Last Admin: 06/30/25 11:44 Dose: 100 mls/hr Sodium Chloride (Ns) 500 mls @ 999 mls/hr IV .Q31M ONE Stop: 07/03/25 12:28 Lactated Ringer's (Lactated Ringers) 500 mls @ 999 mls/hr IV .Q31M ONE Stop: 07/03/25 12:29 Last Admin: 07/03/25 12:00 Dose: 999 mls/hr Lactated Ringer's (Lactated Ringers) 1,000 mls @ 999 mls/hr IV .Q1H1M ONE Stop: 07/03/25 13:46 Last Admin: 07/03/25 13:43 Dose: 999 mls/hr Lactated Ringer's (Lactated Ringers) 1,000 mls @ 999 mls/hr IV .Q1H1M ONE Stop: 07/03/25 14:42 Insulin Human Lispro (Insulin Lispro (Admelog) 1 Unit/0.01 Ml Unit) 0 unit SC AC URBANO; Protocol Stop: 07/29/25 16:59 Last Admin: 06/29/25 17:12 Dose: Not Given Insulin Human Regular (Insulin Hum Regular 1 Unit/0.01 Ml (Per Unit)) 5 unit IV X1 ONE Stop: 06/29/25 10:05 Last Admin: 06/29/25 10:42 Dose: Not Given Pharmacy Consult (Vancomycin Pharmacy To Dose 1 Each Each) 1 each IV X1 ONE Stop: 06/29/25 09:02 Last Admin: 06/29/25 10:26 Dose: 1 each Pharmacy Consult (Vancomycin Pharmacy To Dose 1 Each Each) 1 each IV QDAY PRN PRN Reason: PROTOCOL Stop: 07/30/25 08:59 Potassium Chloride (Potassium Chloride 10% 20 Meq/15 Ml Udc) 40 meq GT X1 ONE Stop: 06/30/25 08:16 Last Admin: 06/30/25 08:12 Dose: 40 meq Sodium Chloride (Sodium Chloride Rt 10% 15 Ml Nebu) 5 ml INH X1 ONE Stop: 06/29/25 16:21 Last Admin: 06/29/25 16:56 Dose: Not Given Assessment & Plan Plan Patient is a 55-year-old female with PMH of insulin-dependent T2DM, developmental delay, chronically bedbound with indwelling Mina catheter and recurrent UTIs, chronic PEG tube, 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 on 06/29 for respiratory distress. Admitted for sepsis secondary to pneumonia versus UTI, transferred to the ICU for refractory hypotension and pressor requirement. Neuro stable no acute problems Cerebral Palsy 2/2 Congenital Rubella CV Shock Ddx Distributive (sepsis) vs Hypovolemic Dx patient received 2L LR bolus, and was unresponsive to fluids, she continued to be hypotensive. IVC visualized on formal Renal US by human resources technician, that measured 1.54cm, and noncollapsable wth minimal variation with inspiration, breathing with normal respiratory effort. Rx Levofed, based on pocus of IVC, IVC is noncollapsable on inspiration so no fluid is indicated at this time. treat underlying sepsis with Meropenem. Rxx: if shock persists, or requires increased pressors, consider other etioloties of shock, ie obstructive vs cardiogenic, patient has no history of heart disease echo in 07/2024 with EF 55-60%. Pulm Acute hypoxic respiratory failure secondary to Bilateral pneumonia, klebsiella and psudomonas Ddx Health care assciated PNA Dx patient lives in SNF, has had recurrent PNA, Sputum cultures positive for Klebsiella and Pseudomonas Rx Meropenem 07/03, consider adding vanc or doxy for MRSA coverage. Cocci igm pending Rxx if oxygen requirements increase, and work of breathing becomes more labored, consider intubation. GI Chronic PEG tube dependence Rx hold tube feeds iso septic shock, currently on pressors, consider resuming feeds if pressor requirement does not increase PEG Tube Site puralent cellulitis patient with chronic peg tube, there is puralent drainage expressed from the site on exam. she has errythema at the base and yellow crusting around the tube. Rx: clean and redress peg tube site with clean 4x4. continue meropenem Renal Prerenal/ obstructive BREANNA Bilateral Hydronephrosis L>R Bilateral Renal Calculi Ddx sepsis vs dehydration vs postrenal Dx patient did not receive any fluid yesterday, she subsequently recieved 2L bolus of LR, given hypotension, patient is bedbound with muscle atrophy with Cr 1.0 up from baseline of 0.4. Renal US with bilateral hydronephrosis L>R. Rx was given 2 L fluid bolus today, follow up with AM renal panels to reassess if renal fx improves, consider cystatin C given Cr is a poor marker in a patient with low muscle mass, consider nephrostomy tubes given hydronephrosis with urine output adequate through mina Endo Insulin Dependent T2DM - well controlled Dx A1c 5.1 in 07/2024 Rx q6hr blood sugar checks, SSI step1, Degludec 15 U qd Chronic Indwelling Mina Colonization of Urine UTI Ddx Colonized vs Active infection Dx Urine cultures positive for Pseudomonas and Morganella, previously on zosyn (06/29- 07/03), US renal with mina visualized low in the bladder, concerning for malposition, but continues to drain appropriately. Rx Meropenem (07/03- ) Rxx if septic shock does not improve consider other source of infections vs biofilm that is multidrug resistant. HEME Chronic normocytic Anemia Ddx: anemia of chronic disease, vs blood loss anemia less likely Dx: no obvious signs of bleeding, stable Rx: Daily CBC, CTM for signs of bleeding. MSK Contractures Ddx secondary to chronic condition and bedbound Rx Padding of extremities, Skin concern for pressure ulcers Ddx patient is bedbound, so concern for pressure ulcers, and skin breakdown with transfers Dx Thourough physical exam Rx wound care consulted, appreciate recs , frequent repositioning. multivitamin qd per g tube, vit C qd Dispo:Admitted to ICU for refractory hypotension and pressors. Diet: NPO, has chronic peg tube Lines: PIV, mina VTE ppx: Heparin 5000 q8hr GI ppx: lansoprazole 30 qd Bowel Reg: Senna 1tab qd prn , milk of mag per GTube Code status: DNR Case disclosed with my senior resident Dr. Stack and my Attending Dr. Anjali Hartman MD PGY1
[2025-07-03] MEDS: Norepinephrine/D5W 8mg/250ml 8 MG/250 ML BAG 5.241 MG IV (15:30)
[2025-07-03] MEDS: ATORVASTATIN CALCIUM 10 MG TABLET GT (20:36)
[2025-07-03] MEDS: MEROPENEM INJ 1,000 MG in SODIUM CHLORIDE 0.9% (Popper) 50 ML 100 MG IV (20:42)
[2025-07-03 21:26] LABS: Lactate (Lactic Acid) 0.6 mMol/L (0.4-2.0)
[2025-07-04] VITALS (50 sets, daily range): BP systolic 70–139; BP diastolic 44–76; PULSE 61–107; RESP 12–25; TEMP 35.9–36.8; O2SAT 87–100
[2025-07-04] MEDS: SODIUM CL RT SOL 3% 4 ML NEBU (NON-FORMULARY) INH ×6 (02:25→22:55)
[2025-07-04 05:19] LABS: Lactate (Lactic Acid) 1.1 mMol/L (0.4-2.0)
[2025-07-04 05:25] LABS: Basophils # (Auto) 0.0 Thou/mm3 (0.0-0.2); Basophils % (Auto) 1 % (0-2.5); Eosinophils # (Auto) 0.3 Thou/mm3 (0.0-0.5); Eosinophils % (Auto) 4 % (0-10); Hematocrit 28.1 % (36.0-46.0); Immature Granulocytes Auto 0.11 Thou/mm3 (0.00-0.00); Lymphocytes # (Auto) 1.4 Thou/mm3 (1.0-4.8); Lymphocytes % (Auto) 21 % (10-50); Mean Corpuscular HGB Conc 29.2 g/dl (31.0-37.0); Mean Corpuscular Hemoglobin 28.7 pg (25.0-35.0); Mean Corpuscular Volume 98 fL (80-100); Monocytes # (Auto) 0.5 Thou/mm3 (0.0-0.8); Monocytes % (Auto) 7 % (0-12); Neutrophils # (Auto) 4.4 Thou/mm3 (1.8-7.7); Neutrophils % (Auto) 66 % (37-80); Nucleated Red Blood Cell # 0.00 Thou/mm3 (0.00-0.00); Nucleated Red Blood Cell % 0 /100 WBC (0); Platelet Count 311 Thou/mm3 (140-440); RDW Standard Deviation 64.5 fL (36.4-46.3); Red Blood Count 2.86 Miln/mm3 (4.00-5.20); White Blood Count 6.7 Thou/mm3 (3.6-11.0)
[2025-07-04 05:28] LABS: Hemoglobin 8.2 g/dL (12.0-16.0)
[2025-07-04 05:42] LABS: INR 1.0 (0.9-1.3); Partial Thromboplastin Time 20.9 Seconds (22.0-36.0); Prothrombin Time 10.4 Seconds (9.0-12.2)
[2025-07-04 05:50] LABS: Alanine Aminotransferase 16 U/L (10-49); Albumin, Serum 3.3 gm/dL (3.5-5.0); Albumin/Globulin Ratio 0.8 (1.2-2.2); Alkaline Phosphatase 102 U/L (46-116); Anion Gap 10 (7-16); Aspartate Amino Transferase 23 U/L (0-34); BUN/Creatinine Ratio 29 Ratio (12-20); Bilirubin,Total 0.2 mg/dL (0.3-1.2); Blood Urea Nitrogen 20 mg/dL (9-23); Calcium 9.1 mg/dL (8.3-10.6); Calcium (Corrected) 9.7 mg/dL (8.5-10.1); Carbon Dioxide 39.3 mMol/L (20.0-31.0); Chloride 96 mMol/L (98-107); Creatinine (Component) 0.7 mg/dL (0.6-1.3); Estimated Creatinine Clearance 70.1 mL/min (>60); Globulin 4.0 gm/dL (2.3-3.5); Glucose 82 mg/dL (74-106); Magnesium 1.7 mg/dL (1.6-2.6); Osmolality,Calculated 290 (275-295); Phosphorous 3.8 mg/dL (2.4-5.1); Potassium 3.9 mMol/L (3.4-5.1); Sodium 145 mMol/L (136-145); Total Protein 7.3 gm/dL (5.7-8.2); eGFR > 60 See Note
[2025-07-04] MEDS: HEPARIN SOD INJ 5000 UNIT/ML VIAL SC ×3 (05:58→21:07)
[2025-07-04 06:09] LABS: Glucose Estimated Average 140 mg/dL (80-131); Hemoglobin A1C 6.5 % Hgb (4.8-6.0)
[2025-07-04] MEDS: Magnesium Sulfate 2 GM Ivpb 2 GM/50 ML BAG IV (07:15)
--- NOTE | 2025-07-04 07:16 | CHAP ---
Patient was visited by a Spiritual Care Volunteer on 07/03/2025 between 0900 and 1130 and reeived comfort, encouragement and/or prayer.
--- NOTE | 2025-07-04 07:56 | ESPR_ITS ---
Subjective Subjective Interval history: 2nd pt who is dnr on ID service. prior false pos cocci noted. in aug. repeated anyway by primary team. on merrem for r kleb in sputum. cxr abnormal but no viral testing done. afebrile. Exam Vital Signs Temp Pulse Resp BP Pulse Ox O2 Del Method O2 Flow Rate 97.5 F 94 20 97/69 98 Oxy Mask 3 07/04/25 04:00 07/04/25 07:38 07/04/25 07:38 07/04/25 07:00 07/04/25 07:38 07/04/25 04:00 07/04/25 07:38 FiO2 0 07/03/25 13:40 Narrative Exam not interactive see prior notes for details. lives at a care center. procal high on admit but that is a chemical that is renally cleared so will recheck it and if normal, please get a viral panel at the health dept Objective - Internal Medicine Labs 07/04/25 04:37 07/04/25 04:37 Labs: Laboratory Results - last 24 hr 07/03/25 07/03/25 07/04/25 12:33 21:03 04:37 WBC 6.7 RBC 2.86 L Hgb 8.2 L Hct 28.1 L MCV 98 MCH 28.7 MCHC 29.2 L RDW Std Deviation 64.5 H Plt Count 311 Neut % (Auto) 66 Lymph % (Auto) 21 [place] % (Auto) 7 Eos % (Auto) 4 Baso % (Auto) 1 Neut # (Auto) 4.4 Lymph # (Auto) 1.4 [place] # (Auto) 0.5 Eos # (Auto) 0.3 Baso # (Auto) 0.0 Immature Gran # (Auto) 0.11 H Absolute Nucleated RBC 0.00 Immature Gran % 2 H Nucleated RBC % 0 PT 10.4 INR 1.0 APTT 20.9 L VBG pH 7.42 VBG pCO2 33 L VBG pO2 91 H VBG O2 Sat (Keshia) 93 L VBG Base Excess -2 Sodium 145 Potassium 3.9 Chloride 96 L Carbon Dioxide 39.3 H Anion Gap 10 BUN 20 Creatinine 0.7 Estim Creat Clear Calc 70.1 eGFR > 60 BUN/Creatinine Ratio 29 H [address] Glu mg/dL 140 H Hemoglobin A1c 6.5 H Calculated Osmolality 290 Lactic Acid 0.8 0.6 Calcium 9.1 Corrected Calcium 9.7 Phosphorus 3.8 Magnesium 1.7 Total Bilirubin 0.2 L AST 23 ALT 16 Alkaline Phosphatase 102 D Total Protein 7.3 Albumin 3.3 L Globulin 4.0 H Albumin/Globulin Ratio 0.8 L 07/04/25 04:57 WBC RBC Hgb Hct MCV MCH MCHC RDW Std Deviation Plt Count Neut % (Auto) Lymph % (Auto) [place] % (Auto) Eos % (Auto) Baso % (Auto) Neut # (Auto) Lymph # (Auto) [place] # (Auto) Eos # (Auto) Baso # (Auto) Immature Gran # (Auto) Absolute Nucleated RBC Immature Gran % Nucleated RBC % PT INR APTT VBG pH VBG pCO2 VBG pO2 VBG O2 Sat (Keshia) VBG Base Excess Sodium Potassium Chloride Carbon Dioxide Anion Gap BUN Creatinine Estim Creat Clear Calc eGFR BUN/Creatinine Ratio Glucose Estimated Ave Glu mg/dL Hemoglobin A1c Calculated Osmolality Lactic Acid 1.1 Calcium Corrected Calcium Phosphorus Magnesium Total Bilirubin AST ALT Alkaline Phosphatase Total Protein Albumin Globulin Albumin/Globulin Ratio ABG Interpretation ABG results: 06/29/25 07/01/25 07/03/25 08:02 10:58 12:33 ABG pH 7.45 ABG pCO2 66 H ABG pO2 109 H ABG HCO3 46 H ABG O2 Saturation 98 ABG Base Excess 20 H VBG pH 7.61 7.42 VBG pCO2 51 33 L VBG pO2 60 H 91 H VBG Base Excess 26 H -2 Assessment & Plan A&P Narrative pos sputum cx in dnr pt with neg gram stain hx of candidemia with neg f/u bc dnr status likely restrictive lung disease please send a viral panel to health dept if procal neg tomorrow and ask lab not to run procal if creat >1.2 in future Time Spent With Patient Time: Total time spent is greater than 50% in coordination of care (as documented) at patient's floor/unit and/or counseling patient:
[2025-07-04] MEDS: ASCORBIC ACID 250 MG TABLET 500 MG GT (08:12)
[2025-07-04] MEDS: MULTIVITAMIN 15 ML UDC GT (08:12)
[2025-07-04] MEDS: LANSOPRAZOLE 30 MG TAB.RAP.DR GT (08:12)
[2025-07-04] MEDS: MEROPENEM INJ 1,000 MG in SODIUM CHLORIDE 0.9% (Popper) 50 ML 100 MG IV ×2 (08:13→20:51)
[2025-07-04] MEDS: MIDODRINE 5 MG TABLET 10 MG PO ×3 (09:43→21:07)
--- NOTE | 2025-07-04 10:56 | ESPR_ITS ---
<Statement entered by Juanpablo Alba MD - 07/19/25 08:33> TOTAL CC TIME: 45 MIN I saw and evaluated the patient. I reviewed the resident?s note and agree with findings and plan as documented in the resident?s note. Upon my evaluation, this patient had a high probability of imminent or life- threatening deterioration due to septic shock, which required my direct attention, intervention, and personal management. This time is exclusive of time spent on procedures, which are documented separately if performed. Levophed dose is being weaned, she was off but developed modest hypotension again. Keep in ICU until we can confirm she remains safely off Levophed. Continue midodrine. Continue current critical care treatment including fluid resuscitation when necessary, IV fluids antibiotics CPT for mucous plug prevention. Patient has prior imaging consistent with full right lung atelectasis due to mucous plugs which is she is at risk for due to her functional limitations. <Statement entered by Miky Chavez MD - 07/04/25 16:09> Patient examined and case discussed with the team including attending physician. Note reviewed, I agree with the care plan as documented. Please refer to the note below for further details. - Miky Chavez MD, PGY 3 Disclaimer: The document may contain phonetic/typographic errors due to voice recognition software. These errors are purely due to imperfections in the software program. 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 In the ED 06/29/25, patient was borderline hypotensive. She was afebrile. She was tachycardic as high as 140. She was hypoxic for which she was put on nonrebreather. Labs showed significant leukocytosis, elevated creatinine from baseline, elevated glucose, and UA suggesting UTI. Chest x-ray showed possible infiltrates. 07/03/25 Patient was upgraded to the ICU after rapid response for hypotension, despite fluid boluses. she was initiated on levofed, and abx were broadened to meropenem from zosyn, her pressor requirements have been minimal, and there has been some variation in BP cuff positioning upper arm vs forearm. She has some puralent drainage at the peg tube site with an errytematous base. Renal US shows bilateral hydronephrosis L>R with renal calculi present bilaterally. 07/04/2025: Patient seen and examined at bedside. she remains on the oxy mask 4- 5 L, she mouth breaths and has copius secretions, She continues on meropenem. Her sepsis is improving and she was weaned off levofed. resumed tube feeds and free water flushes though the tube. Her sugars have been low, likely in setting of nothing per G tube for the past 24 hrs. sliding scale insulin and will consider holding pm degludec dose if sugars remain low. Exam Vital Signs Temp Pulse Resp BP Pulse Ox O2 Del Method O2 Flow Rate 96.7 F L 73 20 107/49 L 100 Oxy Mask 4 07/04/25 08:00 07/04/25 10:16 07/04/25 10:16 07/04/25 10:00 07/04/25 10:16 07/04/25 08:00 07/04/25 10:16 FiO2 0 07/03/25 13:40 Narrative Exam General: A&O x0. in no acute distress Eyes: Does not open her eyes spontaneously. bilateral cataracts. HEENT: Atraumatic, normocephalic. Mucous membranes appear to be dry Cardiovascular: Normal S1 and S2. RRR. No murmurs, peripheral pitting edema, or JVD noted. Respiratory: Coarse crackles and rhonchi bilaterally. Abdomen: Soft, nontender, nondistended. PEG tube in place appears intact, with errythema at the base and some mucus draining. Skin: No rash. 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 No pedal edema. Neuro: A&O x0. Cannot fully assess her neuro status given her baseline clinical condition Psych: Deferred Objective Labs 07/04/25 04:37 07/04/25 04:37 Labs: Laboratory Results - last 24 hr 07/03/25 07/03/25 07/04/25 12:33 21:03 04:37 WBC 6.7 RBC 2.86 L Hgb 8.2 L Hct 28.1 L MCV 98 MCH 28.7 MCHC 29.2 L RDW Std Deviation 64.5 H Plt Count 311 Neut % (Auto) 66 Lymph % (Auto) 21 [place] % (Auto) 7 Eos % (Auto) 4 Baso % (Auto) 1 Neut # (Auto) 4.4 Lymph # (Auto) 1.4 [place] # (Auto) 0.5 Eos # (Auto) 0.3 Baso # (Auto) 0.0 Immature Gran # (Auto) 0.11 H Absolute Nucleated RBC 0.00 Immature Gran % 2 H Nucleated RBC % 0 PT 10.4 INR 1.0 APTT 20.9 L VBG pH 7.42 VBG pCO2 33 L VBG pO2 91 H VBG O2 Sat (Keshia) 93 L VBG Base Excess -2 Sodium 145 Potassium 3.9 Chloride 96 L Carbon Dioxide 39.3 H Anion Gap 10 BUN 20 Creatinine 0.7 Estim Creat Clear Calc 70.1 eGFR > 60 BUN/Creatinine Ratio 29 H Glucose [address] Glu mg/dL 140 H Hemoglobin A1c 6.5 H Calculated Osmolality 290 Lactic Acid 0.8 0.6 Calcium 9.1 Corrected Calcium 9.7 Phosphorus 3.8 Magnesium 1.7 Total Bilirubin 0.2 L AST 23 ALT 16 Alkaline Phosphatase 102 D Total Protein 7.3 Albumin 3.3 L Globulin 4.0 H Albumin/Globulin Ratio 0.8 L 07/04/25 04:57 WBC RBC Hgb Hct MCV MCH MCHC RDW Std Deviation Plt Count Neut % (Auto) Lymph % (Auto) [place] % (Auto) Eos % (Auto) Baso % (Auto) Neut # (Auto) Lymph # (Auto) [place] # (Auto) Eos # (Auto) Baso # (Auto) Immature Gran # (Auto) Absolute Nucleated RBC Immature Gran % Nucleated RBC % PT INR APTT VBG pH VBG pCO2 VBG pO2 VBG O2 Sat (Keshia) VBG Base Excess Sodium Potassium Chloride Carbon Dioxide Anion Gap BUN Creatinine Estim Creat Clear Calc eGFR BUN/Creatinine Ratio Glucose Estimated Ave Glu mg/dL Hemoglobin A1c Calculated Osmolality Lactic Acid 1.1 Calcium Corrected Calcium Phosphorus Magnesium Total Bilirubin AST ALT Alkaline Phosphatase Total Protein Albumin Globulin Albumin/Globulin Ratio ABG Interpretation ABG results: 06/29/25 07/01/25 07/03/25 08:02 10:58 12:33 ABG pH 7.45 ABG pCO2 66 H ABG pO2 109 H ABG HCO3 46 H ABG O2 Saturation 98 ABG Base Excess 20 H VBG pH 7.61 7.42 VBG pCO2 51 33 L VBG pO2 60 H 91 H VBG Base Excess 26 H -2 Quality Measures Quality Measures VTE prophylaxis and sepsis Current suspected stage: sepsis Possible source: genitourinary Blood cultures ordered: yes (NGTD ) Antibiotic ordered: Yes Assessment & Plan Assessment Current Active Medications: Generic Name Dose Route Start Last Admin Trade Name Freq PRN Reason Stop Dose Admin Ascorbic Acid 500 mg 07/03/25 09:15 07/04/25 08:12 Ascorbic Acid 250 Mg Tablet GT 08/02/25 09:14 500 mg QDAY URBANO Administration Atorvastatin Calcium 10 mg 07/03/25 21:00 07/03/25 20:36 Atorvastatin Calcium 10 Mg Tablet GT 08/02/25 20:59 10 mg HS URBANO Administration Bisacodyl 10 mg 07/03/25 09:07 Bisacodyl [address] 08/02/25 09:06 QDAY PRN CONSTIPATION Protocol Glucagon 1 mg 06/29/25 12:14 Glucagon Inj 1 Mg Vial IM Q15MIN PRN BG <70, and no IV access Heparin Sodium (Porcine) 5,000 unit 06/29/25 14:00 07/04/25 05:58 Heparin Sod Inj 5000 Unit/Ml Vial SC 07/13/25 13:59 5,000 unit Q8HR URBANO Administration Meropenem 1,000 mg/ Sodium 50 mls @ 100 mls/hr 07/03/25 21:00 07/04/25 08:13 Chloride IV 07/10/25 20:59 100 mls/hr Q12HR URBANO Administration Norepinephrine/Dextrose 8 mg in 250 mls @ 5.241 mls/hr 07/03/25 15:18 07/04/25 07:30 Levophed In D5w 8mg/250ml IV 08/02/25 15:17 0 mcg/kg/min .Q24H PRN 0 mls/hr PER PROTOCOL Titration Protocol 0.05 MCG/KG/MIN Insulin Degludec 15 unit 07/04/25 21:00 Insulin Degludec 5 Unit/0.05 Ml (Per 5 Units) SC 08/03/25 20:59 HS URBANO Insulin Human Lispro 0 unit 06/30/25 01:15 07/04/25 05:51 Insulin Lispro (Admelog) 1 Unit/0.01 Ml Unit SC 07/30/25 01:14 Not Given Q6HR URBANO Protocol Lansoprazole 30 mg 07/03/25 09:15 07/04/25 08:12 Lansoprazole 30 Mg Tab. GT 08/02/25 09:14 30 mg DAILY URBANO Administration Magnesium Hydroxide 30 ml 07/03/25 09:07 Milk Of Magnesia Susp 30 Ml Udc GT 08/02/25 09:06 DAILY PRN CONSTIPATION Protocol Midodrine 10 mg 07/04/25 09:15 07/04/25 09:43 Midodrine 5 Mg Tablet PO 08/03/25 09:14 10 mg TID URBANO Administration Multivitamins/Minerals 15 ml 07/03/25 09:15 07/04/25 08:12 Multivitamin 15 Ml Udc GT 08/02/25 09:14 15 ml QDAY URBANO Administration Sennosides 1 tab 06/29/25 12:11 Senna Tablet PO 07/29/25 12:10 BID PRN CONSTIPATION Protocol Sodium Chloride 4 ml 06/30/25 11:00 07/04/25 10:15 Sodium Cl Rt Adriana 3% 4 Ml Nebu (Non-Formulary) INH 07/30/25 10:59 4 ml Q4HRRT URBANO Administration Sodium Phosphate 133 ml 07/03/25 09:07 Sodium Phos,[place]-Dibasic 133 Ml (Fleet) Enema Btl RC QDAY PRN constipation Protocol Plan Patient is a 55-year-old female with PMH of insulin-dependent T2DM, developmental delay, chronically bedbound with indwelling Mina catheter and recurrent UTIs, chronic PEG tube, 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 Admitted for sepsis secondary to pneumonia versus UTI, transferred to the ICU for refractory hypotension and pressor requirement, downgraded from the ICU Neuro stable no acute problems Cerebral Palsy 2/2 Congenital Rubella CV Shock - resolved Ddx Distributive (sepsis) Dx overnight she was on low dose levofed that was discontinued in the AM, Rx Continue underlying sepsis with Meropenem. 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 per the [place] [employer] and [employer] [place], recommend a minimum of 7 days of abx coverage for pna due to proven pseudamonas regardless of colonized status. Rx Meropenem 07/03- (plan for 7 day course), Cocci igm pending GI Chronic PEG tube dependence Rx resume peg tube feeds with gevity 1.2, and free water flushes q2hr 80cc. PEG Tube Site puralent cellulitis patient with chronic peg tube, there is puralent drainage expressed from the site on exam. she has errythema at the base Rx: clean and redress peg tube site with clean 4x4. continue meropenem, continue to monitor for worsening signs of infection Renal Prerenal BREANNA (improving) Bilateral Hydronephrosis L>R Bilateral Renal Calculi nonobstructive Ddx sepsis vs dehydration vs postrenal Dx patient is bedbound with muscle atrophy baseline of 0.4-->1.0-->0.7. Renal US with bilateral hydronephrosis L>R. Rx Jevity with free water flushes, consider cystatin C given Cr is a poor marker in a patient with low muscle mass, consider nephrostomy tubes given hydronephrosis with urine output adequate through mina Endo Insulin Dependent T2DM - well controlled Dx A1c 6.5 07/12, given the feeds had been held yesterday, her sugars were low. but anticipate normalization as tube feeds have been resumed. 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 HEME Chronic normocytic Anemia Ddx: anemia of chronic disease, vs blood loss anemia less likely Dx: no obvious signs of bleeding, stable Rx: Daily CBC, CTM for signs of bleeding. MSK Contractures Ddx secondary to chronic condition and bedbound Rx Padding of extremities, Skin concern for pressure ulcers Ddx patient is bedbound, so concern for pressure ulcers, and skin breakdown with transfers Dx Thorough physical exam Rx wound care consulted, appreciate recs , frequent repositioning. multivitamin qd per g tube, vit C qd Dispo:Admitted to ICU for refractory hypotension and pressors, stable and downgraded from the ICU> Diet: Resume jevity tube feeds with free water flushes Lines: PIV, mina VTE ppx: Heparin 5000 q8hr GI ppx: lansoprazole 30 qd Bowel Reg: Senna 1tab qd prn , milk of mag per GTube Code status: DNR Case disclosed with my senior resident Dr. Chavez and my Attending Dr. Anjali Hartman MD PGY1
[2025-07-04 14:18] LABS: Cocid Sro, CF/ID (UCD) NO CHG* See Sep Rpt
[2025-07-04 14:18] LABS: Cocci Serology, IgM Positive (Negative)
--- NOTE | 2025-07-04 14:40 | PD.ADDPROG ---
Addendum Progress Note Addendum Date of report being addended: 07/04/25 Narrative: pleas do not repeat the sputum cx. it will be more R as you are treating her.
--- NOTE | 2025-07-04 15:16 | ESPR_ITS ---
<Statement entered by Francisco Maxwell MD - 07/04/25 17:11> I saw and examined patient personally and supervised PGY 1 resident, Dr. Doshi with formulating a management plan. I agree with the documentation with the exceptions as listed below. On 07/03 patient was hypotensive after adequate fluid resuscitation and was upgraded to the ICU for norepinephrine infusion. Over the course of 6 hours norepinephrine infusion was gradually weaned off. Patient currently is still on meropenem 1 g IV twice daily for MDR UTI and pneumonia. Patient currently clinically stable for downgrade to telemetry. Procalcitonin on admission elevated at 4.51, repeat for 07/05 is pending. If procalcitonin is negative, will send a viral panel to the public health department as per infectious disease recommendations. Infectious disease, Dr Goyal consulted, appreciate recommendations. Plan of care discussed with Attending Dr. Florentin Maxwell MD PGY 2 Disclaimer: This note was dictated by speech recognition. Minor errors in hogshead stripper may be present due to voice recognition software. Documentation for date of: 07/04/25 Subjective Subjective Interval history: Patient seen and examined at bedside; no acute events overnight. Downgraded from ICU to floors today. Levophed taken off, tube feeds restarted. A1c 6.5. Cellulitis around PEG tube. Exam Vital Signs Temp Pulse Resp BP Pulse Ox O2 Del Method O2 Flow Rate 97.6 F 71 20 103/44 L 100 Oxy Mask 4 07/04/25 12:00 07/04/25 14:35 07/04/25 14:35 07/04/25 14:10 07/04/25 14:35 07/04/25 12:00 07/04/25 14:35 FiO2 0 07/03/25 13:40 Narrative Exam General: A/O x0, no acute distress, well-nourished, well-developed Eyes: PERRL, EOMI. Anicteric, vision grossly intact. Ears: No ear pain, no ear discharge, Hearing grossly intact. Nose: No nasal discharge. Mouth/Throat: Moist mucous membranes, no redness, no lesions. Neck: Neck supple, non-tender, no cervical lymphadenopathy. Lungs: KITTY coarse crackles, No accessory muscle use. Cardio: Normal S1/S2, regular rhythm, no murmurs, no JVD or carotid bruits. Abdomen: Soft, non-tender, no palpable masses, peristalsis present, no guarding or rebound. PEG tube present with cellulitis around insertion site. Extremities: significant contractures, no peripheral edema , non-tender, peripheral pulses present. Skin: No rashes, no lesions, warm to touch. Neuro: A&O x 0, cannot fully assess due to clinical condition. Psych: Cannot assess due to clinical condition. Objective Labs 07/05/25 04:57 07/05/25 04:51 Labs: Laboratory Results - last 24 hr 07/03/25 07/03/25 07/04/25 14:00 21:03 04:37 WBC 6.7 RBC 2.86 L Hgb 8.2 L Hct 28.1 L MCV 98 MCH 28.7 MCHC 29.2 L RDW Std Deviation 64.5 H Plt Count 311 Neut % (Auto) 66 Lymph % (Auto) 21 [place] % (Auto) 7 Eos % (Auto) 4 Baso % (Auto) 1 Neut # (Auto) 4.4 Lymph # (Auto) 1.4 [place] # (Auto) 0.5 Eos # (Auto) 0.3 Baso # (Auto) 0.0 Immature Gran # (Auto) 0.11 H Absolute Nucleated RBC 0.00 Immature Gran % 2 H Nucleated RBC % 0 PT 10.4 INR 1.0 APTT 20.9 L Sodium 145 Potassium 3.9 Chloride 96 L Carbon Dioxide 39.3 H Anion Gap 10 BUN 20 Creatinine 0.7 Estim Creat Clear Calc 70.1 eGFR > 60 BUN/Creatinine Ratio 29 H Glucose [address] Glu mg/dL 140 H Hemoglobin A1c 6.5 H Calculated Osmolality 290 Lactic Acid 0.6 Calcium 9.1 Corrected Calcium 9.7 Phosphorus 3.8 Magnesium 1.7 Total Bilirubin 0.2 L AST 23 ALT 16 Alkaline Phosphatase 102 D Total Protein 7.3 Albumin 3.3 L Globulin 4.0 H Albumin/Globulin Ratio 0.8 L Coccidioides IgM Ab Positive A 07/04/25 04:57 WBC RBC Hgb Hct MCV MCH MCHC RDW Std Deviation Plt Count Neut % (Auto) Lymph % (Auto) [place] % (Auto) Eos % (Auto) Baso % (Auto) Neut # (Auto) Lymph # (Auto) [place] # (Auto) Eos # (Auto) Baso # (Auto) Immature Gran # (Auto) Absolute Nucleated RBC Immature Gran % Nucleated RBC % PT INR APTT Sodium Potassium Chloride Carbon Dioxide Anion Gap BUN Creatinine Estim Creat Clear Calc eGFR BUN/Creatinine Ratio Glucose Estimated Ave Glu mg/dL Hemoglobin A1c Calculated Osmolality Lactic Acid 1.1 Calcium Corrected Calcium Phosphorus Magnesium Total Bilirubin AST ALT Alkaline Phosphatase Total Protein Albumin Globulin Albumin/Globulin Ratio Coccidioides IgM Ab ABG Interpretation ABG results: 06/29/25 07/01/25 07/03/25 08:02 10:58 12:33 ABG pH 7.45 ABG pCO2 66 H ABG pO2 109 H ABG HCO3 46 H ABG O2 Saturation 98 ABG Base Excess 20 H VBG pH 7.61 7.42 VBG pCO2 51 33 L VBG pO2 60 H 91 H VBG Base Excess 26 H -2 Quality Measures Quality Measures VTE prophylaxis and sepsis Current suspected stage: sepsis Possible source: genitourinary Blood cultures ordered: yes (NGTD ) Antibiotic ordered: Yes Assessment & Plan Assessment Current Active Medications: Generic Name Dose Route Start Last Admin Trade Name Freq PRN Reason Stop Dose Admin Ascorbic Acid 500 mg 07/03/25 09:15 07/04/25 08:12 Ascorbic Acid 250 Mg Tablet GT 08/02/25 09:14 500 mg QDAY URBANO Administration Atorvastatin Calcium 10 mg 07/03/25 21:00 07/03/25 20:36 Atorvastatin Calcium 10 Mg Tablet GT 08/02/25 20:59 10 mg HS URBANO Administration Bisacodyl 10 mg 07/03/25 09:07 Bisacodyl 10 Mg Supp ID 08/02/25 09:06 QDAY PRN CONSTIPATION Protocol Glucagon 1 mg 06/29/25 12:14 Glucagon Inj 1 Mg Vial IM Q15MIN PRN BG <70, and no IV access Heparin Sodium (Porcine) 5,000 unit 06/29/25 14:00 07/04/25 14:09 Heparin Sod Inj 5000 Unit/Ml Vial SC 07/13/25 13:59 5,000 unit Q8HR URBANO Administration Meropenem 1,000 mg/ Sodium 50 mls @ 100 mls/hr 07/03/25 21:00 07/04/25 08:13 Chloride IV 07/10/25 20:59 100 mls/hr Q12HR URBANO Administration Insulin Degludec 15 unit 07/04/25 21:00 Insulin Degludec 5 Unit/0.05 Ml (Per 5 Units) SC 08/03/25 20:59 HS URBANO Insulin Human Lispro 0 unit 06/30/25 01:15 07/04/25 12:08 Insulin Lispro (Admelog) 1 Unit/0.01 Ml Unit SC 07/30/25 01:14 Not Given Q6HR URBANO Protocol Lansoprazole 30 mg 07/03/25 09:15 07/04/25 08:12 Lansoprazole 30 Mg Tab. GT 08/02/25 09:14 30 mg DAILY URBANO Administration Magnesium Hydroxide 30 ml 07/03/25 09:07 Milk Of Magnesia Susp 30 Ml Udc GT 08/02/25 09:06 DAILY PRN CONSTIPATION Protocol Midodrine 10 mg 07/04/25 09:15 07/04/25 14:10 Midodrine 5 Mg Tablet PO 08/03/25 09:14 10 mg TID URBANO Administration Multivitamins/Minerals 15 ml 07/03/25 09:15 07/04/25 08:12 Multivitamin 15 Ml Udc GT 08/02/25 09:14 15 ml QDAY URBANO Administration Sennosides 1 tab 06/29/25 12:11 Senna Tablet PO 07/29/25 12:10 BID PRN CONSTIPATION Protocol Sodium Chloride 4 ml 06/30/25 11:00 07/04/25 14:34 Sodium Cl Rt Adriana 3% 4 Ml Nebu (Non-Formulary) INH 07/30/25 10:59 4 ml Q4HRRT URBANO Administration Sodium Phosphate 133 ml 07/03/25 09:07 Sodium Phos,[place]-Dibasic 133 Ml (Fleet) Enema Btl RC QDAY PRN constipation Protocol Plan Patient is a 55-year-old female with PMH of insulin-dependent T2DM, developmental delay, chronically bedbound with indwelling [place] catheter and recurrent UTIs, chronic PEG tube, 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 Admitted for sepsis secondary to pneumonia versus UTI. ? #Septic shock 2/2 #UTI and #Pneumonia #Acute hypotension SOFA score 6-7. Patient nonverbal which is her baseline for mentation. Her hourly urine output <35ml, oliquira. Skin cool, mild pallor, without mottling. Cap refill <2sec. VBG from 1230 had showen pH 7.42, pCO2 33, PaO2 91, O2 sat 93%. Sputum ctx positive for Klebsiella pneumoniae and MDR Pseudomonas aeruginosa Urine culture- pseudomonas, morganella +Total fluid boluses 56kg x30ml/kg*h =1.7L calculated. Plan: - Monitor BP closely. - Patient placed on meropenem 1g Q12h for 7 days starting on 07/03 - Midodrine 10 TID for BP support #Acute hypoxic respiratory failure secondary to #Bilateral pneumonia and #Coccidiomycosis infection Meets sepsis criteria; source UTI versus pneumonia History of Pseudomonas infection and recurrent UTIs IV vancomycin/Zosyn started in ED Initial CXR showed pulmonary vascular congestion 07/02: Coarse crackles on lung exam concerning for aspiration of tube feeds while being transported supine on bed to third floor.? NGT suction showed creamy aspirate. 07/03: continues to have coarse crackles and b/l rhonchi on exam. Sputum ctx positive for Klebsiella pneumoniae and MDR Pseudomonas aeruginosa Bcx negative after 48h MRSA screen (-) CXR showed Bilateral lung opacity most consistent with pneumonia Cocci IgM positive WBC today 6.7 Plan: Antibiotics as above Trend WBC Chest physiotherapy ? #BREANNA #Contraction Alkalosis #Prerenal Azotemia Likely prerenal in setting of dehydration versus intrinsic in the setting of UTI/sepsis. Creatinine 1.0 today, baeline 0.4-0.6. BUN 34, BUN/CR 34 Bicarbonate is consistently above 40 on labs, and pCo2 is 66 on ABG. Urine culture- pseudomonas, morganella VBG from 1230 had showen pH 7.42, pCO2 33, PaO2 91, O2 sat 93%. Plan: Continue IV fluids Avoid nephrotoxins, Renally dose medications, and avoid overdiuresis. BiPAP #Insulin-dependent diabetes mellitus A1c 6.5 Plan: Continue insulin degludec 15u plus sliding scale insulin Bedside fingerstick glucose checks #Developmental delay #Cerebral palsy secondary to congenital rubella #Bedbound #Status post PEG tube ? Plan: Consulted nutrition for tube feeds: Continuous feeds at 55 mL/h with 80mL/2h of water flushes Management of pain as needed Frequent positioning ? Disposition: Tele DVT prophylaxis: heparin 5000 subq q8h GI prophylaxis: Diet: glucerna 1.2 nini rth Lines: PIV, PEG CODE STATUS: DNR This case was discussed with my attending physician, Dr. Lerma, and senior resident, Dr Maxwell. Duke Doshi PGY1 Attending Provider Attestation/Addendum I have discussed and was present for the essential components of the history, physical examination, diagnosis, and treatment plan with the resident. I agree with the patient's care as documented by the resident and amended herein by me. Brayden Lerma, DO. Although this document has been carefully reviewed, there may still be some phonetic and other typographical errors. These errors are purely grammatical due to imperfections in the software program and should not be construed in any way to compromise the substance of the patient's medical care during this visit.
--- NOTE | 2025-07-04 15:55 | ESCONSULT_ITS ---
RE: FLORENCIA HOBSON : 1970 DATE OF CONSULTATION: 07/04/2025 REFERRING: Dr. Lerma and also Dr. Rm. REASON FOR CONSULTATION: Apparent pneumonia. HISTORY OF PRESENT ILLNESS: Patient is on a ventilator, or close to it. She is DNR. She is the second DNR patient I have this week on service. She is cared for at home, was being cared for by her family. She has been lately living at a nursing care center. She has had a feeding tube and has been listed as being a FULL code in the past. She was made DNR at one point and she still is now. She has a history of hyperlipidemia and hypertension and is seen by Dr. Lake. She is hypoxic and had a positive Valley fever test which turned out to be negative at [facility] earlier this year, but that test was repeated by the primary team. She does not leave the facility as far as I know, but we do not have a data on that, so we will go ahead and let the test go through. Procalcitonin was elevated on arrival, but she had renal insufficiency on arrival as well. She is on broad spectrum coverage with meropenem based on resistant sputum culture although gram stain was negative. I will check on her again on Wednesday. For now, I will leave her on the meropenem, but please note that the meropenem can produce seizures, as those who had seizures were excluded from the being in the initial studies. Patient was not an easy history in July either. I will try to call Dr. Carter. Her exam shows her to be encephalopathic, not interactive. There is no serious family history or social history noted. ASSESSMENT: 1. History of fungemia. 2. History of Valley fever possibility which is probably false positive based on [facility] serology in July or August of this year. 3. Apparent pneumonia. 4. mr/dd RECOMMENDATIONS: Patient's overall prognosis remains guarded. She is unlikely to survive much longer, but she may. Antibiotics are reasonable. Meropenem is reasonable based on the cultures. Please note that 7 days of treatment is all that is usually needed even for resistant gram-negative rods. Please do not repeat the sputum cultures. I will call [facility] in a few days. This is probably a false positive as she does not leave the house much as far as I noted previously. DT: 14:44:53 TT: 15:55:00 Ref: [id number] - TID: [id number] MTDD
[2025-07-04] MEDS: ATORVASTATIN CALCIUM 10 MG TABLET GT (20:50)
[2025-07-04] MEDS: INSULIN DEGLUDEC 5 UNIT/0.05 ML (PER 5 UNITS) 15 UNIT SC (20:50)
[2025-07-05] VITALS (19 sets, daily range): BP systolic 86–127; BP diastolic 44–78; PULSE 57–81; RESP 13–20; TEMP 36–36.6; O2SAT 97–100
[2025-07-05] MEDS: SODIUM CL RT SOL 3% 4 ML NEBU (NON-FORMULARY) INH ×6 (03:45→22:21)
[2025-07-05 05:30] LABS: Basophils # (Auto) 0.0 Thou/mm3 (0.0-0.2); Basophils % (Auto) 1 % (0-2.5); Eosinophils # (Auto) 0.3 Thou/mm3 (0.0-0.5); Eosinophils % (Auto) 5 % (0-10); Hematocrit 25.4 % (36.0-46.0); Immature Granulocytes Auto 0.07 Thou/mm3 (0.00-0.00); Lymphocytes # (Auto) 1.9 Thou/mm3 (1.0-4.8); Lymphocytes % (Auto) 32 % (10-50); Mean Corpuscular HGB Conc 28.3 g/dl (31.0-37.0); Mean Corpuscular Hemoglobin 27.9 pg (25.0-35.0); Mean Corpuscular Volume 98 fL (80-100); Monocytes # (Auto) 0.6 Thou/mm3 (0.0-0.8); Monocytes % (Auto) 9 % (0-12); Neutrophils # (Auto) 3.1 Thou/mm3 (1.8-7.7); Neutrophils % (Auto) 52 % (37-80); Nucleated Red Blood Cell # 0.02 Thou/mm3 (0.00-0.00); Nucleated Red Blood Cell % 0 /100 WBC (0); Platelet Count 264 Thou/mm3 (140-440); RDW Standard Deviation 64.1 fL (36.4-46.3); Red Blood Count 2.58 Miln/mm3 (4.00-5.20); White Blood Count 5.9 Thou/mm3 (3.6-11.0)
[2025-07-05 05:33] LABS: Hemoglobin 7.2 g/dL (12.0-16.0)
[2025-07-05] MEDS: MIDODRINE 5 MG TABLET 10 MG PO ×3 (05:46→21:16)
[2025-07-05] MEDS: HEPARIN SOD INJ 5000 UNIT/ML VIAL SC ×3 (05:46→21:14)
[2025-07-05 06:19] LABS: Magnesium 2.2 mg/dL (1.6-2.6); Phosphorous 3.3 mg/dL (2.4-5.1); Procalcitonin 0.24 ng/ml (0.0-0.49)
--- NOTE | 2025-07-05 07:49 | PC.NURSE ---
Blood pressure 100/44 with map of 60. Dr. Hans manuel MD to place orders.
[2025-07-05] MEDS: RINGERS LACTATED 1000 ML 1,000 ML 999 ML IV (08:01)
[2025-07-05 08:21] LABS: Alanine Aminotransferase 15 U/L (10-49); Albumin, Serum 2.7 gm/dL (3.5-5.0); Albumin/Globulin Ratio 0.8 (1.2-2.2); Alkaline Phosphatase 92 U/L (46-116); Anion Gap 8 (7-16); Aspartate Amino Transferase 18 U/L (0-34); BUN/Creatinine Ratio 33 Ratio (12-20); Bilirubin,Total < 0.2 mg/dL (0.3-1.2); Blood Urea Nitrogen 23 mg/dL (9-23); Calcium 8.2 mg/dL (8.3-10.6); Calcium (Corrected) 9.2 mg/dL (8.5-10.1); Carbon Dioxide > 40.0 mMol/L (20.0-31.0); Chloride 96 mMol/L (98-107); Creatinine (Component) 0.7 mg/dL (0.6-1.3); Estimated Creatinine Clearance 70.1 mL/min (>60); Globulin 3.5 gm/dL (2.3-3.5); Glucose 64 mg/dL (74-106); Osmolality,Calculated 288 (275-295); Potassium 4.1 mMol/L (3.4-5.1); Sodium 144 mMol/L (136-145); Total Protein 6.2 gm/dL (5.7-8.2); eGFR > 60 See Note
[2025-07-05] MEDS: MEROPENEM INJ 1,000 MG in SODIUM CHLORIDE 0.9% (Popper) 50 ML 100 MG IV ×2 (08:52→21:14)
[2025-07-05] MEDS: MULTIVITAMIN 15 ML UDC GT (08:52)
[2025-07-05] MEDS: LANSOPRAZOLE 30 MG TAB.RAP.DR GT (08:52)
[2025-07-05] MEDS: ASCORBIC ACID 250 MG TABLET 500 MG GT (08:52)
[2025-07-05] MEDS: FLUCONAZOLE SUSP 40 MG/ML ML 400 MG GT (09:52)
--- NOTE | 2025-07-05 12:44 | ESPR_ITS ---
<Statement entered by Francisco Maxwell MD - 07/05/25 15:04> I saw and examined patient personally and supervised PGY 1 resident, Dr. Doshi with formulating a management plan. I agree with the documentation with the exceptions as listed below. This a.m. patient blood pressure was hypotensive of 100/44 [62], urine output also decreased with only 50 cc in the past 2 hours. 1 L Ringer's lactate IVF bolus was given. Day 3 of meropenem 1 g IV twice daily for MDR UTI and pneumonia. Patient will have to complete a total of a 7-day course, PICC line is not a feasible option and his SNF will not administer IV antibiotics twice daily. Most likely patient will have to remain in hospital to complete a total of 7-day course. Plan of care discussed with Attending Dr. Nayely Maxwell MD PGY 2 Disclaimer: This note was dictated by speech recognition. Minor errors in older worker specialist may be present due to voice recognition software. Documentation for date of: 07/05/25 Subjective Subjective Interval history: Patient seen and examined at bedside; no acute events overnight. Continue meropenem. Exam Vital Signs Temp Pulse Resp BP Pulse Ox O2 Del Method O2 Flow Rate 97.3 F 77 20 110/48 L 100 Oxy Mask 2.5 07/05/25 12:00 07/05/25 12:00 07/05/25 12:00 07/05/25 12:00 07/05/25 12:00 07/05/25 12:00 07/05/25 12:00 FiO2 0 07/03/25 13:40 Narrative Exam General: A/O x0, no acute distress, well-nourished, well-developed Eyes: PERRL, EOMI. Anicteric, vision grossly intact. Ears: No ear pain, no ear discharge, Hearing grossly intact. Nose: No nasal discharge. Mouth/Throat: Moist mucous membranes, no redness, no lesions. Neck: Neck supple, non-tender, no cervical lymphadenopathy. Lungs: KITTY coarse crackles, No accessory muscle use. Cardio: Normal S1/S2, regular rhythm, no murmurs, no JVD or carotid bruits. Abdomen: Soft, non-tender, no palpable masses, peristalsis present, no guarding or rebound. PEG tube present with cellulitis around insertion site. Extremities: significant contractures, no peripheral edema , non-tender, peripheral pulses present. Skin: No rashes, no lesions, warm to touch. Neuro: A&O x 0, cannot fully assess due to clinical condition. Psych: Cannot assess due to clinical condition. Objective Labs 07/05/25 04:57 07/05/25 04:51 Labs: Laboratory Results - last 24 hr 07/03/25 07/03/25 07/05/25 14:00 21:03 04:51 WBC RBC Hgb Hct MCV MCH MCHC RDW Std Deviation Plt Count Neut % (Auto) Lymph % (Auto) Reagan % (Auto) Eos % (Auto) Baso % (Auto) Neut # (Auto) Lymph # (Auto) Reagan # (Auto) Eos # (Auto) Baso # (Auto) Immature Gran # (Auto) Absolute Nucleated RBC Immature Gran % Nucleated RBC % Sodium 144 Potassium 4.1 Chloride 96 L Carbon Dioxide > 40.0 H Anion Gap 8 BUN 23 Creatinine 0.7 Estim Creat Clear Calc 70.1 eGFR > 60 BUN/Creatinine Ratio 33 H Glucose 64 L Calculated Osmolality 288 Lactic Acid 0.6 Calcium 8.2 L Corrected Calcium 9.2 Phosphorus Magnesium Total Bilirubin < 0.2 L AST 18 ALT 15 Alkaline Phosphatase 92 Total Protein 6.2 Albumin 2.7 L D Globulin 3.5 Albumin/Globulin Ratio 0.8 L Procalcitonin Coccidioides IgM Ab Positive A 07/05/25 04:57 WBC 5.9 RBC 2.58 L Hgb 7.2 L Hct 25.4 L MCV 98 MCH 27.9 MCHC 28.3 L RDW Std Deviation 64.1 H Plt Count 264 D Neut % (Auto) 52 Lymph % (Auto) 32 Reagan % (Auto) 9 Eos % (Auto) 5 Baso % (Auto) 1 Neut # (Auto) 3.1 Lymph # (Auto) 1.9 Reagan # (Auto) 0.6 Eos # (Auto) 0.3 Baso # (Auto) 0.0 Immature Gran # (Auto) 0.07 H Absolute Nucleated RBC 0.02 H Immature Gran % 1 H Nucleated RBC % 0 Sodium Potassium Chloride Carbon Dioxide Anion Gap BUN Creatinine Estim Creat Clear Calc eGFR BUN/Creatinine Ratio Glucose Calculated Osmolality Lactic Acid Calcium Corrected Calcium Phosphorus 3.3 Magnesium 2.2 Total Bilirubin AST ALT Alkaline Phosphatase Total Protein Albumin Globulin Albumin/Globulin Ratio Procalcitonin 0.24 Coccidioides IgM Ab ABG Interpretation ABG results: 06/29/25 07/01/25 07/03/25 08:02 10:58 12:33 ABG pH 7.45 ABG pCO2 66 H ABG pO2 109 H ABG HCO3 46 H ABG O2 Saturation 98 ABG Base Excess 20 H VBG pH 7.61 7.42 VBG pCO2 51 33 L VBG pO2 60 H 91 H VBG Base Excess 26 H -2 Quality Measures Quality Measures VTE prophylaxis and sepsis Current suspected stage: sepsis Possible source: genitourinary Blood cultures ordered: yes (NGTD ) Antibiotic ordered: Yes Assessment & Plan Assessment Current Active Medications: Generic Name Dose Route Start Last Admin Trade Name Freq PRN Reason Stop Dose Admin Ascorbic Acid 500 mg 07/03/25 09:15 07/05/25 08:52 Ascorbic Acid 250 Mg Tablet GT 08/02/25 09:14 500 mg QDAY URBANO Administration Atorvastatin Calcium 10 mg 07/03/25 21:00 07/04/25 20:50 Atorvastatin Calcium 10 Mg Tablet GT 08/02/25 20:59 10 mg HS URBANO Administration Bisacodyl 10 mg 07/03/25 09:07 Bisacodyl 10 Mg Supp GA 08/02/25 09:06 QDAY PRN CONSTIPATION Protocol Fluconazole 400 mg 07/05/25 09:00 07/05/25 09:52 Fluconazole Susp 40 Mg/Ml Ml GT 07/12/25 08:59 400 mg QDAY URBANO Administration Glucagon 1 mg 06/29/25 12:14 Glucagon Inj 1 Mg Vial IM Q15MIN PRN BG <70, and no IV access Heparin Sodium (Porcine) 5,000 unit 06/29/25 14:00 07/05/25 05:46 Heparin Sod Inj 5000 Unit/Ml Vial SC 07/13/25 13:59 5,000 unit Q8HR URBANO Administration Meropenem 1,000 mg/ Sodium 50 mls @ 100 mls/hr 07/03/25 21:00 07/05/25 08:52 Chloride IV 07/10/25 20:59 100 mls/hr Q12HR URBANO Administration Insulin Degludec 15 unit 07/04/25 21:00 07/04/25 20:50 Insulin Degludec 5 Unit/0.05 Ml (Per 5 Units) SC 08/03/25 20:59 15 unit HS URBANO Administration Insulin Human Lispro 0 unit 06/30/25 01:15 07/05/25 11:33 Insulin Lispro (Admelog) 1 Unit/0.01 Ml Unit SC 07/30/25 01:14 Not Given Q6HR URBANO Protocol Lansoprazole 30 mg 07/03/25 09:15 07/05/25 08:52 Lansoprazole 30 Mg Tab. GT 08/02/25 09:14 30 mg DAILY URBANO Administration Magnesium Hydroxide 30 ml 07/03/25 09:07 Milk Of Magnesia Susp 30 Ml Udc GT 08/02/25 09:06 DAILY PRN CONSTIPATION Protocol Midodrine 10 mg 07/04/25 09:15 07/05/25 05:46 Midodrine 5 Mg Tablet PO 08/03/25 09:14 10 mg TID URBANO Administration Multivitamins/Minerals 15 ml 07/03/25 09:15 07/05/25 08:52 Multivitamin 15 Ml Udc GT 08/02/25 09:14 15 ml QDAY URBANO Administration Sennosides 1 tab 06/29/25 12:11 Senna Tablet PO 07/29/25 12:10 BID PRN CONSTIPATION Protocol Sodium Chloride 4 ml 06/30/25 11:00 07/05/25 11:17 Sodium Cl Rt Adriana 3% 4 Ml Nebu (Non-Formulary) INH 07/30/25 10:59 4 ml Q4HRRT URBANO Administration Sodium Phosphate 133 ml 07/03/25 09:07 Sodium Phos,Reagan-Dibasic 133 Ml (Fleet) Enema Btl RC QDAY PRN constipation Protocol Plan Patient is a 55-year-old female with PMH of insulin-dependent T2DM, developmental delay, chronically bedbound with indwelling Bardales catheter and recurrent UTIs, chronic PEG tube, 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 Admitted for sepsis secondary to pneumonia versus UTI. ? #Septic shock 2/2 #UTI and #Pneumonia #Acute hypotension SOFA score 6-7. Patient nonverbal which is her baseline for mentation. Her hourly urine output <35ml, oliquira. Skin cool, mild pallor, without mottling. Cap refill <2sec. VBG from 1230 had showen pH 7.42, pCO2 33, PaO2 91, O2 sat 93%. Sputum ctx positive for Klebsiella pneumoniae and MDR Pseudomonas aeruginosa Urine culture- pseudomonas, morganella +Total fluid boluses 56kg x30ml/kg*h =1.7L calculated. Plan: - Monitor BP closely. - Patient placed on meropenem 1g Q12h for 7 days (07/03 - ) - Midodrine 10 TID for BP support #Acute hypoxic respiratory failure secondary to #Bilateral pneumonia and #Coccidiomycosis infection Meets sepsis criteria; source UTI versus pneumonia History of Pseudomonas infection and recurrent UTIs IV vancomycin/Zosyn started in ED Initial CXR showed pulmonary vascular congestion 07/02: Coarse crackles on lung exam concerning for aspiration of tube feeds while being transported supine on bed to third floor.? NGT suction showed creamy aspirate. 07/03: continues to have coarse crackles and b/l rhonchi on exam. Sputum ctx positive for Klebsiella pneumoniae and MDR Pseudomonas aeruginosa Bcx negative after 48h MRSA screen (-) CXR showed Bilateral lung opacity most consistent with pneumonia Cocci IgM positive WBC today 5.9 Plan: Antibiotics as above, plus fluconazole 400 daily Trend WBC Chest physiotherapy ? #BREANNA (resolved) #Contraction Alkalosis #Prerenal Azotemia Likely prerenal in setting of dehydration versus intrinsic in the setting of UTI/sepsis. Creatinine 1.0 today, baeline 0.4-0.6. BUN 34, BUN/CR 34 Bicarbonate is consistently above 40 on labs, and pCo2 is 66 on ABG. Urine culture- pseudomonas, morganella VBG from 1230 had showen pH 7.42, pCO2 33, PaO2 91, O2 sat 93%. Plan: Continue IV fluids Avoid nephrotoxins, Renally dose medications, and avoid overdiuresis. BiPAP #Insulin-dependent diabetes mellitus A1c 6.5 Plan: Continue insulin degludec 15u plus sliding scale insulin Bedside fingerstick glucose checks #Developmental delay #Cerebral palsy secondary to congenital rubella #Bedbound #Status post PEG tube ? Plan: Consulted nutrition for tube feeds: Continuous feeds at 55 mL/h with 80mL/2h of water flushes Management of pain as needed Frequent positioning ? Disposition: Tele DVT prophylaxis: heparin 5000 subq q8h GI prophylaxis: Diet: glucerna 1.2 nini rth Lines: PIV, PEG CODE STATUS: DNR This case was discussed with my attending physician, Dr. Adler, and senior resident, Dr Maxwell. Duke Doshi PGY1 Attending Provider Attestation/Addendum I have seen and examined the patient. I was physically present for the mclaughlin portions of the services provided including history, physical exam, diagnosis, treatment plans and orders. I agree with assessment and plan of care as documented by residents. Even though this this note was carefully revised there may still be minor errors in older worker specialist due to voice recognition software. Alivia Adler MD
[2025-07-05] MEDS: INSULIN DEGLUDEC 5 UNIT/0.05 ML (PER 5 UNITS) 15 UNIT SC (21:14)
[2025-07-05] MEDS: ATORVASTATIN CALCIUM 10 MG TABLET GT (21:18)
[2025-07-06] VITALS (15 sets, daily range): BP systolic 97–136; BP diastolic 50–80; PULSE 60–96; RESP 12–20; TEMP 36.1–36.6; O2SAT 91–100; BMI 22.1
[2025-07-06] MEDS: SODIUM CL RT SOL 3% 4 ML NEBU (NON-FORMULARY) INH ×4 (02:31→22:54)
[2025-07-06 06:01] LABS: Basophils # (Auto) 0.0 Thou/mm3 (0.0-0.2); Basophils % (Auto) 1 % (0-2.5); Eosinophils # (Auto) 0.3 Thou/mm3 (0.0-0.5); Eosinophils % (Auto) 5 % (0-10); Hematocrit 26.0 % (36.0-46.0); Immature Granulocytes Auto 0.06 Thou/mm3 (0.00-0.00); Lymphocytes # (Auto) 1.8 Thou/mm3 (1.0-4.8); Lymphocytes % (Auto) 34 % (10-50); Mean Corpuscular HGB Conc 29.2 g/dl (31.0-37.0); Mean Corpuscular Hemoglobin 29.0 pg (25.0-35.0); Mean Corpuscular Volume 99 fL (80-100); Monocytes # (Auto) 0.4 Thou/mm3 (0.0-0.8); Monocytes % (Auto) 8 % (0-12); Neutrophils # (Auto) 2.6 Thou/mm3 (1.8-7.7); Neutrophils % (Auto) 51 % (37-80); Nucleated Red Blood Cell # 0.02 Thou/mm3 (0.00-0.00); Nucleated Red Blood Cell % 0 /100 WBC (0); Platelet Count 253 Thou/mm3 (140-440); RDW Standard Deviation 66.3 fL (36.4-46.3); Red Blood Count 2.62 Miln/mm3 (4.00-5.20); White Blood Count 5.2 Thou/mm3 (3.6-11.0)
[2025-07-06 06:02] LABS: Hemoglobin 7.6 g/dL (12.0-16.0)
[2025-07-06 06:24] LABS: Alanine Aminotransferase 11 U/L (10-49); Albumin, Serum 2.7 gm/dL (3.5-5.0); Albumin/Globulin Ratio 0.8 (1.2-2.2); Alkaline Phosphatase 86 U/L (46-116); Anion Gap 7 (7-16); Aspartate Amino Transferase 21 U/L (0-34); BUN/Creatinine Ratio 23 Ratio (12-20); Bilirubin,Total < 0.2 mg/dL (0.3-1.2); Blood Urea Nitrogen 14 mg/dL (9-23); Calcium 8.7 mg/dL (8.3-10.6); Calcium (Corrected) 9.7 mg/dL (8.5-10.1); Carbon Dioxide 38.4 mMol/L (20.0-31.0); Chloride 96 mMol/L (98-107); Creatinine (Component) 0.6 mg/dL (0.6-1.3); Estimated Creatinine Clearance 81.8 mL/min (>60); Globulin 3.6 gm/dL (2.3-3.5); Glucose 113 mg/dL (74-106); Magnesium 1.7 mg/dL (1.6-2.6); Osmolality,Calculated 282 (275-295); Phosphorous 2.8 mg/dL (2.4-5.1); Potassium 4.4 mMol/L (3.4-5.1); Sodium 141 mMol/L (136-145); Total Protein 6.3 gm/dL (5.7-8.2); eGFR > 60 See Note
[2025-07-06] MEDS: HEPARIN SOD INJ 5000 UNIT/ML VIAL SC ×3 (06:32→21:36)
--- NOTE | 2025-07-06 08:52 | PC.SS ---
Follow up note: On IV antibiotic. Pt will return to [facility] upon dc.
[2025-07-06] MEDS: ASCORBIC ACID 250 MG TABLET 500 MG GT (09:17)
[2025-07-06] MEDS: FLUCONAZOLE SUSP 40 MG/ML ML 400 MG GT (09:17)
[2025-07-06] MEDS: MULTIVITAMIN 15 ML UDC GT (09:17)
[2025-07-06] MEDS: LANSOPRAZOLE 30 MG TAB.RAP.DR GT (09:17)
[2025-07-06] MEDS: Magnesium Sulfate 2 GM Ivpb 2 GM/50 ML BAG IV (09:17)
[2025-07-06] MEDS: MEROPENEM INJ 1,000 MG in SODIUM CHLORIDE 0.9% (Popper) 50 ML 100 MG IV ×2 (09:35→21:35)
--- NOTE | 2025-07-06 09:38 | PD.IDPROG ---
Subjective Subjective Interval history: called [facility]. no specimen called lab they said they sent it. no specimen noted at d. odd. Exam Vital Signs Temp Pulse Resp BP Pulse Ox O2 Del Method O2 Flow Rate 96.9 F 68 20 133/50 H 100 Nasal Cannula 2 07/06/25 04:00 07/06/25 05:05 07/06/25 04:00 07/06/25 05:05 07/06/25 04:00 07/06/25 04:00 07/06/25 07:00 FiO2 0 07/03/25 13:40 Narrative Exam limited eval Objective - Internal Medicine Labs 07/06/25 04:58 07/06/25 04:58 Labs: Laboratory Results - last 24 hr 07/06/25 04:58 WBC 5.2 RBC 2.62 L Hgb 7.6 L Hct 26.0 L MCV 99 MCH 29.0 MCHC 29.2 L RDW Std Deviation 66.3 H Plt Count 253 Neut % (Auto) 51 Lymph % (Auto) 34 Bennett % (Auto) 8 Eos % (Auto) 5 Baso % (Auto) 1 Neut # (Auto) 2.6 Lymph # (Auto) 1.8 Bennett # (Auto) 0.4 Eos # (Auto) 0.3 Baso # (Auto) 0.0 Immature Gran # (Auto) 0.06 H Absolute Nucleated RBC 0.02 H Immature Gran % 1 H Nucleated RBC % 0 Sodium 141 Potassium 4.4 Chloride 96 L Carbon Dioxide 38.4 H Anion Gap 7 BUN 14 Creatinine 0.6 Estim Creat Clear Calc 81.8 eGFR > 60 BUN/Creatinine Ratio 23 H Glucose 113 H D Calculated Osmolality 282 Calcium 8.7 Corrected Calcium 9.7 Phosphorus 2.8 Magnesium 1.7 Total Bilirubin < 0.2 L AST 21 ALT 11 Alkaline Phosphatase 86 Total Protein 6.3 Albumin 2.7 L Globulin 3.6 H Albumin/Globulin Ratio 0.8 L ABG Interpretation ABG results: 06/29/25 07/01/25 07/03/25 08:02 10:58 12:33 ABG pH 7.45 ABG pCO2 66 H ABG pO2 109 H ABG HCO3 46 H ABG O2 Saturation 98 ABG Base Excess 20 H VBG pH 7.61 7.42 VBG pCO2 51 33 L VBG pO2 60 H 91 H VBG Base Excess 26 H -2 Assessment & Plan A&P Narrative pos sputum cx in dnr pt with neg gram stain hx of candidemia with neg f/u bc and neg echo dnr status likely restrictive lung disease (no viral panel noted) procal neg so value of abx seems low. merrem ordered q 12 h. and pt remains afebrile on it so no changes advised cocci specimen lost at [facility]. so hope lab sends another one or verifies prior send out. [facility] called back and indicated they expect specimen today from [facility]. I called lab too. abx for no more than 7d total repeat chest imaging in 4 weeks please with no titer can not say that she has cocci or not. she is asymptomatic so ok to leave off flucon for now , but if worsens, you can try that again. will check in wednesday Time Spent With Patient Time: Total time spent is greater than 50% in coordination of care (as documented) at patient's floor/unit and/or counseling patient:
--- NOTE | 2025-07-06 14:48 | ESPR_ITS ---
Documentation for date of: 07/06/25 Subjective Subjective Interval history: Patient seen and examined; no acute events overnight. Exam Vital Signs Temp Pulse Resp BP Pulse Ox O2 Del Method O2 Flow Rate 97.0 F 75 19 113/59 L 98 Oxy Mask 2 07/06/25 12:00 07/06/25 14:37 07/06/25 12:00 07/06/25 14:37 07/06/25 12:00 07/06/25 12:00 07/06/25 12:00 FiO2 0 07/03/25 13:40 Narrative Exam General: A/O x0, no acute distress, well-nourished, well-developed Eyes: PERRL, EOMI. Anicteric, vision grossly intact. Ears: No ear pain, no ear discharge, Hearing grossly intact. Nose: No nasal discharge. Mouth/Throat: Moist mucous membranes, no redness, no lesions. Neck: Neck supple, non-tender, no cervical lymphadenopathy. Lungs: KITTY coarse crackles, No accessory muscle use. Cardio: Normal S1/S2, regular rhythm, no murmurs, no JVD or carotid bruits. Abdomen: Soft, non-tender, no palpable masses, peristalsis present, no guarding or rebound. PEG tube present with cellulitis around insertion site. Extremities: significant contractures, no peripheral edema , non-tender, peripheral pulses present. Skin: No rashes, no lesions, warm to touch. Neuro: A&O x 0, cannot fully assess due to clinical condition. Psych: Cannot assess due to clinical condition. Objective Labs 07/06/25 04:58 07/06/25 04:58 Labs: Laboratory Results - last 24 hr 07/06/25 04:58 WBC 5.2 RBC 2.62 L Hgb 7.6 L Hct 26.0 L MCV 99 MCH 29.0 MCHC 29.2 L RDW Std Deviation 66.3 H Plt Count 253 Neut % (Auto) 51 Lymph % (Auto) 34 Petroleum % (Auto) 8 Eos % (Auto) 5 Baso % (Auto) 1 Neut # (Auto) 2.6 Lymph # (Auto) 1.8 Petroleum # (Auto) 0.4 Eos # (Auto) 0.3 Baso # (Auto) 0.0 Immature Gran # (Auto) 0.06 H Absolute Nucleated RBC 0.02 H Immature Gran % 1 H Nucleated RBC % 0 Sodium 141 Potassium 4.4 Chloride 96 L Carbon Dioxide 38.4 H Anion Gap 7 BUN 14 Creatinine 0.6 Estim Creat Clear Calc 81.8 eGFR > 60 BUN/Creatinine Ratio 23 H Glucose 113 H D Calculated Osmolality 282 Calcium 8.7 Corrected Calcium 9.7 Phosphorus 2.8 Magnesium 1.7 Total Bilirubin < 0.2 L AST 21 ALT 11 Alkaline Phosphatase 86 Total Protein 6.3 Albumin 2.7 L Globulin 3.6 H Albumin/Globulin Ratio 0.8 L ABG Interpretation ABG results: 06/29/25 07/01/25 07/03/25 08:02 10:58 12:33 ABG pH 7.45 ABG pCO2 66 H ABG pO2 109 H ABG HCO3 46 H ABG O2 Saturation 98 ABG Base Excess 20 H VBG pH 7.61 7.42 VBG pCO2 51 33 L VBG pO2 60 H 91 H VBG Base Excess 26 H -2 Quality Measures Quality Measures VTE prophylaxis and sepsis Current suspected stage: sepsis Possible source: genitourinary Blood cultures ordered: yes (NGTD ) Antibiotic ordered: Yes Assessment & Plan Assessment Current Active Medications: Generic Name Dose Route Start Last Admin Trade Name Freq PRN Reason Stop Dose Admin Ascorbic Acid 500 mg 07/03/25 09:15 07/06/25 09:17 Ascorbic Acid 250 Mg Tablet GT 08/02/25 09:14 500 mg QDAY URBANO Administration Atorvastatin Calcium 10 mg 07/03/25 21:00 07/05/25 21:18 Atorvastatin Calcium 10 Mg Tablet GT 08/02/25 20:59 10 mg HS URBANO Administration Bisacodyl 10 mg 07/03/25 09:07 Bisacodyl 10 Mg Supp WI 08/02/25 09:06 QDAY PRN CONSTIPATION Protocol Fluconazole 400 mg 07/05/25 09:00 07/06/25 09:17 Fluconazole Susp 40 Mg/Ml Ml GT 07/12/25 08:59 400 mg QDAY URBANO Administration Glucagon 1 mg 06/29/25 12:14 Glucagon Inj 1 Mg Vial IM Q15MIN PRN BG <70, and no IV access Heparin Sodium (Porcine) 5,000 unit 06/29/25 14:00 07/06/25 14:38 Heparin Sod Inj 5000 Unit/Ml Vial SC 07/13/25 13:59 5,000 unit Q8HR URBANO Administration Meropenem 1,000 mg/ Sodium 50 mls @ 100 mls/hr 07/03/25 21:00 07/06/25 09:35 Chloride IV 07/10/25 20:59 100 mls/hr Q12HR URBANO Administration Insulin Degludec 15 unit 07/04/25 21:00 07/05/25 21:14 Insulin Degludec 5 Unit/0.05 Ml (Per 5 Units) SC 08/03/25 20:59 15 unit HS URBANO Administration Insulin Human Lispro 0 unit 06/30/25 01:15 07/06/25 11:53 Insulin Lispro (Admelog) 1 Unit/0.01 Ml Unit SC 07/30/25 01:14 Not Given Q6HR URBANO Protocol Lansoprazole 30 mg 07/03/25 09:15 07/06/25 09:17 Lansoprazole 30 Mg Tab. GT 08/02/25 09:14 30 mg DAILY URBANO Administration Magnesium Hydroxide 30 ml 07/03/25 09:07 Milk Of Magnesia Susp 30 Ml Udc GT 08/02/25 09:06 DAILY PRN CONSTIPATION Protocol Midodrine 10 mg 07/04/25 09:15 07/06/25 14:37 Midodrine 5 Mg Tablet PO 08/03/25 09:14 Not Given TID URBANO Multivitamins/Minerals 15 ml 07/03/25 09:15 07/06/25 09:17 Multivitamin 15 Ml Udc GT 08/02/25 09:14 15 ml QDAY URBANO Administration Sennosides 1 tab 06/29/25 12:11 Senna Tablet PO 07/29/25 12:10 BID PRN CONSTIPATION Protocol Sodium Chloride 4 ml 06/30/25 11:00 07/06/25 10:36 Sodium Cl Rt Adriana 3% 4 Ml Nebu (Non-Formulary) INH 07/30/25 10:59 4 ml Q4HRRT URBANO Administration Sodium Phosphate 133 ml 07/03/25 09:07 Sodium Phos,Petroleum-Dibasic 133 Ml (Fleet) Enema Btl RC QDAY PRN constipation Protocol Plan Patient is a 55-year-old female with PMH of insulin-dependent T2DM, developmental delay, chronically bedbound with indwelling Bardales catheter and recurrent UTIs, chronic PEG tube, 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 Admitted for sepsis secondary to pneumonia versus UTI. ? #Septic shock (Resolved) 2/2 #UTI and #Pneumonia #Acute hypotension SOFA score 6-7. Patient nonverbal which is her baseline for mentation. Her hourly urine output <35ml, oliquira. Skin cool, mild pallor, without mottling. Cap refill <2sec. VBG from 1230 had showen pH 7.42, pCO2 33, PaO2 91, O2 sat 93%. Sputum ctx positive for Klebsiella pneumoniae and MDR Pseudomonas aeruginosa Urine culture- pseudomonas, morganella +Total fluid boluses 56kg x30ml/kg*h =1.7L calculated. Plan: - Monitor BP closely. - Patient placed on meropenem 1g Q12h for 7 days (07/03 - ) - Midodrine 10 TID for BP support #Acute hypoxic respiratory failure secondary to #Bilateral pneumonia and #Coccidiomycosis infection Meets sepsis criteria; source UTI versus pneumonia History of Pseudomonas infection and recurrent UTIs IV vancomycin/Zosyn started in ED Initial CXR showed pulmonary vascular congestion 07/02: Coarse crackles on lung exam concerning for aspiration of tube feeds while being transported supine on bed to third floor.? NGT suction showed creamy aspirate. 07/03: continues to have coarse crackles and b/l rhonchi on exam. Sputum ctx positive for Klebsiella pneumoniae and MDR Pseudomonas aeruginosa Bcx negative after 48h MRSA screen (-) CXR showed Bilateral lung opacity most consistent with pneumonia Cocci IgM positive WBC today 5.9 Plan: Antibiotics as above, plus fluconazole 400 daily Trend WBC Chest physiotherapy ? #BREANNA (resolved) #Contraction Alkalosis #Prerenal Azotemia Likely prerenal in setting of dehydration versus intrinsic in the setting of UTI/sepsis. Creatinine 1.0 today, baeline 0.4-0.6. BUN 34, BUN/CR 34 Bicarbonate is consistently above 40 on labs, and pCo2 is 66 on ABG. Urine culture- pseudomonas, morganella VBG from 1230 had showen pH 7.42, pCO2 33, PaO2 91, O2 sat 93%. Plan: Continue IV fluids Avoid nephrotoxins, Renally dose medications, and avoid overdiuresis. BiPAP #Insulin-dependent diabetes mellitus A1c 6.5 Plan: Continue insulin degludec 15u plus sliding scale insulin Bedside fingerstick glucose checks #Developmental delay #Cerebral palsy secondary to congenital rubella #Bedbound #Status post PEG tube ? Plan: Consulted nutrition for tube feeds: Continuous feeds at 55 mL/h with 80mL/2h of water flushes Management of pain as needed Frequent positioning ? Disposition: Tele DVT prophylaxis: heparin 5000 subq q8h GI prophylaxis: Diet: glucerna 1.2 nini rth Lines: PIV, PEG CODE STATUS: DNR This case was discussed with my attending physician, Dr. Adler, and senior resident, Dr Mosley. Duke Doshi PGY1 Senior Resident Attestation: The patient seems to be at baseline, no fever for last couple of days. She is saturating 98% at 2 L OxyMask. The patient will complete 2 more days of meropenem for MDR Pseudomonas pneumonia. The patient will go back to her facility after that. I discussed with and supervised the internet researcher physician involved in the care of this patient. I personally saw and examined the patient and discussed the assessment and plan with the entire medicine team, including my attending. I agree with the assessment and plan as documented above. Velasquez Mosley MD PGY3 Internal Medicine will follow Attending Provider Attestation/Addendum I have seen and examined the patient. I was physically present for the mclaughlin portions of the services provided including history, physical exam, diagnosis, treatment plans and orders. I agree with assessment and plan of care as documented by residents. Even though this this note was carefully revised there may still be minor errors in marketing executive due to voice recognition software. Alivia Adler MD
--- NOTE | 2025-07-06 15:18 | PC.SS ---
SS has sent updated inquiry to [facility] using [employer].
[2025-07-06] MEDS: INSULIN DEGLUDEC 5 UNIT/0.05 ML (PER 5 UNITS) 15 UNIT SC (21:34)
[2025-07-06] MEDS: MIDODRINE 5 MG TABLET 10 MG PO (21:36)
[2025-07-06] MEDS: ATORVASTATIN CALCIUM 10 MG TABLET GT (21:36)
[2025-07-07] VITALS (17 sets, daily range): BP systolic 118–139; BP diastolic 70–79; PULSE 64–82; RESP 13–20; TEMP 36.1–36.8; O2SAT 91–100; BMI 22.1
[2025-07-07] MEDS: SODIUM CL RT SOL 3% 4 ML NEBU (NON-FORMULARY) INH ×6 (02:41→22:46)
[2025-07-07] MEDS: MIDODRINE 5 MG TABLET 10 MG PO (06:02)
[2025-07-07] MEDS: HEPARIN SOD INJ 5000 UNIT/ML VIAL SC ×3 (06:02→21:38)
[2025-07-07 06:14] LABS: Basophils # (Auto) 0.0 Thou/mm3 (0.0-0.2); Basophils % (Auto) 1 % (0-2.5); Eosinophils # (Auto) 0.2 Thou/mm3 (0.0-0.5); Eosinophils % (Auto) 4 % (0-10); Hematocrit 27.0 % (36.0-46.0); Immature Granulocytes Auto 0.06 Thou/mm3 (0.00-0.00); Lymphocytes # (Auto) 1.6 Thou/mm3 (1.0-4.8); Lymphocytes % (Auto) 31 % (10-50); Mean Corpuscular HGB Conc 28.5 g/dl (31.0-37.0); Mean Corpuscular Hemoglobin 28.8 pg (25.0-35.0); Mean Corpuscular Volume 101 fL (80-100); Monocytes # (Auto) 0.4 Thou/mm3 (0.0-0.8); Monocytes % (Auto) 8 % (0-12); Neutrophils # (Auto) 2.8 Thou/mm3 (1.8-7.7); Neutrophils % (Auto) 55 % (37-80); Nucleated Red Blood Cell # 0.03 Thou/mm3 (0.00-0.00); Nucleated Red Blood Cell % 1 /100 WBC (0); Platelet Count 237 Thou/mm3 (140-440); RDW Standard Deviation 69.4 fL (36.4-46.3); Red Blood Count 2.67 Miln/mm3 (4.00-5.20); White Blood Count 5.1 Thou/mm3 (3.6-11.0)
[2025-07-07 06:15] LABS: Hemoglobin 7.7 g/dL (12.0-16.0)
[2025-07-07 06:52] LABS: Alanine Aminotransferase 14 U/L (10-49); Albumin, Serum 3.0 gm/dL (3.5-5.0); Albumin/Globulin Ratio 0.8 (1.2-2.2); Alkaline Phosphatase 93 U/L (46-116); Anion Gap 6 (7-16); Aspartate Amino Transferase 18 U/L (0-34); BUN/Creatinine Ratio 28 Ratio (12-20); Bilirubin,Total < 0.2 mg/dL (0.3-1.2); Blood Urea Nitrogen 14 mg/dL (9-23); Calcium 8.6 mg/dL (8.3-10.6); Calcium (Corrected) 9.4 mg/dL (8.5-10.1); Carbon Dioxide > 40.0 mMol/L (20.0-31.0); Chloride 98 mMol/L (98-107); Creatinine (Component) 0.5 mg/dL (0.6-1.3); Estimated Creatinine Clearance 98.2 mL/min (>60); Globulin 3.6 gm/dL (2.3-3.5); Glucose 99 mg/dL (74-106); Magnesium 1.9 mg/dL (1.6-2.6); Osmolality,Calculated 287 (275-295); Phosphorous 2.7 mg/dL (2.4-5.1); Potassium 4.8 mMol/L (3.4-5.1); Sodium 144 mMol/L (136-145); Total Protein 6.6 gm/dL (5.7-8.2); eGFR > 60 See Note
[2025-07-07] MEDS: MEROPENEM INJ 1,000 MG in SODIUM CHLORIDE 0.9% (Popper) 50 ML 100 MG IV ×2 (09:16→21:39)
[2025-07-07] MEDS: MULTIVITAMIN 15 ML UDC GT (09:16)
[2025-07-07] MEDS: LANSOPRAZOLE 30 MG TAB.RAP.DR GT (09:17)
[2025-07-07] MEDS: ASCORBIC ACID 250 MG TABLET 500 MG GT (09:17)
[2025-07-07] MEDS: FLUCONAZOLE SUSP 40 MG/ML ML 400 MG GT (10:32)
--- NOTE | 2025-07-07 14:05 | PD.RESPRO ---
Documentation for date of: 07/07/25 Subjective Subjective Interval history: Patient was seen and examined at bedside this AM. No acute exents overnight. Patient tolerating tube feeds, adequate urine output and mentation is at baseline?nonverbal Day 5 meropenem 1 g IV twice daily started on [07/03? Currently pending [facility] confirmation of coccidiomycosis, sample was sent on 07/06 Exam Vital Signs Temp Pulse Resp BP Pulse Ox O2 Del Method O2 Flow Rate 97.0 F 78 18 130/75 96 Oxy Mask 2 07/07/25 11:58 07/07/25 13:55 07/07/25 11:58 07/07/25 13:55 07/07/25 11:58 07/07/25 11:58 07/07/25 11:58 FiO2 0 07/03/25 13:40 Narrative Exam General: A/O x0, no acute distress, well-nourished, well-developed Eyes: PERRL, EOMI. Anicteric, vision grossly intact. Ears: No ear pain, no ear discharge, Hearing grossly intact. Nose: No nasal discharge. Mouth/Throat: Moist mucous membranes, no redness, no lesions. Neck: Neck supple, non-tender, no cervical lymphadenopathy. Lungs: KITTY coarse crackles, No accessory muscle use. Cardio: Normal S1/S2, regular rhythm, no murmurs, no JVD or carotid bruits. Abdomen: Soft, non-tender, no palpable masses, peristalsis present, no guarding or rebound. PEG tube present Extremities: significant contractures, no peripheral edema , non-tender, peripheral pulses present. Skin: No rashes, no lesions, warm to touch. Neuro: A&O x 0, cannot fully assess due to clinical condition. Psych: Cannot assess due to clinical condition. Objective Labs 07/07/25 04:50 07/07/25 04:50 Labs: Laboratory Results - last 24 hr 07/07/25 04:50 WBC 5.1 RBC 2.67 L Hgb 7.7 L Hct 27.0 L MCV 101 H MCH 28.8 MCHC 28.5 L RDW Std Deviation 69.4 H Plt Count 237 Neut % (Auto) 55 Lymph % (Auto) 31 [place] % (Auto) 8 Eos % (Auto) 4 Baso % (Auto) 1 Neut # (Auto) 2.8 Lymph # (Auto) 1.6 [place] # (Auto) 0.4 Eos # (Auto) 0.2 Baso # (Auto) 0.0 Immature Gran # (Auto) 0.06 H Absolute Nucleated RBC 0.03 H Immature Gran % 1 H Nucleated RBC % 1 H Sodium 144 Potassium 4.8 Chloride 98 Carbon Dioxide > 40.0 H Anion Gap 6 L BUN 14 Creatinine 0.5 L Estim Creat Clear Calc 98.2 eGFR > 60 BUN/Creatinine Ratio 28 H Glucose 99 Calculated Osmolality 287 Calcium 8.6 Corrected Calcium 9.4 Phosphorus 2.7 Magnesium 1.9 Total Bilirubin < 0.2 L AST 18 ALT 14 Alkaline Phosphatase 93 Total Protein 6.6 Albumin 3.0 L Globulin 3.6 H Albumin/Globulin Ratio 0.8 L ABG Interpretation ABG results: 06/29/25 07/01/25 07/03/25 08:02 10:58 12:33 ABG pH 7.45 ABG pCO2 66 H ABG pO2 109 H ABG HCO3 46 H ABG O2 Saturation 98 ABG Base Excess 20 H VBG pH 7.61 7.42 VBG pCO2 51 33 L VBG pO2 60 H 91 H VBG Base Excess 26 H -2 Quality Measures Quality Measures VTE prophylaxis and sepsis Current suspected stage: ruled out Possible source: genitourinary Blood cultures ordered: yes (NGTD ) Antibiotic ordered: Yes Assessment & Plan Assessment Current Active Medications: Generic Name Dose Route Start Last Admin Trade Name Freq PRN Reason Stop Dose Admin Ascorbic Acid 500 mg 07/03/25 09:15 07/07/25 09:17 Ascorbic Acid 250 Mg Tablet GT 08/02/25 09:14 500 mg QDAY URBANO Administration Atorvastatin Calcium 10 mg 07/03/25 21:00 07/06/25 21:36 Atorvastatin Calcium 10 Mg Tablet GT 08/02/25 20:59 10 mg HS URBANO Administration Bisacodyl 10 mg 07/03/25 09:07 Bisacodyl 10 Mg Supp MS 08/02/25 09:06 QDAY PRN CONSTIPATION Protocol Fluconazole 400 mg 07/05/25 09:00 07/07/25 10:32 Fluconazole Susp 40 Mg/Ml Ml GT 07/12/25 08:59 400 mg QDAY URBANO Administration Glucagon 1 mg 06/29/25 12:14 Glucagon Inj 1 Mg Vial IM Q15MIN PRN BG <70, and no IV access Heparin Sodium (Porcine) 5,000 unit 06/29/25 14:00 07/07/25 13:55 Heparin Sod Inj 5000 Unit/Ml Vial SC 07/13/25 13:59 5,000 unit Q8HR URBANO Administration Meropenem 1,000 mg/ Sodium 50 mls @ 100 mls/hr 07/03/25 21:00 07/07/25 09:16 Chloride IV 07/10/25 20:59 100 mls/hr Q12HR URBANO Administration Insulin Degludec 15 unit 07/04/25 21:00 07/06/25 21:34 Insulin Degludec 5 Unit/0.05 Ml (Per 5 Units) SC 08/03/25 20:59 15 unit HS URBANO Administration Insulin Human Lispro 0 unit 06/30/25 01:15 07/07/25 11:57 Insulin Lispro (Admelog) 1 Unit/0.01 Ml Unit SC 07/30/25 01:14 Not Given Q6HR URBANO Protocol Lansoprazole 30 mg 07/03/25 09:15 07/07/25 09:17 Lansoprazole 30 Mg Tab.Rap. GT 08/02/25 09:14 30 mg DAILY URBANO Administration Magnesium Hydroxide 30 ml 07/03/25 09:07 Milk Of Magnesia Susp 30 Ml Udc GT 08/02/25 09:06 DAILY PRN CONSTIPATION Protocol Midodrine 10 mg 07/04/25 09:15 07/07/25 13:55 Midodrine 5 Mg Tablet PO 08/03/25 09:14 Not Given TID URBANO Multivitamins/Minerals 15 ml 07/03/25 09:15 07/07/25 09:16 Multivitamin 15 Ml Udc GT 08/02/25 09:14 15 ml QDAY URBANO Administration Sennosides 1 tab 06/29/25 12:11 Senna Tablet PO 07/29/25 12:10 BID PRN CONSTIPATION Protocol Sodium Chloride 4 ml 06/30/25 11:00 07/07/25 10:00 Sodium Cl Rt Adriana 3% 4 Ml Nebu (Non-Formulary) INH 07/30/25 10:59 4 ml Q4HRRT URBANO Administration Sodium Phosphate 133 ml 07/03/25 09:07 Sodium Phos,[place]-Dibasic 133 Ml (Fleet) Enema Btl RC QDAY PRN constipation Protocol Plan Patient is a 55-year-old female with PMH of insulin-dependent T2DM, developmental delay, chronically bedbound with indwelling Bardales catheter and recurrent UTIs, chronic PEG tube, 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 Admitted for sepsis secondary to pneumonia versus UTI. ? #Septic shock (Resolved) 2/2 # Pseudomonas UTI and # Pseudomonas pneumonia SOFA score 6-7. Patient nonverbal which is her baseline for mentation. Her hourly urine output <35ml, oliquira. Skin cool, mild pallor, without mottling. Cap refill <2sec. VBG from 1230 had showen pH 7.42, pCO2 33, PaO2 91, O2 sat 93%. Sputum ctx positive for Klebsiella pneumoniae and MDR Pseudomonas aeruginosa Urine culture- pseudomonas, morganella +Total fluid boluses 56kg x30ml/kg*h =1.7L calculated. Plan: - Monitor BP closely. - D 5 meropenem 1g Q12h for 7 days (07/03 - - Midodrine 10 TID for BP support #Acute on chronic hypoxic respiratory failure secondary to #Bilateral pneumonia and #Coccidiomycosis infection Meets sepsis criteria; source UTI versus pneumonia History of Pseudomonas infection and recurrent UTIs IV vancomycin/Zosyn started in ED Initial CXR showed pulmonary vascular congestion 07/02: Coarse crackles on lung exam concerning for aspiration of tube feeds while being transported supine on bed to third floor.? NGT suction showed creamy aspirate. 07/03: continues to have coarse crackles and b/l rhonchi on exam. Sputum ctx positive for Klebsiella pneumoniae and MDR Pseudomonas aeruginosa Bcx negative after 48h MRSA screen (-) CXR showed Bilateral lung opacity most consistent with pneumonia Cocci IgM positive, pending [facility] confirmatory test. WBC today 5.9 Plan: Antibiotics as above, plus fluconazole 400 daily Trend WBC Chest physiotherapy ? #BREANNA (resolved) #Contraction Alkalosis #Prerenal Azotemia Likely prerenal in setting of dehydration versus intrinsic in the setting of UTI/sepsis. Creatinine 1.0 today, baeline 0.4-0.6. BUN 34, BUN/CR 34 Bicarbonate is consistently above 40 on labs, and pCo2 is 66 on ABG. Urine culture- pseudomonas, morganella VBG from 1230 had showen pH 7.42, pCO2 33, PaO2 91, O2 sat 93%. Plan: Continue IV fluids Avoid nephrotoxins, Renally dose medications, and avoid overdiuresis. BiPAP #Insulin-dependent diabetes mellitus A1c 6.5 Plan: Continue insulin degludec 15u plus sliding scale insulin Bedside fingerstick glucose checks #Developmental delay #Cerebral palsy secondary to congenital rubella #Bedbound #Status post PEG tube ? Plan: Consulted nutrition for tube feeds: Continuous feeds at 55 mL/h with 80mL/2h of water flushes Management of pain as needed Frequent positioning ? Disposition: Meropenem IV until 07/09 after which patient can be discharged back to the SNF. DVT prophylaxis: heparin 5000 subq q8h GI prophylaxis: Lansoprazole Diet: glucerna 1.2 nini rth Lines: PIV, PEG CODE STATUS: DNR Plan of care discussed with Attending Dr. Nayely Maxwell MD PGY 2 Disclaimer: This note was dictated by speech recognition. Minor errors in core microarchitect may be present due to voice recognition software. Attending Provider Attestation/Addendum I have seen and examined the patient. I was physically present for the mclaughlin portions of the services provided including history, physical exam, diagnosis, treatment plans and orders. I agree with assessment and plan of care as documented by residents. Even though this this note was carefully revised there may still be minor errors in core microarchitect due to voice recognition software. Alivia Adler MD
[2025-07-07] MEDS: ATORVASTATIN CALCIUM 10 MG TABLET GT (21:38)
[2025-07-07] MEDS: INSULIN DEGLUDEC 5 UNIT/0.05 ML (PER 5 UNITS) 15 UNIT SC (21:38)
[2025-07-08] VITALS (16 sets, daily range): BP systolic 97–140; BP diastolic 58–96; PULSE 62–96; RESP 12–22; TEMP 35.8–36.6; O2SAT 92–99; BMI 22.1
[2025-07-08] MEDS: SODIUM CL RT SOL 3% 4 ML NEBU (NON-FORMULARY) INH ×5 (03:21→22:34)
[2025-07-08] MEDS: HEPARIN SOD INJ 5000 UNIT/ML VIAL SC ×3 (05:16→21:28)
[2025-07-08 07:49] LABS: Basophils # (Auto) 0.0 Thou/mm3 (0.0-0.2); Basophils % (Auto) 1 % (0-2.5); Eosinophils # (Auto) 0.2 Thou/mm3 (0.0-0.5); Eosinophils % (Auto) 4 % (0-10); Hematocrit 29.5 % (36.0-46.0); Immature Granulocytes Auto 0.11 Thou/mm3 (0.00-0.00); Lymphocytes # (Auto) 2.4 Thou/mm3 (1.0-4.8); Lymphocytes % (Auto) 35 % (10-50); Mean Corpuscular HGB Conc 28.5 g/dl (31.0-37.0); Mean Corpuscular Hemoglobin 29.1 pg (25.0-35.0); Mean Corpuscular Volume 102 fL (80-100); Monocytes # (Auto) 0.5 Thou/mm3 (0.0-0.8); Monocytes % (Auto) 7 % (0-12); Neutrophils # (Auto) 3.4 Thou/mm3 (1.8-7.7); Neutrophils % (Auto) 51 % (37-80); Nucleated Red Blood Cell # 0.03 Thou/mm3 (0.00-0.00); Nucleated Red Blood Cell % 1 /100 WBC (0); Platelet Count 273 Thou/mm3 (140-440); RDW Standard Deviation 71.7 fL (36.4-46.3); Red Blood Count 2.89 Miln/mm3 (4.00-5.20); White Blood Count 6.6 Thou/mm3 (3.6-11.0)
[2025-07-08 07:51] LABS: Hemoglobin 8.4 g/dL (12.0-16.0)
[2025-07-08] MEDS: MULTIVITAMIN 15 ML UDC GT (08:00)
[2025-07-08] MEDS: LANSOPRAZOLE 30 MG TAB.RAP.DR GT (08:00)
[2025-07-08] MEDS: MEROPENEM INJ 1,000 MG in SODIUM CHLORIDE 0.9% (Popper) 50 ML 100 MG IV ×2 (08:00→21:28)
[2025-07-08] MEDS: ASCORBIC ACID 250 MG TABLET 500 MG GT (08:00)
[2025-07-08 08:11] LABS: Alanine Aminotransferase 18 U/L (10-49); Albumin, Serum 3.1 gm/dL (3.5-5.0); Albumin/Globulin Ratio 0.7 (1.2-2.2); Alkaline Phosphatase 113 U/L (46-116); Anion Gap 5 (7-16); Aspartate Amino Transferase 25 U/L (0-34); BUN/Creatinine Ratio 28 Ratio (12-20); Bilirubin,Total < 0.2 mg/dL (0.3-1.2); Blood Urea Nitrogen 14 mg/dL (9-23); Calcium 9.2 mg/dL (8.3-10.6); Calcium (Corrected) 9.9 mg/dL (8.5-10.1); Carbon Dioxide 39.9 mMol/L (20.0-31.0); Chloride 95 mMol/L (98-107); Creatinine (Component) 0.5 mg/dL (0.6-1.3); Estimated Creatinine Clearance 98.2 mL/min (>60); Globulin 4.3 gm/dL (2.3-3.5); Glucose 110 mg/dL (74-106); Magnesium 1.7 mg/dL (1.6-2.6); Osmolality,Calculated 280 (275-295); Phosphorous 2.9 mg/dL (2.4-5.1); Potassium 5.0 mMol/L (3.4-5.1); Sodium 140 mMol/L (136-145); Total Protein 7.4 gm/dL (5.7-8.2); eGFR > 60 See Note
[2025-07-08] MEDS: Magnesium Sulfate 2 GM Ivpb 2 GM/50 ML BAG IV (09:57)
[2025-07-08] MEDS: FLUCONAZOLE SUSP 40 MG/ML ML 400 MG GT (09:57)
[2025-07-08 12:07] LABS: Collection Type, Urine Catheter; Squamous Epithelial Cell,Urine 0 /hpf (0-5)
[2025-07-08 12:33] LABS: Amorphous Crystals,Urine Present (Absent); Bacteria,Urine 2+; Bilirubin,Urine Negative (Negative); Blood,Urine 1+ (Negative); Glucose, Urine Negative (Negative); Ketones,Urine Negative (Negative); Leukocyte Esterase,Urine Positive (Negative); Nitrite,Urine Negative (Negative); PH,Urine 7.5 (5.0-7.0); Protein,Urine 2+ (Neg - Trace); RBC,Urine 19 /hpf (0-3); Specific Gravity,Urine 1.010 (1.001-1.035); Urobilinogen,Urine Negative mg/dL (0.0-1.0); WBC,Urine 705 /hpf (0-5)
[2025-07-08 12:34] LABS: Clarity,Urine Turbid (Clear/Hazy)
[2025-07-08 12:35] LABS: Color,Urine Other (Lt Yel-Yel)
--- NOTE | 2025-07-08 12:40 | ESPR_ITS ---
Documentation for date of: 07/08/25 Subjective Subjective Interval history: Patient seen and examined at bedside; no acute events overnight. Repleted magnesium (1.7 today). On meropenem day 6. Exam Vital Signs Temp Pulse Resp BP Pulse Ox O2 Del Method O2 Flow Rate 97.9 F 91 22 H 106/78 93 L Oxy Mask 2 07/08/25 11:30 07/08/25 12:00 07/08/25 11:30 07/08/25 11:30 07/08/25 11:30 07/08/25 11:30 07/08/25 11:30 FiO2 0 07/03/25 13:40 Narrative Exam General: A/O x0, no acute distress, well-nourished, well-developed Eyes: PERRL, EOMI. Anicteric, vision grossly intact. Ears: No ear pain, no ear discharge, Hearing grossly intact. Nose: No nasal discharge. Mouth/Throat: Moist mucous membranes, no redness, no lesions. Neck: Neck supple, non-tender, no cervical lymphadenopathy. Lungs: KITTY coarse crackles, No accessory muscle use. Cardio: Normal S1/S2, regular rhythm, no murmurs, no JVD or carotid bruits. Abdomen: Soft, non-tender, no palpable masses, peristalsis present, no guarding or rebound. PEG tube present Extremities: significant contractures, no peripheral edema , non-tender, peripheral pulses present. Skin: No rashes, no lesions, warm to touch. Neuro: A&O x 0, cannot fully assess due to clinical condition. Psych: Cannot assess due to clinical condition. Objective Labs 07/08/25 07:00 07/08/25 07:00 Labs: Laboratory Results - last 24 hr 07/08/25 07/08/25 07:00 11:50 WBC 6.6 RBC 2.89 L Hgb 8.4 L Hct 29.5 L MCV 102 H MCH 29.1 MCHC 28.5 L RDW Std Deviation 71.7 H Plt Count 273 D Neut % (Auto) 51 Lymph % (Auto) 35 [place] % (Auto) 7 Eos % (Auto) 4 Baso % (Auto) 1 Neut # (Auto) 3.4 Lymph # (Auto) 2.4 [place] # (Auto) 0.5 Eos # (Auto) 0.2 Baso # (Auto) 0.0 Immature Gran # (Auto) 0.11 H Absolute Nucleated RBC 0.03 H Immature Gran % 2 H Nucleated RBC % 1 H Sodium 140 Potassium 5.0 Chloride 95 L Carbon Dioxide 39.9 H Anion Gap 5 L BUN 14 Creatinine 0.5 L Estim Creat Clear Calc 98.2 eGFR > 60 BUN/Creatinine Ratio 28 H Glucose 110 H Calculated Osmolality 280 Calcium 9.2 Corrected Calcium 9.9 Phosphorus 2.9 Magnesium 1.7 Total Bilirubin < 0.2 L AST 25 ALT 18 Alkaline Phosphatase 113 D Total Protein 7.4 Albumin 3.1 L Globulin 4.3 H Albumin/Globulin Ratio 0.7 L Ur Collection Type Catheter Urine Color Other A Urine Clarity Turbid A Urine pH 7.5 H Ur Specific [place] 1.010 Urine Protein 2+ A Urine Glucose (UA) Negative Urine Ketones Negative Urine Blood 1+ A Urine Nitrite Negative Urine Bilirubin Negative Urine Urobilinogen (Auto) Negative Ur Leukocyte Esterase Positive Urine RBC 19 H Urine WBC 705 H Ur Squamous Epith Cells 0 Amorphous Crystals Present A Urine Bacteria 2+ A ABG Interpretation ABG results: 06/29/25 07/01/25 07/03/25 08:02 10:58 12:33 ABG pH 7.45 ABG pCO2 66 H ABG pO2 109 H ABG HCO3 46 H ABG O2 Saturation 98 ABG Base Excess 20 H VBG pH 7.61 7.42 VBG pCO2 51 33 L VBG pO2 60 H 91 H VBG Base Excess 26 H -2 Quality Measures Quality Measures VTE prophylaxis and sepsis Current suspected stage: sepsis Possible source: genitourinary Blood cultures ordered: yes (NGTD ) Antibiotic ordered: Yes Assessment & Plan Assessment Current Active Medications: Generic Name Dose Route Start Last Admin Trade Name Freq PRN Reason Stop Dose Admin Ascorbic Acid 500 mg 07/03/25 09:15 07/08/25 08:00 Ascorbic Acid 250 Mg Tablet GT 08/02/25 09:14 500 mg QDAY URBANO Administration Atorvastatin Calcium 10 mg 07/03/25 21:00 07/07/25 21:38 Atorvastatin Calcium 10 Mg Tablet GT 08/02/25 20:59 10 mg HS URBANO Administration Bisacodyl 10 mg 07/03/25 09:07 Bisacodyl 10 Mg Supp IA 08/02/25 09:06 QDAY PRN CONSTIPATION Protocol Fluconazole 400 mg 07/05/25 09:00 07/08/25 09:57 Fluconazole Susp 40 Mg/Ml Ml GT 07/12/25 08:59 400 mg QDAY URBANO Administration Glucagon 1 mg 06/29/25 12:14 Glucagon Inj 1 Mg Vial IM Q15MIN PRN BG <70, and no IV access Heparin Sodium (Porcine) 5,000 unit 06/29/25 14:00 07/08/25 05:16 Heparin Sod Inj 5000 Unit/Ml Vial SC 07/13/25 13:59 5,000 unit Q8HR URBANO Administration Meropenem 1,000 mg/ Sodium 50 mls @ 100 mls/hr 07/03/25 21:00 07/08/25 08:00 Chloride IV 07/10/25 20:59 100 mls/hr Q12HR URBANO Administration Insulin Degludec 15 unit 07/04/25 21:00 07/07/25 21:38 Insulin Degludec 5 Unit/0.05 Ml (Per 5 Units) SC 08/03/25 20:59 15 unit HS URBANO Administration Insulin Human Lispro 0 unit 06/30/25 01:15 07/08/25 05:42 Insulin Lispro (Admelog) 1 Unit/0.01 Ml Unit SC 07/30/25 01:14 Not Given Q6HR URBANO Protocol Lansoprazole 30 mg 07/03/25 09:15 07/08/25 08:00 Lansoprazole 30 Mg Tab.Rap 08/02/25 09:14 30 mg DAILY URBANO Administration Magnesium Hydroxide 30 ml 07/03/25 09:07 Milk Of Magnesia Susp 30 Ml Udc 08/02/25 09:06 DAILY PRN CONSTIPATION Protocol Midodrine 10 mg 07/04/25 09:15 07/08/25 05:44 Midodrine 5 Mg Tablet PO 08/03/25 09:14 Not Given TID URBANO Multivitamins/Minerals 15 ml 07/03/25 09:15 07/08/25 08:00 Multivitamin 15 Ml Udc GT 08/02/25 09:14 15 ml QDAY URBANO Administration Sennosides 1 tab 06/29/25 12:11 Senna Tablet PO 07/29/25 12:10 BID PRN CONSTIPATION Protocol Sodium Chloride 4 ml 06/30/25 11:00 07/08/25 10:37 Sodium Cl Rt Adriana 3% 4 Ml Nebu (Non-Formulary) INH 07/30/25 10:59 4 ml Q4HRRT URBANO Administration Sodium Phosphate 133 ml 07/03/25 09:07 Sodium Phos,[place]-Dibasic 133 Ml (Fleet) Enema Btl RC QDAY PRN constipation Protocol Plan Patient is a 55-year-old female with PMH of insulin-dependent T2DM, developmental delay, chronically bedbound with indwelling Bardales catheter and recurrent UTIs, chronic PEG tube, 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 Admitted for sepsis secondary to pneumonia versus UTI. # Pseudomonas UTI and # Pseudomonas pneumonia SOFA score 6-7. Patient nonverbal which is her baseline for mentation. Her hourly urine output <35ml, oliquira. Skin cool, mild pallor, without mottling. Cap refill <2sec. VBG from 1230 had showen pH 7.42, pCO2 33, PaO2 91, O2 sat 93%. Sputum ctx positive for Klebsiella pneumoniae and MDR Pseudomonas aeruginosa Urine culture- pseudomonas, morganella +Total fluid boluses 56kg x30ml/kg*h =1.7L calculated. Plan: - Monitor BP closely. - D 5 meropenem 1g Q12h for 7 days (07/03 - to be completed on the morning of 07/10) - Midodrine 10 TID for BP support #Acute on chronic hypoxic respiratory failure secondary to #Bilateral pneumonia and #Coccidiomycosis infection Meets sepsis criteria; source UTI versus pneumonia History of Pseudomonas infection and recurrent UTIs IV vancomycin/Zosyn started in ED Initial CXR showed pulmonary vascular congestion 07/02: Coarse crackles on lung exam concerning for aspiration of tube feeds while being transported supine on bed to third floor.? NGT suction showed creamy aspirate. 07/03: continues to have coarse crackles and b/l rhonchi on exam. Sputum ctx positive for Klebsiella pneumoniae and MDR Pseudomonas aeruginosa Bcx negative after 48h MRSA screen (-) CXR showed Bilateral lung opacity most consistent with pneumonia Cocci IgM positive, pending [facility] confirmatory test. WBC today 6.6 Plan: Antibiotics as above, plus fluconazole 400 daily Trend WBC Chest physiotherapy ? #Contraction Alkalosis #Prerenal Azotemia Likely prerenal in setting of dehydration versus intrinsic in the setting of UTI/sepsis. Creatinine 1.0 today, baeline 0.4-0.6. BUN 34, BUN/CR 34 Bicarbonate is consistently above 40 on labs, and pCo2 is 66 on ABG. Urine culture- pseudomonas, morganella VBG from 1230 had showen pH 7.42, pCO2 33, PaO2 91, O2 sat 93%. Plan: Continue IV fluids Avoid nephrotoxins, Renally dose medications, and avoid overdiuresis. BiPAP #Insulin-dependent diabetes mellitus A1c 6.5 Plan: Continue insulin degludec 15u plus sliding scale insulin Bedside fingerstick glucose checks #Developmental delay #Cerebral palsy secondary to congenital rubella #Bedbound #Status post PEG tube ? Plan: Consulted nutrition for tube feeds: Continuous feeds at 55 mL/h with 80mL/2h of water flushes Management of pain as needed Frequent positioning #Septic shock (Resolved) #BREANNA (resolved) Disposition: Meropenem IV until 07/10 after which patient can be discharged back to the SNF. DVT prophylaxis: heparin 5000 subq q8h GI prophylaxis: Lansoprazole Diet: glucerna 1.2 nini rth Lines: PIV, PEG CODE STATUS: DNR This case was discussed with my attending physician, Dr. Adler, and senior resident, Dr. Mosley. Duke Doshi, PGY1 Senior Resident Attestation: The patient's condition at baseline. Evaluate will continue IV meropenem until 10 July 2025, morning dose would be the last 1, and discharge her back to SNF. I discussed with and supervised the auditor internal physician involved in the care of this patient. I personally saw and examined the patient and discussed the assessment and plan with the entire medicine team, including my attending. I agree with the assessment and plan as documented above. Velasquez Mosley MD PGY3 Internal Medicine Attending Provider Attestation/Addendum I have seen and examined the patient. I was physically present for the mclaughlin portions of the services provided including history, physical exam, diagnosis, treatment plans and orders. I agree with assessment and plan of care as documented by residents. Even though this this note was carefully revised there may still be minor errors in terrazzo grinder due to voice recognition software. Alivia Adler MD
[2025-07-08] MEDS: MIDODRINE 5 MG TABLET 10 MG PO (21:27)
[2025-07-08] MEDS: INSULIN DEGLUDEC 5 UNIT/0.05 ML (PER 5 UNITS) 15 UNIT SC (21:28)
[2025-07-08] MEDS: ATORVASTATIN CALCIUM 10 MG TABLET GT (21:28)
[2025-07-09] VITALS (18 sets, daily range): BP systolic 101–149; BP diastolic 51–85; PULSE 64–88; RESP 16–21; TEMP 36–36.8; O2SAT 91–100; BMI 22.1
[2025-07-09] MEDS: SODIUM CL RT SOL 3% 4 ML NEBU (NON-FORMULARY) INH ×6 (03:43→23:21)
[2025-07-09] MEDS: MIDODRINE 5 MG TABLET 10 MG PO ×3 (05:32→21:33)
[2025-07-09] MEDS: HEPARIN SOD INJ 5000 UNIT/ML VIAL SC ×3 (05:32→21:35)
[2025-07-09] MEDS: MULTIVITAMIN 15 ML UDC GT (08:13)
[2025-07-09] MEDS: ASCORBIC ACID 250 MG TABLET 500 MG GT (08:14)
[2025-07-09] MEDS: FLUCONAZOLE SUSP 40 MG/ML ML 400 MG GT (08:14)
[2025-07-09] MEDS: LANSOPRAZOLE 30 MG TAB.RAP.DR GT (08:14)
[2025-07-09] MEDS: MEROPENEM INJ 1,000 MG in SODIUM CHLORIDE 0.9% (Popper) 50 ML 100 MG IV ×2 (08:27→21:35)
--- NOTE | 2025-07-09 09:05 | ESPR_ITS ---
Subjective Subjective Interval history: called [facility]. no data yet. delay noted Exam Vital Signs Temp Pulse Resp BP Pulse Ox O2 Del Method O2 Flow Rate 96.9 F 78 18 121/67 95 Oxy Mask 8 07/09/25 07:54 07/09/25 07:54 07/09/25 07:54 07/09/25 07:54 07/09/25 07:54 07/09/25 07:54 07/09/25 07:54 FiO2 0 07/03/25 13:40 Narrative Exam limited visit Objective - Internal Medicine Labs 07/08/25 07:00 07/08/25 07:00 Labs: Laboratory Results - last 24 hr 07/08/25 11:50 Ur Collection Type Catheter Urine Color Other A Urine Clarity Turbid A Urine pH 7.5 H Ur Specific [place] 1.010 Urine Protein 2+ A Urine Glucose (UA) Negative Urine Ketones Negative Urine Blood 1+ A Urine Nitrite Negative Urine Bilirubin Negative Urine Urobilinogen (Auto) Negative Ur Leukocyte Esterase Positive Urine RBC 19 H Urine WBC 705 H Ur Squamous Epith Cells 0 Amorphous Crystals Present A Urine Bacteria 2+ A ABG Interpretation ABG results: 06/29/25 07/01/25 07/03/25 08:02 10:58 12:33 ABG pH 7.45 ABG pCO2 66 H ABG pO2 109 H ABG HCO3 46 H ABG O2 Saturation 98 ABG Base Excess 20 H VBG pH 7.61 7.42 VBG pCO2 51 33 L VBG pO2 60 H 91 H VBG Base Excess 26 H -2 Assessment & Plan A&P Narrative pos sputum cx in dnr pt with neg gram stain hx of candidemia with neg f/u bc and neg echo dnr status likely restrictive lung disease (no viral panel noted) procal neg so value of abx seems low. merrem ordered q 12 h. and pt remains afebrile on it so no changes advised cocci specimen lost at [facility]. so hope lab sends another one or verifies prior send out. [facility] called back and indicated they expect specimen soon from [facility]. I called lab on Wednesday abx for no more than 7d total repeat chest imaging in 4 weeks please with no titer can not say that she has cocci or not. she is asymptomatic so ok to leave off flucon for now , but if worsens, you can try that again. will check in Wednesday PM Time Spent With Patient Time: Total time spent is greater than 50% in coordination of care (as documented) at patient's floor/unit and/or counseling patient:
--- NOTE | 2025-07-09 09:38 | PD.ADDPROG ---
Addendum Progress Note Addendum Date of report being addended: 07/09/25 Narrative: viral panel pending. there is no hx of pulm fibrosis noted. that is a different pt
[2025-07-09 09:51] LABS: Misc Send Out* See Sep Rpt
[2025-07-09 10:03] LABS: Basophils # (Auto) 0.0 Thou/mm3 (0.0-0.2); Basophils % (Auto) 1 % (0-2.5); Eosinophils # (Auto) 0.2 Thou/mm3 (0.0-0.5); Eosinophils % (Auto) 3 % (0-10); Hematocrit 26.7 % (36.0-46.0); Immature Granulocytes Auto 0.11 Thou/mm3 (0.00-0.00); Lymphocytes # (Auto) 1.6 Thou/mm3 (1.0-4.8); Lymphocytes % (Auto) 28 % (10-50); Mean Corpuscular HGB Conc 28.8 g/dl (31.0-37.0); Mean Corpuscular Hemoglobin 29.4 pg (25.0-35.0); Mean Corpuscular Volume 102 fL (80-100); Monocytes # (Auto) 0.4 Thou/mm3 (0.0-0.8); Monocytes % (Auto) 7 % (0-12); Neutrophils # (Auto) 3.3 Thou/mm3 (1.8-7.7); Neutrophils % (Auto) 60 % (37-80); Nucleated Red Blood Cell # 0.02 Thou/mm3 (0.00-0.00); Nucleated Red Blood Cell % 0 /100 WBC (0); Platelet Count 234 Thou/mm3 (140-440); RDW Standard Deviation 81.1 fL (36.4-46.3); Red Blood Count 2.62 Miln/mm3 (4.00-5.20); White Blood Count 5.5 Thou/mm3 (3.6-11.0)
[2025-07-09 10:12] LABS: Hemoglobin 7.7 g/dL (12.0-16.0)
[2025-07-09 10:54] LABS: Alanine Aminotransferase 17 U/L (10-49); Albumin, Serum 2.9 gm/dL (3.5-5.0); Albumin/Globulin Ratio 0.7 (1.2-2.2); Alkaline Phosphatase 102 U/L (46-116); Anion Gap 4 (7-16); Aspartate Amino Transferase 25 U/L (0-34); BUN/Creatinine Ratio 25 Ratio (12-20); Bilirubin,Total < 0.2 mg/dL (0.3-1.2); Blood Urea Nitrogen 15 mg/dL (9-23); Calcium 8.8 mg/dL (8.3-10.6); Calcium (Corrected) 9.7 mg/dL (8.5-10.1); Carbon Dioxide > 40.0 mMol/L (20.0-31.0); Chloride 97 mMol/L (98-107); Creatinine (Component) 0.6 mg/dL (0.6-1.3); Estimated Creatinine Clearance 81.8 mL/min (>60); Globulin 3.9 gm/dL (2.3-3.5); Glucose 125 mg/dL (74-106); Magnesium 1.9 mg/dL (1.6-2.6); Osmolality,Calculated 283 (275-295); Phosphorous 2.9 mg/dL (2.4-5.1); Potassium 4.8 mMol/L (3.4-5.1); Sodium 141 mMol/L (136-145); Total Protein 6.8 gm/dL (5.7-8.2); eGFR > 60 See Note
--- NOTE | 2025-07-09 10:59 | PC.SS ---
Follow up note: On IV antibiotic. Pt is possible d/c to [facility] tomorrow after completing the IV antibiotic.
--- NOTE | 2025-07-09 13:13 | ESPR_ITS ---
Documentation for date of: 07/09/25 Subjective Subjective Interval history: Patient seen and examined at bedside; no acute events overnight. Still on meropenem until Wednesday AM final dose. Exam Vital Signs Temp Pulse Resp BP Pulse Ox O2 Del Method O2 Flow Rate 97.3 F 70 21 H 113/71 91 L Nasal Cannula 3 07/09/25 12:00 07/09/25 12:00 07/09/25 12:00 07/09/25 12:00 07/09/25 12:00 07/09/25 12:00 07/09/25 12:00 FiO2 0 07/03/25 13:40 Narrative Exam General: A/O x0, no acute distress, well-nourished, well-developed Eyes: PERRL, EOMI. Anicteric, vision grossly intact. Ears: No ear pain, no ear discharge, Hearing grossly intact. Nose: No nasal discharge. Mouth/Throat: Moist mucous membranes, no redness, no lesions. Neck: Neck supple, non-tender, no cervical lymphadenopathy. Lungs: KITTY coarse crackles, No accessory muscle use. Cardio: Normal S1/S2, regular rhythm, no murmurs, no JVD or carotid bruits. Abdomen: Soft, non-tender, no palpable masses, peristalsis present, no guarding or rebound. PEG tube present Extremities: significant contractures, no peripheral edema, non-tender, peripheral pulses present. Skin: No rashes, no lesions, warm to touch. Neuro: A&O x 0, cannot fully assess due to clinical condition. Psych: Cannot assess due to clinical condition. Objective Labs 07/09/25 09:35 07/09/25 09:35 Labs: Laboratory Results - last 24 hr 07/09/25 09:35 WBC 5.5 RBC 2.62 L Hgb 7.7 L Hct 26.7 L MCV 102 H MCH 29.4 MCHC 28.8 L RDW Std Deviation 81.1 H Plt Count 234 D Neut % (Auto) 60 Lymph % (Auto) 28 [place] % (Auto) 7 Eos % (Auto) 3 Baso % (Auto) 1 Neut # (Auto) 3.3 Lymph # (Auto) 1.6 [place] # (Auto) 0.4 Eos # (Auto) 0.2 Baso # (Auto) 0.0 Immature Gran # (Auto) 0.11 H Absolute Nucleated RBC 0.02 H Immature Gran % 2 H Nucleated RBC % 0 Sodium 141 Potassium 4.8 Chloride 97 L Carbon Dioxide > 40.0 H Anion Gap 4 L BUN 15 Creatinine 0.6 Estim Creat Clear Calc 81.8 eGFR > 60 BUN/Creatinine Ratio 25 H Glucose 125 H Calculated Osmolality 283 Calcium 8.8 Corrected Calcium 9.7 Phosphorus 2.9 Magnesium 1.9 Total Bilirubin < 0.2 L AST 25 ALT 17 Alkaline Phosphatase 102 Total Protein 6.8 Albumin 2.9 L Globulin 3.9 H Albumin/Globulin Ratio 0.7 L ABG Interpretation ABG results: 06/29/25 07/01/25 07/03/25 08:02 10:58 12:33 ABG pH 7.45 ABG pCO2 66 H ABG pO2 109 H ABG HCO3 46 H ABG O2 Saturation 98 ABG Base Excess 20 H VBG pH 7.61 7.42 VBG pCO2 51 33 L VBG pO2 60 H 91 H VBG Base Excess 26 H -2 Quality Measures Quality Measures VTE prophylaxis and sepsis Current suspected stage: sepsis Possible source: genitourinary Blood cultures ordered: yes (NGTD ) Antibiotic ordered: Yes Assessment & Plan Assessment Current Active Medications: Generic Name Dose Route Start Last Admin Trade Name Freq PRN Reason Stop Dose Admin Ascorbic Acid 500 mg 07/03/25 09:15 07/09/25 08:14 Ascorbic Acid 250 Mg Tablet GT 08/02/25 09:14 500 mg QDAY URBANO Administration Atorvastatin Calcium 10 mg 07/03/25 21:00 07/08/25 21:28 Atorvastatin Calcium 10 Mg Tablet GT 08/02/25 20:59 10 mg HS URBANO Administration Bisacodyl 10 mg 07/03/25 09:07 Bisacodyl 10 Mg Supp SD 08/02/25 09:06 QDAY PRN CONSTIPATION Protocol Fluconazole 400 mg 07/05/25 09:00 07/09/25 08:14 Fluconazole Susp 40 Mg/Ml Ml GT 07/12/25 08:59 400 mg QDAY URBANO Administration Glucagon 1 mg 06/29/25 12:14 Glucagon Inj 1 Mg Vial IM Q15MIN PRN BG <70, and no IV access Heparin Sodium (Porcine) 5,000 unit 06/29/25 14:00 07/09/25 05:32 Heparin Sod Inj 5000 Unit/Ml Vial SC 07/13/25 13:59 5,000 unit Q8HR URBANO Administration Meropenem 1,000 mg/ Sodium 50 mls @ 100 mls/hr 07/03/25 21:00 07/09/25 08:27 Chloride IV 07/10/25 20:59 100 mls/hr Q12HR URBANO Administration Insulin Degludec 15 unit 07/04/25 21:00 07/08/25 21:28 Insulin Degludec 5 Unit/0.05 Ml (Per 5 Units) SC 08/03/25 20:59 15 unit HS URBANO Administration Insulin Human Lispro 0 unit 06/30/25 01:15 07/09/25 11:27 Insulin Lispro (Admelog) 1 Unit/0.01 Ml Unit SC 07/30/25 01:14 Not Given Q6HR URBANO Protocol Lansoprazole 30 mg 07/03/25 09:15 07/09/25 08:14 Lansoprazole 30 Mg Tab.Rap. GT 08/02/25 09:14 30 mg DAILY URBANO Administration Magnesium Hydroxide 30 ml 07/03/25 09:07 Milk Of Magnesia Susp 30 Ml Udc GT 08/02/25 09:06 DAILY PRN CONSTIPATION Protocol Midodrine 10 mg 07/04/25 09:15 07/09/25 05:32 Midodrine 5 Mg Tablet PO 08/03/25 09:14 10 mg TID URBANO Administration Multivitamins/Minerals 15 ml 07/03/25 09:15 07/09/25 08:13 Multivitamin 15 Ml Udc GT 08/02/25 09:14 15 ml QDAY UBRANO Administration Sennosides 1 tab 06/29/25 12:11 Senna Tablet PO 07/29/25 12:10 BID PRN CONSTIPATION Protocol Sodium Chloride 4 ml 06/30/25 11:00 07/09/25 10:54 Sodium Cl Rt Adriana 3% 4 Ml Nebu (Non-Formulary) INH 07/30/25 10:59 4 ml Q4HRRT URBANO Administration Sodium Phosphate 133 ml 07/03/25 09:07 Sodium Phos,[place]-Dibasic 133 Ml (Fleet) Enema Btl RC QDAY PRN constipation Protocol Plan Patient is a 55-year-old female with PMH of insulin-dependent T2DM, developmental delay, chronically bedbound with indwelling Bardales catheter and recurrent UTIs, chronic PEG tube, 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 Admitted for sepsis secondary to pneumonia versus UTI. # Pseudomonas UTI and # Pseudomonas pneumonia SOFA score 6-7. Patient nonverbal which is her baseline for mentation. Her hourly urine output <35ml, oliquira. Skin cool, mild pallor, without mottling. Cap refill <2sec. VBG from 1230 had showen pH 7.42, pCO2 33, PaO2 91, O2 sat 93%. Sputum ctx positive for Klebsiella pneumoniae and MDR Pseudomonas aeruginosa Urine culture- pseudomonas, morganella +Total fluid boluses 56kg x30ml/kg*h =1.7L calculated. Plan: - Monitor BP closely. - D 5 meropenem 1g Q12h for 7 days (07/03 - to be completed on the morning of 07/10) - Midodrine 10 TID for BP support #Acute on chronic hypoxic respiratory failure secondary to #Bilateral pneumonia and #Coccidiomycosis infection Meets sepsis criteria; source UTI versus pneumonia History of Pseudomonas infection and recurrent UTIs IV vancomycin/Zosyn started in ED Initial CXR showed pulmonary vascular congestion 07/02: Coarse crackles on lung exam concerning for aspiration of tube feeds while being transported supine on bed to third floor.? NGT suction showed creamy aspirate. 07/03: continues to have coarse crackles and b/l rhonchi on exam. Sputum ctx positive for Klebsiella pneumoniae and MDR Pseudomonas aeruginosa Bcx negative after 48h MRSA screen (-) CXR showed Bilateral lung opacity most consistent with pneumonia Cocci IgM positive, pending [facility] confirmatory test. WBC today 5.5 Plan: Antibiotics as above, plus fluconazole 400 daily Trend WBC Chest physiotherapy ? #Contraction Alkalosis #Prerenal Azotemia Likely prerenal in setting of dehydration versus intrinsic in the setting of UTI/sepsis. Creatinine 1.0 today, baeline 0.4-0.6. BUN 34, BUN/CR 34 Bicarbonate is consistently above 40 on labs, and pCo2 is 66 on ABG. Urine culture- pseudomonas, morganella VBG from 1230 had showen pH 7.42, pCO2 33, PaO2 91, O2 sat 93%. Plan: Continue IV fluids Avoid nephrotoxins, Renally dose medications, and avoid overdiuresis. BiPAP #Insulin-dependent diabetes mellitus A1c 6.5 Plan: Continue insulin degludec 15u plus sliding scale insulin Bedside fingerstick glucose checks #Developmental delay #Cerebral palsy secondary to congenital rubella #Bedbound #Status post PEG tube ? Plan: Consulted nutrition for tube feeds: Continuous feeds at 55 mL/h with 80mL/2h of water flushes Management of pain as needed Frequent positioning #Septic shock (Resolved) #BREANNA (resolved) Disposition: Meropenem IV until 07/10 after which patient can be discharged back to the SNF. DVT prophylaxis: heparin 5000 subq q8h GI prophylaxis: Lansoprazole Diet: glucerna 1.2 nini rth Lines: PIV, PEG CODE STATUS: DNR This case was discussed with my attending physician, Dr. Adler, and senior resident, Dr. Mosley. Duke Doshi, PGY1 Senior Resident Attestation: The patient seem to be at her baseline this morning. We will continue meropenem until tomorrow morning, and after the first dose in the a.m. tomorrow, the patient will be discharged to her facility. I discussed with and supervised the internal audit consultant physician involved in the care of this patient. I personally saw and examined the patient and discussed the assessment and plan with the entire medicine team, including my attending. I agree with the assessment and plan as documented above. Velasquez Mosley MD PGY3 Internal Medicine Attending Provider Attestation/Addendum I have seen and examined the patient. I was physically present for the mclaughlin portions of the services provided including history, physical exam, diagnosis, treatment plans and orders. I agree with assessment and plan of care as documented by residents. Even though this this note was carefully revised there may still be minor errors in review rn due to voice recognition software. Alivia Adler MD
[2025-07-09] MEDS: INSULIN DEGLUDEC 5 UNIT/0.05 ML (PER 5 UNITS) 15 UNIT SC (21:34)
[2025-07-09] MEDS: ATORVASTATIN CALCIUM 10 MG TABLET GT (21:34)
[2025-07-10] VITALS (12 sets, daily range): BP systolic 108–143; BP diastolic 68–92; PULSE 67–87; RESP 12–24; TEMP 36.4; O2SAT 90–99; BMI 20.7
[2025-07-10] MEDS: SODIUM CL RT SOL 3% 4 ML NEBU (NON-FORMULARY) INH ×4 (02:13→14:31)
[2025-07-10] MEDS: HEPARIN SOD INJ 5000 UNIT/ML VIAL SC ×2 (05:46→14:29)
[2025-07-10] MEDS: MIDODRINE 5 MG TABLET 10 MG PO (05:53)
[2025-07-10 06:13] LABS: Basophils # (Auto) 0.0 Thou/mm3 (0.0-0.2); Basophils % (Auto) 1 % (0-2.5); Eosinophils # (Auto) 0.2 Thou/mm3 (0.0-0.5); Eosinophils % (Auto) 3 % (0-10); Hematocrit 26.4 % (36.0-46.0); Immature Granulocytes Auto 0.08 Thou/mm3 (0.00-0.00); Lymphocytes # (Auto) 1.7 Thou/mm3 (1.0-4.8); Lymphocytes % (Auto) 30 % (10-50); Mean Corpuscular HGB Conc 29.5 g/dl (31.0-37.0); Mean Corpuscular Hemoglobin 30.1 pg (25.0-35.0); Mean Corpuscular Volume 102 fL (80-100); Monocytes # (Auto) 0.4 Thou/mm3 (0.0-0.8); Monocytes % (Auto) 8 % (0-12); Neutrophils # (Auto) 3.2 Thou/mm3 (1.8-7.7); Neutrophils % (Auto) 57 % (37-80); Nucleated Red Blood Cell # 0.02 Thou/mm3 (0.00-0.00); Nucleated Red Blood Cell % 0 /100 WBC (0); Platelet Count 224 Thou/mm3 (140-440); RDW Standard Deviation 83.7 fL (36.4-46.3); Red Blood Count 2.59 Miln/mm3 (4.00-5.20); White Blood Count 5.6 Thou/mm3 (3.6-11.0)
[2025-07-10 06:18] LABS: Hemoglobin 7.8 g/dL (12.0-16.0)
[2025-07-10 06:43] LABS: Alanine Aminotransferase 18 U/L (10-49); Albumin, Serum 3.0 gm/dL (3.5-5.0); Albumin/Globulin Ratio 0.8 (1.2-2.2); Alkaline Phosphatase 96 U/L (46-116); Anion Gap 7 (7-16); Aspartate Amino Transferase 32 U/L (0-34); BUN/Creatinine Ratio 24 Ratio (12-20); Bilirubin,Total < 0.2 mg/dL (0.3-1.2); Blood Urea Nitrogen 12 mg/dL (9-23); Calcium 9.1 mg/dL (8.3-10.6); Calcium (Corrected) 9.9 mg/dL (8.5-10.1); Carbon Dioxide 36.8 mMol/L (20.0-31.0); Chloride 95 mMol/L (98-107); Creatinine (Component) 0.5 mg/dL (0.6-1.3); Estimated Creatinine Clearance 98.2 mL/min (>60); Globulin 3.9 gm/dL (2.3-3.5); Glucose 97 mg/dL (74-106); Magnesium 2.0 mg/dL (1.6-2.6); Osmolality,Calculated 277 (275-295); Phosphorous 3.2 mg/dL (2.4-5.1); Potassium 5.1 mMol/L (3.4-5.1); Sodium 139 mMol/L (136-145); Total Protein 6.9 gm/dL (5.7-8.2); eGFR > 60 See Note
[2025-07-10] MEDS: MEROPENEM INJ 1,000 MG in SODIUM CHLORIDE 0.9% (Popper) 50 ML 100 MG IV (08:38)
[2025-07-10] MEDS: MULTIVITAMIN 15 ML UDC GT (08:38)
[2025-07-10] MEDS: ASCORBIC ACID 250 MG TABLET 500 MG GT (08:38)
[2025-07-10] MEDS: LANSOPRAZOLE 30 MG TAB.RAP.DR GT (08:38)
[2025-07-10] MEDS: FLUCONAZOLE SUSP 40 MG/ML ML 400 MG GT (08:39)
--- NOTE | 2025-07-10 09:25 | PD.RESPRO ---
Documentation for date of: 07/10/25 Exam Vital Signs Temp Pulse Resp BP Pulse Ox O2 Del Method O2 Flow Rate 97.6 F 74 19 127/92 H 99 Oxy Mask 4 07/10/25 07:32 07/10/25 07:32 07/10/25 07:32 07/10/25 07:32 07/10/25 07:32 07/10/25 07:32 07/10/25 07:32 FiO2 0 07/03/25 13:40 Objective Labs 07/10/25 04:40 07/10/25 04:40 Labs: Laboratory Results - last 24 hr 07/09/25 07/10/25 09:35 04:40 WBC 5.5 5.6 RBC 2.62 L 2.59 L Hgb 7.7 L 7.8 L Hct 26.7 L 26.4 L MCV 102 H 102 H MCH 29.4 30.1 MCHC 28.8 L 29.5 L RDW Std Deviation 81.1 H 83.7 H Plt Count 234 D 224 Neut % (Auto) 60 57 Lymph % (Auto) 28 30 [place] % (Auto) 7 8 Eos % (Auto) 3 3 Baso % (Auto) 1 1 Neut # (Auto) 3.3 3.2 Lymph # (Auto) 1.6 1.7 [place] # (Auto) 0.4 0.4 Eos # (Auto) 0.2 0.2 Baso # (Auto) 0.0 0.0 Immature Gran # (Auto) 0.11 H 0.08 H Absolute Nucleated RBC 0.02 H 0.02 H Immature Gran % 2 H 1 H Nucleated RBC % 0 0 Sodium 141 139 Potassium 4.8 5.1 Chloride 97 L 95 L Carbon Dioxide > 40.0 H 36.8 H Anion Gap 4 L 7 BUN 15 12 Creatinine 0.6 0.5 L Estim Creat Clear Calc 81.8 98.2 eGFR > 60 > 60 BUN/Creatinine Ratio 25 H 24 H Glucose 125 H 97 Calculated Osmolality 283 277 Calcium 8.8 9.1 Corrected Calcium 9.7 9.9 Phosphorus 2.9 3.2 Magnesium 1.9 2.0 Total Bilirubin < 0.2 L < 0.2 L AST 25 32 ALT 17 18 Alkaline Phosphatase 102 96 Total Protein 6.8 6.9 Albumin 2.9 L 3.0 L Globulin 3.9 H 3.9 H Albumin/Globulin Ratio 0.7 L 0.8 L ABG Interpretation ABG results: 06/29/25 07/01/25 07/03/25 08:02 10:58 12:33 ABG pH 7.45 ABG pCO2 66 H ABG pO2 109 H ABG HCO3 46 H ABG O2 Saturation 98 ABG Base Excess 20 H VBG pH 7.61 7.42 VBG pCO2 51 33 L VBG pO2 60 H 91 H VBG Base Excess 26 H -2 Quality Measures Quality Measures VTE prophylaxis and sepsis Possible source: genitourinary Blood cultures ordered: yes (NGTD ) Assessment & Plan Assessment Current Active Medications: Generic Name Dose Route Start Last Admin Trade Name Freq PRN Reason Stop Dose Admin Ascorbic Acid 500 mg 07/03/25 09:15 07/10/25 08:38 Ascorbic Acid 250 Mg Tablet GT 08/02/25 09:14 500 mg QDAY URBANO Administration Atorvastatin Calcium 10 mg 07/03/25 21:00 07/09/25 21:34 Atorvastatin Calcium 10 Mg Tablet GT 08/02/25 20:59 10 mg HS URBANO Administration Bisacodyl 10 mg 07/03/25 09:07 Bisacodyl 10 Mg Supp MS 08/02/25 09:06 QDAY PRN CONSTIPATION Protocol Fluconazole 400 mg 07/05/25 09:00 07/10/25 08:39 Fluconazole Susp 40 Mg/Ml Ml GT 07/12/25 08:59 400 mg QDAY URBANO Administration Glucagon 1 mg 06/29/25 12:14 Glucagon Inj 1 Mg Vial IM Q15MIN PRN BG <70, and no IV access Heparin Sodium (Porcine) 5,000 unit 06/29/25 14:00 07/10/25 05:46 Heparin Sod Inj 5000 Unit/Ml Vial SC 07/13/25 13:59 5,000 unit Q8HR URBANO Administration Meropenem 1,000 mg/ Sodium 50 mls @ 100 mls/hr 07/03/25 21:00 07/10/25 08:38 Chloride IV 07/10/25 20:59 100 mls/hr Q12HR URBANO Administration Insulin Degludec 15 unit 07/04/25 21:00 07/09/25 21:34 Insulin Degludec 5 Unit/0.05 Ml (Per 5 Units) SC 08/03/25 20:59 15 unit HS URBANO Administration Insulin Human Lispro 0 unit 06/30/25 01:15 07/10/25 05:53 Insulin Lispro (Admelog) 1 Unit/0.01 Ml Unit SC 07/30/25 01:14 Not Given Q6HR URBANO Protocol Lansoprazole 30 mg 07/03/25 09:15 07/10/25 08:38 Lansoprazole 30 Mg Tab.Rap. GT 08/02/25 09:14 30 mg DAILY URBANO Administration Magnesium Hydroxide 30 ml 07/03/25 09:07 Milk Of Magnesia Susp 30 Ml Udc GT 08/02/25 09:06 DAILY PRN CONSTIPATION Protocol Midodrine 10 mg 07/04/25 09:15 07/10/25 05:53 Midodrine 5 Mg Tablet PO 08/03/25 09:14 10 mg TID URBANO Administration Multivitamins/Minerals 15 ml 07/03/25 09:15 07/10/25 08:38 Multivitamin 15 Ml Udc GT 08/02/25 09:14 15 ml QDAY URBANO Administration Sennosides 1 tab 06/29/25 12:11 Senna Tablet PO 07/29/25 12:10 BID PRN CONSTIPATION Protocol Sodium Chloride 4 ml 06/30/25 11:00 07/10/25 06:46 Sodium Cl Rt Adriana 3% 4 Ml Nebu (Non-Formulary) INH 07/30/25 10:59 4 ml Q4HRRT URBANO Administration Sodium Phosphate 133 ml 07/03/25 09:07 Sodium Phos,[place]-Dibasic 133 Ml (Fleet) Enema Btl RC QDAY PRN constipation Protocol
--- NOTE | 2025-07-10 09:26 | ESDS_ITS ---
Planned Discharge Date 07/10/25 DS: Providers Provider Date of admission: 06/29/25 12:11 Primary care physician: Manuel Su MD Admitting Provider: Raffy Rm MD Attending Provider on Admission: Alivia Adler MD Consults: 06/29/25 12:15 Referral Nutritional Services Stat Comment: Tube feeds recommendations 07/03/25 09:26 Consult to Infectious Diseases Routine Comment: sputum and urine ctx growing Psuedomonas Consulting Provider: Hardy Goyal 07/03/25 12:01 Referral Wound Care Routine Comment: Attending Provider on DC: Alivia Adler MD Discharging Provider: Alivia Adler MD DS: Diagnosis Problem List Completed Was Problem List Reviewed/Reconciled?: Yes Hospital Course Hospital Course Hospital course: Hospital Course: Patient is a 55-year-old female PMH of insulin-dependent T2DM, developmental delay, chronically bedbound with indwelling Bardales catheter, recurrent UTIs, chronic PEG tube, 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 Admitted for AHRF and sepsis secondary to UTI vs pneumonia and started on zosyn. Sputum cultres taken. This continued until 07/03, when a rapid for critical hypotension was called, and 2 fluid was given with minimal benefit to MAP. Patient required pressors, and was upgraded to ICU. On 07/04, patient was downgraded after pressors were given, then was taken off them, and antibiotics switched to meropenem, which would be done for 7 days. Patient finished meropenem on 07/10 in AM, and she was considered stable for discharge. Discharge Instructions: ? You have been started on fluconazole for cocci. Follow-up with your primary doctor for [facility] confirmatory test. If negative you can discontinue fluconazole. ? You have been started on midodrine for your blood pressure. Take as needed for MAP <65 - If you are having respiratory secretions, please get oral suctioning ? Continue the rest of your home medication as before. - Follow up with your primary care physician within 1 week of discharge. If you do not have a primary care physician, please follow up with the [facility] Residents clinic ([phone]) ? If you experience any new, worsening or persistent symptoms either call your primary doctor, or dial 911 or present to the emergency department. Problem List: # Pseudomonas UTI and # Pseudomonas pneumonia #Acute on chronic hypoxic respiratory failure secondary to #Bilateral pneumonia and #Coccidiomycosis infection #Contraction Alkalosis #Prerenal Azotemia #Insulin-dependent diabetes mellitus #Developmental delay #Cerebral palsy secondary to congenital rubella #Bedbound #Status post PEG tube #Septic shock (Resolved) #BREANNA (resolved) This case was discussed with my attending physician, Dr. Adler, and senior resident, Dr. Mosley. Duke Oscar Glenda, PGY1 Senior Resident Attestation: I discussed with and supervised the nurse intern physician involved in the care of this patient. I personally saw and examined the patient and discussed the assessment and plan with the entire medicine team, including my attending. I agree with the discharge plan as documented above. Velasquez Mosley MD PGY3 Internal Medicine Status at Discharge Functional status at discharge: bed bound Overall status at discharge: patient is progressing back to baseline Time Spent with Patient Time attestation: Total time spent providing and/or coordinating discharge services: 38 minutes Time spent: Greater than 30 minutes Exam Vital Signs Temp Pulse Resp BP Pulse Ox O2 Del Method O2 Flow Rate 97.6 F 74 19 127/92 H 99 Oxy Mask 4 07/10/25 07:32 07/10/25 07:32 07/10/25 07:32 07/10/25 07:32 07/10/25 07:32 07/10/25 07:32 07/10/25 07:32 FiO2 0 07/03/25 13:40 Narrative Exam General: A/O x0, no acute distress, well-nourished, well-developed Eyes: PERRL, EOMI. Anicteric, vision grossly intact. Ears: No ear pain, no ear discharge, Hearing grossly intact. Nose: No nasal discharge. Mouth/Throat: Moist mucous membranes, no redness, no lesions. Neck: Neck supple, non-tender, no cervical lymphadenopathy. Lungs: KITTY coarse crackles, No accessory muscle use. Cardio: Normal S1/S2, regular rhythm, no murmurs, no JVD or carotid bruits. Abdomen: Soft, non-tender, no palpable masses, peristalsis present, no guarding or rebound. PEG tube present Extremities: significant contractures, no peripheral edema, non-tender, peripheral pulses present. Skin: No rashes, no lesions, warm to touch. Neuro: A&O x 0, cannot fully assess due to clinical condition. Psych: Cannot assess due to clinical condition. Discharge Plan Plan Patient Disposition: Xfer Skilled Nsg Fac (SNF) Patient condition on transfer: Stable and Benefits outweigh risks Care Plan Goals: ? You have been started on fluconazole for cocci. Follow-up with your primary doctor for [facility] confirmatory test. If negative you can discontinue fluconazole. ? You have been started on midodrine for your blood pressure. Take as needed for MAP <65 - If you are having respiratory secretions, please get oral suctioning ? Continue the rest of your home medication as before. - Follow up with your primary care physician within 1 week of discharge. If you do not have a primary care physician, please follow up with the [facility] Residents clinic ([phone]) ? If you experience any new, worsening or persistent symptoms either call your primary doctor, or dial 911 or present to the emergency department. Prescriptions/Referrals Prescriptions/Med Rec: New midodrine 5 mg Tablet 10 mg feeding tube TID 14 Days Qty: 84 0RF fluconazole 40 mg/mL Suspension For Reconstitution 400 mg G-tube QDAY 30 Days Qty: 300 0RF Continued atorvastatin [Lipitor] 10 MG tablet 10 mg feeding tube HS 30 Days Qty: 30 1RF acetaminophen 325 mg tablet 650 mg PO QID PRN (Reason: pain) bisacodyl [Dulcolax (bisacodyl)] 10 mg suppository 10 mg PA QDAY PRN (Reason: constipation) Enema 19-7 gram/118 mL enema 118 ml PA QDAY PRN (Reason: constipation) magnesium hydroxide [[place] Milk of Magnesia] 400 mg/5 mL suspension 30 ml PO DAILY PRN (Reason: constipation) multivitamin [Daily Multi-Vitamin] Tablet 1 tab PO QDAY insulin glargine [Basaglar KwikPen U-100 Insulin] 100 unit/mL (3 mL) insulin pen 15 unit subcut QDAY ascorbic acid (vitamin C) [Vitamin C] 500 mg tablet 500 mg PO QDAY sennosides 8.8 mg/5 mL syrup 10 ml PO BID PRN (Reason: constipation) Qty: 236 2RF ipratropium-albuterol 0.5 mg-3 mg(2.5 mg base)/3 mL solution for nebulization 3 ml INHALATION Q6H PRN (Reason: shortness of breath or wheezing) omeprazole 40 mg capsule,delayed release(DR/EC) 40 mg feeding tube DAILY potassium chloride 20 mEq/15 mL liquid 10 meq feeding tube DAILY Changed ferrous sulfate 220 mg (44 mg iron)/5 mL solution 220 mg PO 1XD 30 Days Qty: 150 0RF Referrals: Manuel Su MD [Primary Care Provider, Family Practice] Patient/Caregiver Discharge Instructions Education Materials: Understanding Coccidioidomycosis, UITs Women Print Language: [place] Stand Alone Forms: Deja Award Info., Patient Portal Info Letter Discharge Order Discharge Orders: Discharge (Routine); Ordered 07/10/25 Ordered By: Francisco Maxwell Quality Discharge Quality Measures none MD Attestestation MD Attestation I have seen and examined the patient. I was physically present for the mclaughlin portions of the services provided including history, physical exam, diagnosis, treatment plans and orders. I agree with assessment and plan of care as documented by residents. Even though this this note was carefully revised there may still be minor errors in plant changer due to voice recognition software. Alivia Adler MD
--- NOTE | 2025-07-10 11:06 | PC.SS ---
SS followed up with Ifeoma from [facility] who explained pt is now requiring to be a new admit for their facility and is also requesting a PASRR. Ifeoma is aware pt is ready for d/c today
--- NOTE | 2025-07-10 11:12 | PC.CC ---
PASRR Level 1 complete and downloaded. PASRR is closed, however, PASRR may contact facility if they deem Level 2 is required due to DD.
--- NOTE | 2025-07-10 15:32 | PC.SS ---
SS attempted to setup transportation 3X with [facility] but was unsuccessful. Per Jorge from [facility], pt has an [employer] and they are the transportation providers and transferred SS 2 X to their call center and was call was disconnected. SS has sent ANDREW, patient's facesheet, and ambulance form to [place] using [facility]. Pt is requiring 3 liters of O2. SS has spoken to Becky from [facility] and transportation is setup for 4pm to [facility]. has sent PASRR and inquiry to [facility] using [facility]. Martin is aware. Bedside nurse, Lyndsey is aware. Jimena SANTOYO is aware.
== END 2025-07-10 16:43 | disposition skilled nursing facility (03) | DRG 871 ==
LOC: SERX 10:50 → SERHOLD 13:06 → S2SX 18:40 → S3SX 07-02 07:43 → S2SX 07-02 08:41 → S3NX 07-04 23:38
PROVIDERS: Internal Medicine Infectious Disease; Student in an Organized Health Care Education/Training Program; Admitting Provider Student in an Organized Health Care Education/Training Program; PCP Family Medicine; Visit Provider Student in an Organized Health Care Education/Training Program
DX: A41.52 Sepsis due to Pseudomonas (principal); J15.1 Pneumonia due to Pseudomonas; J18.9 Pneumonia, unspecified organism; J96.01 Acute respiratory failure with hypoxia; J69.0 Pneumonitis due to inhalation of food and vomit; J96.21 Acute and chronic respiratory failure with hypoxia; R65.21 Severe sepsis with septic shock; N17.9 Acute kidney failure, unspecified; B38.9 Coccidioidomycosis, unspecified; E87.4 Mixed disorder of acid-base balance; K94.22 Gastrostomy infection; L03.311 Cellulitis of abdominal wall; Z16.11 Resistance to penicillins; Z16.24 Resistance to multiple antibiotics; N13.6 Pyonephrosis; G80.9 Cerebral palsy, unspecified; Z79.4 Long term (current) use of insulin; E11.65 Type 2 diabetes mellitus with hyperglycemia; I95.9 Hypotension, unspecified; Z74.01 Bed confinement status; E78.5 Hyperlipidemia, unspecified; I10 Essential (primary) hypertension; N20.0 Calculus of kidney; R62.7 Adult failure to thrive; Z66 Do not resuscitate; Z87.440 Personal history of urinary (tract) infections
CPT/HCPCS: 36415; 36600; 51701; 71045; 71250; 76770; 80048; 80053; 80069; 80202; 81001; 82040; 82728; 82803; 83036; 83540; 83550; 83605; 83615; 83690; 83735; 83880; 84100; 84145; 84295; 84484; 85014; 85018; 85025; 85610; 85730; 86635; 86850; 86900; 86901; 87040; 87077; 87081; 87086; 87186; 87205; 87633; 87635; 93005; 93225; 94640; 94667; 96365; 96366; 99284; J1644; J1815; J2185; J2543; J3373; J3475; J3480; J3490; J7030; J7050; J7070; J7120; A9270